=== PATIENT | female | born 1960 | race Caucasian/White ===

== ENCOUNTER 2016-06-11 14:33 | Inpatient (IN) | payer OTHER ==
[~2016-06-11] VITALS: Ht 177.8 cm; Wt 131.3 kg
[~2016-06-11 14:33] MED LIST: ADV250INH INH; ALDA50TA2 PO; BACITAB3 PO; CHIL1CHW5 PO; CIPR25SS OR; CYCL10TA PO; ETOD30CA PO; FURO1TAB15 PO; GABA300C3 PO; HARV1TAB PO; KEFL500C7 PO; LACT10SO29 PO; LACT10SO8 OR; LACT20EL PO; LASI40TA PO; LEVO125T3 PO; LEVO150T9 PO; LEVO200T4 PO; LEVO25TA5 PO; LEVO300T3 PO; MYCOSTATIN; OXYB5TA PO; OXYB5TAB5 PO; PRAZ2CAP PO; PRED10TA PO; PRIL20CA9 PO; PRIS100T PO; RIBA200T2 PO; SERT-141 PO; SPIR50TA2 PO; SYNT150T PO; XIFA550T PO
--- NOTE | 2016-06-11 15:34 | REP ---
Chest one-view HISTORY: Chest pain Comparison: 05/24/2016 The lungs are clear. The heart is normal in size. The pulmonary vasculature is normal in appearance. Impression: No acute disease. Signed by Rajeev Harrell MD 06/11/2016 03:26 P
[2016-06-11 16:34] LABS: DIFF SLIDE NUMBER 209; MEAN CORPUSCULAR HEMOGLOBIN 35.9 pg (27.0-33.0); MEAN CORPUSCULAR HGB CONC 32.5 g/dl (32.0-36.5); MEAN CORPUSCULAR VOLUME 110.5 fl (80.0-96.0); RED CELL DISTRIBUTION WIDTH 13.7 % (11.5-14.5); WHITE BLOOD COUNT 3.2 K/mm3 (4.0-10.0)
[2016-06-11 16:35] LABS: ALBUMIN 2.3 GM/DL (3.2-5.2); ALBUMIN/GLOBULIN RATIO 0.52 (1.00-1.93); ALKALINE PHOSPHATASE 128 U/L (45-117); ALT/SGPT 16 U/L (12-78); ANION GAP 8 MEQ/L (8-16); AST/SGOT 20 U/L (15-37); BILIRUBIN,TOTAL 5.6 MG/DL (0.2-1.0); BLOOD UREA NITROGEN 29 MG/DL (7-18); CALCIUM LEVEL 8.8 MG/DL (8.5-10.1); CARBON DIOXIDE LEVEL 30 MEQ/L (21-32); CHLORIDE LEVEL 105 MEQ/L (98-107); CREATININE FOR GFR 1.89 MG/DL (0.55-1.02); GLOMERULAR FILTRATION RATE 29.2 (>51); GLUCOSE, FASTING 108 MG/DL (70-105); PLATELET COUNT, AUTOMATED 85 k/mm3 (150-450); POTASSIUM SERUM 4.2 MEQ/L (3.5-5.1); SODIUM LEVEL 143 MEQ/L (136-145); TOTAL PROTEIN 6.7 GM/DL (6.4-8.2)
[2016-06-11] MEDS ORDERED: fentaNYL 100 MCG/2 ML INJECTION (J3010) As Ordered ONE (16:45)
[2016-06-11 17:08] LABS: EOSINOPHILS 6 % (0-5)
[2016-06-11] MEDS ORDERED: LACT10SO29 PO (17:34)
[2016-06-11] MEDS ORDERED: ETOD30CA PO (17:34)
[2016-06-11] MEDS ORDERED: TORS10TA3 PO (17:34)
[2016-06-11] MEDS: NS 1,000 ML IV SCH (17:34)
[2016-06-11] MEDS ORDERED: CARV3.12 PO (17:34)
[2016-06-11 17:38] LABS: MAGNESIUM LEVEL 1.9 MG/DL (1.8-2.4)
[2016-06-11 17:39] LABS: INR 1.64
[2016-06-11] MEDS ORDERED: ACETAMINOPHEN TAB 650MG DOSE (2X325MG) PO PRN (17:45)
[2016-06-11] MEDS ORDERED: ONDANSETRON 4MG/2ML VIAL (J2405) IV PRN (17:45)
[2016-06-11] MEDS ORDERED: LACTULOSE 20 GM/30 ML SYRUP UD PO SCH (21:00)
[2016-06-11] MEDS: PRAZOSIN 1 MG CAP PO SCH (21:00)
--- NOTE | 2016-06-11 21:25 | HPE ---
DATE OF ADMISSION: 06/11/2016 TIME PATIENT WAS SEEN: 1700 hours Patient's primary care provider is Dr. Goode. CHIEF COMPLAINT: Fall and broke left ankle. HISTORY OF THE PRESENT ILLNESS: A 56-year-old female with a past medical history of hepatic encephalopathy, cirrhosis and alcohol use history, hepatitis C, currently receiving treatment, pancytopenia, hyperbilirubinemia, thyroid nodule, undergoing workup, anxiety, post-traumatic stress disorder (PTSD), tobacco abuse, overactive bladder, peripheral vascular disease and obesity, presented with fall this afternoon and broke her left ankle. Per patient, she has been feeling weak for the past few weeks after discharge home earlier this month from hepatic encephalopathy. The patient stated that she walked a few steps and then she felt dizzy and weakness of the legs, then she felt like she was going to pass out and she fell. She twisted her left ankle and landed on the right side. At this time, the patient's daughter, whose name is Ericka Bustamante, came over to help her to stand up, and she could not stand up. After about 15 minutes, she passed out completely for a few minutes, then she woke up subsequently. According to the patient, she has been taking lactulose faithfully and about 3 weeks ago, she was started on Harvoni for her hepatitis C and as per patient, she has been drinking plenty of water; however, she has not been eating much over the past few weeks. She is mostly bed-bound due to she has been feeling tired for many weeks. She also reports to 14 pounds of weight loss over the past several months. Otherwise, the patient denies any fever. Admits to chronic chills. Denies any trouble breathing, any chest pain, any abdominal pain, nausea, vomiting or constipation. She does have diarrhea constantly from lactulose use. Denies any blood in the stool, however. ALLERGIES: The patient is allergic to PENICILLIN which gives her anaphylactic response. She is also allergic to SULFA DRUGS which gives her hives. However, she could not go into details. HOME MEDICATIONS: Include: - carvedilol 3.125 mg one tablet by mouth twice a day - Pristiq 100 mg one tablet by mouth daily - etodolac 300 mg one tablet by mouth three times a day - gabapentin 300 mg one tablet by mouth nightly - Harvoni 90-400 mg one tablet by mouth daily - lactulose 30 mL by mouth four times a day - Synthroid 300 mcg one tablet by mouth daily - oxybutynin 5 mg one tablet by mouth twice a day - prazosin 2 mg one tablet by mouth nightly - ribavirin 600 mg one tablet by mouth twice a day - rifaximin 550 mg one tablet by mouth twice a day - torsemide 10 mg one tablet by mouth twice a day PAST MEDICAL HISTORY: Pancytopenia. Hyperbilirubinemia. Recent thyroid nodule, undergoing workup on the right side. Anxiety. Depression. Cirrhosis with alcohol use history. Hepatitis C. Hypothyroidism. PTSD. Tobacco abuse. Overactive bladder. Peripheral vascular disease. Obesity. Lower extremity edema. PAST SURGICAL HISTORY: Laparoscopic cholecystectomy. Hysterectomy. Bartholin gland drainage. SOCIAL HISTORY: The patient used to be an alcoholic, last alcohol use was 3 months ago. Still smokes about six cigarettes a day for the past 30 years. The patient also used to abuse illicit drugs. However, she has not used any illicit drugs for at least a few years. FAMILY HISTORY: Mother had glaucoma and congestive heart failure (CHF).Father had a heart problem and had a pacemaker. REVIEW OF SYSTEMS: GENERAL: The patient had weight loss of about 14 pounds over the past few months. Denies any fever. Admits to chills. Admits to not having a good appetite for the past few weeks. However, she states that she is drinking plenty of water. Denies any recent traveling or any sick contact. HEENT: The patient denies any changes with vision, smell, hearing or taste. Denies any sore throat. Admits to coughing a week ago. CARDIOVASCULAR: Denies any chest pain or trouble breathing. PULMONARY: Denies any trouble breathing. GASTROINTESTINAL: Denies any abdominal pains, nausea, vomiting or constipation. Admits to diarrhea. Denies any blood in the stool. GENITOURINARY: Denies any problem with urination; however, she does admit to urinating less than usual. Denies any blood in the urine. MUSCULOSKELETAL: Admits to chronic back pain. ENDOCRINE: Admits to hypothyroidism and feeling chills all the time. Denies any diabetes. HEMATOLOGY/ONCOLOGY: Denies any bruising anywhere. Denies any bleeding anywhere. SKIN: Denies any rash or ulceration. The patient admits to a thyroid nodule on the right side, undergoing workup. PSYCHIATRIC: Admits to anxiety, depression and PTSD. NEUROLOGIC: Denies any weakness on any one side of her body. Admits to bilateral leg weakness. Denies any change of sensations. PHYSICAL EXAMINATION: VITAL SIGNS: Blood pressure 102/50, pulse 59, respirations 21, temperature 97.1 with oxygen saturating at 97% on room air. Weight was 134 kg. Height was 177.8 cm. GENERAL: The patient is a morbidly obese elderly female who was alert, awake, oriented times three, appears to be in mild distress, resting comfortably in her bed, also appears to be jaundiced. HEENT: Normocephalic, atraumatic. Extraocular motor intact. Mucosa moist. The patient does have scleral icterus. NECK: Supple. No palpable neck lymphadenopathy. CARDIOVASCULAR: Regular rate and rhythm. S1, S2. Difficult to auscultate due to body habitus. LUNGS: Clear to auscultation bilaterally. No wheezing, rales, or rhonchi. Appears to have some degree of increased AP diameter. ABDOMEN: Obese. Positive bowel sounds, soft, nontender, nondistended. No peritoneal signs. No ecchymosis. EXTREMITIES: The patient does have some nonpitting edema of the left ankle, and the patient does have a venous stasis ulcer of bilateral ankle as well and the left ankle has reduced range of motion. However, posterior pedal and anterior tibia pulses were palpable bilaterally. SKIN: Warm and dry. NEUROLOGICAL: The patient does have significant asterixis. LABORATORY DATA: WBC 3.2, hemoglobin 11.8, hematocrit 36.3 with a platelet count of 85, MCV of 110.5. Chemistry: Sodium 143, potassium 4.2, chloride 105, bicarbonate 30, BUN 29,creatinine 1.89 with a GFR of 29.2 and fasting glucose of 108. Lactic acid was 3, phosphorus 5, elevated magnesium 1.9, total bilirubin 5.6, direct bilirubin 3 , AST 20, ALT 16, alkaline phosphatase 128, ammonia level was 37, total CK 51, CK-MB 1, troponin less than 0.02, protein 6.7, albumin was only 2.3. PT 19.5, INR was 1.64. No culture. The patient had a portable chest x-ray in the emergency room, shows no acute disease. The patient also had a foot x-ray, ankle x-ray and knee x-ray in the emergency room. It shows that the patient has a fibular fracture on the left side and also possible medial and posterior malleolus fracture. The patient also had a CT head. Did not show any acute findings. ASSESSMENT AND PLAN: A 56-year-old female with a past medical history of hepatic encephalopathy, cirrhosis possibly from alcohol usage, also hepatitis C, hypothyroidism, pancytopenia, hyperbilirubinemia, recently diagnosed thyroid nodule, anxiety, post-traumatic stress disorder, tobacco abuse, overactive bladder, peripheral vascular disease and obesity, also lower extremity edema, presented with: 1. Presyncope and fall, likely secondary to dehydration and prerenal azotemia and also contributed by metabolic encephalopathy from renal failure as well as hepatic encephalopathy. CT of the head did not show any acute findings. EKG did not show any ST elevation or any arrhythmia. Will continue neurologic checks every [address] the patient in a cardiac telemetry monitoring unit and will investigate cause for patient's presyncope. Will continue to obtain orthostatic vital signs and continue to monitor the patient. Check orthostatics and echo. 2. Left ankle fracture. X-ray shows the patient has a left fibula and possible medial and posterior malleolus fracture. Emergency room has plans to place a posterior splint and Dr. Astudillo from orthopedic surgery has been consulted and will round on the patient. At this point, will control pain with morphine 2 mg every 4 hours and continue to monitor the patient. 3. Hypotension. The patient's blood pressure at home systolic was usually more than 130. However, the patient's blood pressure in the emergency room was 102. Therefore, will hold the patient's carvedilol and torsemide and continue to monitor the patient. 4. Acute kidney injury with a creatinine of 1.89. Baseline creatinine is around 1. Likely secondary to prerenal azotemia. Will also calculate fractional excretion of sodium (FENa). Currently will hold carvedilol and torsemide and will reduce lactulose from four times a day to twice a day and will continue to trend the patient's renal function and monitor patient's intake and output. Due the patient has an ankle fracture and need for critical monitoring, will insert a Castaneda for comfort and also better monitoring. Also, will continue the patient on IV fluid at a rate of 80 mL per hour. 5. Pancytopenia with a WBC of 3.2. Hemoglobin 11.8, hematocrit 36.3 and platelet count of 85, MCV 110, which is likely secondary to cirrhosis. Will continue to monitor. Will obtain fecal occult blood to rule out other etiologies for anemia. 6. Hyperbilirubinemia with a total bilirubin of 5.6, direct bilirubin of 3. It is likely secondary to cirrhosis. Will continue to monitor and continue the patient on home medication. 7. Hyperammonemia with ammonia level of 37. Continue lactulose at a lower dose due to acute kidney injury at a rate of twice per day from four times per day and continue to monitor the patient. Patient reports many episodes of diarrhea daily while on her current dose of lactulose. 8. Anxiety/depression. Continue home medications. 9. Cirrhosis. Likely secondary to alcohol usage. Also contributed by hepatitis C. Will continue to monitor and continue home medications. 10. Hepatitis C. Currently under treatment with Harvoni. Will continue home medication Harvoni and also ribavirin and continue to monitor the patient. 11. Hypothyroidism. Continue home Synthroid. 12. Post-traumatic stress disorder. Continue home medication. 13. Tobacco abuse. The patient refuses nicotine patch. Will continue to monitor. 14. Overactive bladder. The patient will have a Castaneda. Therefore, oxybutynin has been discontinued for now, which could also contribute to the patient's dizziness and confusion. 15. Peripheral vascular disease. Continue to monitor. Stable. 16. Obesity and snoring at night. Will continue to monitor the patient for any signs of obstructive sleep apnea. The patient may need outpatient workup for obstructive sleep apnea if it has not been worked up already. 17. Deep vein thrombosis (DVT) prophylaxis. Sequential compression device (SCD) on the right side. The patient has thrombocytopenia. Therefore, no chemical prophylaxis was started. DISPOSITION: Will continue to monitor the patient's renal function, continue gentle hydration and will monitor the patient's ammonia level and rule out etiologies for the patient's presyncope. The patient has been discussed with attending doctor, Dr. Shafer. My preceptor for this patient encounter was Dr. Shafer. The preceptor was physically present in the building during the encounter and was fully available. As needed, all aspects of the patient interview, examination, medical decision making process, and medical care plan development were reviewed and approved by the preceptor. The preceptor is aware and concurs with the plan as stated in the body of this note and will attest to such by his/her co-signature. PRAKASH
--- NOTE | 2016-06-11 21:31 | EDDOCDS ---
Physician Documentation [facility] Name: Mirian Ibarra Age: 56 yrs Sex: Female : 1960 Arrival Date: 06/11/2016 Time: 14:33 Bed 12 Private MD: Aubrey Goode MD Disposition: 06/11/16 17:03 Hospitalization ordered by Shahrzad Shafer for Inpatient Admission. Preliminary diagnosis are Acute kidney failure, Syncope and collapse, Comminuted fracture of shaft of fibula. - Bed requested for PCU. - Status is Inpatient Admission. jp6 - Condition is Stable. - Problem is new. - Symptoms have improved. Historical: - Allergies: PENICILLINS (Anaphylaxis); SULFA (SULFONAMIDES) (Unknown); - Home Meds: 1. carvedilol 3.125 mg oral tab 1 tab every 12 hours 2. levothyroxine 300 mcg Oral tab once daily 3. Harvoni 90-400 mg oral tab 1 tab once daily 4. Xifaxan 550 mg oral tab 1 tab 2 times per day 5. Pristiq 100 mg Oral Tb24 1 tab once daily 6. ribavirin oral 3 caps 2 times per day 7. gabapentin 300 mg Oral tab 300 mg daily 8. oxybutynin chloride 5 mg Oral tab 1 tab 2 times per day 9. Lactulose Oral Unknown 3 times per day 10. torsemide 20 mg oral tab 1 tab bid 11. etodolac 300 mg Oral cap 1 cap 3 times per day 12. prazosin 2 mg Oral cap 1 cap - PMHx: Anxiety; Cirrhosis; Depression; Hepatitis C; Hypothyroidism; PTSD; - PSHx: Cholecystectomy; Hysterectomy; Bartholin Gland drained; - Social history: No barriers to communication noted, The patient speaks fluent Greek, Smoking status: Patient uses tobacco products, heavy tobacco smoker. - Family history: Not pertinent. - : The pt / caregiver states he / she is not on anticoagulants. Home medication list is obtained from the patient. - Exposure Risk Screening:: None identified. Vital Signs: 06/11 14:57 BP 102 / 50; Pulse 59; Resp 21; Temp 97.1(O); Pulse Ox 97% ; Weight 134.72 kg / 297.01 jmk lbs; Height 5 ft. 10 in. (177.80 cm) (R); Pain 10/10; 17:04 BP 111 / 54 (auto/); ml6 17:04 Pulse 60 MON; Resp 18; Pulse Ox 92% on R/A; ml6 17:34 BP 110 / 78 (auto/); ml6 17:34 Pulse 62 MON; Resp 18; Pulse Ox 95% on R/A; ml6 18:04 BP 115 / 58 (auto/); ml6 18:04 Pulse 64 MON; Resp 18; Pulse Ox 96% on R/A; ml6 18:34 BP 113 / 55 (auto/); ml6 18:34 Pulse 64 MON; Resp 18; Pulse Ox 97% ; ml6 20:09 BP 92 / 55; Pulse 63; Resp 18; Temp 98; Pulse Ox 94% ; Pain 10/10; jlm 14:57 Body Mass Index 42.62 (134.72 kg, 177.80 cm) [facility] Procedures: 19:42 Fracture care/splinting: (Stabilizing Care) Splint applied to left leg and left ankle fg using Orthoglass splint, applied by myself. tech. Examined by me, post splint application: neurovascular intact, brisk capillary refill noted, Patient tolerated well, Posterior and u shaped splint applied by myself with padding, secured with lexus wrap. Patient tolerated well. Neurovascularly intact afterwards. . MDM: 14:36 Corn Cooker/Pulse Ox/q 15 min VS ordered. fg 14:36 Accucheck ordered. fg 14:36 IV Saline Lock ordered. fg 14:37 CBC with Diff Ordered. EDMS 14:37 Liver Profile Ordered. EDMS 14:37 MED Profile Ordered. EDMS 14:38 ECG WITH READING ER PHYS+CARDIAG ordered. EDMS 14:55 Chest, 1 View Ordered. EDMS 14:56 Ankle, Complete Ordered. EDMS 14:57 Foot, (AP\E\lat) Ordered. EDMS 15:01 CARDIAC INJURY PROFILE Ordered. EDMS 15:01 TROPONIN Ordered. EDMS 15:05 Knee, (AP\E\Lat) Ordered. EDMS 15:30 Financial registration complete. gjb 15:32 [facility] [place] Payment Agreement was scanned into [employer] and attached to record. gjb 16:31 fentaNYL (PF) 25 mcg IVP once ordered. fg 16:31 NS 0.9% 500 ml IV at bolus once ordered. fg 16:37 DIFFERENTIAL NO CHARGE Ordered. EDMS 17:01 NS 0.9% 1000 ml IV at bolus once ordered. fg 17:02 CT Head Without Contrast Ordered. EDMS 17:04 NS 0.9% 500 ml IV at bolus once ordered. fg 17:24 AMMONIA Ordered. EDMS 17:25 PROTHROMBIN TIME PROFILE\E\INR Ordered. EDMS 17:25 LACTIC ACID LEVEL, LACTATE Ordered. EDMS 17:25 URINALYSIS Ordered. EDMS 17:25 URINE CULTURE Ordered. EDMS 17:25 RENAL US Ordered. EDMS 17:27 SODIUM,RANDOM URINE Ordered. EDMS 17:27 CREATININE,RANDOM URINE Ordered. EDMS 17:38 OTHER CUSTOM DIETS ordered. EDMS 18:15 Admission / Observation Status ordered. EDMS 18:56 AMMONIA Ordered. EDMS 19:02 THYROID STIMULATING HORMONE Ordered. EDMS 19:31 COMPLETE COMPHRENSIVE METABOLI Ordered. EDMS 19:31 CBC WITH DIFFERENTIAL Ordered. EDMS 19:31 AMMONIA Ordered. EDMS 20:34 Castaneda ordered. jp6 20:54 NS 0.9% 1000 ml IV at 80 mL/hr continuous ordered. jp6 Administered Medications: 16:51 Drug: fentaNYL (PF) 25 mcg [fentanyl (PF) 50 mcg/mL injection solution (0.5 mL)] Route: ml6 IVP; Site: right antecubital; 17:04 Drug: NS 0.9% 1000 ml [sodium chloride 0.9 % intravenous solution] Route: IV; Rate: jmk bolus; Site: right antecubital; 18:56 Follow up: IV Status: Completed infusion; Infusion discontinued; IV Intake: 1000ml ml6 17:05 Not Given (Duplicate Order): NS 0.9% 500 ml IV at bolus once fg 20:54 Drug: NS 0.9% 1000 ml [sodium chloride 0.9 % intravenous solution] Route: IV; Rate: 80 jp6 mL/hr; Site: right antecubital; Signatures: Dispatcher [employer] EDMS Jonna Soto, ELECTRICAL AUTOMATION ENGINEER ELECTRICAL AUTOMATION ENGINEER [id number] Srinath Archuleta,RN RN [id number] Claribel Rosas MD MD fg Beck, Gabriela gjb Palmer, Jessica, RN RN jp6 Hernando Noonan RN, Matthew RN ml6 The chart was reviewed and I authenticate all verbal orders and agree with the evaluation and treatment provided.Corrections: (The following items were deleted from the chart) 15:01 14:54 CARDIAC INJURY PROFILE+LAB ordered. EDMS EDMS 15:01 14:54 TROPONIN+LAB ordered. EDMS EDMS 15:12 14:36 Orthostatic VS ordered. fg ml6 15:15 15:02 Ankle, complete+XR ordered. EDMS EDMS 17:32 17:25 MAGNESIUM LEVEL ordered. EDMS EDMS 17:32 17:25 PHOSPHOROUS LEVEL ordered. EDMS EDMS 19:02 18:56 THYROID STIMULATING HORMONE ordered. EDMS EDMS Attachments: 15:32 [facility] Payment Agreement gjb [email or web address]
--- NOTE | 2016-06-11 21:31 | EDDOCDS ---
Nurse's Notes [facility] Name: Mirian Ibarra Age: 56 yrs Sex: Female : 1960 Arrival Date: 06/11/2016 Time: 14:33 Bed 12 Private MD: Aubrey Goode MD Diagnosis: Acute kidney failure;Syncope and collapse;Comminuted fracture of shaft of fibula Presentation: 06/11 14:43 Presenting complaint: Patient states: "I got dizzy and I fell. It felt like I was gonna mb9 pass out". pt complains of pain to left ankle. pt reports loss of consciousness. Status: Patient is not a information services consultant or dependent. Suicide/Homicide risk assessment- the patient denies having any suicidal and/or homicidal ideations. Transition of care: patient was not received from another setting of care. 14:43 Acuity: ANICETO Level 3 mb9 14:43 Method Of Arrival: Ambulance mb9 15:02 Adult Sepsis Screening: The patient does not have new or worsening altered mentation. mb9 Patient's respiratory rate is less than 22. Systolic blood pressure is greater than 100. Patient has a qSOFA score of 0- Negative Sepsis Screen. Acuity level changed due to. Triage Assessment: 14:43 General: Appears unkempt. Pain: Location: left lateral ankle Pain currently is 10 out mb9 of 10 on a pain scale. Neurological: Reports numbness weakness headache. Neurological: Reports dizziness. Respiratory: Airway is patent Respiratory effort is even, unlabored. 15:02 HIV screening NA for this visit Offered previously. mb9 Historical: - Allergies: PENICILLINS (Anaphylaxis); SULFA (SULFONAMIDES) (Unknown); - Home Meds: 1. carvedilol 3.125 mg oral tab 1 tab every 12 hours 2. levothyroxine 300 mcg Oral tab once daily 3. Harvoni 90-400 mg oral tab 1 tab once daily 4. Xifaxan 550 mg oral tab 1 tab 2 times per day 5. Pristiq 100 mg Oral Tb24 1 tab once daily 6. ribavirin oral 3 caps 2 times per day 7. gabapentin 300 mg Oral tab 300 mg daily 8. oxybutynin chloride 5 mg Oral tab 1 tab 2 times per day 9. Lactulose Oral Unknown 3 times per day 10. torsemide 20 mg oral tab 1 tab bid 11. etodolac 300 mg Oral cap 1 cap 3 times per day 12. prazosin 2 mg Oral cap 1 cap - PMHx: Anxiety; Cirrhosis; Depression; Hepatitis C; Hypothyroidism; PTSD; - PSHx: Cholecystectomy; Hysterectomy; Bartholin Gland drained; - Social history: No barriers to communication noted, The patient speaks fluent Tongan, Smoking status: Patient uses tobacco products, heavy tobacco smoker. - Family history: Not pertinent. - : The pt / caregiver states he / she is not on anticoagulants. Home medication list is obtained from the patient. - Exposure Risk Screening:: None identified. Screenin:09 Screening information is obtained from the patient. Fall risk: No risks identified. ml6 Assistance ADL's: requires no assistance with activities of daily living. Abuse/DV Screen: The patient / caregiver reports he/she is: not in a situation that causes fear, pain or injury. Nutritional screening: No deficits noted. Advance Directives: Currently, there is. Advance Directives: Currently, there is no health care proxy. home support is adequate. Assessment: 15:15 General: Appears in no apparent distress, Behavior is anxious, cooperative. Pain: ml6 Location: left knee, anterior aspect of left ankle and dorsum of left foot Pain currently is 6 out of 10 on a pain scale. Pain does not radiate. Quality of pain is described as aching, Pain began 4 hours ago Is continuous Alleviated by nothing. Aggravated by increased activity. Neurological: No deficits noted. Level of Consciousness is awake, alert, Oriented to person, place, time. Cardiovascular: No deficits noted. Capillary refill < 3 seconds is brisk. Musculoskeletal: Circulation, motion, and sensation intact Capillary refill < 3 seconds is brisk in bilateral fingers toes Range of motion limited in left hip, left knee and left ankle No deformity noted Swelling present in left knee, anterior aspect of left ankle and dorsum of left foot. 16:20 Reassessment: Patient appears in no apparent distress at this time. Patient denies pain ml6 at this time. Patient states feeling better. Patient states symptoms have improved. 17:20 Reassessment: Patient appears in no apparent distress at this time. Patient denies pain ml6 at this time. Patient states feeling better. Patient states symptoms have improved. 18:21 General: Appears in no apparent distress, Behavior is appropriate for age, cooperative. ml6 Pain: Denies pain. Neurological: No deficits noted. Level of Consciousness is awake, alert, Oriented to person, place, time. Cardiovascular: No deficits noted. Respiratory: No deficits noted. 19:45 Reassessment: Patient appears in no apparent distress at this time. General: Appears in jp6 no apparent distress, obese, Behavior is appropriate for age, cooperative, drowsy. Pain: Location: left leg Pain currently is 5 out of 10 on a pain scale. At worst was 10 out of 10 on a pain scale. Noted to be droswy. Neurological: No deficits noted. Level of Consciousness is awake, alert, Oriented to person, place, time. EENT: No deficits noted. Cardiovascular: No deficits noted. Capillary refill < 3 seconds. Respiratory: No deficits noted. Airway is patent Respiratory effort is even, unlabored, Respiratory pattern is regular, symmetrical, Breath sounds are clear. GI: Abdomen is obese, Bowel sounds present X 4 quads. : Castaneda in place. Derm: Skin is juan carlos Skin temperature is warm. Musculoskeletal: Circulation, motion, and sensation intact Capillary refill < 3 seconds is brisk in bilateral toes Range of motion limited in left leg. Vital Signs: 14:57 BP 102 / 50; Pulse 59; Resp 21; Temp 97.1(O); Pulse Ox 97% ; Weight 134.72 kg; Height 5 jmk ft. 10 in. (177.80 cm) (R); Pain 10/10; 17:04 BP 111 / 54 (auto/); ml6 17:04 Pulse 60 MON; Resp 18; Pulse Ox 92% on R/A; ml6 17:34 BP 110 / 78 (auto/); ml6 17:34 Pulse 62 MON; Resp 18; Pulse Ox 95% on R/A; ml6 18:04 BP 115 / 58 (auto/); ml6 18:04 Pulse 64 MON; Resp 18; Pulse Ox 96% on R/A; ml6 18:34 BP 113 / 55 (auto/); ml6 18:34 Pulse 64 MON; Resp 18; Pulse Ox 97% ; ml6 20:09 BP 92 / 55; Pulse 63; Resp 18; Temp 98; Pulse Ox 94% ; Pain 10/10; jlm 14:57 Body Mass Index 42.62 (134.72 kg, 177.80 cm) jmk Vitals: 14:43 Log In Time N/A - ambulance arrival. mb9 ED Course: 14:34 Patient visited by Abiodun Villarreal PCA. jlf 14:34 Aubrey Goode is Private Physician. jlf 14:34 Patient moved to Waiting jlf 14:35 Patient moved to 12 jlf 14:37 Claribel Rosas MD is Attending Physician. fg 14:38 Patient visited by Claribel Rosas MD. fg 14:44 Triage Initiated mb9 15:12 Patient visited by Kayce Levi RN. ttb 15:12 Patient moved to Radiology ml6 15:30 EKG done. (by ED staff). Reviewed by Claribel Rosas MD. dem1 15:32 [facility] [place] was [place] into [employer] and attached to record. gjb 15:33 Patient moved to 12 tmb 15:34 Patient visited by Elisa Godfrey. dem1 15:37 Chest, 1 View Returned. EDMS 15:49 Patient visited by Brandon Tena, KAREN. ml6 16:08 The patient / caregiver is instructed regarding the plan of care and ED course. Cardiac ml6 monitor on. Pulse ox on. NIBP on. 16:08 Inserted peripheral IV: 18gauge IV in right antecubital area and blood collected. ml6 Patient tolerated the procedure well. No procedures done that require assistance. Labs drawn. (by ED staff). Sent per order to lab. 16:43 Patient visited by Brandon Tena, KAREN. ml6 16:51 DIFFERENTIAL NO CHARGE Sent. ml6 17:01 Patient visited by Brandon Tena, KAREN. ml6 17:02 Shahrzad Shafer is Hospitalizing Provider. fg 17:51 Patient visited by Brandon Tena, KAREN. ml6 19:01 Patient moved to Ultrasound am17 19:50 Nina Gilliam,RN is Primary Nurse. jp6 20:10 Patient visited by Nessa Head, Director Marketing. jlm 20:32 URINE CULTURE Sent. jp6 20:32 URINALYSIS Sent. jp6 20:36 Patient moved to 12 ng1 Administered Medications: 16:51 Drug: fentaNYL (PF) 25 mcg [fentanyl (PF) 50 mcg/mL injection solution (0.5 mL)] Route: ml6 IVP; Site: right antecubital; 17:04 Drug: NS 0.9% 1000 ml [sodium chloride 0.9 % intravenous solution] Route: IV; Rate: jmk bolus; Site: right antecubital; 18:56 Follow up: IV Status: Completed infusion; Infusion discontinued; IV Intake: 1000ml ml6 17:05 Not Given (Duplicate Order): NS 0.9% 500 ml IV at bolus once fg 20:54 Drug: NS 0.9% 1000 ml [sodium chloride 0.9 % intravenous solution] Route: IV; Rate: 80 jp6 mL/hr; Site: right antecubital; Intake: 18:56 IV: 1000.00ml; Total: 1000.00ml. ml6 Order Results: Lab Order: CBC with Diff; SPEC'M 06/11/16 16:05 Test: WHITE BLOOD COUNT; Value: 3.2; Range: 4.0-10.0; Abnormal: Below low normal; Units: K/mm3; Status: F Test: RED BLOOD COUNT; Value: 3.28; Range: 4.00-5.40; Abnormal: Below low normal; Units: M/mm3; Status: F Test: HEMOGLOBIN; Value: 11.8; Range: 12.0-16.0; Abnormal: Below low normal; Units: g/dl; Status: F Test: HEMATOCRIT; Value: 36.3; Range: 36.0-47.0; Units: %; Status: F Test: MEAN CORPUSCULAR VOLUME; Value: 110.5; Range: 80.0-96.0; Abnormal: Above high normal; Units: fl; Status: F Test: MEAN CORPUSCULAR HEMOGLOBIN; Value: 35.9; Range: 27.0-33.0; Abnormal: Above high normal; Units: pg; Status: F Test: MEAN CORPUSCULAR HGB CONC; Value: 32.5; Range: 32.0-36.5; Units: g/dl; Status: F Test: RED CELL DISTRIBUTION WIDTH; Value: 13.7; Range: 11.5-14.5; Units: %; Status: F Test: PLATELET COUNT, AUTOMATED; Value: 85; Range: 150-450; Abnormal: Below low normal; Units: k/mm3; Status: F Test: NEUTROPHILS; Value: 61; Range: 35-75; Units: %; Status: F Test: LYMPHOCYTES; Value: 13; Range: 16-52; Abnormal: Below low normal; Units: %; Status: F Test: MONOCYTES; Value: 18; Range: 0-8; Abnormal: Above high normal; Units: %; Status: F Test: EOSINOPHILS; Value: 6; Range: 0-5; Abnormal: Above high normal; Units: %; Status: F Test: ATYPICAL LYMPH; Value: 2; Range: 0-5; Units: %; Status: F Test: MACROCYTOSIS; Value: 2+; Status: F Lab Order: Liver Profile; [facility] 06/11/16 16:05 Test: AST/SGOT; Value: 20; Range: 15-37; Units: U/L; Status: F Test: ALT/SGPT; Value: 16; Range: 12-78; Units: U/L; Status: F Test: ALKALINE PHOSPHATASE; Value: 128; Range: 45-117; Abnormal: Above high normal; Units: U/L; Status: F Test: BILIRUBIN,TOTAL; Value: 5.6; Range: 0.2-1.0; Abnormal: Above high normal; Units: MG/DL; Status: F Test: BILIRUBIN,DIRECT; Value: 3.0; Range: 0.0-0.2; Abnormal: Above high normal; Units: MG/DL; Status: F Test: TOTAL PROTEIN; Value: 6.7; Range: 6.4-8.2; Units: GM/DL; Status: F Test: ALBUMIN; Value: 2.3; Range: 3.2-5.2; Abnormal: Below low normal; Units: GM/DL; Status: F Test: ALBUMIN/GLOBULIN RATIO; Value: 0.52; Range: 1.00-1.93; Abnormal: Below low normal; Status: F Test: THYROID STIMULATING HORMONE; Range: 0.358-3.740; Units: uIU/ML; Status: I Lab Order: MED Profile; [facility] 06/11/16 16:05 Test: GLUCOSE, FASTING; Value: 108; Range: 70-105; Abnormal: Above high normal; Units: MG/DL; Status: F Test: BLOOD UREA NITROGEN; Value: 29; Range: 7-18; Abnormal: Above high normal; Units: MG/DL; Status: F Test: CREATININE FOR GFR; Value: 1.89; Range: 0.55-1.02; Abnormal: Above high normal; Units: MG/DL; Status: F Test: GLOMERULAR FILTRATION RATE; Value: 29.2; Range: >51; Abnormal: Below low normal; Status: F Test: SODIUM LEVEL; Value: 143; Range: 136-145; Units: MEQ/L; Status: F Test: POTASSIUM SERUM; Value: 4.2; Range: 3.5-5.1; Units: MEQ/L; Status: F Test: CHLORIDE LEVEL; Value: 105; Range: 98-107; Units: MEQ/L; Status: F Test: CARBON DIOXIDE LEVEL; Value: 30; Range: 21-32; Units: MEQ/L; Status: F Test: ANION GAP; Value: 8; Range: 8-16; Units: MEQ/L; Status: F Test: CALCIUM LEVEL; Value: 8.8; Range: 8.5-10.1; Units: MG/DL; Status: F Test Note: ; Units are mL/min/1.73 m2 Chronic Kidney Disease Staging per NKF: Stage I & II GFR >=60 Normal to Mildly Decreased Stage III GFR 30-59 Moderately Decreased Stage IV GFR 15-29 Severely Decreased Stage V GFR <15 Very Little GFR Left ESRD GFR <15 on [employer] Lab Order: CARDIAC INJURY PROFILE; SPEC'06/11/16 16:05 Test: CPK CREATINE PHOSPHOKINASE; Value: 51; Range: 26-192; Units: U/L; Status: F Test: CK-MB VALUE MASS; Value: 1.0; Range: 0.0-3.6; Units: NG/ML; Status: F Test: MB/CK RELATIVE INDEX; Value: 1.96; Range: < OR =4; Status: F Test Note: ; DIAGNOSIS CRITERIA MMB ng/ml Relative Index (RI) NON-AMI < or = 5 N/A LLAN[place] ZONE > 5 < or = 4 AMI > 5 > 4 Lab Order: TROPONIN; SPEC'M 06/11/16 16:05 Test: TROPONIN I; Value: < 0.02; Range: < 0.10; Units: NG/ML; Status: F Test Note: ; Troponin I Reference Interval for [employer] LOCI: 99th Percentile= 0.00-0.045 ng/ml Risk Stratification: <= 0.10 ng/ml Decreased Risk for Adverse Clinical Events. 0.10-1.50 ng/ml Increased Risk for Adverse Clinical Events. Evaluation of additional criterion and/or repeat testing in 2-6 hours is suggested to rule out myocardial damage. >= 1.50 ng/ml Indicative of Myocardial Injury. Lab Order: PLATELET ESTIMATE; [facility] 06/11/16 16:05 Test: PLATELET ESTIMATE; Value: DECREASED; Range: NORMAL; Status: F Lab Order: AMMONIA; [facility] 06/11/16 17:39 Test: AMMONIA; Value: 37; Range: <32; Abnormal: Above high normal; Units: uMOL/L; Status: F Lab Order: PROTHROMBIN TIME PROFILE\\E\\INR; [facility] 06/11/16 16:05 Test: PROTHROMBIN TIME; Value: 19.5; Range: 12.3-14.5; Abnormal: Above high normal; Units: SECONDS; Status: F Test: INR; Value: 1.64; Status: F Test Note: ; THERAPUTIC HUMAN INR VALUES INDICATIONS NORMAL RANGES PROPHYLAXIS/TREATMENT OF: VENOUS THROMBOSIS 2.0-3.0 PULMONARY EMBOLISM 2.0-3.0 PREVENTION OF SYSTEMIC EMBOLISM FROM: TISSUE HEART VALVES 2.0-3.0 ACUTE MYOCARDIAL INFARCTION 2.0-3.0 VALVULAR HEART DISEASE 2.0-3.0 ATRIAL FIBRILLATION 2.0-3.0 MECHANICAL VALVES(HIGH RISK) 2.5-3.5 RECURRENT MYOCARDIAL INFARCTION 2.5-3.5 Lab Order: LACTIC ACID LEVEL, LACTATE; [facility] 06/11/16 17:39 Test: LACTIC ACID LEVEL, LACTATE; Value: 3.0; Range: 0.4-2.0; Abnormal: Above upper panic limits; Units: MMOL/L; Status: F Lab Order: URINALYSIS; [facility] 06/11/16 20:29 Test: APPEARANCE, URINE; Value: HAZY; Range: CLEAR; Status: F Test: COLOR, URINE; Value: BRIDGETTE; Range: YELLOW; Status: F Test: PH,URINE; Value: 5.0; Range: 5.0-9.0; Units: UNITS; Status: F Test: SPECIFIC GRAVITY URINE AUTO; Value: 1.010; Range: 1.002-1.035; Status: F Test: PROTEIN, URINE AUTO; Value: NEGATIVE; Range: NEGATIVE; Units: mg/dL; Status: F Test: GLUCOSE, URINE (UA) AUTO; Value: NEGATIVE; Range: NEGATIVE; Units: mg/dL; Status: F Test: KETONE, URINE AUTO; Value: NEGATIVE; Range: NEGATIVE; Units: mg/dL; Status: F Test: UROBILINOGEN, URINE AUTO; Value: 4.0; Range: 0.0-2.0; Abnormal: Above high normal; Units: mg/dL; Status: F Test: BILIRUBIN, URINE AUTO; Value: 1+; Range: NEGATIVE; Abnormal: Above high normal; Status: F Test: NITRITE, URINE AUTO; Value: NEGATIVE; Range: NEGATIVE; Status: F Test: LEUKOCYTE ESTERASE, URINE AUTO; Value: NEGATIVE; Range: NEGATIVE; Status: F Test: BLOOD, URINE BLOOD; Value: NEGATIVE; Range: NEGATIVE; Status: F Test: WBC, URINE AUTO; Value: 1; Range: 0-3; Units: /HPF; Status: F Test: RBC, URINE AUTO; Value: 1; Range: 0-3; Units: /HPF; Status: F Test: BACTERIA, URINE AUTO; Value: NEGATIVE; Range: NEGATIVE; Status: F Test: SQUAMOUS EPITHELIAL CELL UR AU; Value: 1; Range: 0-6; Units: /HPF; Status: F Test: MUCUS, URINE; Value: SMALL; Range: NEGATIVE; Status: F Test: HYALINE CAST, URINE AUTO; Value: 7; Range: 0-1; Units: /LPF; Status: F Lab Order: SODIUM,RANDOM URINE; [facility] 06/11/16 20:29 Test: SODIUM,RANDOM URINE; Value: 57; Units: MEQ/L; Status: F Lab Order: CREATININE,RANDOM URINE; [facility] 06/11/16 20:29 Test: CREATININE,RANDOM URINE; Value: 119.0; Units: MG/DL; Status: F Lab Order: PHOSPHOROUS LEVEL; [facility] 06/11/16 16:05 Test: PHOSPHORUS LEVEL; Value: 5.0; Range: 2.5-4.9; Abnormal: Above high normal; Units: MG/DL; Status: F Lab Order: MAGNESIUM LEVEL; [facility] 06/11/16 16:05 Test: MAGNESIUM LEVEL; Value: 1.9; Range: 1.8-2.4; Units: MG/DL; Status: F Lab Order: THYROID STIMULATING HORMONE; SPEC'M 06/11/16 16:05 Test: THYROID STIMULATING HORMONE; Value: 0.473; Range: 0.358-3.740; Units: uIU/ML; Status: F Radiology Order: Chest, 1 View Test: Chest, 1 View REASON FOR EXAMINATION: Chest Pain; Chest one-view; ; HISTORY: Chest pain; ; Comparison: 05/24/2016; ; The lungs are clear. The heart is normal in size. The pulmonary vasculature is; normal in appearance.; ; Impression: No acute disease.; ; ; Signed by; Rajeev Harrell MD 06/11/2016 03:26 P; Outcome: 17:03 Decision to Hospitalize by Provider. fg 21:00 Discharge Assessment: Patient awake, alert and oriented x 3. No cognitive and/or jp6 functional deficits noted. Patient verbalized understanding of disposition instructions. patient administered narcotics - yes. Patient was admitted to the hospital or transferred to another facility. Admitted to PCU accompanied by nurse, via stretcher, on monitor, with chart. Condition: stable. No special radiology studies were completed. Admission hand-off: Report called to pcu. Property :Personal belongings accompany Pt. 21:01 The following High Risk Discharge criteria are identified: None. jp6 21:30 Patient left the ED. jp6 Signatures: Dispatcher [employer] EDMS Hernando Noonan,RN RN Brandon Johnson RN RN ml6 Elisa Godfrey Teresa RN RN ttb Abiodun Villarreal, REPAIRER RECREATIONAL VEHICLE REPAIRER RECREATIONAL VEHICLE jlf Ashley Valdez am17 Tomas Sharpe [facility] Nessa Head, Director Marketing Unit [employer] Ryan Michael,RN RN [id number] Claribel Rosas MD MD fg Beck, Gabriela gjb Palmer, Jessica,RN RN jp6 Corrections: (The following items were deleted from the chart) 17:04 14:57 BP 102 / 50; Pulse 59bpm; Resp 21bpm; Pulse Ox 97%; 134.72 kg; Height 5 ft. 10 jmk in. Reported; BMI: 42.6; Pain 10/10; mb9 17:04 16:50 NS 0.9% 500 ml IV at bolus in right antecubital ml6 fg MTDD
[2016-06-11 21:35] VITALS: BP 94/50
[2016-06-11] MEDS: MORPHINE 2 MG/ML 1ML SYRINGE IV PRN (23:04)
[2016-06-11] MEDS: rifAXIMin 550 MG TAB (XIFAXAN) PO SCH (23:05)
[2016-06-11] MEDS: RIBAVIRIN 200 MG PO SCH (23:06)
[2016-06-11] MEDS: GABAPENTIN 300 MG CAP PO SCH (23:06)
[2016-06-12] VITALS: BP 96/46
[2016-06-12 04:00] VITALS: BP 100/60
[2016-06-12 05:27] LABS: DIFF SLIDE NUMBER 57; MEAN CORPUSCULAR HEMOGLOBIN 35.1 pg (27.0-33.0); MEAN CORPUSCULAR HGB CONC 31.4 g/dl (32.0-36.5); RED CELL DISTRIBUTION WIDTH 14.7 % (11.5-14.5); WHITE BLOOD COUNT 4.2 K/mm3 (4.0-10.0)
[2016-06-12] MEDS: LEVOTHYROXINE 0.15 MG TAB (150 MCG) PO SCH (05:28)
[2016-06-12] MEDS: NS 1,000 ML IV SCH ×2 (05:29→16:45)
[2016-06-12 05:30] LABS: ALBUMIN 1.8 GM/DL (3.2-5.2); ALBUMIN/GLOBULIN RATIO 0.47 (1.00-1.93); BILIRUBIN,TOTAL 4.2 MG/DL (0.2-1.0); CALCIUM LEVEL 8.4 MG/DL (8.5-10.1); GLOMERULAR FILTRATION RATE 27.3 (>51); PLATELET COUNT, AUTOMATED 85 k/mm3 (150-450); TOTAL PROTEIN 5.6 GM/DL (6.4-8.2)
[2016-06-12 06:55] LABS: ANISOCYTOSIS 1+; EOSINOPHILS 3 % (0-5)
[2016-06-12 07:30] VITALS: BP 101/50
--- NOTE | 2016-06-12 07:49 | REP ---
Left knee series, AP and lateral: 06/11/2016. Clinical history: Trauma, knee pain. Comparison: 09/13/2014. The two views show spurs in the tibial spines, medial and lateral joint margins and the patellofemoral joint representing tricompartment chondromalacia. A small suprapatellar effusion is difficult to exclude. There is no definite loose body or osteochondral defect. There is some very mild chondrocalcinosis in the medial and lateral compartments as before. Impression: 1. 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 No fracture, loose body, osteochondral defect or focal lesion. 2. There is chondrocalcinosis representing CPPD arthritis (pseudogout). Signed by Elisa Amado MD 06/12/2016 07:22 P
--- NOTE | 2016-06-12 07:51 | REP ---
____LEFT ANKLE: There is a nondisplaced oblique fracture of the distal fibula. An ossified density is present inferior to the medial malleolus. This may represent a fracture fragment. A faint linear lucency is present overlying the posterior malleolus that may represent a fracture. There is widening of the medial joint space. An osteophyte is present on the inferior calcaneus. Soft tissue swelling is present. IMPRESSION: 1. Oblique nondisplaced fracture of the distal fibula. 2. There is an ossified density inferior to the medial malleolus that may represent a fracture fragment. 3. Possible fracture of the posterior malleolus. Signed by Rajeev Harrell MD 06/14/2016 08:35 A
--- NOTE | 2016-06-12 07:52 | REP ---
AP AND LATERAL LEFT FOOT: HISTORY: Pain. A faint linear lucency is present overlying the posterior malleolus that may represent a nondisplaced fracture. The joint spaces are normal in appearance. An osteophyte is present on inferior calcaneus. IMPRESSION: Possible posterior malleolus fracture. Signed by Rajeev Harrell MD 06/14/2016 08:35 A
[2016-06-12] MEDS: LACTULOSE 20 GM/30 ML SYRUP UD PO SCH ×6 (08:38→23:23)
[2016-06-12] MEDS: rifAXIMin 550 MG TAB (XIFAXAN) PO SCH ×2 (08:47→20:31)
[2016-06-12] MEDS: DESVENLAFAXINE ER 50 MG TABLET (PRISTIQ) PO SCH (08:47)
[2016-06-12] MEDS: HARVONI PO SCH (08:48)
[2016-06-12] MEDS: RIBAVIRIN 200 MG PO SCH ×2 (08:49→20:31)
--- NOTE | 2016-06-12 10:16 | REP ---
CT BRAIN WITHOUT CONTRAST: 06/11/2016. Clinical history: Patient fell, trauma. Question LOC. Comparison: 05/24/2016, MRI brain 05/19/2015, CT brain 2014. Findings: Standard noncontrast technique was utilized. Ventricles are midline, symmetric and are not dilated. Third and fourth ventricles are also intact. Basal ganglia were symmetric. Some very minimal white matter heterogeneity suggesting small vessel ischemic white matter changes noted. Some minor atrophy is noted, but there is no vascular territory infarct, hemorrhage, mass or mass effect. No extra-axial fluid collection. Brainstem is unremarkable. Cerebellum shows some atrophy and joanna cisterna magna, unchanged. No posterior fossa mass or bleed. Mastoids and visualized sinuses are clear. The skull base and calvarium show no fracture or focal lesion. Impression: 1. Mild diffuse atrophy and white matter changes, stable, without acute infarct, hemorrhage, mass or edema. No extra-axial fluid collection. 2. The skull base and calvarium without fracture or focal lesion. The sinuses and mastoids are clear. Signed by Elias Amado MD 06/12/2016 07:25 P
--- NOTE | 2016-06-12 12:40 | REP ---
BILATERAL RENAL ULTRASOUND COMPLETE: 06/12/2016. Comparison: CT abdomen and pelvis 05/24/2016, renal ultrasound 05/03/2014. Clinical history: Acute renal failure. Findings: There is a Castaneda catheter in place. The bladder is empty and therefore cannot be evaluated. The right kidney is 11.8 x 4.9 x 5.5 cm. The left is 11.8 x 4.2 x 4.8 cm. On the left side, the cortical echogenicity is grossly unremarkable, but the right side shows increased echogenicity of the cortex compared to the adjacent liver suggesting some medical renal disease. No hydronephrosis or hydroureter on either side. No solid mass or stone suggested. The medial aspect of the left kidney shows adjacent rounded anechoic focus with good through transmission. I do not see CT evidence of cyst there last month. Instead there is a dilated left mesenteric vein plexus in this region on CT. Impression: 1. Increased cortical echogenicity of the right kidney without significant atrophy, hydronephrosis, solid or cystic mass. This represents some medical renal disease. No definite stone disease or obstruction. 2. There is a rounded cystic appearance adjacent to the lower pole left kidney and medially, but this appears to represent the dilated venous plexus seen on the mesenteric aspect of the left lower quadrant into the left upper abdomen on the recent abdominal CT scan. Signed by Elias Amado MD 06/12/2016 07:35 P
[2016-06-12 14:00] VITALS: BP 102/48
[2016-06-12] MEDS ORDERED: SODIUM CHLORIDE 0.9% 1000 ML IV ONE (17:00)
--- NOTE | 2016-06-12 19:44 | IPN ---
DATE: 06/12/2016 TIME: This afternoon around 1430 SUBJECTIVE: The patient has been seen and examined at bedside. No acute events overnight. The patient appears to be more drowsy today; however, the patient stated that she feels about the same. However, she has been having some hallucinations which she had in the past. Denies any fever or chills. She denies any chest pain, trouble breathing, abdominal pain, nausea or vomiting, diarrhea or constipation. The patient states that she has not had a bowel movement today. The patient denies any other current new complaints. PHYSICAL EXAMINATION: VITAL SIGNS: Temperature 96.9 with a pulse 65, respirations 18, blood pressure 101/50, oxygen saturating at 94% on room air. GENERAL: The patient is an obese, elderly female who was alert, awake, oriented times three. Does not appear to be in distress. Appears to be drowsy. HEENT: Normocephalic, atraumatic. Extraocular motor intact. Mucosa moist. NECK: Supple. No neck lymphadenopathy. CARDIOVASCULAR: Regular rate and rhythm. S1, S2. Difficult to auscultate due to body habitus. LUNGS: Clear to auscultation bilaterally. No wheezes, rales, or rhonchi. ABDOMEN: Positive bowel sounds. Soft, nontender, nondistended. No peritoneal signs. No ecchymosis. EXTREMITIES: No edema, clubbing or cyanosis. SKIN: Warm and dry. NEUROLOGIC: Cranial nerves II through XII intact. No focal neurological deficit. LABORATORY DATA: Sodium 143, potassium 4, chloride 107, bicarbonate 27, BUN 35, creatinine 2, GFR 27.3, fasting glucose 110, lactic acid this morning was 1.3, calcium 8.4, total bilirubin 4.2, AST 18, ALT 13, alkaline phosphatase 112, ammonia level 67, total protein 5.6. Albumin was only 1.8. MICROBIOLOGY: Urine culture shows no growth. IMAGING: Renal ultrasound shows increased cortical echogenicity of the right kidney without significant atrophy, hydronephrosis, solid or cystic mass. This represents some medical renal disease. Also, there is a rounded cyst appearance adjacent to the lower pole of left kidney and medially, but this appears to represent dilated venous plaques seen on the mesenteric aspect of the left lower quadrant into the left upper abdomen on the recent abdominal CT. ASSESSMENT AND PLAN: A 56-year-old female with past medical history of hepatic encephalopathy, cirrhosis possibly from alcohol usage, also hepatitis C recently undergoing treatment, hypothyroidism, pancytopenia, hyperbilirubinemia, recent diagnosis of thyroid nodule, anxiety, posttraumatic stress disorder (PTSD), tobacco abuse, overactive bladder, peripheral vascular disease and morbid obesity, and lower extremity edema, presented with: 1. Pre-syncope and fall likely secondary to vasovagal from prerenal azotemia. Also, contributed to by metabolic encephalopathy from renal failure and hepatic encephalopathy. CT of the head did not show any acute findings. The patient neurologically has slightly worsened today. The patient showed some hallucination this morning. The patient's ammonia level was also elevated today compared to day prior. We will increase the patient's lactulose level and the patient does have a low albumin, therefore possibly third-spacing. We will give patient albumin through intravenous (IV) to help patient to retain the volume. We will also give the patient 500 mL of normal saline bolus and start the patient on a low-dose maintenance fluid and continue to monitor patient. 2. Left ankle fracture. Orthopedic surgery has been consulted, recommended to continue the cast and continue physical therapy, off load the left leg, and the patient should go out of bed to chair and continue pain management per orthopedic surgery. 3. Hypotension. Blood pressure has been significantly lower than home blood pressure. Continue to hold the carvedilol and torsemide. The patient has been started on a 500 mL normal saline bolus, as well as a maintenance fluid of normal saline at a rate of 60 mL per hour, and continue to monitor. 4. Pancytopenia, currently stable. Will continue to monitor. 5. Hyperbilirubinemia, slightly improving. Continue to monitor. 6. Hyperammonemia, worsening compared to day prior. Currently is 67, and continue to monitor patient. 7. Anxiety/depression. Continue home medications. 8. 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 Continue to monitor and continue home medications. 9. Hepatitis C. Continue home medication Harvoni, and ribavirin, and continue to monitor patient. 10. Hypothyroidism. Continue home Synthroid. 11. Posttraumatic stress disorder (PTSD). Continue home medications. 12. Tobacco abuse. The patient refuses nicotine patch. 13. Overactive bladder. Continue Castaneda for critical monitoring for renal failure. Also due to patient has a broken ankle, it would be more difficult for her to move around. 14. Peripheral vascular disease. Continue to monitor. 15. Obesity and snoring at night. Possible signs for obstructive sleep apnea. The patient may consider outpatient workup. 16. Deep venous thrombosis (DVT) prophylaxis with sequential compression device (SCD) on the right side due to thrombocytopenia, and we will also start patient on heparin 5000 units subcutaneously every eight hours. DISPOSITION: We will continue to monitor patient's renal function. Continue gentle hydration. Continue to monitor patient's ammonia level. Also, due to hypoalbuminemia, we will give the patient albumin and will monitor for signs of third-spacing. The patient has been discussed with attending doctor, Dr. Lund. My preceptor for this patient encounter was Dr. Allyson Lund. The preceptor was physically present in the building during the encounter and was fully available as needed. All aspects of the patient interview, examination, medical decision making process, and medical care plan development were reviewed and approved by the preceptor. The preceptor is aware and concurs with the plan as stated in the body of this note and will attest to such by his/her co-signature. PRAKASH
[2016-06-12] MEDS: GABAPENTIN 300 MG CAP PO SCH (20:31)
[2016-06-12 21:30] VITALS: BP 111/53
[2016-06-12] MEDS: PRAZOSIN 1 MG CAP PO SCH (21:59)
[2016-06-13] MEDS: LACTULOSE 20 GM/30 ML SYRUP UD PO SCH ×3 (06:05→16:53)
[2016-06-13] MEDS: LEVOTHYROXINE 0.15 MG TAB (150 MCG) PO SCH (06:05)
[2016-06-13 06:06] VITALS: BP 131/61
[2016-06-13 06:06] LABS: BASO % 0.8 % (0.0-1.0); EOS # 0.1 K/mm3 (0.0-0.50); EOS % 3.3 % (0.0-3.0); LARGE UNSTAINED CELL # 0.2 K/mm3 (0.0-0.4); LARGE UNSTAINED CELL % 5.2 % (0.0-4.0); LYMPH # 0.6 K/mm3 (1.5-4.5); LYMPH % 16.4 % (24.0-44.0); MEAN CORPUSCULAR HEMOGLOBIN 35.9 pg (27.0-33.0); MEAN CORPUSCULAR HGB CONC 33.1 g/dl (32.0-36.5); MEAN CORPUSCULAR VOLUME 108.5 fl (80.0-96.0); MONO # 0.5 K/mm3 (0.0-0.8); MONO % 13.8 % (0.0-5.0); NEUTROPHILS # 2.2 K/mm3 (1.8-7.7); NEUTROPHILS % 60.5 % (36.0-66.0); RED CELL DISTRIBUTION WIDTH 13.9 % (11.5-14.5); WHITE BLOOD COUNT 3.7 K/mm3 (4.0-10.0)
[2016-06-13 06:07] LABS: PLATELET COUNT, AUTOMATED 68 k/mm3 (150-450)
[2016-06-13] MEDS: NS 1,000 ML IV SCH (06:26)
[2016-06-13 06:37] LABS: ALBUMIN/GLOBULIN RATIO 0.69 (1.00-1.93); BILIRUBIN,TOTAL 4.8 MG/DL (0.2-1.0); CALCIUM LEVEL 8.7 MG/DL (8.5-10.1); CREATININE FOR GFR 1.5 MG/DL (0.55-1.02); GLOMERULAR FILTRATION RATE 38.1 (>51); TOTAL PROTEIN 6.1 GM/DL (6.4-8.2)
[2016-06-13 06:52] LABS: ALBUMIN 2.5 GM/DL (3.2-5.2)
[2016-06-13] MEDS: rifAXIMin 550 MG TAB (XIFAXAN) PO SCH ×2 (08:15→20:18)
[2016-06-13] MEDS: DESVENLAFAXINE ER 50 MG TABLET (PRISTIQ) PO SCH (08:15)
[2016-06-13] MEDS: HARVONI PO SCH (08:15)
[2016-06-13] MEDS: RIBAVIRIN 200 MG PO SCH ×2 (08:15→20:27)
[2016-06-13] MEDS: MORPHINE 2 MG/ML 1ML SYRINGE IV PRN ×2 (08:21→20:33)
--- NOTE | 2016-06-13 10:27 | ECGEPIP ---
Stationary ECG Study [facility] - ED Test Date: 2016-06-11 Pat Name: RAYA PINEDA Department: Room: - Gender: F Senior Administrator Support: fatou : 1960 Requested By: ALMITA Santos Order Number: [id number] Reading MD: Haley Bravo Measurements Intervals [place] Rate: 59 P: 40 W[place]: 138 QRS: -10 QRSD: 93 T: 50 QT: 443 QTc: 439 Interpretive Statements SINUS BRADYCARDIA NSTTW ABNORMALITY SIMILAR 05/24/16 Electronically Signed On 06-13-2016 10:27:34 EST by Haley Bravo
--- NOTE | 2016-06-13 13:27 | CR ---
DATE OF CONSULTATION: 06/12/2016 She is a 56-year-old female admitted for a syncopal episode and a history of renal failure, who sustained a left ankle fracture. On examination, she is comfortable and at the bedside commode with a well-padded and appropriate splint. She is neurovascularly intact with regard to her superficial deep perineal nerves, tibial nerve. Her foot is well-perfused. Her pain is controlled at this time. She does describe pain medially and laterally about her ankle. She has no tenderness to palpation proximally in the limb. She has been compliant with non-weightbearing recommendations so far. X-rays demonstrate SER2 fracture pattern distal fibula with minimal medial clear space widening. IMPRESSION: Left ankle distal fibula fracture. PLAN: Nonoperative management with a splint for the next couple of weeks and then transfer to a cast and continue non-weightbearing until fracture healing for the next 6-8 weeks. She will followup with Dr. Cohen in the orthopedic clinic.
[2016-06-13 14:00] VITALS: BP 102/46
[2016-06-13] MEDS: GABAPENTIN 300 MG CAP PO SCH (20:18)
[2016-06-13] MEDS: PRAZOSIN 1 MG CAP PO SCH (20:19)
[2016-06-13 22:00] VITALS: BP 130/64
--- NOTE | 2016-06-13 22:31 | EDDOCDS ---
Physician Documentation [facility] Name: Mirian Ibarra Age: 56 yrs Sex: Female : 1960 Arrival Date: 06/11/2016 Time: 14:33 Bed 12 Private MD: Aubrey Goode MD Disposition: 06/11/16 17:03 Hospitalization ordered by Shahrzad Shafer for Inpatient Admission. Preliminary diagnosis are Acute kidney failure, Syncope and collapse, Comminuted fracture of shaft of fibula. - Bed requested for PCU. - Status is Inpatient Admission. jp6 - Condition is Stable. - Problem is new. - Symptoms have improved. Historical: - Allergies: PENICILLINS (Anaphylaxis); SULFA (SULFONAMIDES) (Unknown); - Home Meds: 1. carvedilol 3.125 mg oral tab 1 tab every 12 hours 2. levothyroxine 300 mcg Oral tab once daily 3. Harvoni 90-400 mg oral tab 1 tab once daily 4. Xifaxan 550 mg oral tab 1 tab 2 times per day 5. Pristiq 100 mg Oral Tb24 1 tab once daily 6. ribavirin oral 3 caps 2 times per day 7. gabapentin 300 mg Oral tab 300 mg daily 8. oxybutynin chloride 5 mg Oral tab 1 tab 2 times per day 9. Lactulose Oral Unknown 3 times per day 10. torsemide 20 mg oral tab 1 tab bid 11. etodolac 300 mg Oral cap 1 cap 3 times per day 12. prazosin 2 mg Oral cap 1 cap - PMHx: Anxiety; Cirrhosis; Depression; Hepatitis C; Hypothyroidism; PTSD; - PSHx: Cholecystectomy; Hysterectomy; Bartholin Gland drained; - Social history: No barriers to communication noted, The patient speaks fluent Frisian, Smoking status: Patient uses tobacco products, heavy tobacco smoker. - Family history: Not pertinent. - : The pt / caregiver states he / she is not on anticoagulants. Home medication list is obtained from the patient. - Exposure Risk Screening:: None identified. Vital Signs: 06/11 14:57 BP 102 / 50; Pulse 59; Resp 21; Temp 97.1(O); Pulse Ox 97% ; Weight 134.72 kg / 297.01 jmk lbs; Height 5 ft. 10 in. (177.80 cm) (R); Pain 10/10; 17:04 BP 111 / 54 (auto/); ml6 17:04 Pulse 60 MON; Resp 18; Pulse Ox 92% on R/A; ml6 17:34 BP 110 / 78 (auto/); ml6 17:34 Pulse 62 MON; Resp 18; Pulse Ox 95% on R/A; ml6 18:04 BP 115 / 58 (auto/); ml6 18:04 Pulse 64 MON; Resp 18; Pulse Ox 96% on R/A; ml6 18:34 BP 113 / 55 (auto/); ml6 18:34 Pulse 64 MON; Resp 18; Pulse Ox 97% ; ml6 20:09 BP 92 / 55; Pulse 63; Resp 18; Temp 98; Pulse Ox 94% ; Pain 10/10; jlm 14:57 Body Mass Index 42.62 (134.72 kg, 177.80 cm) [facility] Procedures: 19:42 Fracture care/splinting: (Stabilizing Care) Splint applied to left leg and left ankle fg using Orthoglass splint, applied by myself. tech. Examined by me, post splint application: neurovascular intact, brisk capillary refill noted, Patient tolerated well, Posterior and u shaped splint applied by myself with padding, secured with lexus wrap. Patient tolerated well. Neurovascularly intact afterwards. . MDM: 14:36 Forming Machine Adjuster/Pulse Ox/q 15 min VS ordered. fg 14:36 Accucheck ordered. fg 14:36 IV Saline Lock ordered. fg 14:37 CBC with Diff Ordered. EDMS 14:37 Liver Profile Ordered. EDMS 14:37 MED Profile Ordered. EDMS 14:38 ECG WITH READING ER PHYS+CARDIAG ordered. EDMS 14:55 Chest, 1 View Ordered. EDMS 14:56 Ankle, Complete Ordered. EDMS 14:57 Foot, (AP\E\lat) Ordered. EDMS 15:01 CARDIAC INJURY PROFILE Ordered. EDMS 15:01 TROPONIN Ordered. EDMS 15:05 Knee, (AP\E\Lat) Ordered. EDMS 15:30 Financial registration complete. gjb 15:32 [facility] Payment Agreement was scanned into [employer] and attached to record. gjb 16:31 fentaNYL (PF) 25 mcg IVP once ordered. fg 16:31 NS 0.9% 500 ml IV at bolus once ordered. fg 16:37 DIFFERENTIAL NO CHARGE Ordered. EDMS 17:01 NS 0.9% 1000 ml IV at bolus once ordered. fg 17:02 CT Head Without Contrast Ordered. EDMS 17:04 NS 0.9% 500 ml IV at bolus once ordered. fg 17:24 AMMONIA Ordered. EDMS 17:25 PROTHROMBIN TIME PROFILE\E\INR Ordered. EDMS 17:25 LACTIC ACID LEVEL, LACTATE Ordered. EDMS 17:25 URINALYSIS Ordered. EDMS 17:25 URINE CULTURE Ordered. EDMS 17:25 RENAL US Ordered. EDMS 17:27 SODIUM,RANDOM URINE Ordered. EDMS 17:27 CREATININE,RANDOM URINE Ordered. EDMS 17:38 OTHER CUSTOM DIETS ordered. EDMS 18:15 Admission / Observation Status ordered. EDMS 18:56 AMMONIA Ordered. EDMS 19:02 THYROID STIMULATING HORMONE Ordered. EDMS 19:31 COMPLETE COMPHRENSIVE METABOLI Ordered. EDMS 19:31 CBC WITH DIFFERENTIAL Ordered. EDMS 19:31 AMMONIA Ordered. EDMS 20:34 Castaneda ordered. jp6 20:54 NS 0.9% 1000 ml IV at 80 mL/hr continuous ordered. jp6 06/12 02:56 T-Sheet-- Draft Copy was scanned into [employer] and attached to record. lja 02:57 T-Sheet-- Draft Copy was scanned into [employer] and attached to record. lja 10:40 ECG/EKG was scanned into [employer] and attached to record. gb Administered Medications: 06/11 16:51 Drug: fentaNYL (PF) 25 mcg [fentanyl (PF) 50 mcg/mL injection solution (0.5 mL)] Route: ml6 IVP; Site: right antecubital; 17:04 Drug: NS 0.9% 1000 ml [sodium chloride 0.9 % intravenous solution] Route: IV; Rate: jmk bolus; Site: right antecubital; 18:56 Follow up: IV Status: Completed infusion; Infusion discontinued; IV Intake: 1000ml ml6 17:05 Not Given (Duplicate Order): NS 0.9% 500 ml IV at bolus once fg 20:54 Drug: NS 0.9% 1000 ml [sodium chloride 0.9 % intravenous solution] Route: IV; Rate: 80 jp6 mL/hr; Site: right antecubital; Signatures: Dispatcher [employer] EDMS Carina Amaro, Reg Reg gb McLear, Jonna, HYDRAMATIC SPECIALIST HYDRAMATIC SPECIALIST [id number] Srinath Archuleta,RN RN mb9 Arel, Claribel Evangelista MD MD fg Beck, Gabriela gjb Palmer, JessicaRN RN jp6 Hernando Noonan RN, Matthew RN ml6 The chart was reviewed and I authenticate all verbal orders and agree with the evaluation and treatment provided.Corrections: (The following items were deleted from the chart) 15:01 14:54 CARDIAC INJURY PROFILE+LAB ordered. EDMS EDMS 15:01 14:54 TROPONIN+LAB ordered. EDMS EDMS 15:12 14:36 Orthostatic VS ordered. fg ml6 15:15 15:02 Ankle, complete+XR ordered. EDMS EDMS 17:32 17:25 MAGNESIUM LEVEL ordered. EDMS EDMS 17:32 17:25 PHOSPHOROUS LEVEL ordered. EDMS EDMS 19:02 18:56 THYROID STIMULATING HORMONE ordered. EDMS EDMS Attachments: 15:32 [facility] Payment Agreement [facility] 02:57 T-Sheet-- Draft Copy [facility] 10:40 ECG/EKG gb Chart Complete MTDD
--- NOTE | 2016-06-13 22:31 | EDDOCDS ---
Nurse's Notes [facility] Name: Mirian Ibarra Age: 56 yrs Sex: Female : 1960 Arrival Date: 06/11/2016 Time: 14:33 Bed 12 Private MD: Aubrey Goode MD Diagnosis: Acute kidney failure;Syncope and collapse;Comminuted fracture of shaft of fibula Presentation: 06/11 14:43 Presenting complaint: Patient states: "I got dizzy and I fell. It felt like I was gonna mb9 pass out". pt complains of pain to left ankle. pt reports loss of consciousness. Status: Patient is not a library services coordinator or dependent. Suicide/Homicide risk assessment- the patient denies having any suicidal and/or homicidal ideations. Transition of care: patient was not received from another setting of care. 14:43 Acuity: ANICETO Level 3 mb9 14:43 Method Of Arrival: Ambulance mb9 15:02 Adult Sepsis Screening: The patient does not have new or worsening altered mentation. mb9 Patient's respiratory rate is less than 22. Systolic blood pressure is greater than 100. Patient has a qSOFA score of 0- Negative Sepsis Screen. Acuity level changed due to. Triage Assessment: 14:43 General: Appears unkempt. Pain: Location: left lateral ankle Pain currently is 10 out mb9 of 10 on a pain scale. Neurological: Reports numbness weakness headache. Neurological: Reports dizziness. Respiratory: Airway is patent Respiratory effort is even, unlabored. 15:02 HIV screening NA for this visit Offered previously. mb9 Historical: - Allergies: PENICILLINS (Anaphylaxis); SULFA (SULFONAMIDES) (Unknown); - Home Meds: 1. carvedilol 3.125 mg oral tab 1 tab every 12 hours 2. levothyroxine 300 mcg Oral tab once daily 3. Harvoni 90-400 mg oral tab 1 tab once daily 4. Xifaxan 550 mg oral tab 1 tab 2 times per day 5. Pristiq 100 mg Oral Tb24 1 tab once daily 6. ribavirin oral 3 caps 2 times per day 7. gabapentin 300 mg Oral tab 300 mg daily 8. oxybutynin chloride 5 mg Oral tab 1 tab 2 times per day 9. Lactulose Oral Unknown 3 times per day 10. torsemide 20 mg oral tab 1 tab bid 11. etodolac 300 mg Oral cap 1 cap 3 times per day 12. prazosin 2 mg Oral cap 1 cap - PMHx: Anxiety; Cirrhosis; Depression; Hepatitis C; Hypothyroidism; PTSD; - PSHx: Cholecystectomy; Hysterectomy; Bartholin Gland drained; - Social history: No barriers to communication noted, The patient speaks fluent Senegalese, Smoking status: Patient uses tobacco products, heavy tobacco smoker. - Family history: Not pertinent. - : The pt / caregiver states he / she is not on anticoagulants. Home medication list is obtained from the patient. - Exposure Risk Screening:: None identified. Screenin:09 Screening information is obtained from the patient. Fall risk: No risks identified. ml6 Assistance ADL's: requires no assistance with activities of daily living. Abuse/DV Screen: The patient / caregiver reports he/she is: not in a situation that causes fear, pain or injury. Nutritional screening: No deficits noted. Advance Directives: Currently, there is. Advance Directives: Currently, there is no health care proxy. home support is adequate. Assessment: 15:15 General: Appears in no apparent distress, Behavior is anxious, cooperative. Pain: ml6 Location: left knee, anterior aspect of left ankle and dorsum of left foot Pain currently is 6 out of 10 on a pain scale. Pain does not radiate. Quality of pain is described as aching, Pain began 4 hours ago Is continuous Alleviated by nothing. Aggravated by increased activity. Neurological: No deficits noted. Level of Consciousness is awake, alert, Oriented to person, place, time. Cardiovascular: No deficits noted. Capillary refill < 3 seconds is brisk. Musculoskeletal: Circulation, motion, and sensation intact Capillary refill < 3 seconds is brisk in bilateral fingers toes Range of motion limited in left hip, left knee and left ankle No deformity noted Swelling present in left knee, anterior aspect of left ankle and dorsum of left foot. 16:20 Reassessment: Patient appears in no apparent distress at this time. Patient denies pain ml6 at this time. Patient states feeling better. Patient states symptoms have improved. 17:20 Reassessment: Patient appears in no apparent distress at this time. Patient denies pain ml6 at this time. Patient states feeling better. Patient states symptoms have improved. 18:21 General: Appears in no apparent distress, Behavior is appropriate for age, cooperative. ml6 Pain: Denies pain. Neurological: No deficits noted. Level of Consciousness is awake, alert, Oriented to person, place, time. Cardiovascular: No deficits noted. Respiratory: No deficits noted. 19:45 Reassessment: Patient appears in no apparent distress at this time. General: Appears in jp6 no apparent distress, obese, Behavior is appropriate for age, cooperative, drowsy. Pain: Location: left leg Pain currently is 5 out of 10 on a pain scale. At worst was 10 out of 10 on a pain scale. Noted to be droswy. Neurological: No deficits noted. Level of Consciousness is awake, alert, Oriented to person, place, time. EENT: No deficits noted. Cardiovascular: No deficits noted. Capillary refill < 3 seconds. Respiratory: No deficits noted. Airway is patent Respiratory effort is even, unlabored, Respiratory pattern is regular, symmetrical, Breath sounds are clear. GI: Abdomen is obese, Bowel sounds present X 4 quads. : Castaneda in place. Derm: Skin is juan carlos Skin temperature is warm. Musculoskeletal: Circulation, motion, and sensation intact Capillary refill < 3 seconds is brisk in bilateral toes Range of motion limited in left leg. Vital Signs: 14:57 BP 102 / 50; Pulse 59; Resp 21; Temp 97.1(O); Pulse Ox 97% ; Weight 134.72 kg; Height 5 jmk ft. 10 in. (177.80 cm) (R); Pain 10/10; 17:04 BP 111 / 54 (auto/); ml6 17:04 Pulse 60 MON; Resp 18; Pulse Ox 92% on R/A; ml6 17:34 BP 110 / 78 (auto/); ml6 17:34 Pulse 62 MON; Resp 18; Pulse Ox 95% on R/A; ml6 18:04 BP 115 / 58 (auto/); ml6 18:04 Pulse 64 MON; Resp 18; Pulse Ox 96% on R/A; ml6 18:34 BP 113 / 55 (auto/); ml6 18:34 Pulse 64 MON; Resp 18; Pulse Ox 97% ; ml6 20:09 BP 92 / 55; Pulse 63; Resp 18; Temp 98; Pulse Ox 94% ; Pain 10/10; jlm 14:57 Body Mass Index 42.62 (134.72 kg, 177.80 cm) jmk Vitals: 14:43 Log In Time N/A - ambulance arrival. mb9 ED Course: 14:34 Patient visited by Abiodun Villarreal PCA. jlf 14:34 Aubrey Goode is Private Physician. jlf 14:34 Patient moved to Waiting jlf 14:35 Patient moved to 12 jlf 14:37 Claribel Rosas MD is Attending Physician. fg 14:38 Patient visited by Claribel Rosas MD. fg 14:44 Triage Initiated mb9 15:12 Patient visited by Kayce Levi RN. ttb 15:12 Patient moved to Radiology ml6 15:30 EKG done. (by ED staff). Reviewed by Claribel Rosas MD. dem1 15:32 [facility] Payment Agreement was scanned into [employer] and attached to record. gjb 15:33 Patient moved to 12 tmb 15:34 Patient visited by Elisa Godfrey. dem1 15:37 Chest, 1 View Returned. EDMS 15:49 Patient visited by Brandon Tena, KAREN. ml6 16:08 The patient / caregiver is instructed regarding the plan of care and ED course. Cardiac ml6 monitor on. Pulse ox on. NIBP on. 16:08 Inserted peripheral IV: 18gauge IV in right antecubital area and blood collected. ml6 Patient tolerated the procedure well. No procedures done that require assistance. Labs drawn. (by ED staff). Sent per order to lab. 16:43 Patient visited by Brandon Tena, KAREN. ml6 16:51 DIFFERENTIAL NO CHARGE Sent. ml6 17:01 Patient visited by Brandon Tena, KAREN. ml6 17:02 Shahrzad Shafer is Hospitalizing Provider. fg 17:51 Patient visited by Brandon Tena, KAREN. ml6 19:01 Patient moved to Ultrasound am17 19:50 Nina Gilliam,RN is Primary Nurse. jp6 20:10 Patient visited by Nessa Head, Magnetic Doctor. jlm 20:32 URINE CULTURE Sent. jp6 20:32 URINALYSIS Sent. jp6 20:36 Patient moved to 12 ng1 06/12 02:56 T-Sheet-- Draft Copy was scanned into [employer] and attached to record. lja 02:57 T-Sheet-- Draft Copy was scanned into [employer] and attached to record. lja 10:40 ECG/EKG was scanned into [employer] and attached to record. gb Administered Medications: 06/11 16:51 Drug: fentaNYL (PF) 25 mcg [fentanyl (PF) 50 mcg/mL injection solution (0.5 mL)] Route: ml6 IVP; Site: right antecubital; 17:04 Drug: NS 0.9% 1000 ml [sodium chloride 0.9 % intravenous solution] Route: IV; Rate: jmk bolus; Site: right antecubital; 18:56 Follow up: IV Status: Completed infusion; Infusion discontinued; IV Intake: 1000ml ml6 17:05 Not Given (Duplicate Order): NS 0.9% 500 ml IV at bolus once fg 20:54 Drug: NS 0.9% 1000 ml [sodium chloride 0.9 % intravenous solution] Route: IV; Rate: 80 jp6 mL/hr; Site: right antecubital; Intake: 18:56 IV: 1000.00ml; Total: 1000.00ml. ml6 Order Results: Lab Order: CBC with Diff; SPEC'M 06/11/16 16:05 Test: WHITE BLOOD COUNT; Value: 3.2; Range: 4.0-10.0; Abnormal: Below low normal; Units: K/mm3; Status: F Test: RED BLOOD COUNT; Value: 3.28; Range: 4.00-5.40; Abnormal: Below low normal; Units: M/mm3; Status: F Test: HEMOGLOBIN; Value: 11.8; Range: 12.0-16.0; Abnormal: Below low normal; Units: g/dl; Status: F Test: HEMATOCRIT; Value: 36.3; Range: 36.0-47.0; Units: %; Status: F Test: MEAN CORPUSCULAR VOLUME; Value: 110.5; Range: 80.0-96.0; Abnormal: Above high normal; Units: fl; Status: F Test: MEAN CORPUSCULAR HEMOGLOBIN; Value: 35.9; Range: 27.0-33.0; Abnormal: Above high normal; Units: pg; Status: F Test: MEAN CORPUSCULAR HGB CONC; Value: 32.5; Range: 32.0-36.5; Units: g/dl; Status: F Test: RED CELL DISTRIBUTION WIDTH; Value: 13.7; Range: 11.5-14.5; Units: %; Status: F Test: PLATELET COUNT, AUTOMATED; Value: 85; Range: 150-450; Abnormal: Below low normal; Units: k/mm3; Status: F Test: NEUTROPHILS; Value: 61; Range: 35-75; Units: %; Status: F Test: LYMPHOCYTES; Value: 13; Range: 16-52; Abnormal: Below low normal; Units: %; Status: F Test: MONOCYTES; Value: 18; Range: 0-8; Abnormal: Above high normal; Units: %; Status: F Test: EOSINOPHILS; Value: 6; Range: 0-5; Abnormal: Above high normal; Units: %; Status: F Test: ATYPICAL LYMPH; Value: 2; Range: 0-5; Units: %; Status: F Test: MACROCYTOSIS; Value: 2+; Status: F Lab Order: Liver Profile; SPEC' 06/11/16 16:05 Test: AST/SGOT; Value: 20; Range: 15-37; Units: U/L; Status: F Test: ALT/SGPT; Value: 16; Range: 12-78; Units: U/L; Status: F Test: ALKALINE PHOSPHATASE; Value: 128; Range: 45-117; Abnormal: Above high normal; Units: U/L; Status: F Test: BILIRUBIN,TOTAL; Value: 5.6; Range: 0.2-1.0; Abnormal: Above high normal; Units: MG/DL; Status: F Test: BILIRUBIN,DIRECT; Value: 3.0; Range: 0.0-0.2; Abnormal: Above high normal; Units: MG/DL; Status: F Test: TOTAL PROTEIN; Value: 6.7; Range: 6.4-8.2; Units: GM/DL; Status: F Test: ALBUMIN; Value: 2.3; Range: 3.2-5.2; Abnormal: Below low normal; Units: GM/DL; Status: F Test: ALBUMIN/GLOBULIN RATIO; Value: 0.52; Range: 1.00-1.93; Abnormal: Below low normal; Status: F Test: THYROID STIMULATING HORMONE; Range: 0.358-3.740; Units: uIU/ML; Status: I Lab Order: MED Profile; SPEC' 06/11/16 16:05 Test: GLUCOSE, FASTING; Value: 108; Range: 70-105; Abnormal: Above high normal; Units: MG/DL; Status: F Test: BLOOD UREA NITROGEN; Value: 29; Range: 7-18; Abnormal: Above high normal; Units: MG/DL; Status: F Test: CREATININE FOR GFR; Value: 1.89; Range: 0.55-1.02; Abnormal: Above high normal; Units: MG/DL; Status: F Test: GLOMERULAR FILTRATION RATE; Value: 29.2; Range: >51; Abnormal: Below low normal; Status: F Test: SODIUM LEVEL; Value: 143; Range: 136-145; Units: MEQ/L; Status: F Test: POTASSIUM SERUM; Value: 4.2; Range: 3.5-5.1; Units: MEQ/L; Status: F Test: CHLORIDE LEVEL; Value: 105; Range: 98-107; Units: MEQ/L; Status: F Test: CARBON DIOXIDE LEVEL; Value: 30; Range: 21-32; Units: MEQ/L; Status: F Test: ANION GAP; Value: 8; Range: 8-16; Units: MEQ/L; Status: F Test: CALCIUM LEVEL; Value: 8.8; Range: 8.5-10.1; Units: MG/DL; Status: F Test Note: ; Units are mL/min/1.73 m2 Chronic Kidney Disease Staging per NKF: Stage I & II GFR >=60 Normal to Mildly Decreased Stage III GFR 30-59 Moderately Decreased Stage IV GFR 15-29 Severely Decreased Stage V GFR <15 Very Little GFR Left ESRD GFR <15 on SOFTWARE ENGINEERING SUPERVISOR Lab Order: CARDIAC INJURY PROFILE; SPEC'M 06/11/16 16:05 Test: CPK CREATINE PHOSPHOKINASE; Value: 51; Range: 26-192; Units: U/L; Status: F Test: CK-MB VALUE MASS; Value: 1.0; Range: 0.0-3.6; Units: NG/ML; Status: F Test: MB/CK RELATIVE INDEX; Value: 1.96; Range: < OR =4; Status: F Test Note: ; DIAGNOSIS CRITERIA MMB ng/ml Relative Index (RI) NON-AMI < or = 5 N/A [place] > 5 < or = 4 AMI > 5 > 4 Lab Order: TROPONIN; SPEC'M 06/11/16 16:05 Test: TROPONIN I; Value: < 0.02; Range: < 0.10; Units: NG/ML; Status: F Test Note: ; Troponin I Reference Interval for [employer] [place] LOCI: 99th Percentile= 0.00-0.045 ng/ml Risk Stratification: <= 0.10 ng/ml Decreased Risk for Adverse Clinical Events. 0.10-1.50 ng/ml Increased Risk for Adverse Clinical Events. Evaluation of additional criterion and/or repeat testing in 2-6 hours is suggested to rule out myocardial damage. >= 1.50 ng/ml Indicative of Myocardial Injury. Lab Order: PLATELET ESTIMATE; [facility] 06/11/16 16:05 Test: PLATELET ESTIMATE; Value: DECREASED; Range: NORMAL; Status: F Lab Order: AMMONIA; [facility] 06/11/16 17:39 Test: AMMONIA; Value: 37; Range: <32; Abnormal: Above high normal; Units: uMOL/L; Status: F Lab Order: PROTHROMBIN TIME PROFILE\\E\\INR; [facility] 06/11/16 16:05 Test: PROTHROMBIN TIME; Value: 19.5; Range: 12.3-14.5; Abnormal: Above high normal; Units: SECONDS; Status: F Test: INR; Value: 1.64; Status: F Test Note: ; THERAPUTIC HUMAN INR VALUES INDICATIONS NORMAL RANGES PROPHYLAXIS/TREATMENT OF: VENOUS THROMBOSIS 2.0-3.0 PULMONARY EMBOLISM 2.0-3.0 PREVENTION OF SYSTEMIC EMBOLISM FROM: TISSUE HEART VALVES 2.0-3.0 ACUTE MYOCARDIAL INFARCTION 2.0-3.0 VALVULAR HEART DISEASE 2.0-3.0 ATRIAL FIBRILLATION 2.0-3.0 MECHANICAL VALVES(HIGH RISK) 2.5-3.5 RECURRENT MYOCARDIAL INFARCTION 2.5-3.5 Lab Order: LACTIC ACID LEVEL, LACTATE; [facility] 06/11/16 17:39 Test: LACTIC ACID LEVEL, LACTATE; Value: 3.0; Range: 0.4-2.0; Abnormal: Above upper panic limits; Units: MMOL/L; Status: F Lab Order: URINALYSIS; [facility] 06/11/16 20:29 Test: APPEARANCE, URINE; Value: HAZY; Range: CLEAR; Status: F Test: COLOR, URINE; Value: BRIDGETTE; Range: YELLOW; Status: F Test: PH,URINE; Value: 5.0; Range: 5.0-9.0; Units: UNITS; Status: F Test: SPECIFIC GRAVITY URINE AUTO; Value: 1.010; Range: 1.002-1.035; Status: F Test: PROTEIN, URINE AUTO; Value: NEGATIVE; Range: NEGATIVE; Units: mg/dL; Status: F Test: GLUCOSE, URINE (UA) AUTO; Value: NEGATIVE; Range: NEGATIVE; Units: mg/dL; Status: F Test: KETONE, URINE AUTO; Value: NEGATIVE; Range: NEGATIVE; Units: mg/dL; Status: F Test: UROBILINOGEN, URINE AUTO; Value: 4.0; Range: 0.0-2.0; Abnormal: Above high normal; Units: mg/dL; Status: F Test: BILIRUBIN, URINE AUTO; Value: 1+; Range: NEGATIVE; Abnormal: Above high normal; Status: F Test: NITRITE, URINE AUTO; Value: NEGATIVE; Range: NEGATIVE; Status: F Test: LEUKOCYTE ESTERASE, URINE AUTO; Value: NEGATIVE; Range: NEGATIVE; Status: F Test: BLOOD, URINE BLOOD; Value: NEGATIVE; Range: NEGATIVE; Status: F Test: WBC, URINE AUTO; Value: 1; Range: 0-3; Units: /HPF; Status: F Test: RBC, URINE AUTO; Value: 1; Range: 0-3; Units: /HPF; Status: F Test: BACTERIA, URINE AUTO; Value: NEGATIVE; Range: NEGATIVE; Status: F Test: SQUAMOUS EPITHELIAL CELL UR AU; Value: 1; Range: 0-6; Units: /HPF; Status: F Test: MUCUS, URINE; Value: SMALL; Range: NEGATIVE; Status: F Test: HYALINE CAST, URINE AUTO; Value: 7; Range: 0-1; Units: /LPF; Status: F Lab Order: SODIUM,RANDOM URINE; SPEC'M 06/11/16 20:29 Test: SODIUM,RANDOM URINE; Value: 57; Units: MEQ/L; Status: F Lab Order: CREATININE,RANDOM URINE; SPEC'M 06/11/16 20:29 Test: CREATININE,RANDOM URINE; Value: 119.0; Units: MG/DL; Status: F Lab Order: PHOSPHOROUS LEVEL; SPEC'M 06/11/16 16:05 Test: PHOSPHORUS LEVEL; Value: 5.0; Range: 2.5-4.9; Abnormal: Above high normal; Units: MG/DL; Status: F Lab Order: MAGNESIUM LEVEL; SPEC'M 06/11/16 16:05 Test: MAGNESIUM LEVEL; Value: 1.9; Range: 1.8-2.4; Units: MG/DL; Status: F Lab Order: THYROID STIMULATING HORMONE; SPEC'M 06/11/16 16:05 Test: THYROID STIMULATING HORMONE; Value: 0.473; Range: 0.358-3.740; Units: uIU/ML; Status: F Radiology Order: Chest, 1 View Test: Chest, 1 View REASON FOR EXAMINATION: Chest Pain; Chest one-view; ; HISTORY: Chest pain; ; Comparison: 05/24/2016; ; The lungs are clear. The heart is normal in size. The pulmonary vasculature is; normal in appearance.; ; Impression: No acute disease.; ; ; Signed by; Rajeev Harrell MD 06/11/2016 03:26 P; Outcome: 17:03 Decision to Hospitalize by Provider. fg 21:00 Discharge Assessment: Patient awake, alert and oriented x 3. No cognitive and/or jp6 functional deficits noted. Patient verbalized understanding of disposition instructions. patient administered narcotics - yes. Patient was admitted to the hospital or transferred to another facility. Admitted to PCU accompanied by nurse, via stretcher, on monitor, with chart. Condition: stable. No special radiology studies were completed. Admission hand-off: Report called to pcu. Property :Personal belongings accompany Pt. 21:01 The following High Risk Discharge criteria are identified: None. jp6 21:30 Patient left the ED. jp6 Signatures: Dispatcher [employer] EDMS Hernando Noonan,RN RN Carina Ng, Reg Reg Brandon Barber, RN RN ml6 Elisa Godfrey Teresa RN RN Abiodun Pascal, SABA CHECK WRITER SALESPERSON jlf Ashley Valdez am17 Tomas Sharpe Jessie, Magnetic Doctor Unit jlGenesis Benedict ng1 Srinath Archuleta,RN RN mb9 Danielle, Claribel Evangelista MD MD fg Beck, Gabriela gjb Palmer, Jessica,RN RN jp6 Corrections: (The following items were deleted from the chart) 17:04 14:57 BP 102 / 50; Pulse 59bpm; Resp 21bpm; Pulse Ox 97%; 134.72 kg; Height 5 ft. 10 jmk in. Reported; BMI: 42.6; Pain 10; mb9 17:04 16:50 NS 0.9% 500 ml IV at bolus in right antecubital ml6 fg Chart Complete MTDD
--- NOTE | 2016-06-13 22:31 | EDDOCDS ---
Physician Documentation [facility] Name: Mirian Ibarra Age: 56 yrs Sex: Female : 1960 Arrival Date: 06/11/2016 Time: 14:33 Bed 12 Private MD: Aubrey Goode MD Disposition: 06/11/16 17:03 Hospitalization ordered by Shahrzad Shafer for Inpatient Admission. Preliminary diagnosis are Acute kidney failure, Syncope and collapse, Comminuted fracture of shaft of fibula. - Bed requested for PCU. - Status is Inpatient Admission. jp6 - Condition is Stable. - Problem is new. - Symptoms have improved. Historical: - Allergies: PENICILLINS (Anaphylaxis); SULFA (SULFONAMIDES) (Unknown); - Home Meds: 1. carvedilol 3.125 mg oral tab 1 tab every 12 hours 2. levothyroxine 300 mcg Oral tab once daily 3. Harvoni 90-400 mg oral tab 1 tab once daily 4. Xifaxan 550 mg oral tab 1 tab 2 times per day 5. Pristiq 100 mg Oral Tb24 1 tab once daily 6. ribavirin oral 3 caps 2 times per day 7. gabapentin 300 mg Oral tab 300 mg daily 8. oxybutynin chloride 5 mg Oral tab 1 tab 2 times per day 9. Lactulose Oral Unknown 3 times per day 10. torsemide 20 mg oral tab 1 tab bid 11. etodolac 300 mg Oral cap 1 cap 3 times per day 12. prazosin 2 mg Oral cap 1 cap - PMHx: Anxiety; Cirrhosis; Depression; Hepatitis C; Hypothyroidism; PTSD; - PSHx: Cholecystectomy; Hysterectomy; Bartholin Gland drained; - Social history: No barriers to communication noted, The patient speaks fluent Occitan, Smoking status: Patient uses tobacco products, heavy tobacco smoker. - Family history: Not pertinent. - : The pt / caregiver states he / she is not on anticoagulants. Home medication list is obtained from the patient. - Exposure Risk Screening:: None identified. Vital Signs: 06/11 14:57 BP 102 / 50; Pulse 59; Resp 21; Temp 97.1(O); Pulse Ox 97% ; Weight 134.72 kg / 297.01 jmk lbs; Height 5 ft. 10 in. (177.80 cm) (R); Pain 10/10; 17:04 BP 111 / 54 (auto/); ml6 17:04 Pulse 60 MON; Resp 18; Pulse Ox 92% on R/A; ml6 17:34 BP 110 / 78 (auto/); ml6 17:34 Pulse 62 MON; Resp 18; Pulse Ox 95% on R/A; ml6 18:04 BP 115 / 58 (auto/); ml6 18:04 Pulse 64 MON; Resp 18; Pulse Ox 96% on R/A; ml6 18:34 BP 113 / 55 (auto/); ml6 18:34 Pulse 64 MON; Resp 18; Pulse Ox 97% ; ml6 20:09 BP 92 / 55; Pulse 63; Resp 18; Temp 98; Pulse Ox 94% ; Pain 10/10; jlm 14:57 Body Mass Index 42.62 (134.72 kg, 177.80 cm) [facility] Procedures: 19:42 Fracture care/splinting: (Stabilizing Care) Splint applied to left leg and left ankle fg using Orthoglass splint, applied by myself. tech. Examined by me, post splint application: neurovascular intact, brisk capillary refill noted, Patient tolerated well, Posterior and u shaped splint applied by myself with padding, secured with lexus wrap. Patient tolerated well. Neurovascularly intact afterwards. . MDM: 14:36 Check Inspector/Pulse Ox/q 15 min VS ordered. fg 14:36 Accucheck ordered. fg 14:36 IV Saline Lock ordered. fg 14:37 CBC with Diff Ordered. EDMS 14:37 Liver Profile Ordered. EDMS 14:37 MED Profile Ordered. EDMS 14:38 ECG WITH READING ER PHYS+CARDIAG ordered. EDMS 14:55 Chest, 1 View Ordered. EDMS 14:56 Ankle, Complete Ordered. EDMS 14:57 Foot, (AP\E\lat) Ordered. EDMS 15:01 CARDIAC INJURY PROFILE Ordered. EDMS 15:01 TROPONIN Ordered. EDMS 15:05 Knee, (AP\E\Lat) Ordered. EDMS 15:30 Financial registration complete. gjb 15:32 [facility] Payment Agreement was scanned into [employer] and attached to record. gjb 16:31 fentaNYL (PF) 25 mcg IVP once ordered. fg 16:31 NS 0.9% 500 ml IV at bolus once ordered. fg 16:37 DIFFERENTIAL NO CHARGE Ordered. EDMS 17:01 NS 0.9% 1000 ml IV at bolus once ordered. fg 17:02 CT Head Without Contrast Ordered. EDMS 17:04 NS 0.9% 500 ml IV at bolus once ordered. fg 17:24 AMMONIA Ordered. EDMS 17:25 PROTHROMBIN TIME PROFILE\E\INR Ordered. EDMS 17:25 LACTIC ACID LEVEL, LACTATE Ordered. EDMS 17:25 URINALYSIS Ordered. EDMS 17:25 URINE CULTURE Ordered. EDMS 17:25 RENAL US Ordered. EDMS 17:27 SODIUM,RANDOM URINE Ordered. EDMS 17:27 CREATININE,RANDOM URINE Ordered. EDMS 17:38 OTHER CUSTOM DIETS ordered. EDMS 18:15 Admission / Observation Status ordered. EDMS 18:56 AMMONIA Ordered. EDMS 19:02 THYROID STIMULATING HORMONE Ordered. EDMS 19:31 COMPLETE COMPHRENSIVE METABOLI Ordered. EDMS 19:31 CBC WITH DIFFERENTIAL Ordered. EDMS 19:31 AMMONIA Ordered. EDMS 20:34 Castaneda ordered. jp6 20:54 NS 0.9% 1000 ml IV at 80 mL/hr continuous ordered. jp6 06/12 02:56 T-Sheet-- Draft Copy was scanned into [employer] and attached to record. lja 02:57 T-Sheet-- Draft Copy was scanned into [employer] and attached to record. lja 10:40 ECG/EKG was scanned into [employer] and attached to record. gb Administered Medications: 06/11 16:51 Drug: fentaNYL (PF) 25 mcg [fentanyl (PF) 50 mcg/mL injection solution (0.5 mL)] Route: ml6 IVP; Site: right antecubital; 17:04 Drug: NS 0.9% 1000 ml [sodium chloride 0.9 % intravenous solution] Route: IV; Rate: jmk bolus; Site: right antecubital; 18:56 Follow up: IV Status: Completed infusion; Infusion discontinued; IV Intake: 1000ml ml6 17:05 Not Given (Duplicate Order): NS 0.9% 500 ml IV at bolus once fg 20:54 Drug: NS 0.9% 1000 ml [sodium chloride 0.9 % intravenous solution] Route: IV; Rate: 80 jp6 mL/hr; Site: right antecubital; Signatures: Dispatcher [employer] EDMS Carina Amaro, Reg Reg gb McLear, Jonna, [employer] tmm1 Srinath Archuleta,RN RN mb9 Arel, Claribel Evangelista MD MD fg Beck, Gabriela gjb Palmer, JessicaRN RN jp6 Hernando Noonan RN, Matthew RN ml6 The chart was reviewed and I authenticate all verbal orders and agree with the evaluation and treatment provided.Corrections: (The following items were deleted from the chart) 15:01 14:54 CARDIAC INJURY PROFILE+LAB ordered. EDMS EDMS 15:01 14:54 TROPONIN+LAB ordered. EDMS EDMS 15:12 14:36 Orthostatic VS ordered. fg ml6 15:15 15:02 Ankle, complete+XR ordered. EDMS EDMS 17:32 17:25 MAGNESIUM LEVEL ordered. EDMS EDMS 17:32 17:25 PHOSPHOROUS LEVEL ordered. EDMS EDMS 19:02 18:56 THYROID STIMULATING HORMONE ordered. EDMS EDMS Attachments: 15:32 [facility] Payment Agreement [facility] 02:57 T-Sheet-- Draft Copy [facility] 10:40 ECG/EKG gb Chart Complete MTDD
[2016-06-14] MEDS: LACTULOSE 20 GM/30 ML SYRUP UD PO SCH ×7 (00:44→17:20)
[2016-06-14] MEDS: NS 1,000 ML IV SCH ×2 (05:30→17:21)
[2016-06-14] MEDS: LEVOTHYROXINE 0.15 MG TAB (150 MCG) PO SCH (05:46)
[2016-06-14 06:00] VITALS: BP 105/54
[2016-06-14 06:15] LABS: ALBUMIN 2.3 GM/DL (3.2-5.2); ALBUMIN/GLOBULIN RATIO 0.56 (1.00-1.93); BILIRUBIN,TOTAL 5.6 MG/DL (0.2-1.0); CALCIUM LEVEL 8.7 MG/DL (8.5-10.1); CREATININE FOR GFR 1.09 MG/DL (0.55-1.02); GLOMERULAR FILTRATION RATE 55.1 (>51); POTASSIUM SERUM 4.3 MEQ/L (3.5-5.1); TOTAL PROTEIN 6.4 GM/DL (6.4-8.2)
[2016-06-14 06:21] LABS: DIFF SLIDE NUMBER 59; MEAN CORPUSCULAR HEMOGLOBIN 35.7 pg (27.0-33.0); MEAN CORPUSCULAR HGB CONC 31.6 g/dl (32.0-36.5); RED CELL DISTRIBUTION WIDTH 14.9 % (11.5-14.5); WHITE BLOOD COUNT 3.6 K/mm3 (4.0-10.0)
[2016-06-14 06:26] LABS: PLATELET COUNT, AUTOMATED 69 k/mm3 (150-450)
[2016-06-14 07:20] LABS: BANDS 1 % (< 11); BASOPHILS 3 % (0-4); EOSINOPHILS 6 % (0-5)
[2016-06-14 07:21] LABS: ANISOCYTOSIS 1+
[2016-06-14] MEDS: rifAXIMin 550 MG TAB (XIFAXAN) PO SCH ×2 (10:04→21:35)
[2016-06-14] MEDS: DESVENLAFAXINE ER 50 MG TABLET (PRISTIQ) PO SCH (10:04)
[2016-06-14] MEDS: HARVONI PO SCH (10:05)
[2016-06-14] MEDS: RIBAVIRIN 200 MG PO SCH ×2 (10:05→21:36)
[2016-06-14] MEDS ORDERED: ACETAMINOPHEN TAB 650MG DOSE (2X325MG) PO ONE (11:00)
--- NOTE | 2016-06-14 11:31 | IPN ---
DATE: 06/13/2016 Patient is continued on lactulose, had three bowel movements yesterday. She is awake, alert, and oriented to person, answering questions appropriately. This morning she is still complains of severe pain at the ankle where she had fallen. She denies any shortness of breath. She is status post albumin infusion. Creatinine is improved to 1.5 today. No fever or chills overnight. Temperature 98.2, pulse 72, respiratory 22, blood pressure 131/61, 90% on room air. Generally: Patient is awake, alert, oriented to person and place, answering questions appropriately. She is jaundice with icterus. Lungs: Diminished, but clear to auscultation. Heart: S1, S2, sinus rhythm. Abdomen: Soft, nontender, nondistended. Extremities: No pitting edema. Patient's ankle is in a dressing and casted. Left ankle fracture in cast. White count 3.7, hemoglobin 9.9, hematocrit 29.9, platelet count of 68. Liver functions and metabolic panel have been reviewed. Ammonia level is 57. Albumin is 2.5. ASSESSMENT AND PLAN: This is a 56-year-old female with history of chronic hepatitis C, pancytopenia, alcoholic liver cirrhosis, hepatic encephalopathy, hyperbilirubinemia, thyroid nodule undergoing workup, anxiety, Post-traumatic stress disorder (PTSD), tobacco abuse, overactive bladder, peripheral vascular disease, obesity, sustained a fall with left distal fibular fracture and possible fracture of the posterior malleolus stabilized in the emergency room and followup with Dr. Astudillo orthopaedic surgery. Patient was found to have elevated ammonia levels and dehydration, severe metabolic encephalopathy requiring lactulose therapy. Current issues: Pre-syncope secondary to vasovagal and prerenal azotemia dehydration as well hepatic encephalopathy and acute on chronic renal failure. CT of the head showed no acute findings. Patient ammonia level was quite elevated and she was placed on lactulose with improvement due to concerns for a third spacing due to low albumin level. Patient was given 25% albumin transfusion to improve the renal failure and prevent third spacing from hypoalbuminemia and protein calorie malnutrition with significant improvement and creatinine to 1.5 which is her baseline. She is currently improved clinically and denies any hallucinations. Left distal fibular fracture possible posterior malleolare fracture. Dr. Astudillo orthopaedic surgery was consulted, patient is currently in a cast. Physical therapy with offload on the left leg, out of bed to chair, and pain management. Bowel regimen. Hypotension. Holding parameters on patient's carvedilol. Diuretics have been held due to acute and chronic renal failure. Pancytopenia secondary to liver disease. Hyperbilirubinuria with liver cirrhosis and hepatitis C. History of alcohol abuse, chronic. Hepatic encephalopathy improved, continue on lactulose 30 every 6 hourly. Anxiety and depression. Continue on home medications. Hepatic C. Continue on Harvoni, ribavirin. Hypothyroidism. On Synthroid. Post-traumatic stress disorder (PTSD). On home medications. Tobacco abuse. Refused nicotine patch. Overactive bladder. Continue on Castaneda for renal failure. Peripheral vascular disease. Continue to monitor. Obesity and snoring. Possible signs of sleep apnea. May need to have the patient worked up. Compression stockings for Deep venous thrombosis (DVT) prophylaxis. This patient has chronic thrombocytopenia. Monitor for worsening platelet counts and signs of bleeding. MTDD
[2016-06-14] MEDS: MORPHINE 2 MG/ML 1ML SYRINGE IV PRN ×2 (11:34→21:43)
[2016-06-14 14:00] VITALS: BP 134/63
--- NOTE | 2016-06-14 14:27 | IPN ---
DATE: 06/14/2016 Time patient was seen was at 9 a.m. Patient has been seen and examined at bedside. No acute events overnight. Patient reports to being a little bit more drowsy today. Otherwise, denies any fever or chills, any nausea, vomiting, diarrhea, or constipation, any problems with urination. She does complain about continued abdominal pain which has been there in the past. Otherwise, patient has not had enough bowel movements after lactulose however. PHYSICAL EXAMINATION: VITAL SIGNS: Temperature 96.4, pulse 69, respirations 18, blood pressure 105/54 , oxygen was saturating at 90% on room air. GENERAL: Patient is an obese, middle-aged female, who was alert, awake, oriented times three. Does not appear to be in distress. Resting comfortably in bed with head elevated at 45 degrees. Appears to be somewhat drowsy. HEENT: Normocephalic, atraumatic. Extraocular motors intact. Mucous moist. NECK: Supple. No neck lymphadenopathy. CARDIOVASCULAR: Regular rate and rhythm. S1, S2. No murmurs, rubs, or gallops. LUNGS: Clear to auscultation bilaterally. No wheezes, rales, or rhonchi. ABDOMEN: Positive bowel sounds. Soft, nontender, nondistended. No peritoneal signs. No ecchymosis. Obese. EXTREMITIES: No edema, clubbing, or cyanosis. SKIN: Warm and dry. NEUROLOGIC: Cranial nerves II-XII intact. No focal neurological deficit. LABORATORY DATA: WBC 3.6, hemoglobin 9.8, hematocrit 31.2, with a platelet count of 69, and MCV of 113. Sodium 146, potassium 4.3, chloride 110, bicarbonate 30, BUN 27, creatinine 1.09 , with a GFR of 55, glucose 141, total bilirubin 5.6, ammonia level is elevated today compared to day prior, today is 81, yesterday was 57, albumin 2.3. Patient's urine culture has shown no growth after 4 days. No new imaging. ASSESSMENT/PLAN: 56-year-old female with past medical history of cirrhosis, likely alcohol induced, also hepatitis C, pancytopenia, hepatic encephalopathy, hyperbilirubinemia, thyroid nodule undergoing workup, anxiety, posttraumatic stress disorder (PTSD), tobacco abuse, overactive bladder, peripheral vascular disease, obesity, sustained a fall with left distal fibula fracture and possible fracture of posterior malleolus, stabilized in the emergency room and followup with Dr. Astudillo, orthopedic surgery. Patient was also found to have elevated ammonia level and dehydration with severe metabolic encephalopathy requiring lactulose therapy. CURRENT ISSUES: 1. Presyncope secondary to vasovagal prerenal azotemia and dehydration as well as hepatic encephalopathy and acute renal failure. CT of the head did not show any acute findings. Ammonia level is trending up again today. We have increased lactulose to four times a day. Also will give patient lactulose every 1 hour for four doses today and stop lactulose if patient has three bowel movements today. Patient also received albumin transfusion the day prior to prevent third-spacing due to hypoalbuminemia and protein calorie malnutrition, which has improved significantly. In addition, patient's acute kidney injury has returned back to baseline as well. For patient's left distal fibula fracture and posterior malleolus fracture, Dr. Astudillo has been consulted and patient has been placed on offloading to the left leg and also placed on a cast and will followup with Dr. Cohen in a few weeks. 2. Hypotension. Continue hold parameters for patient's carvedilol and continue to monitor patient. 3. Pancytopenia secondary to liver disease. Continue to monitor. 4. Hyperbilirubinemia secondary to liver cirrhosis and hepatitis C. Continue to monitor. 5. Hepatitis C. Continue Harvoni and ribavirin. 6. Hepatic encephalopathy, improved. Patient appears to be a little bit drowsy today. 7. Posttraumatic stress disorder (PTSD). Continue home medication. 8. Tobacco abuse. Patient refuses nicotine patch. 9. Overactive bladder. Continue Castaneda for renal failure. May consider removing the Castaneda tomorrow. 10. Peripheral vascular disease. Continue to monitor. 11. Obesity and snoring. Possible signs of sleep apnea. May need outpatient workup. 12. Deep venous thrombosis (DVT) prophylaxis unnecessary due to thrombocytopenia. DISPOSITION: Patient continues to have elevated ammonia level and continues to be weak. Will need further physical therapy and possibly need to undergo rehabilitation before patient goes home. Patient has been discussed with attending doctor, Dr. Lund. My preceptor for this patient encounter was Dr. Allyson Lund. The preceptor was physically present in the building during the encounter and was fully available. As needed, all aspects of the patient interview, examination, medical decision making process, and medical care plan development were reviewed and approved by the preceptor. The preceptor is aware and concurs with the plan as stated in the body of this note and will attest to such by her cosignature. PRAKASH
--- NOTE | 2016-06-14 14:53 | REP ---
PORTABLE CHEST: Single AP portable view of the chest is performed and compared to a prior study of 06/11/2016. There is no acute infiltrate or pulmonary edema. Heart is upper limits of normal in size. Mediastinal silhouette is unchanged. IMPRESSION: No acute pulmonary disease. Signed by Prakash Delarosa MD 06/14/2016 04:10 P
[2016-06-14] MEDS: PRAZOSIN 1 MG CAP PO SCH (20:55)
[2016-06-14] MEDS: GABAPENTIN 300 MG CAP PO SCH (21:35)
[2016-06-14 22:00] VITALS: BP 119/56
[2016-06-15] MEDS: LACTULOSE 20 GM/30 ML SYRUP UD PO SCH ×4 (00:08→17:56)
[2016-06-15] MEDS: NS 1,000 ML IV SCH (03:35)
[2016-06-15] MEDS: LEVOTHYROXINE 0.15 MG TAB (150 MCG) PO SCH (05:45)
[2016-06-15 06:00] VITALS: BP 139/63
[2016-06-15 07:05] LABS: BASO % 0.6 % (0.0-1.0); EOS # 0.2 K/mm3 (0.0-0.50); EOS % 5.8 % (0.0-3.0); LARGE UNSTAINED CELL # 0.1 K/mm3 (0.0-0.4); LARGE UNSTAINED CELL % 3.7 % (0.0-4.0); LYMPH # 0.8 K/mm3 (1.5-4.5); LYMPH % 19.8 % (24.0-44.0); MEAN CORPUSCULAR HEMOGLOBIN 35.4 pg (27.0-33.0); MEAN CORPUSCULAR HGB CONC 31.3 g/dl (32.0-36.5); MEAN CORPUSCULAR VOLUME 113.2 fl (80.0-96.0); MONO # 0.4 K/mm3 (0.0-0.8); MONO % 10.6 % (0.0-5.0); NEUTROPHILS % 59.5 % (36.0-66.0); RED CELL DISTRIBUTION WIDTH 14.6 % (11.5-14.5); WHITE BLOOD COUNT 3.3 K/mm3 (4.0-10.0)
[2016-06-15 07:13] LABS: ADD MORPHOLOGY? YES; PLATELET COUNT, AUTOMATED 62 k/mm3 (150-450)
[2016-06-15 07:45] LABS: ALBUMIN 2.1 GM/DL (3.2-5.2); ALKALINE PHOSPHATASE 103 U/L (45-117); ALT/SGPT 12 U/L (12-78); ANION GAP 7 MEQ/L (8-16); AST/SGOT 16 U/L (15-37); BILIRUBIN,TOTAL 6.2 MG/DL (0.2-1.0); BLOOD UREA NITROGEN 19 MG/DL (7-18); CALCIUM LEVEL 8.3 MG/DL (8.5-10.1); CARBON DIOXIDE LEVEL 28 MEQ/L (21-32); CHLORIDE LEVEL 110 MEQ/L (98-107); CREATININE FOR GFR 0.79 MG/DL (0.55-1.02); GLOMERULAR FILTRATION RATE > 60.0 (>51); GLUCOSE, FASTING 132 MG/DL (70-105); POTASSIUM SERUM 4.2 MEQ/L (3.5-5.1); SODIUM LEVEL 145 MEQ/L (136-145); TOTAL PROTEIN 5.6 GM/DL (6.4-8.2)
[2016-06-15] MEDS: rifAXIMin 550 MG TAB (XIFAXAN) PO SCH ×2 (08:08→21:48)
[2016-06-15] MEDS: DESVENLAFAXINE ER 50 MG TABLET (PRISTIQ) PO SCH (08:08)
[2016-06-15] MEDS: RIBAVIRIN 200 MG PO SCH ×2 (08:09→21:49)
[2016-06-15] MEDS: HARVONI PO SCH (08:10)
[2016-06-15 08:56] LABS: HYPOCHROMASIA 1+
[2016-06-15 14:00] VITALS: BP 159/70
--- NOTE | 2016-06-15 14:53 | IPN ---
DATE OF SERVICE: 06/15/2016 SUBJECTIVE: Patient seen and examined in the room today. Patient is alert and oriented times three. Patient stated that she feels tired all the time, does not have any energy and she feels weak. Otherwise, she does not have any acute complaints. She is still experiencing pain and discomfort at the left ankle where she had the fracture. OBJECTIVE: VITAL SIGNS: Temperature 98.5, pulse 72, respirations 18, blood pressure 139/63, pulse oximetry 91% on room air. GENERAL: Fatigue, but no signs of acute distress. Alert and oriented times three. HEENT: Normocephalic, atraumatic. Extraocular muscles grossly intact. CARDIOVASCULAR: Positive S1, S2. Regular rate. LUNGS: Clear to auscultation bilaterally. ABDOMEN: Bowel sounds present. No rebound. No guarding. EXTREMITIES: Left ankle is wrapped with a cast. No lower extremity edema. No cyanosis. LABORATORY DATA: WBC 3.3, hemoglobin 9, hematocrit 28.9, platelet count 62. Sodium 145, potassium 4.2, chloride 110, carbon dioxide 28, BUN 19, creatinine 0.79, GFR greater than 60, fasting glucose 132, calcium 8.3. Total bilirubin 6.2, AST 16, ALT 12, alkaline phosphatase 103, ammonia level 72, total protein 5.6, albumin 2.1. ASSESSMENT AND PLAN: 1. Metabolic encephalopathy: Patient continues to have an elevated ammonia level; however, it is improved compared to yesterday. Will continue the lactulose. 2. Left fibula fracture: I discussed with orthopedic surgical team. They recommend pain management and patient has a cast. Patient will follow with orthopedic team in the outpatient setting in two to three weeks after discharge. 3. Pancytopenia secondary to liver disease: Continue to monitor. 4. Liver cirrhosis secondary to hepatitis C. 5. Hepatitis C: Continue Harvoni and Ribavirin. 6. History of chronic alcohol abuse, 7. Anxiety/depression: Continue home medications. 8. Hypothyroidism: Continue with Synthroid. 9. History of posttraumatic stress disorder (PTSD). 10. History of tobacco abuse. 11. Overactive bladder. 12. History of peripheral vascular disease. 13. Morbid obesity. 14. Suspect obstructive sleep apnea (SHAMEKA): Patient recommended to have a sleep study after discharge. 15. Deep venous thrombosis (DVT) prophylaxis. Currently having thrombocytopenia. No anticoagulation medication will be suitable for the patient. Patient will continue on thromboembolitic deterrents (TEDs), sequentials and compression device.
[2016-06-15] MEDS: PRAZOSIN 1 MG CAP PO SCH (21:48)
[2016-06-15] MEDS: GABAPENTIN 300 MG CAP PO SCH (21:48)
[2016-06-15] MEDS: MORPHINE 2 MG/ML 1ML SYRINGE IV PRN (21:50)
[2016-06-15 22:00] VITALS: BP 130/61
[2016-06-16] MEDS: LACTULOSE 20 GM/30 ML SYRUP UD PO SCH ×5 (00:18→20:24)
[2016-06-16 06:00] VITALS: BP 137/63
[2016-06-16] MEDS: LEVOTHYROXINE 0.15 MG TAB (150 MCG) PO SCH (06:20)
[2016-06-16 07:00] LABS: BASO % 0.3 % (0.0-1.0); EOS # 0.1 K/mm3 (0.0-0.50); EOS % 4.3 % (0.0-3.0); LARGE UNSTAINED CELL # 0.1 K/mm3 (0.0-0.4); LARGE UNSTAINED CELL % 5.5 % (0.0-4.0); LYMPH # 0.7 K/mm3 (1.5-4.5); MEAN CORPUSCULAR HEMOGLOBIN 35.1 pg (27.0-33.0); MEAN CORPUSCULAR HGB CONC 29.9 g/dl (32.0-36.5); MEAN CORPUSCULAR VOLUME 117.5 fl (80.0-96.0); MONO # 0.3 K/mm3 (0.0-0.8); MONO % 11.7 % (0.0-5.0); NEUTROPHILS # 1.4 K/mm3 (1.8-7.7); NEUTROPHILS % 56.2 % (36.0-66.0); RED CELL DISTRIBUTION WIDTH 14.8 % (11.5-14.5); WHITE BLOOD COUNT 2.5 K/mm3 (4.0-10.0)
[2016-06-16 07:05] LABS: PLATELET COUNT, AUTOMATED 54 k/mm3 (150-450)
[2016-06-16 07:35] LABS: ALBUMIN 1.9 GM/DL (3.2-5.2); ALBUMIN/GLOBULIN RATIO 0.53 (1.00-1.93); ALKALINE PHOSPHATASE 101 U/L (45-117); ALT/SGPT 11 U/L (12-78); ANION GAP 7 MEQ/L (8-16); AST/SGOT 15 U/L (15-37); BILIRUBIN,TOTAL 6.2 MG/DL (0.2-1.0); BLOOD UREA NITROGEN 15 MG/DL (7-18); CALCIUM LEVEL 8.1 MG/DL (8.5-10.1); CARBON DIOXIDE LEVEL 27 MEQ/L (21-32); CHLORIDE LEVEL 111 MEQ/L (98-107); CREATININE FOR GFR 0.66 MG/DL (0.55-1.02); GLOMERULAR FILTRATION RATE > 60.0 (>51); GLUCOSE, FASTING 125 MG/DL (70-105); POTASSIUM SERUM 4.1 MEQ/L (3.5-5.1); SODIUM LEVEL 145 MEQ/L (136-145); TOTAL PROTEIN 5.5 GM/DL (6.4-8.2)
[2016-06-16] MEDS: rifAXIMin 550 MG TAB (XIFAXAN) PO SCH ×2 (09:21→20:26)
[2016-06-16] MEDS: HARVONI PO SCH (09:22)
[2016-06-16] MEDS: DESVENLAFAXINE ER 50 MG TABLET (PRISTIQ) PO SCH (09:22)
[2016-06-16] MEDS: RIBAVIRIN 200 MG PO SCH ×2 (09:23→20:27)
--- NOTE | 2016-06-16 12:53 | IPN ---
DATE: 06/16/2016 Time patient was seen was at 8 a.m. Patient has been seen and examined at bedside. No acute events overnight. Patient states that she is feeling much better. However, she does not want to eat. Patient denies any fever or chills, any abdominal pains, any nausea, vomiting, diarrhea, or constipation. Denies chest pain and trouble breathing. Denies any problem with urination. Admits to loose stools from medication. Denies any other current new complaints. PHYSICAL EXAMINATION: VITAL SIGNS: Temperature 98.7, pulse 80, respirations 17, blood pressure 137/63 , oxygen was saturating at 90% on room air. GENERAL: Patient is an obese, middle-aged female, who was alert, awake, oriented times three. Does not appear to be in distress. Appears to be somewhat drowsy with head elevated at 30 degrees. HEENT: Normocephalic, atraumatic. Extraocular motors intact. Mucous moist. NECK: Supple. No neck lymphadenopathy. CARDIOVASCULAR: Regular rate and rhythm. S1, S2. No murmurs, rubs, or gallops. LUNGS: Clear to auscultation bilaterally. No wheezes, rales, or rhonchi. ABDOMEN: Positive bowel sounds. Soft, nontender, nondistended. No peritoneal signs. No ecchymosis. EXTREMITIES: 1+ pitting edema bilateral lower extremity. Otherwise, no clubbing or cyanosis. SKIN: Warm and dry. NEUROLOGIC: Cranial nerves II-XII intact. No focal neurological deficit. LABORATORY DATA: WBC 2.5, hemoglobin 8.3, hematocrit 27.8, with a platelet count of 54, yesterday it was 62, and MCV of 117. Sodium 145, potassium 4.1, chloride 101, bicarbonate 270, BUN 15, creatinine 0.66, GFR greater than 60, fasting glucose 125, calcium 8.1, total bilirubin 6.2, and AST 15, ALT 11, ammonia level was 54, yesterday it was 72, total protein 5.5, albumin 1.9, yesterday it 2.1. No new cultures. No new imaging. ASSESSMENT/PLAN: 56-year-old female with past medical history of , hepatic encephalopathy, cirrhosis possibly from alcohol use, also hepatitis C, recently started treatment, hypothyroidism, pancytopenia, hyperbilirubinemia, recently diagnosed thyroid nodule, anxiety posttraumatic stress disorder (PTSD), tobacco abuse, overactive bladder, peripheral vascular disease, morbid obesity, lower extremity edema, presented with: 1. Presyncope and fall likely secondary to vasovagal from prerenal azotemia, also hepatic encephalopathy and metabolic encephalopathy. Patient neurologically has improved. Ammonia level has improved as well. Continue lactulose every 6 hours and will continue to monitor patient. 2. Left ankle fracture. Orthopedic surgery has been consulted. Recommend continue cast and continue physical therapy. Patient will likely need rehabilitation afterward. 3. Hypotension. Blood pressure today is 137/63. Will continue to monitor. 4. Pancytopenia. Currently stable. Platelet, however has dropped slightly. Will continue to monitor. 5. Hyperbilirubinemia, stable. Continue to monitor. 6. Anxiety/depression. Continue home medication. 7. Cirrhosis secondary to alcohol usage and also hepatitis C. Continue to monitor. 8. Hepatitis C. Continue home medications. Harvoni and ribavirin. 9. Hypothyroidism. Continue to monitor. 10. Posttraumatic stress disorder (PTSD). Continue home medication. 11. Tobacco abuse. Patient refused nicotine patch. 12. Overactive bladder. Patient's Castaneda has been discontinue discontinued 2 days ago. Will continue to monitor. 13. Peripheral vascular disease. Continue to monitor. 14. Obesity and snoring. Possible obstructive sleep apnea (SHAMEKA). Will defer decision to primary for possible outpatient followup. 15. Deep venous thrombosis (DVT) prophylaxis. Sequential compressive device (SCD) and no chemical prophylaxis due to thrombocytopenia. DISPOSITION: Patient's ammonia level has improved. Patient will likely need rehabilitation before discharge home. Patient has been discussed with attending doctor, Dr. Owen. My preceptor for this patient encounter was Capri Owen DO. The preceptor was physically present in the building during the encounter and was fully available. As needed, all aspects of the patient interview, examination, medical decision making process, and medical care plan development were reviewed and approved by the preceptor. The preceptor is aware and concurs with the plan as stated in the body of this note and will attest to such by his/her co-signature. PRAKASH
[2016-06-16 14:00] VITALS: BP 143/77
[2016-06-16] MEDS: GABAPENTIN 300 MG CAP PO SCH (20:27)
[2016-06-16] MEDS: PRAZOSIN 1 MG CAP PO SCH (20:27)
[2016-06-16] MEDS: MORPHINE 2 MG/ML 1ML SYRINGE IV PRN (20:37)
[2016-06-16 22:00] VITALS: BP 148/66
[2016-06-17] MEDS: LEVOTHYROXINE 0.15 MG TAB (150 MCG) PO SCH (05:30)
[2016-06-17] MEDS: LACTULOSE 20 GM/30 ML SYRUP UD PO SCH ×7 (05:30→23:21)
[2016-06-17 06:00] VITALS: BP 127/59
[2016-06-17 06:41] LABS: BASO % 0.1 % (0.0-1.0); EOS # 0.2 K/mm3 (0.0-0.50); EOS % 5.8 % (0.0-3.0); LARGE UNSTAINED CELL # 0.1 K/mm3 (0.0-0.4); LARGE UNSTAINED CELL % 3.6 % (0.0-4.0); LYMPH # 0.5 K/mm3 (1.5-4.5); LYMPH % 18.1 % (24.0-44.0); MEAN CORPUSCULAR HEMOGLOBIN 35.7 pg (27.0-33.0); MEAN CORPUSCULAR HGB CONC 31.6 g/dl (32.0-36.5); MONO # 0.2 K/mm3 (0.0-0.8); NEUTROPHILS # 1.6 K/mm3 (1.8-7.7); NEUTROPHILS % 63.3 % (36.0-66.0); PLATELET COUNT, AUTOMATED 55 k/mm3 (150-450); RED CELL DISTRIBUTION WIDTH 13.6 % (11.5-14.5); WHITE BLOOD COUNT 2.5 K/mm3 (4.0-10.0)
[2016-06-17 07:03] LABS: ALBUMIN/GLOBULIN RATIO 0.61 (1.00-1.93); ALKALINE PHOSPHATASE 104 U/L (45-117); ALT/SGPT 11 U/L (12-78); ANION GAP 7 MEQ/L (8-16); AST/SGOT 20 U/L (15-37); BILIRUBIN,TOTAL 6.2 MG/DL (0.2-1.0); BLOOD UREA NITROGEN 17 MG/DL (7-18); CALCIUM LEVEL 8.2 MG/DL (8.5-10.1); CARBON DIOXIDE LEVEL 27 MEQ/L (21-32); CHLORIDE LEVEL 109 MEQ/L (98-107); CREATININE FOR GFR 0.67 MG/DL (0.55-1.02); GLOMERULAR FILTRATION RATE > 60.0 (>51); GLUCOSE, FASTING 103 MG/DL (70-105); POTASSIUM SERUM 4.4 MEQ/L (3.5-5.1); SODIUM LEVEL 143 MEQ/L (136-145); TOTAL PROTEIN 5.3 GM/DL (6.4-8.2)
[2016-06-17] MEDS: DESVENLAFAXINE ER 50 MG TABLET (PRISTIQ) PO SCH (08:40)
[2016-06-17] MEDS: rifAXIMin 550 MG TAB (XIFAXAN) PO SCH ×2 (08:40→21:21)
[2016-06-17] MEDS: RIBAVIRIN 200 MG PO SCH ×2 (08:41→21:21)
[2016-06-17] MEDS: HARVONI PO SCH (08:42)
[2016-06-17] MEDS ORDERED: FUROSEMIDE 20 MG TAB PO ONE (11:00)
--- NOTE | 2016-06-17 11:47 | IPN ---
DATE: 06/17/2016 Time patient was seen was this morning at 10:00 a.m. Patient has been seen and examined at bedside. No acute events overnight. Patient continues to have loose bowel movements. However, yesterday the patient's lactulose was on hold due to the patient had eight small bowel movements. Otherwise, the patient admits to some chills, and some nausea. However, no chest pain, no trouble breathing, no vomiting, no blood in the urine or stool. Patient still complains about some mild abdominal discomfort and no problems with urination. PHYSICAL EXAMINATION: VITAL SIGNS: Temperature 97.4, pulse 84, respirations 16, blood pressure 127/59, oxygen was saturating at 92% on room air. GENERAL: Patient is a morbidly obese, elderly female, who was alert, awake, and oriented times three. Does not appear to be in distress. Resting comfortably on her chair with head elevated 60 degrees. The patient appears to be more energetic compared to the day prior. HEENT: Normocephalic, atraumatic. Extraocular motors intact. Mucous moist. NECK: Supple. No neck lymphadenopathy. CARDIOVASCULAR: Regular rate and rhythm. S1 and S2, difficult to auscultate due to body habitus. LUNGS: Clear to auscultation bilaterally. No wheezes, rales, or rhonchi. ABDOMEN: Positive bowel sounds. Soft, nontender, nondistended. No peritoneal signs. No ecchymosis. EXTREMITIES: Patient does have 2+ pitting edema in bilateral lower extremities. SKIN: Warm and dry. NEUROLOGIC: Cranial nerves II-XII intact. No focal neurological deficit. LABORATORIES: WBC 2.5, hemoglobin 7.9, hematocrit 25.1, with a platelet count of 55, and MCV of 113. Sodium 143, potassium 4.4, chloride 109, bicarbonate 27, BUN 17, creatinine 0.67, GFR greater than 60, fasting glucose 103, calcium 8.2, magnesium 6.2, AST 20, ALT 11, alkaline phosphatase 104, ammonia level continued to remain elevated at 72, albumin level is 2 today, slightly improved compared to the day prior. The patient's fecal occult blood is negative. No new imaging. ASSESSMENT/PLAN: 56-year-old female with past medical history of hepatic encephalopathy, cirrhosis secondary to alcohol use possibly and also hepatitis C, recently started treatment, hypothyroidism, pancytopenia, hyperbilirubinemia, recently diagnosed thyroid nodule, anxiety, posttraumatic stress disorder (PTSD), tobacco abuse, overactive bladder, peripheral vascular disease, morbid obesity, lower extremity edema, presented with: 1. Presyncope and fall likely secondary to vasovagal from prerenal azotemia versus metabolic and hepatic encephalopathy. Patient's neurological function has improved. Ammonia level is currently stable. Varies between 50 and 70. Continue lactulose every 6 hours and continue to monitor patient. The patient's lactulose was however on hold yesterday due to the patient had eight bowel movements during the day. Will continue to monitor and continue lactulose. We have removed the holding parameters on lactulose, hoping the ammonia level will reduce more. 2. Left ankle fracture. Orthopedic surgery has been consulted. Recommended physical therapy and rehabilitation. 3. Hypotension. Blood pressure is stable. Continue to monitor. 4. Pancytopenia. Continues to trend down. Likely secondary to dilutional effect due to mild fluid overload. Patient has been started on a small dose of Lasix to help. Will continue to monitor. 5. Hyperbilirubinemia, chronic. Has been stable. Continue to monitor. 6. Anxiety/depression. Continue home medication. 7. Cirrhosis secondary to alcohol usage and hepatitis C. Continue to monitor. 8. Hepatitis C. Continue home medications. HARVONI and ribavirin. 9. Hypothyroidism. Continue to monitor. 10. Posttraumatic stress disorder (PTSD). Continue home medication. 11. Tobacco abuse. Continue to monitor. Refuses nicotine patch. 12. Overactive bladder. Castaneda has been discontinued. Currently no issues. Continue to monitor. 13. Peripheral vascular disease. Continue to monitor. 14. Morbid obesity and snoring. Patient does not have any desaturation events so far. Will continue to monitor. 15. Deep venous thrombosis (DVT) prophylaxis. Sequential compressive device (SCD). No chemical prophylaxis due to thrombocytopenia. DISPOSITION: The patient's ammonia level remains stable. Neurologically the patient has improved and the acute kidney injury has resolved. Possibly will SNF patient soon and she can go to rehabilitation once a bed is available. The patient has been discussed with attending doctor, Dr. Owen. My preceptor for this patient encounter was Dr. Capri Owen. The preceptor was physically present in the building during the encounter and was fully available. As needed, all aspects of the patient interview, examination, medical decision making process, and medical care plan development were reviewed and approved by the preceptor. The preceptor is aware and concurs with the plan as stated in the body of this note and will attest to such by his/her cosignature.
[2016-06-17 14:00] VITALS: BP 115/56
[2016-06-17 20:40] VITALS: BP 142/65
[2016-06-17] MEDS: GABAPENTIN 300 MG CAP PO SCH (21:21)
[2016-06-17] MEDS: PRAZOSIN 1 MG CAP PO SCH (21:21)
[2016-06-17] MEDS: MORPHINE 2 MG/ML 1ML SYRINGE IV PRN (21:22)
[2016-06-18] MEDS: MORPHINE 2 MG/ML 1ML SYRINGE IV PRN ×2 (02:54→22:11)
[2016-06-18 05:50] VITALS: BP 169/69
[2016-06-18] MEDS: LEVOTHYROXINE 0.15 MG TAB (150 MCG) PO SCH (05:54)
[2016-06-18] MEDS: LACTULOSE 20 GM/30 ML SYRUP UD PO SCH ×3 (05:54→17:44)
[2016-06-18 06:36] LABS: BASO % 0.2 % (0.0-1.0); EOS # 0.1 K/mm3 (0.0-0.50); EOS % 4.5 % (0.0-3.0); LARGE UNSTAINED CELL # 0.2 K/mm3 (0.0-0.4); LARGE UNSTAINED CELL % 6.5 % (0.0-4.0); LYMPH # 0.4 K/mm3 (1.5-4.5); LYMPH % 16.8 % (24.0-44.0); MEAN CORPUSCULAR HEMOGLOBIN 35.4 pg (27.0-33.0); MEAN CORPUSCULAR HGB CONC 31.8 g/dl (32.0-36.5); MEAN CORPUSCULAR VOLUME 111.2 fl (80.0-96.0); MONO # 0.3 K/mm3 (0.0-0.8); MONO % 11.8 % (0.0-5.0); NEUTROPHILS # 1.5 K/mm3 (1.8-7.7); NEUTROPHILS % 60.3 % (36.0-66.0); RED CELL DISTRIBUTION WIDTH 13.5 % (11.5-14.5); WHITE BLOOD COUNT 2.5 K/mm3 (4.0-10.0)
[2016-06-18 06:38] LABS: ALBUMIN 1.9 GM/DL (3.2-5.2); ALBUMIN/GLOBULIN RATIO 0.58 (1.00-1.93); ALKALINE PHOSPHATASE 96 U/L (45-117); ALT/SGPT 13 U/L (12-78); ANION GAP 8 MEQ/L (8-16); AST/SGOT 19 U/L (15-37); BLOOD UREA NITROGEN 19 MG/DL (7-18); CALCIUM LEVEL 8.3 MG/DL (8.5-10.1); CARBON DIOXIDE LEVEL 27 MEQ/L (21-32); CHLORIDE LEVEL 109 MEQ/L (98-107); CREATININE FOR GFR 0.72 MG/DL (0.55-1.02); GLOMERULAR FILTRATION RATE > 60.0 (>51); GLUCOSE, FASTING 113 MG/DL (70-105); SODIUM LEVEL 144 MEQ/L (136-145); TOTAL PROTEIN 5.2 GM/DL (6.4-8.2)
[2016-06-18 06:39] LABS: PLATELET COUNT, AUTOMATED 56 k/mm3 (150-450)
[2016-06-18] MEDS: TORSEMIDE 10 MG TABLET PO SCH ×2 (10:14→17:43)
[2016-06-18] MEDS: DESVENLAFAXINE ER 50 MG TABLET (PRISTIQ) PO SCH (10:15)
[2016-06-18] MEDS: rifAXIMin 550 MG TAB (XIFAXAN) PO SCH ×2 (10:15→20:54)
[2016-06-18] MEDS: CARVedilol 3.125 MG TAB PO SCH ×2 (10:15→20:54)
[2016-06-18] MEDS: HARVONI PO SCH (10:16)
[2016-06-18] MEDS: RIBAVIRIN 200 MG PO SCH ×2 (10:18→20:54)
--- NOTE | 2016-06-18 13:32 | IPN ---
DATE: 06/18/2016 The patient has been seen and examined at bedside. No acute events overnight. The patient is feeling better today. Denies any fever or chills, nausea, vomiting, diarrhea or constipation, any chest pain or trouble breathing, any problem with urinations. PHYSICAL EXAMINATION: VITAL SIGNS: Temperature is 97.5 with pulse of 84, respirations 16, blood pressure 141/66, oxygen was saturating at 91% on room air. GENERAL: The patient is an obese, elderly female, who was alert, awake, oriented times three, does not appear to be in distress, resting comfortably in bed with head elevated at 60 degrees. HEENT: Normocephalic, atraumatic. Extraocular motor intact. Mucosa moist. Neck supple. No neck lymphadenopathy. CARDIOVASCULAR: Regular rate and rhythm. S1, S2. 3/6 systolic heart murmur. LUNGS: Clear to auscultation bilaterally. No wheezes, rales or rhonchi. ABDOMEN: Positive bowel sounds. Soft, nontender. There are no peritoneal signs. No ecchymosis. EXTREMITIES: 1+ pitting edema bilaterally. No cyanosis or clubbing. SKIN: Warm and dry. NEURO: Cranial nerves II/XII intact. No focal neurological deficit. LABORATORY: White blood count (WBC) 12.5, hemoglobin 7.2, hematocrit 22.5 with a platelet count of 56. Sodium 144, potassium 4, chloride 109, bicarbonate of 27, BUN 19, creatine 0.72 with a glomerular filtration rate (GFR) greater than 60 and fasting glucose 113. Calcium 8.3, total bilirubin was 5, AST 19, ALT 13, ammonia level was 66, improved compared to a day prior 72, total protein 5.2, albumin 1.9. PT 19.5, INR 1.64. ASSESSMENT AND PLAN: 56-year-old female with past medical history of hepatic encephalopathy, cirrhosis secondary to alcohol use and also hepatitis C, recently started on treatment for hepatitis C, hypothyrodism, pancytopenia, hyperbilirubinemia, recently diagnosed thyroid nodule, anxiety, posttraumatic stress disorder (PTSD), tobacco abuse, overactive bladder, peripheral vascular disease, morbid obesity and lower extremity edema presented with: 1. Pre-syncope and falls likely secondary to prerenal azotemia versus metabolic and hepatic encephalopathy versus vasovagal. The patient's neurological function has improved. Ammonia level has been relatively stable, varies between 50s and 70s. Continue lactulose every 6 hours. We have removed the hold parameters. 2. Left ankle fracture, orthopedic surgery has been consulted, who recommended physical therapy and rehabilitation. 3. Hypotension. Blood pressure is stable. Continue to monitor. 4. Pancytopenia. Continue to trend down, actually secondary to dilution from fluid. The patient has been restarted on home medication torsemide 10 mg twice a day and will continue to monitor the patient. 5. Hyperbilirubinemia, chronic. Will continue to monitor the patient's bilirubin level, today is 5. 6. Anxiety/depression. Continue home medication. 7. Cirrhosis secondary to alcohol use and hepatitis C. Continue to monitor. 8. Hepatitis C. Continue home medication, Harvoni and ribavirin. 9. Hypothyroidism. Continue to monitor. 10. Posttraumatic stress disorder (PTSD). Continue home medication. 11. Tobacco abuse. Refuses nicotine patch. 12. Overactive bladder. Castaneda has been discontinued. Currently, no issues. 13. Peripheral vascular disease. Continue to monitor. 14. Morbid obesity and snoring. The patient does not have any desaturation event so far. Continue to monitor. 15. Deep vein thrombosis (DVT) prophylaxis with SCD, no chemical prophylaxis due to thrombocytopenia. 16. The patient also had acute kidney injury due to prerenal azotemia. Initially home diuretics were stopped; we have resumed it today DISPOSITION: The patient's ammonia level remains to be stable. Will no longer check ammonia level due to normal neurological signs. In addition, the patient' s acute kidney injury has improved as well. The patient will likely need rehabilitation. The patient has been discussed with the attending doctor, Dr. Owen. My preceptor for this patient encounter was . The preceptor was physically present in the building during the encounter and was fully available. As needed, all aspects of the patient interview, examination, medical decision making process, and medical care plan development were reviewed and approved by the preceptor. The preceptor is aware and concurs with the plan as stated in the body of this note and will attest to such by his/her cosignature. PRAKASH
[2016-06-18 14:00] VITALS: BP 131/62
[2016-06-18 20:45] VITALS: BP 128/57
[2016-06-18] MEDS: PRAZOSIN 1 MG CAP PO SCH (20:53)
[2016-06-18] MEDS: GABAPENTIN 300 MG CAP PO SCH (20:55)
[2016-06-19] MEDS: LACTULOSE 20 GM/30 ML SYRUP UD PO SCH ×4 (00:04→17:12)
[2016-06-19] MEDS: LEVOTHYROXINE 0.15 MG TAB (150 MCG) PO SCH (05:40)
[2016-06-19] MEDS: MORPHINE 2 MG/ML 1ML SYRINGE IV PRN ×4 (05:45→20:53)
[2016-06-19 06:05] VITALS: BP 107/53
[2016-06-19 06:25] LABS: ALBUMIN 1.9 GM/DL (3.2-5.2); ALBUMIN/GLOBULIN RATIO 0.56 (1.00-1.93); ALKALINE PHOSPHATASE 100 U/L (45-117); ALT/SGPT 12 U/L (12-78); ANION GAP 8 MEQ/L (8-16); AST/SGOT 19 U/L (15-37); BILIRUBIN,TOTAL 4.3 MG/DL (0.2-1.0); BLOOD UREA NITROGEN 21 MG/DL (7-18); CARBON DIOXIDE LEVEL 30 MEQ/L (21-32); CHLORIDE LEVEL 108 MEQ/L (98-107); CREATININE FOR GFR 0.86 MG/DL (0.55-1.02); GLOMERULAR FILTRATION RATE > 60.0 (>51); GLUCOSE, FASTING 99 MG/DL (70-105); POTASSIUM SERUM 3.5 MEQ/L (3.5-5.1); SODIUM LEVEL 146 MEQ/L (136-145); TOTAL PROTEIN 5.3 GM/DL (6.4-8.2)
[2016-06-19 06:36] LABS: DIFF SLIDE NUMBER 29; MEAN CORPUSCULAR HEMOGLOBIN 35.1 pg (27.0-33.0); MEAN CORPUSCULAR HGB CONC 31.6 g/dl (32.0-36.5); MEAN CORPUSCULAR VOLUME 110.8 fl (80.0-96.0); RED CELL DISTRIBUTION WIDTH 13.5 % (11.5-14.5); WHITE BLOOD COUNT 2.4 K/mm3 (4.0-10.0)
[2016-06-19 06:48] LABS: PLATELET COUNT, AUTOMATED 65 k/mm3 (150-450)
[2016-06-19 07:18] LABS: BASOPHILS 1 % (0-4); EOSINOPHILS 8 % (0-5); HYPOCHROMASIA 1+
[2016-06-19 08:54] LABS: INR 1.76
[2016-06-19] MEDS: CARVedilol 3.125 MG TAB PO SCH ×2 (09:00→20:50)
[2016-06-19] MEDS ORDERED: GASTROGRAFIN SOLUTION 30ML PO ONE (09:00)
[2016-06-19] MEDS: TORSEMIDE 10 MG TABLET PO SCH ×2 (09:00→17:13)
[2016-06-19] MEDS ORDERED: GASTROGRAFIN SOLUTION 30ML (Q9963) PO ONE (09:30)
[2016-06-19] MEDS ORDERED: ISOVUE-370 76% 100ML VIAL (Q9967) As Ordered ONE (10:00)
--- NOTE | 2016-06-19 11:05 | REP ---
Clinical: Lower abdominal pain with history of cirrhosis. Technique: Axial contrast enhanced images from the lung bases to the pubic symphysis using oral and 100 ml Isovue 370 intravenous contrast material with coronal and sagittal re-formations. Comparison: 05/24/2016, 12/08/2011. Findings: Lung bases demonstrate chronic fibroatelectatic changes. Visualized portions of the heart and pericardium are normal. Liver, spleen, pancreas, bilateral adrenal glands and kidneys are essentially normal/stable. The patient is status post cholecystectomy. The enteric system is without obstruction or acute inflammatory process. Scattered colonic diverticula noted without acute diverticulitis. Normal terminal ileum and appendix identified in the right lower quadrant. Pelvis demonstrates partially collapsed normal bladder and evidence of prior hysterectomy. No pelvic fluid or ascites. No free air. No significant intraperitoneal or retroperitoneal adenopathy. Abdominal aorta demonstrates mild atherosclerotic changes without aneurysm or dissection. Skeletal structures demonstrate advanced degenerative changes primarily involving the visualized thoracolumbar spine and sacroiliac joints (left greater than right). Subcutaneous edema noted primarily involving the bilateral flank (left greater than right). Impression: Mild to moderate subcutaneous edema primarily overlying the left flank. No ascites. No acute intra-abdominal or pelvic pathology noted. Signed by Cruz Freed MD 06/19/2016 10:57 A
[2016-06-19] MEDS: DESVENLAFAXINE ER 50 MG TABLET (PRISTIQ) PO SCH (11:09)
[2016-06-19] MEDS: RIBAVIRIN 200 MG PO SCH ×2 (11:09→20:44)
[2016-06-19] MEDS: rifAXIMin 550 MG TAB (XIFAXAN) PO SCH ×2 (11:09→20:45)
[2016-06-19] MEDS: HARVONI PO SCH (11:09)
--- NOTE | 2016-06-19 13:42 | IPN ---
DATE: 06/19/2016 Time patient was seen was this morning at 11:10 a.m. Patient has been seen and examined at bedside. No acute events overnight. Today the patient's hemoglobin has dropped below 7. Otherwise, the patient denies any fever or chills, any chest pain, trouble breathing, abdominal pain, nausea, vomiting, diarrhea or constipation. The patient also denies any other current new complaints. PHYSICAL EXAMINATION: VITAL SIGNS: Temperature 97.2, pulse 66, respirations 18, blood pressure 117/53, oxygen was saturating at 95% on room air. GENERAL: Patient is an obese middle aged female, who was alert, awake, and oriented times three. Does not appear to be in distress. Resting comfortably on her chair with head elevated at 45 degrees. HEENT: Normocephalic, atraumatic. Extraocular motors intact. Mucous moist. NECK: Supple. No neck lymphadenopathy. CARDIOVASCULAR: Regular rate and rhythm. S1 and S2, difficult to auscultate due to increased AP diameter and body habitus. LUNGS: Clear to auscultation bilaterally. No wheezes, rales, or rhonchi. ABDOMEN: Positive bowel sounds. Obese, soft, nontender, nondistended. No peritoneal signs. No ecchymosis. EXTREMITIES: No edema, clubbing or cyanosis. SKIN: Warm and dry. NEUROLOGIC: Cranial nerves II through XII intact. No focal neurological deficit. LABORATORIES: WBC 2.4, hemoglobin 6.9 reduced from yesterday of 7.2, hematocrit 21.7 with a platelet count of 65, improved from the day prior, 56. Sodium 146, potassium 3.5, chloride 108, bicarbonate 30, BUN 21, creatinine 0.84, GFR greater than 60, fasting glucose 99, calcium 8, bilirubin was 4.3, improved from day prior of 5, AST 19, ALT 12, alkaline phosphatase 100, ammonia level was 49 compared to yesterday of 66. It has improved. Total protein 5.3, albumin was 1.9. Coags show a PT of 20.6, INR 1.76, PTT 37.5. No new cultures. The patient had a CT of the abdomen and pelvis this morning which shows mild to moderate subcutaneous edema primary overlying the left flank. No ascites. No acute intra-abdominal or pelvic pathology noted. 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 Presyncope and falls, likely secondary to prerenal azotemia versus metabolic and hepatic encephalopathy. It has improved. Ammonia level has been trending down on Lactulose and also rifaximin. Will continue to monitor. 2. Anemia with a hemoglobin of 6.9, likely secondary to cirrhosis and possible dilutional affect. Patient has been ordered for 2 units of packed red blood cells transfusion. Will continue to monitor and will order a CBC for this evening at 5:00 p.m. 3. Left ankle fracture. Orthopedic surgery consulted, status post splint. Recommended physical therapy and rehabilitation. Patient is waiting for a bed at rehab. 4. Hypotension. Stable. 5. Pancytopenia. Continues to trend down. Patient will receive transfusion today, 2 units of packed red blood cells. 6. Lower extremity swelling. Continue home medication, torsemide 10 mg twice a day. 7. Hyperbilirubinemia. Continues to improve today at 4.3, compared to 5 yesterday. 8. Anxiety/depression. Continue home medication. 9. Cirrhosis secondary to alcohol usage and hepatitis C. Continue to monitor. 10. Hepatitis C. Continue HARVONI and ribavirin. 11. Hypothyroidism. Continue home medications and monitoring. 12. Recently diagnosed thyroid nodule. The patient needs further followup with primary outpatient. 13. Posttraumatic stress disorder (PTSD). Continue home medication. 14. Tobacco abuse. Refuses nicotine patch. 15. Overactive bladder. No issues so far. Continue to monitor. 16. Peripheral vascular disease. Continue to monitor. 17. Morbid obesity and snoring. Continue to monitor. Per the patient, she has obstructive sleep apnea (SHAME[place]), however from her description likely she only uses oxygen at night. She did not have a formal sleep study. Will need outpatient sleep study with Dr. Mathew once the patient is discharge. 18. Deep venous thrombosis (DVT) prophylaxis. Sequential compressive device (SCD). No chemical prophylaxis due to thrombocytopenia. 19. Acute kidney injury secondary to prerenal azotemia. Resolved. DISPOSITION: The patient has anemia, likely secondary to cirrhosis with negative CT and negative fecal occult. Will transfuse 2 units of packed red blood cells and will trend the patient's CBC. Otherwise, the patient's acute kidney injury and also metabolic encephalopathy has improved. The patient has been discussed with attending doctor, Dr. Owen. My preceptor for this patient encounter was Dr. Capri Owen. The preceptor was physically present in the building during the encounter and was fully available. As needed, all aspects of the patient interview, examination, medical decision making process, and medical care plan development were reviewed and approved by the preceptor. The preceptor is aware and concurs with the plan as stated in the body of this note and will attest to such by his/her cosignature.
[2016-06-19 14:00] VITALS: BP 113/57
[2016-06-19 20:26] LABS: MEAN CORPUSCULAR HEMOGLOBIN 33.6 pg (27.0-33.0); MEAN CORPUSCULAR HGB CONC 31.6 g/dl (32.0-36.5); MEAN CORPUSCULAR VOLUME 106.4 fl (80.0-96.0); WHITE BLOOD COUNT 3.1 K/mm3 (4.0-10.0)
[2016-06-19] MEDS: GABAPENTIN 300 MG CAP PO SCH (20:45)
[2016-06-19] MEDS: PRAZOSIN 1 MG CAP PO SCH (20:51)
[2016-06-19 21:15] VITALS: BP 124/60
[2016-06-20] MEDS: LEVOTHYROXINE 0.15 MG TAB (150 MCG) PO SCH (05:51)
[2016-06-20] MEDS: LACTULOSE 20 GM/30 ML SYRUP UD PO SCH ×4 (05:51→17:09)
[2016-06-20 06:09] LABS: DIFF SLIDE NUMBER 19; MEAN CORPUSCULAR HEMOGLOBIN 33.4 pg (27.0-33.0); MEAN CORPUSCULAR HGB CONC 31.8 g/dl (32.0-36.5); RED CELL DISTRIBUTION WIDTH 17.8 % (11.5-14.5); WHITE BLOOD COUNT 2.7 K/mm3 (4.0-10.0)
[2016-06-20 06:15] VITALS: BP 133/62
[2016-06-20 06:29] LABS: ALBUMIN/GLOBULIN RATIO 0.56 (1.00-1.93); ALKALINE PHOSPHATASE 110 U/L (45-117); ALT/SGPT 13 U/L (12-78); ANION GAP 8 MEQ/L (8-16); AST/SGOT 21 U/L (15-37); BILIRUBIN,TOTAL 4.6 MG/DL (0.2-1.0); BLOOD UREA NITROGEN 23 MG/DL (7-18); CALCIUM LEVEL 8.2 MG/DL (8.5-10.1); CARBON DIOXIDE LEVEL 32 MEQ/L (21-32); CHLORIDE LEVEL 105 MEQ/L (98-107); CREATININE FOR GFR 0.86 MG/DL (0.55-1.02); GLOMERULAR FILTRATION RATE > 60.0 (>51); GLUCOSE, FASTING 107 MG/DL (70-105); POTASSIUM SERUM 4.1 MEQ/L (3.5-5.1); SODIUM LEVEL 145 MEQ/L (136-145); TOTAL PROTEIN 5.6 GM/DL (6.4-8.2)
[2016-06-20 06:47] LABS: PLATELET COUNT, AUTOMATED 59 k/mm3 (150-450)
[2016-06-20 06:50] LABS: EOSINOPHILS 7 % (0-5)
[2016-06-20 06:51] LABS: POLYCHROMASIA 1+
[2016-06-20] MEDS: CARVedilol 3.125 MG TAB PO SCH ×2 (09:30→20:58)
[2016-06-20] MEDS: TORSEMIDE 10 MG TABLET PO SCH (09:30)
[2016-06-20] MEDS: RIBAVIRIN 200 MG PO SCH ×2 (09:30→20:58)
[2016-06-20] MEDS: rifAXIMin 550 MG TAB (XIFAXAN) PO SCH ×2 (09:30→20:57)
[2016-06-20] MEDS: DESVENLAFAXINE ER 50 MG TABLET (PRISTIQ) PO SCH (09:30)
[2016-06-20] MEDS: HARVONI PO SCH (09:30)
[2016-06-20] MEDS: MORPHINE 2 MG/ML 1ML SYRINGE IV PRN ×3 (09:32→21:00)
[2016-06-20] MEDS ORDERED: TORSEMIDE 10 MG TABLET PO ONE (16:30)
[2016-06-20] MEDS: PRAZOSIN 1 MG CAP PO SCH (20:57)
[2016-06-20] MEDS: GABAPENTIN 300 MG CAP PO SCH (20:58)
[2016-06-20 22:00] VITALS: BP 122/58
[2016-06-21] MEDS: MORPHINE 2 MG/ML 1ML SYRINGE IV PRN ×3 (01:29→20:53)
[2016-06-21] MEDS: LEVOTHYROXINE 0.15 MG TAB (150 MCG) PO SCH (05:59)
[2016-06-21] MEDS: LACTULOSE 20 GM/30 ML SYRUP UD PO SCH ×5 (05:59→23:24)
[2016-06-21 06:00] VITALS: BP 104/48
[2016-06-21 07:39] LABS: BASO % 0.7 % (0.0-1.0); EOS # 0.2 K/mm3 (0.0-0.50); LARGE UNSTAINED CELL # 0.1 K/mm3 (0.0-0.4); LARGE UNSTAINED CELL % 4.4 % (0.0-4.0); LYMPH # 0.8 K/mm3 (1.5-4.5); LYMPH % 21.2 % (24.0-44.0); MEAN CORPUSCULAR HEMOGLOBIN 33.9 pg (27.0-33.0); MEAN CORPUSCULAR HGB CONC 32.4 g/dl (32.0-36.5); MEAN CORPUSCULAR VOLUME 104.8 fl (80.0-96.0); MONO # 0.2 K/mm3 (0.0-0.8); MONO % 8.2 % (0.0-5.0); NEUTROPHILS # 1.7 K/mm3 (1.8-7.7); NEUTROPHILS % 57.5 % (36.0-66.0); RED CELL DISTRIBUTION WIDTH 18.5 % (11.5-14.5); RETIC HEMOGLOBIN CONTENT CHr 35.3 PG (24-36); RETICULOCYTE ABSOLUTE ADVIA212 95 x10(9)/L (17-77)
[2016-06-21 07:41] LABS: ADD MORPHOLOGY? YES; PLATELET COUNT, AUTOMATED 83 k/mm3 (150-450)
[2016-06-21 07:55] LABS: ALBUMIN 2.1 GM/DL (3.2-5.2); ALBUMIN/GLOBULIN RATIO 0.54 (1.00-1.93); ALKALINE PHOSPHATASE 121 U/L (45-117); ALT/SGPT 15 U/L (12-78); ANION GAP 8 MEQ/L (8-16); AST/SGOT 23 U/L (15-37); BILIRUBIN,TOTAL 3.5 MG/DL (0.2-1.0); BLOOD UREA NITROGEN 20 MG/DL (7-18); CALCIUM LEVEL 8.1 MG/DL (8.5-10.1); CARBON DIOXIDE LEVEL 32 MEQ/L (21-32); CHLORIDE LEVEL 103 MEQ/L (98-107); GLOMERULAR FILTRATION RATE > 60.0 (>51); GLUCOSE, FASTING 106 MG/DL (70-105); POTASSIUM SERUM 3.2 MEQ/L (3.5-5.1); SODIUM LEVEL 143 MEQ/L (136-145)
[2016-06-21 08:03] LABS: HYPOCHROMASIA 1+
[2016-06-21 08:05] LABS: REASON FOR REVIEW COMPREHENSIVE REVIEW
[2016-06-21] MEDS ORDERED: TORSEMIDE 20 MG TAB PO SCH (09:00)
[2016-06-21] MEDS: POTASSIUM CHLORIDE 10 MEQ SR TABLET PO SCH ×2 (09:28→12:10)
[2016-06-21] MEDS: TORSEMIDE 10 MG TABLET PO SCH (09:29)
[2016-06-21] MEDS: DESVENLAFAXINE ER 50 MG TABLET (PRISTIQ) PO SCH (09:29)
[2016-06-21] MEDS: rifAXIMin 550 MG TAB (XIFAXAN) PO SCH ×2 (09:29→20:54)
[2016-06-21] MEDS: HARVONI PO SCH (09:29)
[2016-06-21] MEDS: CARVedilol 3.125 MG TAB PO SCH ×2 (09:30→20:55)
[2016-06-21] MEDS: RIBAVIRIN 200 MG PO SCH ×2 (09:30→20:55)
--- NOTE | 2016-06-21 12:09 | IPN ---
DATE: 06/21/2016 Time patient was seen was at 8:10 a.m. Patient has been seen and examined at bedside. No acute events overnight. Patient, however, did complain of some cramping of the right lower extremity as well as her left arm during sleep, it has resolved now. Otherwise patient denies any fever or chills, any chest pain, trouble breathing, abdominal pains, nausea, vomiting, diarrhea, or constipation. Patient, however, did refuse lactulose last night around midnight due to patient does not want to have a bowel movement afterward. Otherwise, patient denies any other current new complaints. PHYSICAL EXAMINATION: VITAL SIGNS: Temperature 98.1, pulse 65, respirations 18, blood pressure 126/58, oxygen saturating at 94% on room air. GENERAL: Patient is an obese middle-aged female who was alert, awake, oriented times three. Does not appear to be in distress. Resting comfortably in bed with head elevated at 45 degrees. HEENT: Normocephalic, atraumatic. Extraocular motors intact. Mucous moist. NECK: Supple. No neck lymphadenopathy. CARDIOVASCULAR: Regular rate and rhythm. S1, S2 difficult to auscultate due to body habitus. LUNGS: Clear to auscultation bilaterally. No wheezes, rales, or rhonchi. ABDOMEN: Positive bowel sounds. Soft, nontender, nondistended. No peritoneal signs. No ecchymosis. EXTREMITIES: Trace pitting edema in bilateral lower extremities. Otherwise no clubbing or cyanosis. SKIN: Warm and dry. NEUROLOGIC: Cranial nerves II-XII intact. No focal neurological deficit. LABORATORY DATA: WBC 3, hemoglobin 8.4, hematocrit 26, with a platelet count of 83, improved from day prior, MCV 104.8. Patient did also have a peripheral smear, shows absolute reticulocyte count 95 and percentage reticulocyte count 3.8, elevated. Sodium 143, potassium 3.2, reduced from yesterday, chloride 103, bicarbonate 32, BUN 20, creatinine 0.9, GFR greater than 60, glucose 106, calcium 8.1, total bilirubin 3.5, improved from day prior at 4.6, AST 23, ALT 15, alkaline phosphatase 121, ammonia level increased again compared to day prior, today is 56, yesterday was 29, total protein 6, albumin 2.1. No new cultures. No new imaging. 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 Presyncope and fall, likely secondary to prerenal azotemia versus metabolic and hepatic encephalopathy, improved. Patient's ammonia level has increased somewhat today to 50s, yesterday was in the 20s, likely secondary to refusing lactulose at midnight. Will continue lactulose and rifaximin and will continue to monitor. Patient has improved since admission however. 2. Anemia with hemoglobin of 8.4 today, two days prior was 6.9. Patient is status post 2 units of packed red blood cells (PRBCs). Patient's peripheral smear shows that she has a reticulocyte count percentage of 3.8, which was elevated. Pathology review is pending, will followup with the report and continue to monitor patient. 3. Left ankle fracture status post splint. Orthopedic surgery was consulted and recommended physical therapy and rehabilitation. Patient is currently waiting for a bed. 4. Hypotension, stable. 5. Pancytopenia. Continues to trend down slightly every day. Received 2 units of packed red blood cells (PRBCs) 2 days ago. Continue to monitor. 6. Lower extremity swelling, improved. Patient is on home dose torsemide 10 mg twice a day, however due to patient's complaint of cramping, will reduce torsemide to 10 mg daily. 7. Hyperbilirubinemia. Trending down. 8. Anxiety and depression. Continue home medication. 9. Cirrhosis, secondary to alcohol usage and hepatitis C. Improving. Continue to monitor. 10. Hepatitis. Continue Harvoni and Ribavirin. 11. Hypothyroidism. Continue home medication. 12. Recently diagnosed thyroid nodule. Patient made need outpatient followup. 13. Posttraumatic stress disorder (PTSD). Stable. 14. Tobacco abuse. Refuses nicotine patch. 15. Overactive bladder. No issues. 16. Peripheral vascular disease. Continue to monitor. 17. Morbid obesity and snoring. Continue as needed oxygen at night. Patient stated that she will do outpatient sleep study with Dr. Mathew. 18. Deep venous thrombosis (DVT) prophylaxis with sequential compression device (SCD). No chemical prophylaxis due to thrombocytopenia. 19. Acute kidney injury secondary to prerenal azotemia, resolved. DISPOSITION: Currently patient does have anemia with elevated reticulocyte count, which the reducing of red blood cells (RBCs) is at a rate greater than expected considering that she does have cirrhosis, patient did also receive 2 units of packed red blood cells (RBCs). Will followup with peripheral smear report. However, patient's acute kidney injury and metabolic encephalopathy has resolved. Patient has been discussed with attending doctor, Dr. Owen. My preceptor for this patient encounter was Dr. Capri Owen. The preceptor was physically present in the building during the encounter and was fully available. As needed, all aspects of the patient interview, examination, medical decision making process, and medical care plan development were reviewed and approved by the preceptor. The preceptor is aware and concurs with the plan as stated in the body of this note and will attest to such by his cosignature.
[2016-06-21 14:00] VITALS: BP 105/51
--- NOTE | 2016-06-21 15:20 | IPN ---
DATE: 06/20/2016 SUBJECTIVE: The patient is seen and examined in the room today. The patient stated that she has been lying in the bed most of the time. The patient has not been moving around the room. The patient still feels weak, but its better. The patient states her mentation is improving too. The patient is not sure whether she has observed any blood in the urine or stool. No overnight events reported. OBJECTIVE: VITAL SIGNS: Temperature is 98.6, respirations 18, blood pressure is 133/62, pulse oximetry is 98% on room air. GENERAL: Fatigue, alert, oriented times three. HEENT: Normocephalic, atraumatic. Extraocular motor grossly intact. CARDIOVASCULAR: Positive S1, S2 regular rate. Distant heart sounds. LUNGS: Distant breath sounds due to body habitus. Clear to auscultation bilaterally. ABDOMEN: Morbidly obese. Positive bowel sounds. Soft, nontender, nondistended. EXTREMITIES: Positive dependent edema in the posterior lower extremities and also buttock. No sign of cyanosis. Left lower extremity is wrapped with a cast. LABORATORY: White blood count (WBC) 2.7, hemoglobin 8.2, hematocrit 25.7, platelet count is 59. Sodium 145, potassium 4.1, chloride is 105, carbon dioxide 32, BUN 23, creatine is 0.86, glomerular filtration rate (GFR) greater than 60, fasting glucose is 107, calcium is 8.2, total bilirubin is 4.6. AST 21, ALT is 13, alkaline phosphatase 110. Ammonia level is 29. Total protein is 5.6, albumin is 2. ASSESSMENT AND PLAN: 1. Acute hepatic encephalopathy. The patient's ammonia level continued to decrease. The patient has been lactulose or rifaximine. Currently, ammonia level is 29, which is within her normal range. The patient will continue to be evaluated by the physical therapy to see her on a initial status, but it seems like the patient may need placement for short term rehabilitation. 2. Anemia. The patient just had a two packed red blood cell transfusion on 06/19/2016. However, the patient's occult blood test is negative. There is some fluctuation of the hemoglobin and hematocrit. There is also possibility of shifting of the fluid in the patient may cause hemodilution effect what we seen in the daily complete blood count (CBC). The patient currently showed some sign of fluid overload. Will start a trial of Lasix. 3. Left ankle fracture. The patient has a cast done by orthopedic surgery team. The patient will followup with orthopedic surgery. 4. History of hypotension. The patient's blood pressure within normal range currently. 5. Pancytopenia secondary to her liver failure, appears to be showing history of hepatitis C or resolving liver cirrhosis. 6. Liver cirrhosis. 7. Hyperbilirubinemia. 8. Hypothyroidism. 9. History of thyroid nodule. 10. History of posttraumatic stress disorder (PTSD). 11. History of tobacco abuse. 12. Overactive bladder. 13. Peripheral vascular disease. 14. Deep vein thrombosis (DVT) prophylaxis. The patient is on TEDs and sequentials. The patient has thrombocytopenia. No anticoagulation is warranted in this case.
[2016-06-21] MEDS: PRAZOSIN 1 MG CAP PO SCH (20:54)
[2016-06-21] MEDS: GABAPENTIN 300 MG CAP PO SCH (20:55)
[2016-06-21 22:00] VITALS: BP 110/50
[2016-06-22] MEDS: LACTULOSE 20 GM/30 ML SYRUP UD PO SCH ×4 (05:09→23:31)
[2016-06-22] MEDS: LEVOTHYROXINE 0.15 MG TAB (150 MCG) PO SCH (05:09)
[2016-06-22 06:00] VITALS: BP 100/51
[2016-06-22 06:31] LABS: MEAN CORPUSCULAR HEMOGLOBIN 34.1 pg (27.0-33.0); MEAN CORPUSCULAR HGB CONC 31.7 g/dl (32.0-36.5); MEAN CORPUSCULAR VOLUME 107.7 fl (80.0-96.0); RED CELL DISTRIBUTION WIDTH 18.4 % (11.5-14.5); WHITE BLOOD COUNT 2.8 K/mm3 (4.0-10.0)
[2016-06-22 06:45] LABS: ANION GAP 9 MEQ/L (8-16); BLOOD UREA NITROGEN 20 MG/DL (7-18); CALCIUM LEVEL 8.3 MG/DL (8.5-10.1); CARBON DIOXIDE LEVEL 30 MEQ/L (21-32); CHLORIDE LEVEL 105 MEQ/L (98-107); CREATININE FOR GFR 0.96 MG/DL (0.55-1.02); GLOMERULAR FILTRATION RATE > 60.0 (>51); GLUCOSE, FASTING 96 MG/DL (70-105); POTASSIUM SERUM 3.5 MEQ/L (3.5-5.1); SODIUM LEVEL 144 MEQ/L (136-145)
[2016-06-22 06:52] VITALS: BP 115/53
[2016-06-22] MEDS ORDERED: POTASSIUM CHLORIDE 10 MEQ SR TABLET PO ONE ×2 (07:15→09:00)
[2016-06-22] MEDS: CARVedilol 3.125 MG TAB PO SCH ×2 (08:31→21:00)
[2016-06-22] MEDS: rifAXIMin 550 MG TAB (XIFAXAN) PO SCH ×2 (08:32→21:18)
[2016-06-22] MEDS: TORSEMIDE 10 MG TABLET PO SCH (08:32)
[2016-06-22] MEDS: DESVENLAFAXINE ER 50 MG TABLET (PRISTIQ) PO SCH (08:32)
[2016-06-22] MEDS: HARVONI PO SCH (08:33)
[2016-06-22] MEDS: RIBAVIRIN 200 MG PO SCH ×2 (08:33→21:19)
[2016-06-22 08:37] LABS: MAGNESIUM LEVEL 1.4 MG/DL (1.8-2.4)
[2016-06-22] MEDS ORDERED: MAG SULF 1GM/100ML (MAG RUN) 1 GM in APPROPRIATE DILUENT 1 EA IV ONE (10:00)
[2016-06-22] MEDS: oxyCODONE 5MG TAB PO PRN ×3 (10:58→21:56)
[2016-06-22] MEDS ORDERED: MAG SULF 1GM/100ML (MAG RUN) 1 GM in APPROPRIATE DILUENT 1 EA IV SCH (12:15)
[2016-06-22] MEDS ORDERED: SIMETHICONE 80 MG CHEW TAB PO PRN (12:15)
--- NOTE | 2016-06-22 12:38 | IPN ---
DATE: 06/22/2016 TIME PATIENT WAS SEEN: This morning at 8:10. Patient has been seen and examined at bedside. No acute events overnight. Patient was found to have a low magnesium this morning, status post one magnesium run. Patient was also feeling chills; however, no fever. Patient otherwise denies any chest pain, trouble breathing, abdominal pains, nausea, vomiting, diarrhea, constipation, or any problems with urination. Denies any other current new complaints. PHYSICAL EXAMINATION: VITAL SIGNS: Temperature was 97.8, pulse 64, respirations 16, blood pressure was 107/53, oxygen was saturating at 94% on room air. GENERAL: Patient is a morbidly obese, middle-aged female who was alert, awake, oriented times three. Does not appear to be in distress, resting comfortably in bed with head elevated at 30 degrees. HEENT: Normocephalic, atraumatic. Extraocular motor intact. Mucosa moist. NECK: Supple. No neck lymphadenopathy. CARDIOVASCULAR: Regular rate and rhythm. S1, S2. No murmurs, rubs, or gallops. LUNGS: Clear to auscultation bilaterally. No wheezes, rales, or rhonchi. ABDOMEN: Positive bowel sounds. Soft, nontender, nondistended. No peritoneal signs. No ecchymosis. EXTREMITIES: Trace pitting edema; otherwise no clubbing or cyanosis. SKIN: Warm and dry. NEUROLOGIC: Cranial nerves II-XII intact. No focal neurological deficit. LABORATORY DATA: WBC 3.8, hemoglobin 8.3, hematocrit 36.2 with a platelet count of 85, and MCV was 107.7. Sodium 144, potassium 3.5, chloride 105, bicarbonate 30, BUN 20, creatinine 0.96 , GFR greater than 90, and glucose 96. Calcium 8.6, magnesium was 1.4. No new cultures. NO new imaging. 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 Presyncope and fall, likely secondary to pre-renal azotemia versus metabolic and hepatic encephalopathy, improved. Ammonia level has been stable between 20s and 50s. Will continue rifaximine and lactulose. 2. Left ankle fracture status post splint. Orthopedic surgery was consulted. Recommended physical therapy and rehabilitation. Currently waiting for bed. 3. Anemia with a hemoglobin of 8.3. Relatively stable. Patient is status post 2 units of packed red blood cells (PRBC) 3days ago. Will continue to monitor. Fecal occult has been negative. CT of abdomen and pelvis has been negative as well. Peripheral smear shows that the patient has macrocytic anemia, likely due to multiple comorbidities, especially liver cirrhosis. Iron panel, B12, folate have been ordered. Result pending. Will followup. 4. Hypomagnesemia, with magnesium of 1.4. One magnesium run has been ordered. Will followup. 5. Hypertension, stable. 6. Pancytopenia, stable, status post 2 units PRBC. 7. Lower extremity swelling, stable, improved. Continue torsemide 10 mg daily. At home was on torsemide 10 mg twice a day. Patient is starting to become slightly dry. 8. Hyperbilirubinemia. Continues to trend down. 9. Anxiety and depression. Continue home medication. 10. Cirrhosis secondary to alcohol usage and hepatitis C, improving. Continue to monitor. 11. Hepatitis C. Continue Harvoni and ribavirin. 12. Hypothyroidism. Continue home medication. 13. Recently diagnosed thyroid nodule. Patient needs further outpatient followup. 14. PTSD, stable. 15. Tobacco abuse. Refused nicotine patch. 16. Overactive bladder. No issues so far. 17. Peripheral vascular disease. Continue to monitor. 18. Morbid obesity and snoring. Continue as-needed oxygen at night. Patient stated that she will do outpatient sleep study with Dr. Mathew. 19. Acute kidney injury secondary to pre-renal azotemia, resolved. 20. Deep vein thrombosis (DVT) prophylaxis with sequential compression devices (SCD) and no chemical prophylaxis due to thrombocytopenia. DISPOSITION: Patient does have macrocytic anemia, likely secondary to cirrhosis ; however, will check B12, folate, and iron panel. Patient's metabolic and hepatic encephalopathy have improved. Patient has been discussed with attending doctor. Jigar Sotne. My preceptor for this patient encounter was Dr. Naila Kimball. The preceptor was physically present in the building during the encounter and was fully available as needed. All aspects of the patient interview, examination, medical decision making process, and medical care plan development were reviewed and approved by the preceptor. The preceptor is aware and concurs with the plan as stated in the body of this note and will attest to such by his/her co-signature. I have both independently examined this patient as well as reviewed the note. I have discussed in detail with the resident the findings and plan of treatment as documented in the residents note. I will continue to follow the patient and offer further guidance to the patients care as necessary during this hospital stay. Naila RANDALL
[2016-06-22] MEDS: PRAZOSIN 1 MG CAP PO SCH (21:16)
[2016-06-22] MEDS: GABAPENTIN 300 MG CAP PO SCH (21:19)
[2016-06-22 22:00] VITALS: BP 116/87
[2016-06-23] MEDS: LEVOTHYROXINE 0.15 MG TAB (150 MCG) PO SCH (05:16)
[2016-06-23] MEDS: LACTULOSE 20 GM/30 ML SYRUP UD PO SCH ×4 (05:16→23:15)
[2016-06-23 06:00] VITALS: BP 103/50
[2016-06-23 06:42] LABS: MEAN CORPUSCULAR HEMOGLOBIN 33.5 pg (27.0-33.0); MEAN CORPUSCULAR HGB CONC 31.1 g/dl (32.0-36.5); MEAN CORPUSCULAR VOLUME 107.9 fl (80.0-96.0); RED CELL DISTRIBUTION WIDTH 18.3 % (11.5-14.5); WHITE BLOOD COUNT 2.7 K/mm3 (4.0-10.0)
[2016-06-23 07:11] LABS: ANION GAP 9 MEQ/L (8-16); BLOOD UREA NITROGEN 19 MG/DL (7-18); CALCIUM LEVEL 8.1 MG/DL (8.5-10.1); CARBON DIOXIDE LEVEL 31 MEQ/L (21-32); CHLORIDE LEVEL 102 MEQ/L (98-107); CREATININE FOR GFR 1.01 MG/DL (0.55-1.02); FERRITIN 1210 NG/ML (8-252); GLOMERULAR FILTRATION RATE > 60.0 (>51); GLUCOSE, FASTING 116 MG/DL (70-105); MAGNESIUM LEVEL 1.6 MG/DL (1.8-2.4); PERCENT SATURATION 89.4 % (13.2-37.4); POTASSIUM SERUM 3.4 MEQ/L (3.5-5.1); SODIUM LEVEL 142 MEQ/L (136-145); TOTAL IRON BINDING CAPACITY 226 UG/DL (250-450)
[2016-06-23 07:14] LABS: VITAMIN B12 LEVEL 1306 PG/ML (247-911)
[2016-06-23 07:15] LABS: FOLATE 4.8 NG/ML (>5.4)
[2016-06-23] MEDS ORDERED: MAG SULF 1GM/100ML (MAG RUN) 1 GM in APPROPRIATE DILUENT 1 EA IV ONE (07:30)
[2016-06-23] MEDS ORDERED: POTASSIUM CHLORIDE 10 MEQ SR TABLET PO ONE (07:30)
[2016-06-23] MEDS: CARVedilol 3.125 MG TAB PO SCH ×2 (09:00→21:00)
[2016-06-23] MEDS: MULTIVITAMINS/MINERALS THERAP 1 TAB PO SCH (09:00)
[2016-06-23] MEDS: HARVONI PO SCH (09:03)
[2016-06-23] MEDS: RIBAVIRIN 200 MG PO SCH ×2 (09:03→21:06)
[2016-06-23] MEDS: rifAXIMin 550 MG TAB (XIFAXAN) PO SCH ×2 (09:04→21:05)
[2016-06-23] MEDS: DESVENLAFAXINE ER 50 MG TABLET (PRISTIQ) PO SCH (09:04)
[2016-06-23] MEDS: TORSEMIDE 10 MG TABLET PO SCH (09:04)
[2016-06-23] MEDS: oxyCODONE 5MG TAB PO PRN ×2 (11:49→21:27)
[2016-06-23 14:00] VITALS: BP 96/45
--- NOTE | 2016-06-23 20:15 | IPN ---
DATE: 06/23/2016 Time patient was seen was this afternoon at 1420 hours. The patient has been seen and examined at bedside. No acute events overnight. The patient denies any fever, chills, chest pain, trouble breathing, abdominal pain, nausea, vomiting, diarrhea, constipation. Denies any other current new complaints. PHYSICAL EXAMINATION VITAL SIGNS: Temperature 97.7, pulse 66, respirations 18, blood pressure 103/ 50. Oxygen saturation 94%. GENERAL: The patient is morbidly obese, middle aged female who is alert, awake, oriented times three. Does not appear to be in distress. Resting comfortably in her chair. HEENT: Normocephalic, atraumatic. Extraocular motors intact. Mucosa moist. NECK: Supple. No neck lymphadenopathy. CARDIOVASCULAR: Regular rate and rhythm. S1, S2. No rubs or gallops. LUNGS: Clear to auscultation bilaterally. No wheezes, rales or rhonchi. ABDOMEN: Positive bowel sounds. Soft, nontender. No peritoneal signs. No ecchymosis. EXTREMITIES: Trace pitting edema in bilateral lower extremities. SKIN: Warm and dry. NEUROLOGIC: Cranial nerves II through XII intact. No focal neurological deficit. LABORATORY DATA: WBC 12.7, hemoglobin 8.5, hematocrit 27.5 with a platelet count of 85 and MCV of 107.9. Sodium 142, potassium 3.4, low, chloride 102, bicarbonate 31, BUN 19, creatinine 1.01, GFR greater than 60, glucose 116. Calcium 8.1, magnesium 1.6, which was low, iron 202, total iron binding capacity was reduced 226, and transferrin percentage was 89.4, ferritin is 1410. Vitamin B12 was elevated at 1306, and folate was low at only 4.8. No new cultures. No new imaging. 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 Presyncope and fall, likely secondary to prerenal azotemia versus metabolic and hepatic encephalopathy, resolved. Ammonia level has been stable. We have stopped checking. Continue rifaximin and Lactulose. 2. Left ankle fracture, status post fall and status post splint. Orthopedic surgery has been consulted and recommended physical therapy (PT) and rehabilitation. Currently, the patient cannot to go to rehabilitation due to they will not cover the patient's hepatitis medication, Harvoni. Therefore, the patient will likely stay in the hospital for rehabilitation. 3. Anemia with hemoglobin of 8.3 three days ago. Status post 2 units of packed red blood cells. Hemoglobin has been stable. Hemoccult blood has been negative. The patient is found to be deficient in folate today, started on multivitamin. 4. Hypomagnesemia. Magnesium is low again today, which has been supplemented. Continue to follow. 5. Hypertension, stable. 6. Pancytopenia, stable. Status post 2 units of packed red blood cells. 7. Soft blood pressure today. We will continue to monitor. We will continued a lowered dose of torsemide and continue to monitor the patient's input and output. 8. Lower extremity edema, improved. However, worsening compared to yesterday. Initially, was considering to increase the patient's torsemide, however, blood pressure is low. Therefore, we will keep torsemide the same today. 9. Hyperbilirubinemia. Continues to trend down. 10. Anxiety and depression. Continue home medications. 11. Cirrhosis secondary to alcohol usage and hepatitis C. Continue to monitor. 12. Hepatitis C. Continue Harvoni and Rabavirin. 13. Recently diagnosed thyroid nodule. The patient may need further outpatient workup per primary. 14. Posttraumatic stress disorder (PTSD), stable. 15. Tobacco abuse. Refuses nicotine patch. 16. Overactive bladder. No issues so far. 17. Peripheral vascular disease. Continue to monitor. 18. Morbid obesity and snoring. The patient is pending an outpatient sleep study with Dr. Mathew. So far, we will use oxygen at night. 19. Acute kidney injury secondary to prerenal azotemia, resolved. 20. Deep vein thrombosis (DVT) prophylaxis with sequential compression device (SCD). Not on chemical prophylaxis due to thrombocytopenia. DISPOSITION: The patient does have a macrocytic anemia, found to be folate deficient today. We will continue supplementation. The patient's metabolic and hepatic encephalopathy seem to be improved. The patient's blood pressure is a little bit soft today. We will continue to monitor. The patient has been discussed with attending doctor, Dr. Jaquez. My preceptor for this patient encounter was Dr. Jaquez. The preceptor was physically present in the building during the encounter and was fully available. As needed, all aspects of the patient interview, examination, medical decision making process, and medical care plan development were reviewed and approved by the preceptor. The preceptor is aware and concurs with the plan as stated in the body of this note and will attest to such by his/her cosignature. PRAKASH
[2016-06-23] MEDS: PRAZOSIN 1 MG CAP PO SCH (21:05)
[2016-06-23] MEDS: GABAPENTIN 300 MG CAP PO SCH (21:05)
[2016-06-23 22:00] VITALS: BP 116/55
[2016-06-24] MEDS: LACTULOSE 20 GM/30 ML SYRUP UD PO SCH ×3 (05:12→18:25)
[2016-06-24] MEDS: LEVOTHYROXINE 0.15 MG TAB (150 MCG) PO SCH (05:12)
[2016-06-24 06:00] VITALS: BP 112/53
[2016-06-24 06:13] LABS: MEAN CORPUSCULAR HEMOGLOBIN 33.4 pg (27.0-33.0); MEAN CORPUSCULAR HGB CONC 30.7 g/dl (32.0-36.5); MEAN CORPUSCULAR VOLUME 108.8 fl (80.0-96.0); RED CELL DISTRIBUTION WIDTH 17.1 % (11.5-14.5); WHITE BLOOD COUNT 2.6 K/mm3 (4.0-10.0)
[2016-06-24 06:14] LABS: ANION GAP 6 MEQ/L (8-16); BLOOD UREA NITROGEN 17 MG/DL (7-18); CALCIUM LEVEL 8.2 MG/DL (8.5-10.1); CARBON DIOXIDE LEVEL 34 MEQ/L (21-32); CHLORIDE LEVEL 102 MEQ/L (98-107); CREATININE FOR GFR 0.96 MG/DL (0.55-1.02); GLOMERULAR FILTRATION RATE > 60.0 (>51); GLUCOSE, FASTING 96 MG/DL (70-105); MAGNESIUM LEVEL 1.8 MG/DL (1.8-2.4); POTASSIUM SERUM 3.6 MEQ/L (3.5-5.1); SODIUM LEVEL 142 MEQ/L (136-145)
[2016-06-24] MEDS: CARVedilol 3.125 MG TAB PO SCH ×2 (10:01→21:47)
[2016-06-24] MEDS: DESVENLAFAXINE ER 50 MG TABLET (PRISTIQ) PO SCH (10:01)
[2016-06-24] MEDS: TORSEMIDE 10 MG TABLET PO SCH (10:01)
[2016-06-24] MEDS: rifAXIMin 550 MG TAB (XIFAXAN) PO SCH ×2 (10:01→21:47)
[2016-06-24] MEDS: MULTIVITAMINS/MINERALS THERAP 1 TAB PO SCH (10:01)
[2016-06-24] MEDS: HARVONI PO SCH (10:02)
[2016-06-24] MEDS: RIBAVIRIN 200 MG PO SCH ×2 (10:02→21:47)
[2016-06-24 14:00] VITALS: BP 118/56
[2016-06-24] MEDS: oxyCODONE 5MG TAB PO PRN ×2 (15:49→21:51)
--- NOTE | 2016-06-24 18:05 | IPN ---
DATE: 06/24/2016 Time patient was seen was this afternoon at 1330 hours. The patient has been seen and examined at the bedside. No acute events overnight. The patient complained of feeling drowsy from her current medications and would like to have a lower dose of pain medication. Otherwise, the patient denies any fever, chills, abdominal pain, nausea, vomiting, diarrhea, or constipation. Denies any other current new complaints. PHYSICAL EXAMINATION: VITAL SIGNS: Temperature was 97.7, pulse 68, respirations 18, blood pressure 112/53, oxygen saturation 100% on room air. GENERAL: The patient is a morbidly obese, middle aged female who was alert, awake, oriented times three. Does not appear to be in distress. Resting comfortably sitting up in a recliner with head elevated at 60 degrees. HEENT: Normocephalic. Atraumatic. Extraocular motors intact. Mucosa moist. NECK: Supple. No neck lymphadenopathy. CARDIOVASCULAR : Regular rate and rhythm. S1, S2. Difficult to auscultate due to body habitus. LUNGS: Clear to auscultation bilaterally. No wheezes, rales or rhonchi. ABDOMEN: Positive bowel sounds. Soft, nontender, nondistended. No peritoneal signs. No ecchymosis. EXTREMITIES: 1+ pitting edema in bilateral lower extremities. The patient does have a fractured ankle on the left leg and currently in a splint. SKIN: Warm and dry. NEUROLOGIC: Cranial nerves II through XII intact. No focal neurological deficits. LABORATORIES: WBC 2.6, hemoglobin 8, hematocrit 25.9 with a platelet count of 87 and MCV of 108.8. Sodium 142, potassium 3.6, chloride 102, bicarbonate 34, BUN 17, creatinine 0.96, GFR greater than 60, fasting glucose 96, and calcium was 8.2, magnesium was 1.8. Urine culture shows no growth. No new imaging. 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 Presyncope and fall, likely secondary to prerenal azotemia versus metabolic and hepatic encephalopathy, resolved. Anemia level has been stable. Continue rifaximin and lactulose. 2. Left ankle fracture, status post fall and splint. Orthopedic surgery was consulted and recommended physical therapy (PT) and rehabilitation. Currently, the patient cannot go to rehabilitation due to long-term does not cover the patient's hepatitis medication, Harvoni, therefore the patient likely will stay inpatient for rehabilitation. 3. Anemia with hemoglobin of 8 today, which is likely secondary to dilutional and related to cirrhosis. We will increase the patient's torsemide, which likely will help the hemoglobin level tomorrow. 4. Hypomagnesemia. Magnesium level is normal today. Continue to monitor. We will supplement as needed. 5. Hypertension, stable. 6. Pancytopenia. Status post 2 units of packed red blood cells. 7. Soft blood pressure, resolved. 8. Lower extremity edema. Appears to be more swelling compared to the day prior. We will increase torsemide from 10 mg daily to 10 mg twice a day back to home dose. 9. Hyperbilirubinemia. Continues to trend down. 10. Anxiety and depression. Continue home medications. 11. Cirrhosis secondary to alcohol usage and hepatitis C. Continue to monitor. 12. Hepatitis C. Continue Harvoni and ribavirin. 13. Recently diagnosed thyroid nodule. The patient may need further outpatient workup. 14. Posttraumatic stress disorder (PTSD), stable. 15. Tobacco abuse. Refuses nicotine patch . 16. Overactive bladder. No issues so far. 17. Peripheral vascular disease. Continue to monitor. 18. Morbid obesity and snoring. The patient is pending outpatient sleep study with Dr. Mathew. At this point, we will supplement oxygen when the patient sleeps. 19. Acute kidney injury secondary to prerenal azotemia, resolved. 20. Deep vein thrombosis (DVT) prophylaxis with sequential compression device (SCD). No chemical prophylaxis due to thrombocytopenia. DISPOSITION: The patient continues to improve. Blood pressure has improved as well. Possibly we will consider [facility] patient tomorrow. The patient has been discussed with attending doctor, Dr. Jaquez. My preceptor for this patient encounter was Dr. Jaquez. The preceptor was physically present in the building during the encounter and was fully available. As needed, all aspects of the patient interview, examination, medical decision making process, and medical care plan development were reviewed and approved by the preceptor. The preceptor is aware and concurs with the plan as stated in the body of this note and will attest to such by his/her cosignature.
[2016-06-24] MEDS: GABAPENTIN 300 MG CAP PO SCH (21:47)
[2016-06-24] MEDS: PRAZOSIN 1 MG CAP PO SCH (21:47)
[2016-06-24 22:00] VITALS: BP 124/58
[2016-06-25] MEDS: LACTULOSE 20 GM/30 ML SYRUP UD PO SCH ×4 (00:47→17:57)
[2016-06-25] MEDS: LEVOTHYROXINE 0.15 MG TAB (150 MCG) PO SCH (05:34)
[2016-06-25 06:00] VITALS: BP 122/56
[2016-06-25 06:49] LABS: MEAN CORPUSCULAR HEMOGLOBIN 34.6 pg (27.0-33.0); MEAN CORPUSCULAR HGB CONC 31.9 g/dl (32.0-36.5); MEAN CORPUSCULAR VOLUME 108.3 fl (80.0-96.0); WHITE BLOOD COUNT 2.8 K/mm3 (4.0-10.0)
[2016-06-25 07:00] LABS: CALCIUM LEVEL 8.4 MG/DL (8.5-10.1); CREATININE FOR GFR 1.05 MG/DL (0.55-1.02); GLOMERULAR FILTRATION RATE 57.5 (>51); MAGNESIUM LEVEL 1.9 MG/DL (1.8-2.4); POTASSIUM SERUM 3.5 MEQ/L (3.5-5.1)
[2016-06-25] MEDS: RIBAVIRIN 200 MG PO SCH ×2 (08:30→20:48)
[2016-06-25] MEDS: MULTIVITAMINS/MINERALS THERAP 1 TAB PO SCH (08:30)
[2016-06-25] MEDS: DESVENLAFAXINE ER 50 MG TABLET (PRISTIQ) PO SCH (08:30)
[2016-06-25] MEDS: rifAXIMin 550 MG TAB (XIFAXAN) PO SCH ×2 (08:30→20:49)
[2016-06-25] MEDS: CARVedilol 3.125 MG TAB PO SCH ×2 (08:31→20:49)
[2016-06-25] MEDS ORDERED: TORSEMIDE 10 MG TABLET PO SCH (09:00)
[2016-06-25] MEDS: HARVONI PO SCH (09:00)
--- NOTE | 2016-06-25 11:55 | IPN ---
DATE: 06/25/2016 Patient has been seen and examined at bedside. No acute events overnight. Patient is still complaining of some dizziness with pain medication and she still does not have her Harvoni for hepatitis C, which she stated that her boyfriend will bring in the medication today. Otherwise, patient denies any fever or chills, any chest pain, trouble breathing, any abdominal pains, any constipation. Patient denies any other current new complaints. PHYSICAL EXAMINATION: VITAL SIGNS: Temperature 97.7, pulse 63, respirations 17, blood pressure 122/56, oxygen was saturating at 96% on room air. GENERAL: Patient is a moderately obese female who was alert, awake, oriented times three, does not appear to be in distress, resting comfortably in bed with head elevated at 30 degrees. HEENT: Normocephalic, atraumatic. Extraocular motors intact. Mucous moist. Neck supple. No neck lymphadenopathy. CARDIOVASCULAR; Regular rate and rhythm, S1, S2. There was a 2/6 systolic heart murmur. LUNGS: Clear to auscultation bilaterally. No wheezes, rales, or rhonchi. ABDOMEN: Positive bowel sounds. Soft, nontender, nondistended. No peritoneal signs. No ecchymosis. EXTREMITIES: There was trace pitting edema in the bilateral lower extremities. SKIN: Warm and dry. NEUROLOGIC: Cranial nerves II-XII intact. No focal neurological deficit. LABORATORY DATA: WBC 2.8, hemoglobin 8.7, hematocrit 27.3, platelet count 101, MCV 108.3. Sodium 134, potassium 3.4, chloride 104, bicarbonate 29, BUN 20, creatinine 1.05, GFR 57.5, glucose 98, calcium 8.4, magnesium 1.9. No new cultures. No new imaging. 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 Presyncope and fall, likely secondary to prerenal azotemia versus metabolic hepatic encephalopathy, resolved. Hemoglobin and hematocrit are stable. Continue rifaximin and lactulose. 2. Left ankle fracture status post fall and splint. Orthopedic surgery consulted. Recommended rehabilitation. However, patient cannot go for rehabilitation due to taking Harvoni which was not covered at senior living. Therefore, patient will likely need to stay for rehabilitation. 3. Anemia with hemoglobin of 8.7, stable. Continue to monitor. Continue torsemide. Patient's hemoccult was negative, therefore the drop in hemoglobin was likely dilutional. 4. Hypomagnesemia. Magnesium level was normal today. Continue to monitor. 5. Hypertension, stable. 6. Pancytopenia. Stable after 2 units of packed red blood cells (PRBCs). 7. Hypotension, resolved. 8. Lower extremity edema. Continue diuretics. I have switched torsemide to Lasix for finer adjustment. 9. Hyperbilirubinemia. Continuing to trend down. 10. Anxiety and depression. Continue home medication. 11. Cirrhosis secondary to alcohol usage and also recently diagnosed hepatitis C. Continue to monitor. Continue home medication. 12. Hepatitis C. Continue Harvoni and ribavirin. 13. Recently diagnosed thyroid nodule. Patient may need further outpatient workup per primary. 14. Posttraumatic stress disorder (PTSD), stable. 15. Tobacco abuse. Refused nicotine patch. 16. Overactive bladder. No issues so far. 17. Peripheral vascular disease. Continue to monitor. 18. Morbid obesity and snoring. Patient is pending outpatient sleep study with Dr. Mathew. At this point will supplement oxygen when patient sleeps. 19. Acute kidney injury secondary to prerenal azotemia, resolved. 20. Deep venous thrombosis (DVT) prophylaxis with sequential compression device (SCD) only. No chemical prophylaxis due to thrombocytopenia. DISPOSITION: Patient's condition has improved. Patient will be undergoing physical therapy and will senior living facility (SNF) patient today. Patient has been discussed with attending doctor, Dr. Jaquez. My preceptor for this patient encounter was Dr. Pankaj Jaquez. The preceptor was physically present in the building during the encounter and was fully available. As needed, all aspects of the patient interview, examination, medical decision making process, and medical care plan development were reviewed and approved by the preceptor. The preceptor is aware and concurs with the plan as stated in the body of this note and will attest to such by his/her cosignature.
[2016-06-25 14:00] VITALS: BP 132/53
[2016-06-25] MEDS: FUROSEMIDE 40 MG TAB PO SCH (17:57)
[2016-06-25] MEDS: PRAZOSIN 1 MG CAP PO SCH (20:49)
[2016-06-25] MEDS: GABAPENTIN 300 MG CAP PO SCH (20:49)
[2016-06-25] MEDS: oxyCODONE 5MG TAB PO PRN (20:58)
[2016-06-25] MEDS ORDERED: ONDANSETRON 4 MG TAB (S0181) PO PRN (21:15)
[2016-06-25 22:00] VITALS: BP 126/62
[2016-06-26] MEDS: LACTULOSE 20 GM/30 ML SYRUP UD PO SCH ×5 (00:03→23:11)
[2016-06-26] MEDS: LEVOTHYROXINE 0.15 MG TAB (150 MCG) PO SCH (05:31)
[2016-06-26 06:00] VITALS: BP 111/54
[2016-06-26] MEDS: CARVedilol 3.125 MG TAB PO SCH ×2 (09:00→21:00)
[2016-06-26] MEDS: DESVENLAFAXINE ER 50 MG TABLET (PRISTIQ) PO SCH (09:11)
[2016-06-26] MEDS: FUROSEMIDE 40 MG TAB PO SCH ×2 (09:12→17:07)
[2016-06-26] MEDS: rifAXIMin 550 MG TAB (XIFAXAN) PO SCH ×2 (09:12→21:24)
[2016-06-26] MEDS: MULTIVITAMINS/MINERALS THERAP 1 TAB PO SCH (09:12)
[2016-06-26] MEDS: RIBAVIRIN 200 MG PO SCH ×2 (09:13→21:25)
[2016-06-26] MEDS: HARVONI PO SCH (09:13)
[2016-06-26] MEDS: PRAZOSIN 1 MG CAP PO SCH (21:24)
[2016-06-26] MEDS: GABAPENTIN 300 MG CAP PO SCH (21:24)
[2016-06-26] MEDS: oxyCODONE 5MG TAB PO PRN (21:24)
[2016-06-26 22:00] VITALS: BP 111/51
[2016-06-27] MEDS: LACTULOSE 20 GM/30 ML SYRUP UD PO SCH ×4 (05:33→23:15)
[2016-06-27] MEDS: LEVOTHYROXINE 0.15 MG TAB (150 MCG) PO SCH (05:33)
[2016-06-27 06:00] VITALS: BP 117/53
[2016-06-27] MEDS: CARVedilol 3.125 MG TAB PO SCH ×2 (09:00→21:00)
[2016-06-27] MEDS: DESVENLAFAXINE ER 50 MG TABLET (PRISTIQ) PO SCH (09:41)
[2016-06-27] MEDS: MULTIVITAMINS/MINERALS THERAP 1 TAB PO SCH (09:42)
[2016-06-27] MEDS: rifAXIMin 550 MG TAB (XIFAXAN) PO SCH ×2 (09:42→21:33)
[2016-06-27] MEDS: FUROSEMIDE 40 MG TAB PO SCH ×2 (09:42→16:10)
[2016-06-27] MEDS: oxyCODONE 5MG TAB PO PRN ×3 (09:42→23:15)
[2016-06-27] MEDS: HARVONI PO SCH (09:46)
[2016-06-27] MEDS: RIBAVIRIN 200 MG PO SCH ×2 (09:47→21:34)
[2016-06-27 20:00] VITALS: BP 119/58
[2016-06-27] MEDS: GABAPENTIN 300 MG CAP PO SCH (21:33)
[2016-06-27] MEDS: PRAZOSIN 1 MG CAP PO SCH (21:33)
[2016-06-28] MEDS: LACTULOSE 20 GM/30 ML SYRUP UD PO SCH ×4 (05:13→23:24)
[2016-06-28] MEDS: LEVOTHYROXINE 0.15 MG TAB (150 MCG) PO SCH (05:13)
[2016-06-28 06:00] VITALS: BP 121/58
[2016-06-28 06:21] LABS: MEAN CORPUSCULAR HGB CONC 30.7 g/dl (32.0-36.5); MEAN CORPUSCULAR VOLUME 110.7 fl (80.0-96.0); WHITE BLOOD COUNT 2.8 K/mm3 (4.0-10.0)
[2016-06-28 06:29] LABS: ANION GAP 9 MEQ/L (8-16); BLOOD UREA NITROGEN 15 MG/DL (7-18); CALCIUM LEVEL 8.3 MG/DL (8.5-10.1); CARBON DIOXIDE LEVEL 30 MEQ/L (21-32); CHLORIDE LEVEL 103 MEQ/L (98-107); CREATININE FOR GFR 0.98 MG/DL (0.55-1.02); GLOMERULAR FILTRATION RATE > 60.0 (>51); GLUCOSE, FASTING 105 MG/DL (70-105); MAGNESIUM LEVEL 1.8 MG/DL (1.8-2.4); POTASSIUM SERUM 3.1 MEQ/L (3.5-5.1); SODIUM LEVEL 142 MEQ/L (136-145)
[2016-06-28] MEDS ORDERED: POTASSIUM CHLORIDE 10 MEQ SR TABLET PO ONE (08:15)
[2016-06-28] MEDS: FUROSEMIDE 40 MG TAB PO SCH ×2 (09:37→17:41)
[2016-06-28] MEDS: DESVENLAFAXINE ER 50 MG TABLET (PRISTIQ) PO SCH (09:37)
[2016-06-28] MEDS: MAGNESIUM OXIDE 400 MG TAB (MAG-OX) PO SCH (09:37)
[2016-06-28] MEDS: MULTIVITAMINS/MINERALS THERAP 1 TAB PO SCH (09:38)
[2016-06-28] MEDS: CARVedilol 3.125 MG TAB PO SCH ×2 (09:38→21:22)
[2016-06-28] MEDS: rifAXIMin 550 MG TAB (XIFAXAN) PO SCH ×2 (09:38→21:22)
[2016-06-28] MEDS: RIBAVIRIN 200 MG PO SCH ×2 (09:39→21:22)
[2016-06-28] MEDS: HARVONI PO SCH (09:39)
[2016-06-28] MEDS: PRAZOSIN 1 MG CAP PO SCH (21:22)
[2016-06-28] MEDS: GABAPENTIN 300 MG CAP PO SCH (21:22)
[2016-06-28 22:00] VITALS: BP 118/53
[2016-06-28] MEDS: oxyCODONE 5MG TAB PO PRN (23:31)
[2016-06-29] MEDS: LEVOTHYROXINE 0.15 MG TAB (150 MCG) PO SCH (05:43)
[2016-06-29] MEDS: LACTULOSE 20 GM/30 ML SYRUP UD PO SCH ×4 (05:43→23:14)
[2016-06-29] MEDS: POTASSIUM CHLORIDE 10 MEQ SR TABLET PO SCH (10:24)
[2016-06-29] MEDS: HARVONI PO SCH (10:24)
[2016-06-29] MEDS: RIBAVIRIN 200 MG PO SCH ×2 (10:24→21:26)
[2016-06-29] MEDS: DESVENLAFAXINE ER 50 MG TABLET (PRISTIQ) PO SCH (10:24)
[2016-06-29] MEDS: MULTIVITAMINS/MINERALS THERAP 1 TAB PO SCH (10:24)
[2016-06-29] MEDS: rifAXIMin 550 MG TAB (XIFAXAN) PO SCH ×2 (10:25→21:25)
[2016-06-29] MEDS: MAGNESIUM OXIDE 400 MG TAB (MAG-OX) PO SCH (10:25)
[2016-06-29] MEDS: FUROSEMIDE 40 MG TAB PO SCH ×2 (10:25→17:36)
[2016-06-29] MEDS: CARVedilol 3.125 MG TAB PO SCH ×2 (10:29→21:25)
[2016-06-29 11:13] LABS: ANION GAP 11 MEQ/L (8-16); BLOOD UREA NITROGEN 13 MG/DL (7-18); CALCIUM LEVEL 8.2 MG/DL (8.5-10.1); CARBON DIOXIDE LEVEL 31 MEQ/L (21-32); CHLORIDE LEVEL 100 MEQ/L (98-107); CREATININE FOR GFR 0.99 MG/DL (0.55-1.02); GLOMERULAR FILTRATION RATE > 60.0 (>51); GLUCOSE, FASTING 153 MG/DL (70-105); MAGNESIUM LEVEL 1.9 MG/DL (1.8-2.4); POTASSIUM SERUM 3.6 MEQ/L (3.5-5.1); SODIUM LEVEL 142 MEQ/L (136-145)
[2016-06-29 14:00] VITALS: BP 112/54
[2016-06-29] MEDS: oxyCODONE 5MG TAB PO PRN ×2 (14:24→21:25)
[2016-06-29] MEDS: PRAZOSIN 1 MG CAP PO SCH (21:25)
[2016-06-29] MEDS: GABAPENTIN 300 MG CAP PO SCH (21:25)
[2016-06-29 22:00] VITALS: BP 114/54
[2016-06-30] MEDS: LEVOTHYROXINE 0.15 MG TAB (150 MCG) PO SCH (05:22)
[2016-06-30] MEDS: LACTULOSE 20 GM/30 ML SYRUP UD PO SCH ×4 (05:22→23:54)
[2016-06-30 05:51] LABS: MEAN CORPUSCULAR HEMOGLOBIN 34.3 pg (27.0-33.0); MEAN CORPUSCULAR HGB CONC 29.6 g/dl (32.0-36.5); RED CELL DISTRIBUTION WIDTH 18.8 % (11.5-14.5); WHITE BLOOD COUNT 2.6 K/mm3 (4.0-10.0)
[2016-06-30 05:56] LABS: MEAN CORPUSCULAR VOLUME 116.2 fl (80.0-96.0)
[2016-06-30 06:00] VITALS: BP 107/53
[2016-06-30 06:05] LABS: ANION GAP 6 MEQ/L (8-16); BLOOD UREA NITROGEN 14 MG/DL (7-18); CALCIUM LEVEL 8.3 MG/DL (8.5-10.1); CARBON DIOXIDE LEVEL 31 MEQ/L (21-32); CHLORIDE LEVEL 104 MEQ/L (98-107); CREATININE FOR GFR 0.84 MG/DL (0.55-1.02); GLOMERULAR FILTRATION RATE > 60.0 (>51); GLUCOSE, FASTING 102 MG/DL (70-105); MAGNESIUM LEVEL 1.8 MG/DL (1.8-2.4); POTASSIUM SERUM 3.7 MEQ/L (3.5-5.1); SODIUM LEVEL 141 MEQ/L (136-145)
[2016-06-30] MEDS: FUROSEMIDE 40 MG TAB PO SCH ×2 (09:21→17:52)
[2016-06-30] MEDS: DESVENLAFAXINE ER 50 MG TABLET (PRISTIQ) PO SCH (09:21)
[2016-06-30] MEDS: rifAXIMin 550 MG TAB (XIFAXAN) PO SCH ×2 (09:21→21:55)
[2016-06-30] MEDS: MULTIVITAMINS/MINERALS THERAP 1 TAB PO SCH (09:21)
[2016-06-30] MEDS: MAGNESIUM OXIDE 400 MG TAB (MAG-OX) PO SCH (09:22)
[2016-06-30] MEDS: POTASSIUM CHLORIDE 10 MEQ SR TABLET PO SCH (09:22)
[2016-06-30] MEDS: CARVedilol 3.125 MG TAB PO SCH ×2 (09:22→21:00)
[2016-06-30] MEDS: RIBAVIRIN 200 MG PO SCH ×2 (09:23→21:54)
[2016-06-30] MEDS: HARVONI PO SCH (09:23)
[2016-06-30] MEDS: oxyCODONE 5MG TAB PO PRN ×2 (09:31→21:58)
[2016-06-30 14:00] VITALS: BP 116/58
[2016-06-30] MEDS: GABAPENTIN 300 MG CAP PO SCH (21:54)
[2016-06-30] MEDS: PRAZOSIN 1 MG CAP PO SCH (21:57)
[2016-06-30 22:00] VITALS: BP 108/55
[2016-07-01] MEDS: LACTULOSE 20 GM/30 ML SYRUP UD PO SCH ×4 (05:48→20:14)
[2016-07-01] MEDS: LEVOTHYROXINE 0.15 MG TAB (150 MCG) PO SCH (05:48)
[2016-07-01 06:00] VITALS: BP 105/52
[2016-07-01] MEDS: FUROSEMIDE 40 MG TAB PO SCH ×2 (10:19→16:58)
[2016-07-01] MEDS: CARVedilol 3.125 MG TAB PO SCH ×2 (10:20→20:04)
[2016-07-01] MEDS: MULTIVITAMINS/MINERALS THERAP 1 TAB PO SCH (10:20)
[2016-07-01] MEDS: POTASSIUM CHLORIDE 10 MEQ SR TABLET PO SCH (10:20)
[2016-07-01] MEDS: DESVENLAFAXINE ER 50 MG TABLET (PRISTIQ) PO SCH (10:20)
[2016-07-01] MEDS: rifAXIMin 550 MG TAB (XIFAXAN) PO SCH ×2 (10:20→20:13)
[2016-07-01] MEDS: HARVONI PO SCH (10:21)
[2016-07-01] MEDS: RIBAVIRIN 200 MG PO SCH ×2 (10:21→20:14)
[2016-07-01] MEDS: oxyCODONE 5MG TAB PO PRN ×2 (10:23→17:53)
--- NOTE | 2016-07-01 11:28 | IPN ---
DATE: 07/01/2016 Time patient was seen was at 0930 hours. Patient has been seen and examined at bedside. No acute events overnight. Patient stated that she is feeling better. She has been ambulating with physical therapy. However, the patient complained that her HARVONI bottle was no where to be found and stated that she has not been taking HARVONI for the last few days. However, after talking with the nurse, we do have her medication HARVONI and it was not lost and she has been taking it daily. In addition, after a pill count her HARVONI medication will only last her until July 24. Therefore, Dr. Rosales was contacted for possibly ordering more HARVONI and Dr. Rosales stated that she would like to see the patient as a consult to manage her hepatitis C. Otherwise , the patient denies any abdominal pains, any nausea, vomiting, diarrhea or constipation. PHYSICAL EXAMINATION: VITAL SIGNS: Temperature 96.4, pulse 61, respirations 19, blood pressure 120/59 , oxygen was saturating at 97% on room air. GENERAL: Patient is a morbidly obese female who is alert, awake, oriented times three, does not appear to be in any distress, however, she appears to have poor memory. HEENT: Normocephalic, atraumatic. Extraocular motors intact. Mucous moist. NECK: Supple. No neck lymphadenopathy. CARDIOVASCULAR; Regular rate and rhythm. S1 and S2, no rubs or gallops. Patient does have a 2/6 systolic heart murmur. LUNGS: Clear to auscultation bilaterally. No wheezes, rales, or rhonchi. ABDOMEN: Positive bowel sounds. Soft, nontender, nondistended. No peritoneal signs. No ecchymosis. EXTREMITIES: No edema, clubbing or cyanosis. The patient however does have a left leg splint. SKIN: Warm and dry. NEUROLOGIC: Cranial nerves II through XII intact. No focal neurologic deficit. LABORATORY DATA: WBC on 06/30/2016 was 2.6, hemoglobin 8, hematocrit 26.9 with a platelet count of 110. Sodium 141, potassium 3.7, chloride 104, bicarbonate 31, BUN 14, creatinine 0.84 , GFR greater than 60, fasting glucose 102, calcium 8.3, magnesium 1.8. No new cultures. No new imaging. ASSESSMENT AND PLAN: 56-year-old female with past medical history of hepatic encephalopathy, cirrhosis secondary to alcohol usage, also recently diagnosed with hepatitis C undergoing treatment, hypothyroidism, pancytopenia, hyperbilirubinemia, recently diagnosed with a thyroid nodule, anxiety, posttraumatic stress disorder (PTSD), tobacco abuse, overactive bladder, peripheral vascular disease, morbid obesity, and lower extremity edema who presented with: 1. Presyncope and fall, likely secondary to prerenal azotemia versus metabolic hepatic encephalopathy, which has resolved. Hemoglobin and hematocrit are stable. Continue rifaximin and lactulose. We have stopped checking the ammonia level due to it has been stable. 2. Left ankle fracture status post fall and splint. Orthopedic surgery has been consulted. Recommended rehabilitation. Dr. Cohen will see the patient for further management. 3. Hepatitis C with also history of cirrhosis and alcohol usage. Dr. Rosales is following. We have consulted Dr. Rosales today for management of her hepatitis C medication. We appreciate her help. It was felt that initially the patient should finish her HARVONI on August 07, 2016. 4. Anemia with hemoglobin of 8 today. Stable. Likely dilutional. Fecal occult was negative. 5. Hypomagnesemia. Magnesium level has been stable. Will continue to monitor magnesium level and replete as needed. 6. Hypertension, stable. 7. Pancytopenia. Status post 2 units of packed red blood cells (PRBCs). Continue to monitor. 8. Hypotension, stable. 9. Lower extremity edema. Continue diuretics. Continue Lasix. 10. Hyperbilirubinemia. Continue to monitor. 11. Anxiety and depression. Continue home medication. 12. Recently diagnosed thyroid nodule. Patient may possibly need further workup per primary. 13. Posttraumatic stress disorder (PTSD), stable. 14. Tobacco abuse. Refuses a nicotine patch. 15. Overactive bladder. No issues so far. 16. Peripheral vascular disease. Continue to monitor. 17. Morbid obesity and snoring. Patient stated that she is considering going to Dr. Mathew for a sleep study. 18. Prerenal azotemia. Resolved. 20. Deep venous thrombosis (DVT) not needed at the moment due to thrombocytopenia. DISPOSITION: Patient was initially recommended to be transferred to a [facility], however due to the cost of HARVONI, [facility] could not take her for rehabilitation. Therefore, the patient is staying in the hospital for inpatient rehabilitation. Today, Dr. Rosales has been consulted for management of her hepatitis C. We appreciate her help. Patient has been discussed with attending doctor, Dr. Naila Kimball. My preceptor for this patient encounter was Dr. Naila Kimball. The preceptor was physically present in the building during the encounter and was fully available. As needed, all aspects of the patient interview, examination, medical decision making process, and medical care plan development were reviewed and approved by the preceptor. The preceptor is aware and concurs with the plan as stated in the body of this note and will attest to such by his/her cosignature. I have both independently examined this patient as well as reviewed the note. I have discussed in detail with the resident the findings and plan of treatment as documented in the residents note. I will continue to follow the patient and offer further guidance to the patients care as necessary during this hospital stay. Naila RANDALL
--- NOTE | 2016-07-01 15:05 | REP ---
Right lower extremity Duplex Doppler venous ultrasound: Real time compression and duplex Doppler interrogation of the right lower extremity deep venous system is performed. The right common femoral, superficial femoral and popliteal veins are fully compressible with transducer pressure and demonstrate normal spontaneous and phasic flow, without evidence of deep venous thrombosis. Impression: No evidence of deep venous thrombosis of the right lower extremity femoral popliteal venous system. Signed by Prakash Delarosa MD 07/01/2016 02:56 P
--- NOTE | 2016-07-01 20:03 | CR ---
DATE OF CONSULTATION: 07/01/2016 REASON FOR CONSULTATION: I was asked to consult by Dr. Borden for followup on chronic hepatitis C with liver cirrhosis and medication adjustment. HISTORY OF PRESENT ILLNESS: Mrs. Ibarra is a 56-year-old female with a history of chronic hepatitis C, alcoholic liver cirrhosis, hepatic encephalopathy and pancytopenia. The patient had been started on treatment for hepatitis C on April 27 with Harvoni and ribavirin. The patient was hospitalized on a couple of occasions with hepatic encephalopathy and most recently on 06/11, came with an episode of presyncope, felt very dizzy, weak and fell, broke her left ankle. The patient has been here since then and has not been accepted to [facility] because of the expense of Harvoni. While she has been in the hospital she states she has missed some doses of medication, but upon review of records, she might have missed one day but not more, and on her previous admission which was in late April, she seems to have not taken three days of ribavirin. The patient's hemoglobin has decreased from a her baseline of 13 down to eight since she has been on ribavirin. She denies any fever or chills. No nausea, vomiting. She has chronic diarrhea at least four days since she is on lactulose four times a day and rifaximin. PAST MEDICAL HISTORY: Includes chronic hepatitis C on Harvoni and ribavirin, with alcoholic liver cirrhosis and secondary pancytopenia, thyroid nodule, anxiety and depression, alcohol abuse, tobacco abuse, posttraumatic stress disorder (PTSD), overactive bladder, peripheral vascular disease, obesity. PAST SURGICAL HISTORY: 1. Laparoscopic cholecystectomy. 2. Hysterectomy. 3. Bartholin gland drainage. SOCIAL HISTORY: She is an alcoholic, last alcohol use was three months ago. She smokes six cigarettes a day. She was lives alone with her pets, two dogs and a cat. She has a boyfriend Gee. FAMILY HISTORY: Mother with glaucoma, congestive heart failure. MEDICATIONS: - Zofran 4 mg every six hours as needed - Lasix 40 mg by mouth twice a day - oxycodone 5 mg every six hours as needed - multivitamin one tablet daily - simethicone as needed - Coreg 3.125 mg by mouth twice a day - lactulose 30 mL by mouth every six hours - Pristiq 100 mg daily - Harvoni 90/400 one tablet by mouth daily - levothyroxine 0.3 mg by mouth daily - gabapentin 300 mg by mouth at bedtime - Minipress 2 mg by mouth at bedtime - rifaximin 550 mg by mouth twice a day - ribavirin 600 mg by mouth twice a day LABORATORY DATA White count is 2.6, hemoglobin 8, hematocrit 26.9, platelets 110. Sodium 141, potassium 3.7, chloride 104, bicarb 31, BUN 14, creatinine 0.84, glucose 102, calcium 8.2, magnesium 1.8, AST is 23. Liver profile has been normal since she started taking Harvoni. ALT 15, alkaline phosphatase 121, ammonia 56 which is down from 124 earlier this month. IMAGING: CT of the abdomen and pelvis done on 06/19/2016, showed mild to moderate subcutaneous edema primarily overlying the left flank. No ascites. No acute intra-abdominal pathology. Chest x-ray done on 06/14: No acute pulmonary process. Ankle x-ray done on 06/11 shows possible fracture of the posterior malleolus and a nondisplaced fracture of the distal fibula. Osteophyte density inferior to the medial malleolus that may present a fracture fragment. PHYSICAL EXAMINATION: VITAL SIGNS: On physical exam, temperature is 96.4, pulse 61, respirations 19, blood pressure 105/52, Oxygen saturation 97% on room air. HEART: Normal S1, S2. No murmurs. LUNGS: Diminished breath sounds at the bases but clear. ABDOMEN: Obese, soft, nontender. EXTREMITIES: +1 pitting edema bilaterally. Left ankle in a bandage cast. HEENT: Oropharynx edentulous, clear. No lesions noted. No thrush. NECK: Supple. No jugular venous distention (JVD). No bruits. NEUROLOGIC: Exam fairly normal. The patient recognizes me. Alert and oriented times three. No deficits. IMPRESSION: 1. Chronic hepatitis C with alcoholic liver cirrhosis, on treatment with Harvoni and ribavirin since April 27. Her end of treatment should be end of this , June. She has missed a couple of doses but does not seem like too many doses were missed. She has 23 tablets left of Harvoni which would make the end of her treatment somewhere end of June. The patient is anemic with a drop of hemoglobin from 13 to 8, is related to hemolytic anemia from ribavirin and therefore the dose of that medication will be decreased to 400 mg twice a day from 600 mg twice a day. The end of treatment for ribavirin will be the same as [place]. 2. Left ankle fracture, followed up by orthopedics, seems to be doing fairly well. 3. Hepatic encephalopathy and decompensated liver disease. The patient has had four bowel movements every day. Her ammonia is close to normal. Her dose of lactulose will be decreased to three times a day. PLAN: Will obtain hepatitis C ribonucleic acid (RNA) level. Her baseline HCV RNA was 1.4 million on 02/16/2016. The patient has not followed up in my office to get followup labs and, therefore, they will be ordered in the hospital. She is immune to hepatitis A and B and does not need vaccination. The patient needs to remain completely abstinent from alcohol and avoid any Tylenol products. MTDD
[2016-07-01] MEDS: PRAZOSIN 1 MG CAP PO SCH (20:13)
[2016-07-01] MEDS: GABAPENTIN 300 MG CAP PO SCH (20:14)
[2016-07-02] MEDS: LEVOTHYROXINE 0.15 MG TAB (150 MCG) PO SCH (05:30)
[2016-07-02 06:00] VITALS: BP 126/84
[2016-07-02 06:50] LABS: MEAN CORPUSCULAR HEMOGLOBIN 33.7 pg (27.0-33.0); MEAN CORPUSCULAR HGB CONC 30.1 g/dl (32.0-36.5); MEAN CORPUSCULAR VOLUME 112.1 fl (80.0-96.0); RED CELL DISTRIBUTION WIDTH 17.2 % (11.5-14.5); WHITE BLOOD COUNT 2.2 K/mm3 (4.0-10.0)
[2016-07-02 07:01] LABS: ANION GAP 9 MEQ/L (8-16); BLOOD UREA NITROGEN 12 MG/DL (7-18); CALCIUM LEVEL 8.4 MG/DL (8.5-10.1); CARBON DIOXIDE LEVEL 30 MEQ/L (21-32); CHLORIDE LEVEL 104 MEQ/L (98-107); CREATININE FOR GFR 0.84 MG/DL (0.55-1.02); GLOMERULAR FILTRATION RATE > 60.0 (>51); GLUCOSE, FASTING 103 MG/DL (70-105); MAGNESIUM LEVEL 1.8 MG/DL (1.8-2.4); POTASSIUM SERUM 3.6 MEQ/L (3.5-5.1); SODIUM LEVEL 143 MEQ/L (136-145)
[2016-07-02] MEDS: RIBAVIRIN 200 MG PO SCH ×2 (09:20→21:05)
[2016-07-02] MEDS: HARVONI PO SCH (09:20)
[2016-07-02] MEDS: MULTIVITAMINS/MINERALS THERAP 1 TAB PO SCH (09:21)
[2016-07-02] MEDS: LACTULOSE 20 GM/30 ML SYRUP UD PO SCH ×3 (09:21→21:02)
[2016-07-02] MEDS: FUROSEMIDE 40 MG TAB PO SCH ×2 (09:21→16:15)
[2016-07-02] MEDS: DESVENLAFAXINE ER 50 MG TABLET (PRISTIQ) PO SCH (09:21)
[2016-07-02] MEDS: CARVedilol 3.125 MG TAB PO SCH ×2 (09:21→21:04)
[2016-07-02] MEDS: rifAXIMin 550 MG TAB (XIFAXAN) PO SCH ×2 (09:22→21:03)
--- NOTE | 2016-07-02 18:05 | IPN ---
DATE: 07/02/2016 SUBJECTIVE: Mrs. Ibarra seems to be doing fairly well. She has no complaints. No nausea, vomiting. She has diarrhea from lactulose. No chest pain or shortness of breath. LABORATORY DATA: White count is 2.2, hemoglobin 8, hematocrit 26.5 which is stable, platelets 97. Sodium 143, potassium 3.6, chloride 104, bicarb 30, BUN 12, creatinine 0.84, glucose 103, calcium 8.4, magnesium 1.8. On 06/21, AST was 23, ALT 15, alkaline phosphatase 121. Hepatitis C RNA is pending. Stool Hemoccult was negative. OBJECTIVE: VITAL SIGNS: Temperature is 97.9, pulse 64, respirations 15, blood pressure 126/84, O2 saturation 96% on room air. HEART: Normal S1, S2. No murmurs. LUNGS: Diminished breath sounds at bases. ABDOMEN: Obese, soft. EXTREMITIES: +1 pitting edema bilaterally. IMPRESSION: 1. Chronic hepatitis C with alcoholic liver cirrhosis decompensated on Harvoni and ribavirin. The patient has been on medications since April 27, and her end of treatment would be the end june whenever the bottle of Harvoni that she has in the hospital is done. 2. Decompensated liver disease with ascites and edema and pancytopenia on lactulose, rifaximin, furosemide 40 mg twice a day. The patient is not on Aldactone. 3. Diarrhea caused by lactulose. Decrease dose to three times a day to achieve 2-3 bowel movement today, especially that she is also on rifaximin. PLAN: Monitor complete blood count (CBC) as ribavirin can cause hemolytic anemia. If her hemoglobin continues to drop, her dose of ribavirin could be dropped to 600 mg daily. Hepatitis C RNA is pending. She will need to have hepatitis C RNA done three months after discontinuing treatment. End of treatment will be end june whenever this bottle she has in the hospital is done. If there is no contraindication to Aldactone, patient should be on Aldactone for decompensated liver cirrhosis and ascites. MTDD
[2016-07-02] MEDS: PRAZOSIN 1 MG CAP PO SCH (21:03)
[2016-07-02] MEDS: GABAPENTIN 300 MG CAP PO SCH (21:03)
[2016-07-02] MEDS: oxyCODONE 5MG TAB PO PRN (21:04)
[2016-07-03 00:07] LABS: HEPATITIS C QUANTITATION HCV Not Detected IU/mL (.)
[2016-07-03] MEDS: LEVOTHYROXINE 0.15 MG TAB (150 MCG) PO SCH (05:55)
[2016-07-03 06:00] VITALS: BP 120/56
[2016-07-03] MEDS: HARVONI PO SCH (08:46)
[2016-07-03] MEDS: RIBAVIRIN 200 MG PO SCH ×2 (08:46→22:10)
[2016-07-03] MEDS: DESVENLAFAXINE ER 50 MG TABLET (PRISTIQ) PO SCH (08:47)
[2016-07-03] MEDS: MULTIVITAMINS/MINERALS THERAP 1 TAB PO SCH (08:47)
[2016-07-03] MEDS: rifAXIMin 550 MG TAB (XIFAXAN) PO SCH ×2 (08:47→22:09)
[2016-07-03] MEDS: LACTULOSE 20 GM/30 ML SYRUP UD PO SCH ×3 (08:47→22:09)
[2016-07-03] MEDS: FUROSEMIDE 40 MG TAB PO SCH ×2 (08:47→16:17)
[2016-07-03] MEDS: CARVedilol 3.125 MG TAB PO SCH ×2 (08:48→22:09)
[2016-07-03] MEDS: GABAPENTIN 300 MG CAP PO SCH (22:10)
[2016-07-03] MEDS: PRAZOSIN 1 MG CAP PO SCH (22:10)
[2016-07-03] MEDS: oxyCODONE 5MG TAB PO PRN (23:36)
[2016-07-04 06:00] VITALS: BP 119/56
[2016-07-04] MEDS: LEVOTHYROXINE 0.15 MG TAB (150 MCG) PO SCH (06:13)
[2016-07-04 07:02] LABS: MEAN CORPUSCULAR HEMOGLOBIN 33.8 pg (27.0-33.0); MEAN CORPUSCULAR HGB CONC 29.3 g/dl (32.0-36.5); MEAN CORPUSCULAR VOLUME 115.3 fl (80.0-96.0); RED CELL DISTRIBUTION WIDTH 18.6 % (11.5-14.5); WHITE BLOOD COUNT 2.2 K/mm3 (4.0-10.0)
[2016-07-04 07:11] LABS: ANION GAP 8 MEQ/L (8-16); BLOOD UREA NITROGEN 11 MG/DL (7-18); CALCIUM LEVEL 8.2 MG/DL (8.5-10.1); CARBON DIOXIDE LEVEL 31 MEQ/L (21-32); CHLORIDE LEVEL 104 MEQ/L (98-107); CREATININE FOR GFR 0.85 MG/DL (0.55-1.02); GLOMERULAR FILTRATION RATE > 60.0 (>51); GLUCOSE, FASTING 108 MG/DL (70-105); MAGNESIUM LEVEL 1.9 MG/DL (1.8-2.4); POTASSIUM SERUM 3.3 MEQ/L (3.5-5.1); SODIUM LEVEL 143 MEQ/L (136-145)
[2016-07-04] MEDS: CARVedilol 3.125 MG TAB PO SCH ×2 (08:49→21:00)
[2016-07-04] MEDS: DESVENLAFAXINE ER 50 MG TABLET (PRISTIQ) PO SCH (08:50)
[2016-07-04] MEDS: rifAXIMin 550 MG TAB (XIFAXAN) PO SCH ×2 (08:50→21:49)
[2016-07-04] MEDS: MULTIVITAMINS/MINERALS THERAP 1 TAB PO SCH (08:50)
[2016-07-04] MEDS: LACTULOSE 20 GM/30 ML SYRUP UD PO SCH ×3 (08:51→21:47)
[2016-07-04] MEDS: FUROSEMIDE 40 MG TAB PO SCH ×2 (08:51→17:12)
[2016-07-04] MEDS: HARVONI PO SCH (08:51)
[2016-07-04] MEDS: RIBAVIRIN 200 MG PO SCH ×2 (08:52→21:49)
[2016-07-04] MEDS ORDERED: POTASSIUM CHLORIDE 10 MEQ SR TABLET PO ONE (11:00)
[2016-07-04] MEDS: oxyCODONE 5MG TAB PO PRN (21:48)
[2016-07-04] MEDS: PRAZOSIN 1 MG CAP PO SCH (21:48)
[2016-07-04] MEDS: GABAPENTIN 300 MG CAP PO SCH (21:49)
[2016-07-05] MEDS: LEVOTHYROXINE 0.15 MG TAB (150 MCG) PO SCH (05:59)
[2016-07-05 06:00] VITALS: BP 113/55
[2016-07-05] MEDS: LACTULOSE 20 GM/30 ML SYRUP UD PO SCH ×3 (09:45→22:06)
[2016-07-05] MEDS: DESVENLAFAXINE ER 50 MG TABLET (PRISTIQ) PO SCH (09:45)
[2016-07-05] MEDS: rifAXIMin 550 MG TAB (XIFAXAN) PO SCH ×2 (09:45→22:08)
[2016-07-05] MEDS: MULTIVITAMINS/MINERALS THERAP 1 TAB PO SCH (09:45)
[2016-07-05] MEDS: HARVONI PO SCH (09:46)
[2016-07-05] MEDS: RIBAVIRIN 200 MG PO SCH ×2 (09:47→22:07)
[2016-07-05] MEDS: FUROSEMIDE 40 MG TAB PO SCH ×2 (09:47→17:16)
[2016-07-05] MEDS: CARVedilol 3.125 MG TAB PO SCH ×2 (09:48→22:08)
[2016-07-05] MEDS: oxyCODONE 5MG TAB PO PRN ×2 (15:00→22:10)
--- NOTE | 2016-07-05 15:32 | CR ---
DATE OF CONSULTATION: 07/05/2016 REASON FOR CONSULTATION: Left ankle fracture. HISTORY OF PRESENT ILLNESS: She is a 56-year-old female who was admitted to the [facility] on 06/11/2016 after a fall in which she twisted her left ankle. She was unable to go home. It was not felt to be safe. Orthopedic surgeon, Dr. Astudillo, saw her, recommended splinting, and followup six to eight weeks with new x-rays. She has multiple other medical comorbidities, including pancytopenia and hepatitis C, history of elevated liver enzymes and ammonia, hyperbilirubinemia, thyroid nodule, hypothyroidism, posttraumatic stress disorder, peripheral vascular disease, obesity, and a history of intravenous (IV) drug use and a history of alcohol abuse. PAST SURGICAL HISTORY: 1. Laparoscopic cholecystectomy. 2. Hysterectomy. 3. Bartholin gland cyst drainage. MEDICATIONS: She is presently on: Per infectious disease, Dr. Bobby Figueroa In addition, in the hospital she is taking: - lactulose - Zofran - Lasix - oxycodone - multivitamin - simethicone - carvedilol - Pristiq - Synthroid - Neurontin - Minipress - rifaximin SOCIAL HISTORY: Again, as mentioned, she used to be an alcoholic and still does use cigarettes. History of IV drug abuse, and that is how she got her hepatitis C, she describes to me. FAMILY HISTORY: She has a family history in both her parents of congestive heart failure. REVIEW OF SYSTEMS: Otherwise amended to the chart. She has been an inpatient now for three and one-half weeks, with a posterior splint on the left ankle, and not felt to be safe for discharge, and because of that, she was sent over here to our orthopedic office for followup management of her left ankle fracture. When I examined her, she is an obese female, lying on the stretcher. I removed the posterior splint. It is quite smelly and dirty. Her ankle has some minor swelling, with tenderness medially and laterally. The skin is intact. She actually has a dorsalis pedis pulse. She can move her toes and sensory testing is grossly unremarkable. There is no obvious gross deformity noted. She can move her toes fairly well, but there is a marked hyperpigmentation discoloration of her skin. Her HEENT examination was benign. Her lungs were clear to auscultation. Heart was regular. I did not detect a murmur. Abdomen was obese and soft. Radiographs taken here in the office, AP and Lateral morph views of the left ankle showed a distal fibula fracture along oblique, with medial aligning, with not much callous showing, as if there is any healing. There is a small, ossific density below the medial malleolus. I went back and looked at her initial injury films from 06/11/2016 showing a similar alignment with some medial widening and displacement of her left ankle mortis and the distal fibula. She had a CT scan, which did not show any acute injury. LABORATORY STUDIES: Her electrolytes show a sodium of 143, potassium 3.3, chloride 104, bicarbonate 31, BUN 11, creatinine 0.85, glucose 108, calcium 8.2, magnesium 1.9. Her coags are: Prothrombin time 20.6, but INR 1.76, and this was on [place]. Hematology shows that she had been pancytopenic since her admission. The most recent white count yesterday was 2.2, hematocrit 27.4 and platelets 107. IMPRESSION: She is a 56-year-old female with a three and one-half week old displaced left ankle fracture, with multiple medical comorbidities with high risk for infection. This is an unfortunate situation for her, but I think her ankle is potentially at risk if we do not try to get this anatomically reduced, but that will be dependent upon whether or not she is appropriate for anesthesia and medical clearance from her medical providers. I did discuss the case with Dr. Edwards, the hospitalist, who is going to look her over again and discuss with Dr. Rosales, her infectious disease doctor, to see if there are any reversible medical comorbidities that we can try to optimize and whether or not she is considered appropriate to have an operative intervention of her left ankle. I have talked to the patient at length about this, too, and she would like to get it fixed if it is possible, but understanding that she is at significant high risk for infection, which could be devastating for her. There is also a risk of damage to nerves or blood vessels and anesthetic complications, as well. So, presently, we plan to proceed to the operating room when she is felt to be medically optimized. She is allergic to penicillin. We would have to use vancomycin preoperatively. We will try to get her on the operating room (OR) schedule when it is felt to be medically appropriate for her.
[2016-07-05] MEDS: FOLIC ACID 1 MG TAB PO SCH (17:15)
[2016-07-05] MEDS: PRAZOSIN 1 MG CAP PO SCH (22:07)
[2016-07-05] MEDS: GABAPENTIN 300 MG CAP PO SCH (22:08)
--- NOTE | 2016-07-05 22:22 | IPN ---
DATE: 07/05/2016 Mirian is doing fairly well. She denies any new complaints. No nausea, or vomiting. Diarrhea seems to be better controlled. No abdominal pain. She is going for surgery in the next 24-48 hours for an ankle fracture, open reduction internal fixation. Case discussed with Dr. Jayden Cherry regarding pancytopenia. LABORATORY DATA: White count is 2.2, hemoglobin 8, hematocrit 27.4, stable. Platelets 107. Sodium 143, potassium 3.3, chloride 104, bicarbonate 31, BUN 11, creatinine 0.85, glucose 108, calcium 8.2, magnesium 1.9. Urinalysis on 06/28/2016 has 1 white cell and 1 red cell. Hepatitis C was not detected. ALLERGIES: PENICILLIN. The patient states that when she was a child her mother told her she had hives and some shortness of breath and has not taken any penicillin since then. On physical exam, temperature is 97.5, pulse 65, respirations 16, blood pressure 113/55, oxygen saturation 95% on room air. Heart: Normal S1, S2, distant. Lungs are clear. Abdomen: Morbidly obese, soft, nontender. Extremities: +1 edema. Left leg in a cast. IMPRESSION: Chronic hepatitis C with alcoholic liver cirrhosis, on Harvoni and ribavirin, doing well with undetectable viral load. Alcoholic liver cirrhosis, on furosemide 40 mg twice a day but no aldactone. I am not sure why aldactone has not been used. Also, the patient is on rifaximin and lactulose for hepatic encephalopathy, which seems to be stable. Penicillin allergy. The patient seems to have had some hives and possibly angioedema or shortness of breath from penicillin as a young child. I have called Dr. Mock's office to do a penicillin test to see if she could take cephalosporins for preop, but he is out of the office, so, therefore, consultation with allergy/immunology could not be done. Ankle fracture. Needs surgery in the next 24-48 hours. Agree with IV clindamycin for preoperative antibiotics and Hibiclens body wash tonight.
[2016-07-06] VITALS (8 sets, daily range): BP systolic 117–136; BP diastolic 56–77
[2016-07-06] MEDS: LEVOTHYROXINE 0.15 MG TAB (150 MCG) PO SCH (05:48)
[2016-07-06] MEDS ORDERED: CLINDAMYCIN 600 MG in APPROPRIATE DILUENT 1 EA IV ONE ×3 (06:00→14:00)
[2016-07-06 06:55] LABS: MEAN CORPUSCULAR HEMOGLOBIN 34.4 pg (27.0-33.0); MEAN CORPUSCULAR HGB CONC 30.4 g/dl (32.0-36.5); MEAN CORPUSCULAR VOLUME 113.2 fl (80.0-96.0); WHITE BLOOD COUNT 2.4 K/mm3 (4.0-10.0)
[2016-07-06 07:06] LABS: ANION GAP 8 MEQ/L (8-16); BLOOD UREA NITROGEN 9 MG/DL (7-18); CALCIUM LEVEL 8.3 MG/DL (8.5-10.1); CARBON DIOXIDE LEVEL 30 MEQ/L (21-32); CHLORIDE LEVEL 105 MEQ/L (98-107); CREATININE FOR GFR 0.81 MG/DL (0.55-1.02); GLOMERULAR FILTRATION RATE > 60.0 (>51); GLUCOSE, FASTING 89 MG/DL (70-105); MAGNESIUM LEVEL 1.9 MG/DL (1.8-2.4); POTASSIUM SERUM 3.5 MEQ/L (3.5-5.1); SODIUM LEVEL 143 MEQ/L (136-145)
[2016-07-06] MEDS: RIBAVIRIN 200 MG PO SCH ×2 (09:14→21:23)
[2016-07-06] MEDS: LACTULOSE 20 GM/30 ML SYRUP UD PO SCH ×3 (09:14→21:21)
[2016-07-06] MEDS: FOLIC ACID 1 MG TAB PO SCH (09:15)
[2016-07-06] MEDS: rifAXIMin 550 MG TAB (XIFAXAN) PO SCH ×2 (09:15→21:23)
[2016-07-06] MEDS: DESVENLAFAXINE ER 50 MG TABLET (PRISTIQ) PO SCH (09:15)
[2016-07-06] MEDS: CARVedilol 3.125 MG TAB PO SCH ×2 (09:15→21:23)
[2016-07-06] MEDS: HARVONI PO SCH (09:15)
[2016-07-06] MEDS: MULTIVITAMINS/MINERALS THERAP 1 TAB PO SCH (09:15)
[2016-07-06] MEDS: FUROSEMIDE 40 MG TAB PO SCH ×2 (09:16→21:24)
[2016-07-06] MEDS: oxyCODONE 5MG TAB PO PRN (09:16)
--- NOTE | 2016-07-06 15:35 | IPNPDOC ---
Date of Service/Time 07/06/16 Progress Note SUBJECTIVE: The patient tells me she is feeling well she has no specific complaints at the present time she denies chest pain fevers chills nausea vomiting shortness of breath lightheadedness or dizziness OBJECTIVE: PHYSICAL EXAMINATION: VITAL SIGNS: Fairly persistent low-grade temps otherwise Please see below. GENERAL: Disheveled middle-aged obese female sitting in a recliner with her feet up she does not appear to be in any acute distress HEENT: Moist mucous membranes elevation central venous pressure cranial nerves II through XII are grossly intact CARDIOVASCULAR: S1-S2 regular. RESPIRATORY: Clear to auscultation. ABDOMINAL: Obese mild appreciable ascites no tense ascites EXTREMITIES: 1-2+ edema bilaterally swelling of the left lower extremity NEUROLOGICAL: Nonfocal LABORATORY DATA: Pancytopenia chronic Please see below. IMAGING: No new imaging DVT prophylaxis ordered?: Sequentials and teds no pharmacological agents secondary to thrombocytopenia and coagulopathy related to liver cirrhosis ASSESSMENT AND PLAN: This is a 56-year-old female with liver cirrhosis secondary to hepatitis C undergoing treatment and alcohol abuse who initially presented with fall secondary to hepatic encephalopathy and left ankle fracture. Problem #1 liver cirrhosis: [place] to be secondary to hepatitis C and possibly alcohol usage as well Dr. Rosales's help is greatly appreciated. The patient is on Harvoni and Ribavarin with an undetectable viral load. The patient is on lactulose rifaximin Lasix will also start her on low-dose Aldactone she is also on a nonselective beta latrice as well. This is also likely the etiology for her pancytopenia and mild fluid overload. The patient does not exhibit any signs or symptoms of alcohol withdrawal, cessation counseling offered she is on folic acid and a multivitamin Problem #2 left ankle fracture orthopedic surgery's help is greatly appreciated , at this time the patient is medically optimized and requires no further testing prior to surgical intervention. Given her volume status medical comorbidities feels that she is at moderate risk for the procedure, she has no known cardiac disease. I will make the patient acute MedSurg status at this time Problem #3 Presyncope: [place] to be secondary to dehydration versus hepatic encephalopathy has resolved Problem #4 PTSD the patient is on Pristiq Problem #5 thyroid nodule: We'll need further outpatient follow-up Problem #6 tobacco abuse: Patient declines cessation counseling she is refusing a nicotine patch at this time Problem #7 overactive bladder: The patient was continued on prazosin symptoms are well-controlled at this time Problem #8 obesity: A calm dictating care the patient has been referred to Dr. Mathew for a sleep study Problem #8 acute kidney injury: Resolved DISPOSITION: We'll continue to monitor patient postoperatively on acute medical service and she'll also continue her hepatitis C treatment while in hospital following completion of this we can revisit potential dispositions. VS, I&O, 24H, Fishbone VS, I&O, 24H, Fishbone Vital Signs Date Time Temp Pulse Resp B/P Pulse Ox O2 Delivery O2 Flow Rate FiO2 07/06/16 10:10 16 07/06/16 09:15 62 136/61 07/06/16 06:00 99.4 99 Room Air I&O- Last 24 Hours up to 6 AM 07/06/16 06:00 Intake Total 1050 ml Output Total 0 ml Balance 1050 ml Laboratory Tests 2 07/06/16 06:14: Anion Gap 8, Blood Urea Nitrogen 9, Creatinine 0.81, Sodium Level 143, Potassium Level 3.5, Chloride Level 105, Carbon Dioxide Level 30, Calcium Level 8.3L, Glomerular Filtration Rate > 60.0, Magnesium Level 1.9 Laboratory Tests 07/06/16 06:14 Calcium Level 8.3 L, Red Blood Count 2.38 L, Mean Corpuscular Volume 113.2 H, Mean Corpuscular Hemoglobin 34.4 H, Mean Corpuscular Hemoglobin Concent 30.4 L, Red Cell Distribution Width 17.0 H JAKE OSUNA MD Jul 06, 2016 15:35
[2016-07-06] MEDS ORDERED: CLINDAMYCIN 600 MG/50 ML PREMIX BAG As Ordered ONE (16:13)
[2016-07-06] MEDS ORDERED: PROPOFOL 200 MG/20 ML VIAL As Ordered ONE (16:55)
[2016-07-06] MEDS ORDERED: MIDAZOLAM INJ 2 MG/2 ML VIAL (J2250) As Ordered ONE (16:55)
[2016-07-06] MEDS ORDERED: ROCURONIUM BROMIDE 50 MG/5 ML VIAL As Ordered ONE (16:55)
[2016-07-06] MEDS ORDERED: fentaNYL 250 MCG/5 ML INJECTION (J3010) As Ordered ONE (16:55)
[2016-07-06] MEDS ORDERED: LIDOCAINE 2% INJ 100 MG/5 ML SDV (FOR ANES.) As Ordered ONE (16:55)
[2016-07-06] MEDS ORDERED: ePHEDrine SULFATE 25 MG/5 ML(5MG/ML) SYRINGE As Ordered ONE ×2 (16:55→17:40)
[2016-07-06] MEDS ORDERED: NEOSTIGMINE 1MG/ML 5 ML SYRINGE (J2710) As Ordered ONE (17:11)
[2016-07-06] MEDS ORDERED: GLYCOPYRROLATE INJ 0.2 MG/ML 2 ML VIAL As Ordered ONE (17:11)
[2016-07-06] MEDS ORDERED: KETOROLAC 60 MG/2 ML VIAL (J1885) As Ordered ONE (17:11)
[2016-07-06] MEDS ORDERED: ONDANSETRON 4MG/2ML VIAL (J2405) As Ordered ONE (17:11)
[2016-07-06] MEDS ORDERED: CLINDAMYCIN INJ 900MG/6ML VIAL XX ONE (17:12)
--- NOTE | 2016-07-06 17:58 | REP ---
Clinical: Status post ORIF. Technique: Intraoperative fluoroscopic imaging. Findings: Three intraoperative fluoroscopic images demonstrate the patient to be status post open reduction and fixation for distal left fibular / lateral malleolus fracture. Orthopedic hardware is in satisfactory position and satisfactory reduction is noted. Total fluoroscopic time 15 seconds. Impression: Status post ORIF for distal fibular fracture. Signed by Cruz Freed MD 07/06/2016 05:50 P
[2016-07-06] MEDS: fentaNYL 100 MCG/2 ML INJECTION (J3010) IV PRN ×4 (18:30→18:45)
[2016-07-06] MEDS ORDERED: fentaNYL 100 MCG/2 ML INJECTION (J3010) As Ordered ONE (18:31)
[2016-07-06] MEDS ORDERED: LR 1,000 ML IV SCH (18:45)
[2016-07-06] MEDS ORDERED: MORPHINE 4 MG/ML 1ML SYRINGE IV PRN (18:45)
[2016-07-06] MEDS ORDERED: ONDANSETRON 4MG/2ML VIAL (J2405) IV PRN (18:45)
[2016-07-06] MEDS: SPIRONOLACTONE 12.5MG PER 1/2 TABLET PO SCH (21:13)
[2016-07-06] MEDS: GABAPENTIN 300 MG CAP PO SCH (21:22)
[2016-07-06] MEDS: PRAZOSIN 1 MG CAP PO SCH (21:22)
[2016-07-06] MEDS: CLINDAMYCIN 600 MG in APPROPRIATE DILUENT 1 EA IV SCH (22:43)
[2016-07-07 00:40] VITALS: BP 123/59
[2016-07-07 04:40] VITALS: BP 128/58
[2016-07-07] MEDS: LEVOTHYROXINE 0.15 MG TAB (150 MCG) PO SCH (05:32)
[2016-07-07] MEDS: CLINDAMYCIN 600 MG in APPROPRIATE DILUENT 1 EA IV SCH ×2 (05:32→11:13)
--- NOTE | 2016-07-07 05:58 | RO ---
DATE OF PROCEDURE: 07/06/2016 PREOPERATIVE DIAGNOSIS: Displaced left ankle fracture. POSTOPERATIVE DIAGNOSIS: Displaced left ankle fracture. PROCEDURE: Open reduction, internal fixation of left ankle fracture. SURGEON: Edgar Pearce MD DISTANCE LEARNING PROGRAM COORDINATOR: ANESTHESIA: General endotracheal anesthetic. COMPLICATIONS: None. ESTIMATED BLOOD LOSS: 50 mL. SPECIMENS: None. DESCRIPTION OF PROCEDURE: Antibiotics were given intravenously, preoperatively and then Hibiclens scrub had been performed over the last 24 hours several times, and then a tourniquet was placed on the left upper thigh and not inflated. The left lower extremity was then carefully prepped and draped in the usual sterile fashion. Clindamycin antibiotics were given preoperatively, and then after the appropriate time-out the tourniquet was inflated to 300 mmHg. A longitudinal incision was made laterally over the distal fibula. A full thickness incision was made down to bone, and then the fracture site was opened and it was still unstable and displaced and the callus within the fracture site was curetted out with curettes and a hopkins elevator such that I could mobilize the fracture sufficiently to get an anatomic open reduction using a lobster claw-type clamp. Fluoroscopic imaging confirmed. I could get the mortis reduced. The medial clear space was now back anatomic. At this point, I placed an interfragmentary compression screw using a 3.5 and then the 2.5 drill from anterior to posterior measuring using a 16 mm cortical screw with reasonable purchase. There was a Tillaux fracture fragment more distally over the distal fragment. That had the anterior inferior tibiofibular ligament attached to that. So I felt it reasonable to secure it with a screw and thus, I held it with a point of reduction forceps onto the distal fragment, drilled with the 2.5 drill and placed a 4.0 cancellous screw to hold that ligament in position more distally. Fluoroscopic imaging confirmed good placement. A 7-hole one-third tubular plate was then contoured distally and applied to the bone and held in position with a bone holding clamp and fluoroscopic imaging confirmed good placement of the plate; and thus, I first secured it at the proximal third from the last screw with a cortical screw drilling with a 2.5 drill and then I filled the distal hole with a 4.0 cancellous screw with excellent purchase checking with fluoroscopy after each screw placement, and then I filled the distal three holes of the plate with 4.0 cancellous screw and the proximal holes were filled with 3.5 cortical screws with excellent purchase, and the anatomic reduction of the mortis was felt to have been obtained by fluoroscopic image in the AP, mortis and lateral plane. Thus, the syndesmotic screw was not felt to be necessary. The mortis appeared to be stable fluoroscopically. I then copiously irrigated the wound, let the tourniquet down and closed the deep subdermal tissues over the plate with #2-0 PDS sutures interrupted, followed by multiple skin trixie and then Adaptic and dry sterile bulky dressing was applied after cleansing the skin, and then a short leg plaster, well molded and well padded cast was applied, and then she was awakened from general endotracheal tube anesthesia after having tolerated the procedure well, transferred to recovery room in stable condition. There were no intraoperative complications.
[2016-07-07 06:00] VITALS: BP 128/58
[2016-07-07 07:30] LABS: MEAN CORPUSCULAR HEMOGLOBIN 34.9 pg (27.0-33.0); MEAN CORPUSCULAR HGB CONC 30.5 g/dl (32.0-36.5); MEAN CORPUSCULAR VOLUME 114.1 fl (80.0-96.0); RED CELL DISTRIBUTION WIDTH 16.8 % (11.5-14.5); WHITE BLOOD COUNT 2.9 K/mm3 (4.0-10.0)
[2016-07-07 07:31] LABS: ANION GAP 10 MEQ/L (8-16); BLOOD UREA NITROGEN 12 MG/DL (7-18); CALCIUM LEVEL 8.6 MG/DL (8.5-10.1); CARBON DIOXIDE LEVEL 28 MEQ/L (21-32); CHLORIDE LEVEL 105 MEQ/L (98-107); CREATININE FOR GFR 0.93 MG/DL (0.55-1.02); GLOMERULAR FILTRATION RATE > 60.0 (>51); GLUCOSE, FASTING 113 MG/DL (70-105); POTASSIUM SERUM 3.9 MEQ/L (3.5-5.1); SODIUM LEVEL 143 MEQ/L (136-145)
--- NOTE | 2016-07-07 09:15 | REP ---
Left ankle series: Four views. History: Status post open reduction internal fixation. Findings: Four view ankle series through plaster cast material documents anatomic position of the ankle mortise. A screw plate fixation device is seen in the distal fibula. Lateral skin trixie are noted. Plantar heel spur is seen. Signed by Wood Bell MD 07/07/2016 10:40 A
[2016-07-07] MEDS: LACTULOSE 20 GM/30 ML SYRUP UD PO SCH ×3 (09:32→20:14)
[2016-07-07] MEDS: RIBAVIRIN 200 MG PO SCH ×2 (09:32→20:16)
[2016-07-07] MEDS: HARVONI PO SCH (09:32)
[2016-07-07] MEDS: FUROSEMIDE 40 MG TAB PO SCH (09:33)
[2016-07-07] MEDS: ASPIRIN 325 MG TAB PO SCH (09:33)
[2016-07-07] MEDS: oxyCODONE 5MG TAB PO PRN ×2 (09:33→16:55)
[2016-07-07] MEDS: DESVENLAFAXINE ER 50 MG TABLET (PRISTIQ) PO SCH (09:33)
[2016-07-07] MEDS: SPIRONOLACTONE 12.5MG PER 1/2 TABLET PO SCH (09:33)
[2016-07-07] MEDS: CARVedilol 3.125 MG TAB PO SCH ×2 (09:34→20:16)
[2016-07-07] MEDS: FOLIC ACID 1 MG TAB PO SCH (09:34)
[2016-07-07] MEDS: rifAXIMin 550 MG TAB (XIFAXAN) PO SCH ×2 (09:34→20:15)
[2016-07-07] MEDS: MULTIVITAMINS/MINERALS THERAP 1 TAB PO SCH (09:34)
[2016-07-07 10:00] VITALS: BP 141/63
[2016-07-07 14:00] VITALS: BP 168/65
--- NOTE | 2016-07-07 15:30 | IPNPDOC ---
Date of Service/Time 07/07/16 Progress Note SUBJECTIVE: The patient tells me she is feeling well she has some mild pain at the left ankle but otherwise she has no complaints OBJECTIVE: PHYSICAL EXAMINATION: VITAL SIGNS: Please see below. GENERAL: Disheveled middle-aged obese female sitting in a recliner with her feet up she does not appear to be in any acute distress HEENT: Moist mucous membranes elevation central venous pressure cranial nerves II through XII are grossly intact CARDIOVASCULAR: S1-S2 regular. RESPIRATORY: Clear to auscultation. ABDOMINAL: Obese mild appreciable ascites no tense ascites EXTREMITIES: 1-2+ edema bilaterally, her left lower extremity cast is bloodstained NEUROLOGICAL: Nonfocal LABORATORY DATA: Pancytopenia chronic Please see below. IMAGING: No new imaging DVT prophylaxis ordered?: Sequentials and teds no pharmacological agents secondary to thrombocytopenia and coagulopathy related to liver cirrhosis ASSESSMENT AND PLAN: This is a 56-year-old female with liver cirrhosis secondary to hepatitis C undergoing treatment and alcohol abuse who initially presented with fall secondary to hepatic encephalopathy and left ankle fracture. Problem #1 liver cirrhosis: [place] to be secondary to hepatitis C and possibly alcohol usage as well Dr. Rosales's help is greatly appreciated. The patient is on Harvoni and Ribavarin with an undetectable viral load. The patient is on lactulose rifaximin Lasix will also start her on low-dose Aldactone she is also on a nonselective beta latrice as well. This is also likely the etiology for her pancytopenia and mild fluid overload I will titrate up her lasix as she has still quite a bit of fluid on board. The patient does not exhibit any signs or symptoms of alcohol withdrawal, cessation counseling offered she is on folic acid and a multivitamin Problem #2 left ankle fracture POD #1, asa for dvt ppx in addition to scds & teds. Problem #3 Presyncope: [place] to be secondary to dehydration versus hepatic encephalopathy has resolved Problem #4 PTSD the patient is on Pristiq Problem #5 thyroid nodule: We'll need further outpatient follow-up Problem #6 tobacco abuse: Patient declines cessation counseling she is refusing a nicotine patch at this time Problem #7 overactive bladder: The patient was continued on prazosin symptoms are well-controlled at this time Problem #8 obesity: complicating care the patient has been referred to Dr. Mathew for a sleep study Problem #8 acute kidney injury: Resolved DISPOSITION: We'll continue to monitor patient, she'll also continue her hepatitis C treatment while in hospital following completion of this we can revisit potential dispositions. VS, I&O, 24H, Fishbone VS, I&O, 24H, Fishbone Vital Signs Date Time Temp Pulse Resp B/P Pulse Ox O2 Delivery O2 Flow Rate FiO2 07/07/16 10:03 18 07/07/16 10:00 97.4 65 141/63 95 Room Air 07/07/16 06:00 2.0 I&O- Last 24 Hours up to 6 AM 07/07/16 06:00 Intake Total 1960 ml Output Total 450 ml Balance 1510 ml Laboratory Tests 2 07/07/16 06:58: Anion Gap 10, Blood Urea Nitrogen 12, Creatinine 0.93, Sodium Level 143, Potassium Level 3.9, Chloride Level 105, Carbon Dioxide Level 28, Calcium Level 8.6, Glomerular Filtration Rate > 60.0 Laboratory Tests 07/07/16 06:58 Calcium Level 8.6, Red Blood Count 2.47 L, Mean Corpuscular Volume 114.1 H, Mean Corpuscular Hemoglobin 34.9 H, Mean Corpuscular Hemoglobin Concent 30.5 L, Red Cell Distribution Width 16.8 H JAKE OSUNA MD Jul 07, 2016 15:30
[2016-07-07] MEDS: FUROSEMIDE 80 MG TAB PO SCH (16:55)
[2016-07-07] MEDS: PRAZOSIN 1 MG CAP PO SCH (20:15)
[2016-07-07] MEDS: GABAPENTIN 300 MG CAP PO SCH (20:15)
[2016-07-07 22:00] VITALS: BP 112/55
[2016-07-08 02:00] VITALS: BP 113/56
[2016-07-08 06:00] VITALS: BP 132/61
[2016-07-08] MEDS: LEVOTHYROXINE 0.15 MG TAB (150 MCG) PO SCH (06:02)
[2016-07-08 06:45] LABS: MEAN CORPUSCULAR HEMOGLOBIN 33.8 pg (27.0-33.0); MEAN CORPUSCULAR HGB CONC 29.9 g/dl (32.0-36.5); RED CELL DISTRIBUTION WIDTH 16.6 % (11.5-14.5); WHITE BLOOD COUNT 3.4 K/mm3 (4.0-10.0)
[2016-07-08 06:57] LABS: ALBUMIN/GLOBULIN RATIO 0.53 (1.00-1.93); ALKALINE PHOSPHATASE 135 U/L (45-117); ALT/SGPT 23 U/L (12-78); ANION GAP 5 MEQ/L (8-16); AST/SGOT 32 U/L (15-37); BILIRUBIN,TOTAL 4.1 MG/DL (0.2-1.0); BLOOD UREA NITROGEN 14 MG/DL (7-18); CALCIUM LEVEL 8.6 MG/DL (8.5-10.1); CARBON DIOXIDE LEVEL 33 MEQ/L (21-32); CHLORIDE LEVEL 104 MEQ/L (98-107); GLOMERULAR FILTRATION RATE > 60.0 (>51); GLUCOSE, FASTING 118 MG/DL (70-105); POTASSIUM SERUM 3.6 MEQ/L (3.5-5.1); SODIUM LEVEL 142 MEQ/L (136-145); TOTAL PROTEIN 5.8 GM/DL (6.4-8.2)
[2016-07-08] MEDS: CARVedilol 3.125 MG TAB PO SCH ×2 (09:00→21:28)
[2016-07-08] MEDS: LACTULOSE 20 GM/30 ML SYRUP UD PO SCH ×3 (09:56→23:02)
[2016-07-08] MEDS: rifAXIMin 550 MG TAB (XIFAXAN) PO SCH ×2 (09:56→21:28)
[2016-07-08] MEDS: RIBAVIRIN 200 MG PO SCH ×2 (09:57→21:28)
[2016-07-08] MEDS: HARVONI PO SCH (09:57)
[2016-07-08] MEDS: ASPIRIN 325 MG TAB PO SCH (09:58)
[2016-07-08] MEDS: FUROSEMIDE 80 MG TAB PO SCH ×2 (09:58→17:19)
[2016-07-08] MEDS: FOLIC ACID 1 MG TAB PO SCH (09:58)
[2016-07-08] MEDS: DESVENLAFAXINE ER 50 MG TABLET (PRISTIQ) PO SCH (09:58)
[2016-07-08] MEDS: SPIRONOLACTONE 12.5MG PER 1/2 TABLET PO SCH (09:58)
[2016-07-08] MEDS: MULTIVITAMINS/MINERALS THERAP 1 TAB PO SCH (09:58)
[2016-07-08 10:00] VITALS: BP 122/60
[2016-07-08 14:00] VITALS: BP 124/55
--- NOTE | 2016-07-08 16:08 | IPNPDOC ---
Date of Service/Time 07/08/16 Progress Note SUBJECTIVE: The patient tells me she is feeling well she has some mild pain at the left ankle but otherwise she has no complaints OBJECTIVE: PHYSICAL EXAMINATION: VITAL SIGNS: Please see below. GENERAL: Disheveled middle-aged obese female sitting in a recliner with her feet up she does not appear to be somewhat lethargic HEENT: Moist mucous membranes elevation central venous pressure cranial nerves II through XII are grossly intact CARDIOVASCULAR: S1-S2 regular. RESPIRATORY: Clear to auscultation. ABDOMINAL: Obese mild appreciable ascites no tense ascites EXTREMITIES: 1-2+ edema bilaterally, her left lower extremity cast is bloodstained , + asterixis NEUROLOGICAL: Nonfocal LABORATORY DATA: Pancytopenia chronic Please see below. IMAGING: No new imaging DVT prophylaxis ordered?: Sequentials and teds no pharmacological agents secondary to thrombocytopenia and coagulopathy related to liver cirrhosis ASSESSMENT AND PLAN: This is a 56-year-old female with liver cirrhosis secondary to hepatitis C undergoing treatment and alcohol abuse who initially presented with fall secondary to hepatic encephalopathy and left ankle fracture. Problem #1 liver cirrhosis: [place] to be secondary to hepatitis C and possibly alcohol usage as well Dr. Rosales's help is greatly appreciated. The patient is on Harvoni and Ribavarin with an undetectable viral load. The patient is on lactulose rifaximin Lasix will also start her on low-dose Aldactone she is also on a nonselective beta latrice as well. This is also likely the etiology for her pancytopenia and mild fluid overload I have titrated up her lasix as she has still quite a bit of fluid on board. The patient does not exhibit any signs or symptoms of alcohol withdrawal, cessation counseling offered she is on folic acid and a multivitamin. The patient does appear to have some mild hepatic encephalopathy today as such I will increase her lactulose and as she is somewhat lethargic I'll discontinue her pain medication Problem #2 left ankle fracture POD #1, asa for dvt ppx in addition to scds & teds. Problem #3 Presyncope: [place] to be secondary to dehydration versus hepatic encephalopathy has resolved Problem #4 PTSD the patient is on Pristiq Problem #5 thyroid nodule: We'll need further outpatient follow-up Problem #6 tobacco abuse: Patient declines cessation counseling she is refusing a nicotine patch at this time Problem #7 overactive bladder: The patient was continued on prazosin symptoms are well-controlled at this time Problem #8 obesity: complicating care the patient has been referred to Dr. Mathew for a sleep study Problem #8 acute kidney injury: Resolved DISPOSITION: We'll continue to monitor patient, she'll also continue her hepatitis C treatment while in hospital following completion of this we can revisit potential dispositions. VS, I&O, 24H, Fishbone VS, I&O, 24H, Fishbone Vital Signs Date Time Temp Pulse Resp B/P Pulse Ox O2 Delivery O2 Flow Rate FiO2 07/08/16 14:00 97.7 64 20 124/55 94 Room Air 07/08/16 10:00 1.0 I&O- Last 24 Hours up to 6 AM 07/08/16 06:00 Intake Total 720 ml Output Total 0 ml Balance 720 ml Laboratory Tests 2 07/08/16 05:58: Blood Urea Nitrogen 14, Creatinine 1.00, Sodium Level 142, Potassium Level 3.6, Chloride Level 104, Carbon Dioxide Level 33H, Calcium Level 8.6, Aspartate Amino Transf (AST/SGOT) 32, Alanine Aminotransferase (ALT/SGPT) 23, Alkaline Phosphatase 135H, Total Bilirubin 4.1H, Total Protein 5.8L, Albumin 2.0L, Albumin/Globulin Ratio 0.53L, Anion Gap 5L, Glomerular Filtration Rate > 60.0 Laboratory Tests 07/08/16 05:58 Calcium Level 8.6, Aspartate Amino Transf (AST/SGOT) 32, Alanine Aminotransferase (ALT/SGPT) 23, Alkaline Phosphatase 135 H, Total Bilirubin 4.1 H, Total Protein 5.8 L, Albumin 2.0 L, Red Blood Count 2.43 L, Mean Corpuscular Volume 113.0 H, Mean Corpuscular Hemoglobin 33.8 H, Mean Corpuscular Hemoglobin Concent 29.9 L, Red Cell Distribution Width 16.6 H JAKE OSUNA MD Jul 08, 2016 16:08
[2016-07-08 18:00] VITALS: BP 127/60
[2016-07-08] MEDS: PRAZOSIN 1 MG CAP PO SCH (21:28)
[2016-07-08] MEDS: GABAPENTIN 300 MG CAP PO SCH (21:28)
[2016-07-08 22:00] VITALS: BP 124/58
[2016-07-09 06:00] VITALS: BP 132/60
[2016-07-09] MEDS: LEVOTHYROXINE 0.15 MG TAB (150 MCG) PO SCH (06:07)
[2016-07-09] MEDS: LACTULOSE 20 GM/30 ML SYRUP UD PO SCH ×3 (06:07→17:09)
[2016-07-09 06:58] LABS: MEAN CORPUSCULAR HEMOGLOBIN 34.3 pg (27.0-33.0); MEAN CORPUSCULAR VOLUME 114.1 fl (80.0-96.0); RED CELL DISTRIBUTION WIDTH 16.9 % (11.5-14.5); WHITE BLOOD COUNT 2.3 K/mm3 (4.0-10.0)
[2016-07-09 07:18] LABS: ALBUMIN 1.9 GM/DL (3.2-5.2); ALBUMIN/GLOBULIN RATIO 0.56 (1.00-1.93); ALKALINE PHOSPHATASE 127 U/L (45-117); ALT/SGPT 20 U/L (12-78); ANION GAP 7 MEQ/L (8-16); AST/SGOT 26 U/L (15-37); BILIRUBIN,TOTAL 3.1 MG/DL (0.2-1.0); BLOOD UREA NITROGEN 13 MG/DL (7-18); CALCIUM LEVEL 8.1 MG/DL (8.5-10.1); CARBON DIOXIDE LEVEL 32 MEQ/L (21-32); CHLORIDE LEVEL 104 MEQ/L (98-107); CREATININE FOR GFR 0.97 MG/DL (0.55-1.02); GLOMERULAR FILTRATION RATE > 60.0 (>51); GLUCOSE, FASTING 111 MG/DL (70-105); POTASSIUM SERUM 3.2 MEQ/L (3.5-5.1); SODIUM LEVEL 143 MEQ/L (136-145); TOTAL PROTEIN 5.3 GM/DL (6.4-8.2)
[2016-07-09] MEDS: FOLIC ACID 1 MG TAB PO SCH (08:49)
[2016-07-09] MEDS: FUROSEMIDE 80 MG TAB PO SCH ×2 (08:49→17:09)
[2016-07-09] MEDS: ASPIRIN 325 MG TAB PO SCH (08:50)
[2016-07-09] MEDS: MULTIVITAMINS/MINERALS THERAP 1 TAB PO SCH (08:50)
[2016-07-09] MEDS: DESVENLAFAXINE ER 50 MG TABLET (PRISTIQ) PO SCH (08:50)
[2016-07-09] MEDS: SPIRONOLACTONE 12.5MG PER 1/2 TABLET PO SCH (08:50)
[2016-07-09] MEDS: rifAXIMin 550 MG TAB (XIFAXAN) PO SCH ×2 (08:50→21:29)
[2016-07-09] MEDS: CARVedilol 3.125 MG TAB PO SCH ×2 (08:51→21:00)
[2016-07-09] MEDS: HARVONI PO SCH (08:51)
[2016-07-09] MEDS: RIBAVIRIN 200 MG PO SCH ×2 (08:51→21:29)
--- NOTE | 2016-07-09 11:55 | IPNPDOC ---
Date of Service/Time 07/09/16 Progress Note SUBJECTIVE: The patient tells me she is feeling well she is oriented to person place and time. OBJECTIVE: PHYSICAL EXAMINATION: VITAL SIGNS: Please see below. GENERAL: Disheveled middle-aged obese female sitting in a recliner with her feet up HEENT: Moist mucous membranes elevation central venous pressure cranial nerves II through XII are grossly intact CARDIOVASCULAR: S1-S2 regular. RESPIRATORY: Clear to auscultation. ABDOMINAL: Obese no appreciable ascites no tense ascites EXTREMITIES: 1-2+ edema bilaterally, her left lower extremity cast is bloodstained , + asterixis NEUROLOGICAL: Nonfocal LABORATORY DATA: Pancytopenia chronic Please see below. IMAGING: No new imaging DVT prophylaxis ordered?: Sequentials and teds no pharmacological agents secondary to thrombocytopenia and coagulopathy related to liver cirrhosis ASSESSMENT AND PLAN: This is a 56-year-old female with liver cirrhosis secondary to hepatitis C undergoing treatment and alcohol abuse who initially presented with fall secondary to hepatic encephalopathy and left ankle fracture. Problem #1 liver cirrhosis: [place] to be secondary to hepatitis C and possibly alcohol usage. Dr. Rosales's help is greatly appreciated. The patient is on Harvoni and Ribavarin with an undetectable viral load. The patient is on lactulose rifaximin Lasix and low-dose Aldactone she is also on a nonselective beta latrice as well. This is also likely the etiology for her pancytopenia and mild fluid overload I have titrated up her lasix as she has still quite a bit of fluid on board. The patient does not exhibit any signs or symptoms of alcohol withdrawal, cessation counseling offered she is on folic acid and a multivitamin. Problem #2 left ankle fracture asa for dvt ppx in addition to scds & teds. Problem #3 Presyncope: [place] to be secondary to dehydration versus hepatic encephalopathy has resolved Problem #4 PTSD the patient is on Pristiq Problem #5 thyroid nodule: We'll need further outpatient follow-up Problem #6 tobacco abuse: Patient declines cessation counseling she is refusing a nicotine patch at this time Problem #7 overactive bladder: The patient was continued on prazosin symptoms are well-controlled at this time Problem #8 obesity: complicating care the patient has been referred to Dr. Mathew for a sleep study Problem #8 acute kidney injury: Resolved DISPOSITION: We'll continue to monitor patient, she'll also continue her hepatitis C treatment while in hospital following completion of this we can revisit potential dispositions. VS, I&O, 24H, Fishbone VS, I&O, 24H, Fishbone Vital Signs Date Time Temp Pulse Resp B/P Pulse Ox O2 Delivery O2 Flow Rate FiO2 07/09/16 08:51 67 114/56 07/09/16 06:00 99.2 21 98 Room Air 07/08/16 10:00 1.0 I&O- Last 24 Hours up to 6 AM 07/09/16 06:00 Intake Total 950 ml Output Total 0 ml Balance 950 ml Laboratory Tests 2 07/09/16 06:41: Blood Urea Nitrogen 13, Creatinine 0.97, Sodium Level 143, Potassium Level 3.2L , Chloride Level 104, Carbon Dioxide Level 32, Calcium Level 8.1L, Aspartate Amino Transf (AST/SGOT) 26, Alanine Aminotransferase (ALT/SGPT) 20, Alkaline Phosphatase 127H, Total Bilirubin 3.1H, Total Protein 5.3L, Albumin 1.9L, Albumin/Globulin Ratio 0.56L, Ammonia 59H, Anion Gap 7L, Glomerular Filtration Rate > 60.0 Laboratory Tests 07/09/16 06:41 Calcium Level 8.1 L, Aspartate Amino Transf (AST/SGOT) 26, Alanine Aminotransferase (ALT/SGPT) 20, Alkaline Phosphatase 127 H, Total Bilirubin 3.1 H, Total Protein 5.3 L, Albumin 1.9 L, Red Blood Count 2.32 L, Mean Corpuscular Volume 114.1 H, Mean Corpuscular Hemoglobin 34.3 H, Mean Corpuscular Hemoglobin Concent 30.0 L, Red Cell Distribution Width 16.9 H JAKE OSUNA MD Jul 09, 2016 11:55
[2016-07-09 14:00] VITALS: BP 130/63
[2016-07-09] MEDS: PRAZOSIN 1 MG CAP PO SCH (21:00)
[2016-07-09] MEDS: GABAPENTIN 300 MG CAP PO SCH (21:29)
[2016-07-09 22:00] VITALS: BP 100/56
[2016-07-10] MEDS: LACTULOSE 20 GM/30 ML SYRUP UD PO SCH ×5 (00:48→23:26)
[2016-07-10] MEDS: LEVOTHYROXINE 0.15 MG TAB (150 MCG) PO SCH (05:57)
[2016-07-10 06:00] VITALS: BP 135/63
[2016-07-10 06:53] LABS: MEAN CORPUSCULAR HEMOGLOBIN 33.8 pg (27.0-33.0); MEAN CORPUSCULAR HGB CONC 29.8 g/dl (32.0-36.5); MEAN CORPUSCULAR VOLUME 113.4 fl (80.0-96.0); RED CELL DISTRIBUTION WIDTH 16.7 % (11.5-14.5); WHITE BLOOD COUNT 2.3 K/mm3 (4.0-10.0)
[2016-07-10 07:17] LABS: ALBUMIN 1.8 GM/DL (3.2-5.2); ALKALINE PHOSPHATASE 137 U/L (45-117); ALT/SGPT 21 U/L (12-78); ANION GAP 7 MEQ/L (8-16); AST/SGOT 27 U/L (15-37); BILIRUBIN,TOTAL 3.2 MG/DL (0.2-1.0); BLOOD UREA NITROGEN 11 MG/DL (7-18); CALCIUM LEVEL 8.1 MG/DL (8.5-10.1); CARBON DIOXIDE LEVEL 31 MEQ/L (21-32); CHLORIDE LEVEL 106 MEQ/L (98-107); CREATININE FOR GFR 0.83 MG/DL (0.55-1.02); GLOMERULAR FILTRATION RATE > 60.0 (>51); GLUCOSE, FASTING 114 MG/DL (70-105); POTASSIUM SERUM 3.2 MEQ/L (3.5-5.1); SODIUM LEVEL 144 MEQ/L (136-145); TOTAL PROTEIN 5.4 GM/DL (6.4-8.2)
[2016-07-10] MEDS: FUROSEMIDE 80 MG TAB PO SCH ×2 (09:40→17:31)
[2016-07-10] MEDS: FOLIC ACID 1 MG TAB PO SCH (09:40)
[2016-07-10] MEDS: rifAXIMin 550 MG TAB (XIFAXAN) PO SCH ×2 (09:40→20:47)
[2016-07-10] MEDS: DESVENLAFAXINE ER 50 MG TABLET (PRISTIQ) PO SCH (09:40)
[2016-07-10] MEDS: ASPIRIN 325 MG TAB PO SCH (09:40)
[2016-07-10] MEDS: RIBAVIRIN 200 MG PO SCH ×2 (09:41→20:49)
[2016-07-10] MEDS: MULTIVITAMINS/MINERALS THERAP 1 TAB PO SCH (09:42)
[2016-07-10] MEDS: SPIRONOLACTONE 12.5MG PER 1/2 TABLET PO SCH (09:42)
[2016-07-10] MEDS: HARVONI PO SCH (09:42)
[2016-07-10] MEDS: CARVedilol 3.125 MG TAB PO SCH ×2 (09:43→20:46)
--- NOTE | 2016-07-10 15:15 | IPNPDOC ---
Date/Time Seen The patient was seen on 07/10/16 at 15:12. Progress Note SUBJECTIVE: The patient tells me she is feeling well she is oriented to person place and time she has no complaints. OBJECTIVE: PHYSICAL EXAMINATION: VITAL SIGNS: Please see below. GENERAL: Disheveled middle-aged obese female sitting in a recliner with her feet up HEENT: Moist mucous membranes elevation central venous pressure cranial nerves II through XII are grossly intact CARDIOVASCULAR: S1-S2 regular. RESPIRATORY: Clear to auscultation. ABDOMINAL: Obese no appreciable ascites no tense ascites EXTREMITIES: 1-2+ edema bilaterally, her left lower extremity cast is bloodstained , + asterixis NEUROLOGICAL: Nonfocal LABORATORY DATA: Pancytopenia chronic Please see below. IMAGING: No new imaging DVT prophylaxis ordered?: Sequentials and teds no pharmacological agents secondary to thrombocytopenia and coagulopathy related to liver cirrhosis ASSESSMENT AND PLAN: This is a 56-year-old female with liver cirrhosis secondary to hepatitis C undergoing treatment and alcohol abuse who initially presented with fall secondary to hepatic encephalopathy and left ankle fracture. Problem #1 liver cirrhosis: [place] to be secondary to hepatitis C and possibly alcohol usage. Dr. Rosales's help is greatly appreciated. The patient is on Harvoni and Ribavarin with an undetectable viral load. The patient is on lactulose rifaximin Lasix and low-dose Aldactone she is also on a nonselective beta latrice as well. This is also likely the etiology for her pancytopenia and mild fluid overload I have titrated up her lasix as she has still quite a bit of fluid on board given that she is hypokalemic she is also started on potassium supplementation daily. The patient does not exhibit any signs or symptoms of alcohol withdrawal, cessation counseling offered she is on folic acid and a multivitamin. Problem #2 left ankle fracture asa for dvt ppx in addition to scds & teds. Problem #3 Presyncope: [place] to be secondary to dehydration versus hepatic encephalopathy has resolved Problem #4 PTSD the patient is on Pristiq Problem #5 thyroid nodule: We'll need further outpatient follow-up Problem #6 tobacco abuse: Patient declines cessation counseling she is refusing a nicotine patch at this time Problem #7 overactive bladder: The patient was continued on prazosin symptoms are well-controlled at this time Problem #8 obesity: complicating care the patient has been referred to Dr. Mathew for a sleep study Problem #8 acute kidney injury: Resolved DISPOSITION: We'll continue to monitor patient, she'll also continue her hepatitis C treatment while in hospital following completion of this we can revisit potential dispositions. VS, I&O, 24H, Fishbone VS, I&O, 24H, Fishbone Vital Signs Date Time Temp Pulse Resp B/P Pulse Ox O2 Delivery O2 Flow Rate FiO2 07/10/16 09:43 65 135/63 07/10/16 06:00 98.0 16 95 Room Air 07/08/16 10:00 1.0 I&O- Last 24 Hours up to 6 AM 07/10/16 06:00 Intake Total 1440 ml Output Total 0 ml Balance 1440 ml Laboratory Tests 2 07/10/16 06:19: Blood Urea Nitrogen 11, Creatinine 0.83, Sodium Level 144, Potassium Level 3.2L , Chloride Level 106, Carbon Dioxide Level 31, Calcium Level 8.1L, Aspartate Amino Transf (AST/SGOT) 27, Alanine Aminotransferase (ALT/SGPT) 21, Alkaline Phosphatase 137H, Total Bilirubin 3.2H, Total Protein 5.4L, Albumin 1.8L, Albumin/Globulin Ratio 0.50L, Anion Gap 7L, Glomerular Filtration Rate > 60.0 Laboratory Tests 07/10/16 06:19 Calcium Level 8.1 L, Aspartate Amino Transf (AST/SGOT) 27, Alanine Aminotransferase (ALT/SGPT) 21, Alkaline Phosphatase 137 H, Total Bilirubin 3.2 H, Total Protein 5.4 L, Albumin 1.8 L, Red Blood Count 2.39 L, Mean Corpuscular Volume 113.4 H, Mean Corpuscular Hemoglobin 33.8 H, Mean Corpuscular Hemoglobin Concent 29.8 L, Red Cell Distribution Width 16.7 H JAKE OSUNA MD Jul 10, 2016 15:15
[2016-07-10] MEDS: POTASSIUM CHLORIDE 10 MEQ SR TABLET PO SCH (15:38)
[2016-07-10 15:40] LABS: MAGNESIUM LEVEL 1.7 MG/DL (1.8-2.4)
[2016-07-10 20:45] VITALS: BP 135/60
[2016-07-10] MEDS: GABAPENTIN 300 MG CAP PO SCH (20:47)
[2016-07-10] MEDS: PRAZOSIN 1 MG CAP PO SCH (20:48)
[2016-07-10 22:00] VITALS: BP 130/56
[2016-07-11] MEDS: LACTULOSE 20 GM/30 ML SYRUP UD PO SCH ×3 (06:10→17:09)
[2016-07-11] MEDS: LEVOTHYROXINE 0.15 MG TAB (150 MCG) PO SCH (06:10)
[2016-07-11 06:22] LABS: MEAN CORPUSCULAR HEMOGLOBIN 33.7 pg (27.0-33.0); MEAN CORPUSCULAR HGB CONC 29.6 g/dl (32.0-36.5); MEAN CORPUSCULAR VOLUME 113.8 fl (80.0-96.0); RED CELL DISTRIBUTION WIDTH 16.6 % (11.5-14.5); WHITE BLOOD COUNT 2.6 K/mm3 (4.0-10.0)
[2016-07-11 06:42] LABS: ALBUMIN 1.9 GM/DL (3.2-5.2); ALBUMIN/GLOBULIN RATIO 0.54 (1.00-1.93); ALKALINE PHOSPHATASE 131 U/L (45-117); ALT/SGPT 20 U/L (12-78); ANION GAP 6 MEQ/L (8-16); AST/SGOT 30 U/L (15-37); BILIRUBIN,TOTAL 4.2 MG/DL (0.2-1.0); BLOOD UREA NITROGEN 8 MG/DL (7-18); CALCIUM LEVEL 8.1 MG/DL (8.5-10.1); CARBON DIOXIDE LEVEL 33 MEQ/L (21-32); CHLORIDE LEVEL 105 MEQ/L (98-107); CREATININE FOR GFR 0.79 MG/DL (0.55-1.02); GLOMERULAR FILTRATION RATE > 60.0 (>51); GLUCOSE, FASTING 97 MG/DL (70-105); MAGNESIUM LEVEL 1.5 MG/DL (1.8-2.4); POTASSIUM SERUM 3.1 MEQ/L (3.5-5.1); SODIUM LEVEL 144 MEQ/L (136-145); TOTAL PROTEIN 5.4 GM/DL (6.4-8.2)
[2016-07-11] MEDS: MULTIVITAMINS/MINERALS THERAP 1 TAB PO SCH (08:38)
[2016-07-11] MEDS: POTASSIUM CHLORIDE 10 MEQ SR TABLET PO SCH (08:38)
[2016-07-11] MEDS: FOLIC ACID 1 MG TAB PO SCH (08:38)
[2016-07-11] MEDS: FUROSEMIDE 80 MG TAB PO SCH ×2 (08:38→17:12)
[2016-07-11] MEDS: SPIRONOLACTONE 12.5MG PER 1/2 TABLET PO SCH (08:38)
[2016-07-11] MEDS: CARVedilol 3.125 MG TAB PO SCH ×2 (08:38→21:00)
[2016-07-11] MEDS: ASPIRIN 325 MG TAB PO SCH (08:38)
[2016-07-11] MEDS: HARVONI PO SCH (08:39)
[2016-07-11] MEDS: RIBAVIRIN 200 MG PO SCH ×2 (08:40→22:06)
[2016-07-11] MEDS: rifAXIMin 550 MG TAB (XIFAXAN) PO SCH ×2 (08:41→22:05)
[2016-07-11] MEDS: DESVENLAFAXINE ER 50 MG TABLET (PRISTIQ) PO SCH (08:41)
--- NOTE | 2016-07-11 10:25 | IPNPDOC ---
Date/Time Seen The patient was seen on 07/11/16 at 10:23. Progress Note SUBJECTIVE: The patient tells me she is feeling well she is tired and sleepy but has no complaints. OBJECTIVE: PHYSICAL EXAMINATION: VITAL SIGNS: Please see below. GENERAL: Disheveled middle-aged obese female sleeping when I entered the room but easily aroused to verbal stimuli HEENT: Moist mucous membranes elevation central venous pressure cranial nerves II through XII are grossly intact CARDIOVASCULAR: S1-S2 regular. RESPIRATORY: Clear to auscultation. ABDOMINAL: Obese no appreciable ascites no tense ascites EXTREMITIES: 1-2+ edema bilaterally persists, her left lower extremity cast is bloodstained , + asterixis NEUROLOGICAL: Nonfocal LABORATORY DATA: Chronic stable Pancytopenia Please see below. IMAGING: No new imaging DVT prophylaxis ordered?: Sequentials and teds no pharmacological agents secondary to thrombocytopenia and coagulopathy related to liver cirrhosis ASSESSMENT AND PLAN: This is a 56-year-old female with liver cirrhosis secondary to hepatitis C undergoing treatment and alcohol abuse who initially presented with fall secondary to hepatic encephalopathy and left ankle fracture. Problem #1 liver cirrhosis: [place] to be secondary to hepatitis C and possibly alcohol usage. Dr. Rosales's help is greatly appreciated. The patient is on Harvoni and Ribavarin with an undetectable viral load. The patient is on lactulose rifaximin Lasix and low-dose Aldactone she is also on a nonselective beta latrice as well. This is also likely the etiology for her pancytopenia and mild fluid overload I have titrated up her lasix as she has still quite a bit of fluid on board given that she is hypokalemic she is also started on potassium supplementation daily. The patient does not exhibit any signs or symptoms of alcohol withdrawal, cessation counseling offered she is on folic acid and a multivitamin. In regards to her hypokalemia and hypomagnesemia she will be repleted today Problem #2 left ankle fracture asa for dvt ppx in addition to scds & teds. Problem #3 Presyncope: [place] to be secondary to dehydration versus hepatic encephalopathy has resolved Problem #4 PTSD the patient is on Pristiq Problem #5 thyroid nodule: We'll need further outpatient follow-up Problem #6 tobacco abuse: Patient declines cessation counseling she is refusing a nicotine patch at this time Problem #7 overactive bladder: The patient was continued on prazosin symptoms are well-controlled at this time Problem #8 obesity: complicating care the patient has been referred to Dr. Mathew for a sleep study Problem #8 acute kidney injury: Resolved DISPOSITION: We'll continue to monitor patient, she'll also continue her hepatitis C treatment while in hospital following completion of this we can revisit potential dispositions. VS, I&O, 24H, Fishbone VS, I&O, 24H, Fishbone Vital Signs Date Time Temp Pulse Resp B/P Pulse Ox O2 Delivery O2 Flow Rate FiO2 07/11/16 08:38 59 130/56 07/10/16 22:00 97.9 18 100 Room Air 07/08/16 10:00 1.0 I&O- Last 24 Hours up to 6 AM 07/11/16 06:00 Intake Total 1834 ml Output Total 200 ml Balance 1634 ml Laboratory Tests 2 07/11/16 06:10: Blood Urea Nitrogen 8, Creatinine 0.79, Sodium Level 144, Potassium Level 3.1L, Chloride Level 105, Carbon Dioxide Level 33H, Calcium Level 8.1L, Aspartate Amino Transf (AST/SGOT) 30, Alanine Aminotransferase (ALT/SGPT) 20, Alkaline Phosphatase 131H, Total Bilirubin 4.2H, Total Protein 5.4L, Albumin 1.9L, Albumin/Globulin Ratio 0.54L, Anion Gap 6L, Glomerular Filtration Rate > 60.0, Magnesium Level 1.5L Laboratory Tests 07/11/16 06:10 Calcium Level 8.1 L, Aspartate Amino Transf (AST/SGOT) 30, Alanine Aminotransferase (ALT/SGPT) 20, Alkaline Phosphatase 131 H, Total Bilirubin 4.2 H, Total Protein 5.4 L, Albumin 1.9 L, Red Blood Count 2.49 L, Mean Corpuscular Volume 113.8 H, Mean Corpuscular Hemoglobin 33.7 H, Mean Corpuscular Hemoglobin Concent 29.6 L, Red Cell Distribution Width 16.6 H JAKE OSUNA MD Jul 11, 2016 10:25
[2016-07-11] MEDS: MAG SULF 1GM/100ML (MAG RUN) 1 GM in APPROPRIATE DILUENT 1 EA IV SCH ×2 (12:05→13:58)
[2016-07-11 14:00] VITALS: BP 151/66
[2016-07-11 22:00] VITALS: BP 116/52
[2016-07-11] MEDS: GABAPENTIN 300 MG CAP PO SCH (22:05)
[2016-07-11] MEDS: PRAZOSIN 1 MG CAP PO SCH (22:05)
[2016-07-12 06:00] VITALS: BP 121/73
[2016-07-12] MEDS: LEVOTHYROXINE 0.15 MG TAB (150 MCG) PO SCH (06:11)
[2016-07-12] MEDS: LACTULOSE 20 GM/30 ML SYRUP UD PO SCH ×4 (06:12→17:31)
[2016-07-12 06:42] LABS: MEAN CORPUSCULAR HEMOGLOBIN 34.4 pg (27.0-33.0); MEAN CORPUSCULAR HGB CONC 30.5 g/dl (32.0-36.5); RED CELL DISTRIBUTION WIDTH 16.2 % (11.5-14.5); WHITE BLOOD COUNT 2.5 K/mm3 (4.0-10.0)
[2016-07-12 07:00] LABS: ALBUMIN 1.9 GM/DL (3.2-5.2); ALBUMIN/GLOBULIN RATIO 0.53 (1.00-1.93); ALKALINE PHOSPHATASE 135 U/L (45-117); ALT/SGPT 20 U/L (12-78); ANION GAP 10 MEQ/L (8-16); AST/SGOT 33 U/L (15-37); BILIRUBIN,TOTAL 3.9 MG/DL (0.2-1.0); BLOOD UREA NITROGEN 7 MG/DL (7-18); CALCIUM LEVEL 7.9 MG/DL (8.5-10.1); CARBON DIOXIDE LEVEL 31 MEQ/L (21-32); CHLORIDE LEVEL 103 MEQ/L (98-107); CREATININE FOR GFR 0.84 MG/DL (0.55-1.02); GLOMERULAR FILTRATION RATE > 60.0 (>51); GLUCOSE, FASTING 116 MG/DL (70-105); MAGNESIUM LEVEL 1.5 MG/DL (1.8-2.4); POTASSIUM SERUM 3.1 MEQ/L (3.5-5.1); SODIUM LEVEL 144 MEQ/L (136-145); TOTAL PROTEIN 5.5 GM/DL (6.4-8.2)
[2016-07-12] MEDS: CARVedilol 3.125 MG TAB PO SCH ×2 (09:00→21:05)
[2016-07-12 10:07] LABS: ABG HCO3 32.5 MEQ/L (22.0-26.0); ABG PARTIAL PRESSURE CO2 45.7 mmHg (35.0-45.0); ABG PARTIAL PRESSURE O2 88.6 mmHg (75.0-100.0); ABG STANDARD HCO3 31.8 MEQ/L (22.0-26.0); ABG TOTAL CO2 33.9 MEQ/L (22.0-29.0)
[2016-07-12] MEDS: SPIRONOLACTONE 12.5MG PER 1/2 TABLET PO SCH (10:07)
[2016-07-12] MEDS: MULTIVITAMINS/MINERALS THERAP 1 TAB PO SCH (10:08)
[2016-07-12] MEDS: DESVENLAFAXINE ER 50 MG TABLET (PRISTIQ) PO SCH (10:08)
[2016-07-12] MEDS: POTASSIUM CHLORIDE 10 MEQ SR TABLET PO SCH (10:08)
[2016-07-12] MEDS: ASPIRIN 325 MG TAB PO SCH (10:08)
[2016-07-12] MEDS: rifAXIMin 550 MG TAB (XIFAXAN) PO SCH ×2 (10:09→21:04)
[2016-07-12] MEDS: FUROSEMIDE 80 MG TAB PO SCH ×2 (10:09→17:31)
[2016-07-12] MEDS: FOLIC ACID 1 MG TAB PO SCH (10:09)
[2016-07-12] MEDS: HARVONI PO SCH (10:10)
[2016-07-12] MEDS: RIBAVIRIN 200 MG PO SCH ×2 (10:11→21:06)
--- NOTE | 2016-07-12 10:40 | REP ---
PORTABLE CHEST X-RAY: Single view. HISTORY: Decreased oxygenation. Change in level of consciousness. Comparison study June 14, 2016. FINDINGS: The lungs are symmetrically aerated and free of infiltrate. Pulmonary vasculature is somewhat cephalized. Pleural angles are sharp. Heart size is borderline, unchanged. No significant bony abnormality is seen. No infiltrate is noted. IMPRESSION: Borderline heart size. Cephalization. Otherwise no active disease. Signed by Wood Bell MD 07/12/2016 01:36 P
[2016-07-12 14:00] VITALS: BP 132/63
--- NOTE | 2016-07-12 16:13 | IPNPDOC ---
Date/Time Seen The patient was seen on 07/12/16 at 16:11. Progress Note SUBJECTIVE: The patient tells me she is feeling well she is tired and sleepy but has no complaints. OBJECTIVE: PHYSICAL EXAMINATION: VITAL SIGNS: Please see below. GENERAL: Disheveled middle-aged obese female sleeping when I entered the room but easily aroused to verbal stimuli HEENT: Moist mucous membranes elevation central venous pressure cranial nerves II through XII are grossly intact CARDIOVASCULAR: S1-S2 regular. RESPIRATORY: Clear to auscultation. ABDOMINAL: Obese no appreciable ascites no tense ascites EXTREMITIES: 1-2+ edema bilaterally persists, her left lower extremity cast is bloodstained , + asterixis NEUROLOGICAL: Nonfocal LABORATORY DATA: Chronic stable Pancytopenia Please see below. IMAGING: No new imaging DVT prophylaxis ordered?: Sequentials and teds no pharmacological agents secondary to thrombocytopenia and coagulopathy related to liver cirrhosis ASSESSMENT AND PLAN: This is a 56-year-old female with liver cirrhosis secondary to hepatitis C undergoing treatment and alcohol abuse who initially presented with fall secondary to hepatic encephalopathy and left ankle fracture. Problem #1 liver cirrhosis: [place] to be secondary to hepatitis C and possibly alcohol usage. Dr. Rosales's help is greatly appreciated. The patient is on Harvoni and Ribavarin with an undetectable viral load. The patient is on lactulose rifaximin Lasix and low-dose Aldactone she is also on a nonselective beta latrice as well. This is also likely the etiology for her pancytopenia and mild fluid overload I have titrated up her lasix as she has still quite a bit of fluid on board given that she is hypokalemic she is also started on potassium supplementation daily. The patient does not exhibit any signs or symptoms of alcohol withdrawal, cessation counseling offered she is on folic acid and a multivitamin. In regards to her hypokalemia and hypomagnesemia she will be repleted today Problem #2 left ankle fracture asa for dvt ppx in addition to scds & teds. Problem #3 Presyncope: [place] to be secondary to dehydration versus hepatic encephalopathy has resolved. Problem #4 PTSD the patient is on Pristiq Problem #5 thyroid nodule: We'll need further outpatient follow-up Problem #6 tobacco abuse: Patient declines cessation counseling she is refusing a nicotine patch at this time Problem #7 overactive bladder: The patient was continued on prazosin symptoms are well-controlled at this time Problem #8 obesity: complicating care the patient has been referred to Dr. Mathew for a sleep study will check overnight pulse oximetry Problem #8 acute kidney injury: Resolved DISPOSITION: The patient was noted to be hypoxic while sleeping I do have some concern for possible obstructive sleep apnea we'll check overnight pulse oximetry she was easily aroused and hypoxia resolved upon awakening. VS, I&O, 24H, Fishbone VS, I&O, 24H, Fishbone Vital Signs Date Time Temp Pulse Resp B/P Pulse Ox O2 Delivery O2 Flow Rate FiO2 07/12/16 10:15 Nasal Cannula 07/12/16 09:00 58 134/59 07/12/16 06:00 99.3 18 95 07/08/16 10:00 1.0 I&O- Last 24 Hours up to 6 AM 07/12/16 05:59 Intake Total 1640 ml Balance 1640 ml Laboratory Tests 2 07/12/16 06:25: Blood Urea Nitrogen 7, Creatinine 0.84, Sodium Level 144, Potassium Level 3.1L, Chloride Level 103, Carbon Dioxide Level 31, Calcium Level 7.9L, Aspartate Amino Transf (AST/SGOT) 33, Alanine Aminotransferase (ALT/SGPT) 20, Alkaline Phosphatase 135H, Total Bilirubin 3.9H, Total Protein 5.5L, Albumin 1.9L, Albumin/Globulin Ratio 0.53L, Anion Gap 10, Glomerular Filtration Rate > 60.0, Magnesium Level 1.5L 07/12/16 09:39: Bedside Glucose (Misc Panel) 227H 07/12/16 09:54: Arterial Blood pH 7.470H, Arterial Blood Partial Pressure CO2 45.7H, Arterial Blood Partial Pressure O2 88.6, Arterial Blood Total CO2 33.9H, Arterial Blood HCO3 32.5H, Arterial Blood Base Excess 8.0H, Arterial Blood Oxygen Saturation 97.5, Blood Gas Bicarbonate Standard 31.8H Laboratory Tests 07/12/16 06:25 Calcium Level 7.9 L, Aspartate Amino Transf (AST/SGOT) 33, Alanine Aminotransferase (ALT/SGPT) 20, Alkaline Phosphatase 135 H, Total Bilirubin 3.9 H, Total Protein 5.5 L, Albumin 1.9 L, Red Blood Count 2.54 L, Mean Corpuscular Volume 113.0 H, Mean Corpuscular Hemoglobin 34.4 H, Mean Corpuscular Hemoglobin Concent 30.5 L, Red Cell Distribution Width 16.2 H JAKE OSUNA MD Jul 12, 2016 16:13
[2016-07-12] MEDS ORDERED: POTASSIUM CHLORIDE 10 MEQ SR TABLET PO ONE (16:15)
[2016-07-12] MEDS: MAG SULF 1GM/100ML (MAG RUN) 1 GM in APPROPRIATE DILUENT 1 EA IV SCH ×2 (17:32→18:59)
[2016-07-12] MEDS: GABAPENTIN 300 MG CAP PO SCH (21:05)
[2016-07-12] MEDS: PRAZOSIN 1 MG CAP PO SCH (21:05)
[2016-07-12 22:00] VITALS: BP 122/66
[2016-07-13] MEDS: LACTULOSE 20 GM/30 ML SYRUP UD PO SCH ×4 (05:51→17:21)
[2016-07-13] MEDS: LEVOTHYROXINE 0.15 MG TAB (150 MCG) PO SCH (05:51)
[2016-07-13 06:00] VITALS: BP 123/61
[2016-07-13 07:08] LABS: MEAN CORPUSCULAR VOLUME 113.4 fl (80.0-96.0); RED CELL DISTRIBUTION WIDTH 16.1 % (11.5-14.5); WHITE BLOOD COUNT 2.2 K/mm3 (4.0-10.0)
[2016-07-13 07:22] LABS: ALBUMIN 1.8 GM/DL (3.2-5.2); ALKALINE PHOSPHATASE 132 U/L (45-117); ALT/SGPT 22 U/L (12-78); ANION GAP 7 MEQ/L (8-16); AST/SGOT 38 U/L (15-37); BILIRUBIN,TOTAL 3.6 MG/DL (0.2-1.0); BLOOD UREA NITROGEN 7 MG/DL (7-18); CALCIUM LEVEL 8.1 MG/DL (8.5-10.1); CARBON DIOXIDE LEVEL 33 MEQ/L (21-32); CHLORIDE LEVEL 104 MEQ/L (98-107); CREATININE FOR GFR 0.85 MG/DL (0.55-1.02); GLOMERULAR FILTRATION RATE > 60.0 (>51); GLUCOSE, FASTING 115 MG/DL (70-105); MAGNESIUM LEVEL 1.8 MG/DL (1.8-2.4); POTASSIUM SERUM 3.3 MEQ/L (3.5-5.1); SODIUM LEVEL 144 MEQ/L (136-145); TOTAL PROTEIN 5.4 GM/DL (6.4-8.2)
[2016-07-13] MEDS ORDERED: POTASSIUM CHLORIDE 10 MEQ SR TABLET PO ONE (08:30)
--- NOTE | 2016-07-13 08:34 | NOCOX ---
DATE OF PROCEDURE: 07/13/2016 Nocturnal recording oximetry was performed. During testing, the patient was on 2 liters of oxygen via nasal cannula. Baseline oxygen saturation was 100%. Lowest oxygen saturation reliably recorded was 92%. There was no typical pattern seen in the tracing. IMPRESSION: Adequate nocturnal oxygen saturation with supplemental oxygen at 2 liters.
[2016-07-13] MEDS: POTASSIUM CHLORIDE 10 MEQ SR TABLET PO SCH (10:02)
[2016-07-13] MEDS: MULTIVITAMINS/MINERALS THERAP 1 TAB PO SCH (10:02)
[2016-07-13] MEDS: CARVedilol 3.125 MG TAB PO SCH ×2 (10:02→21:07)
[2016-07-13] MEDS: FUROSEMIDE 80 MG TAB PO SCH ×2 (10:02→17:22)
[2016-07-13] MEDS: ASPIRIN 325 MG TAB PO SCH (10:03)
[2016-07-13] MEDS: DESVENLAFAXINE ER 50 MG TABLET (PRISTIQ) PO SCH (10:03)
[2016-07-13] MEDS: rifAXIMin 550 MG TAB (XIFAXAN) PO SCH ×2 (10:03→21:02)
[2016-07-13] MEDS: HARVONI PO SCH (10:03)
[2016-07-13] MEDS: FOLIC ACID 1 MG TAB PO SCH (10:03)
[2016-07-13] MEDS: SPIRONOLACTONE 12.5MG PER 1/2 TABLET PO SCH (10:03)
[2016-07-13] MEDS: RIBAVIRIN 200 MG PO SCH ×2 (10:04→21:03)
--- NOTE | 2016-07-13 11:02 | IPN ---
DATE: 07/13/2016 56-year-old female seen at bedside. No overnight issues reported. Denies headache, lightheadedness. No shortness of breath. No nausea or vomiting. No chest pain. OBJECTIVE: Temperature is 97.8, pulse 61, respiratory rate 18, blood pressure (BP) 123/61, SPO2 is 97% on 2 liters. General: The patient appears to be in no acute distress. Is alert and oriented. HEENT: Unremarkable. Lungs: Clear. Heart: Regular rate and rhythm. Abdomen: Soft. Extremities: No edema. No calf tenderness. LABORATORY DATA: White count is 2.2, hemoglobin is 8.5, platelets 80,000. Sodium 144, potassium is 3.3 which we supplemented, chloride 104, bicarb 33, anion gap 7, BUN 7, creatinine 0.85, glucose 115, magnesium 1.8, total bilirubin 3.6, AST 38, ALT 22, alkaline phosphatase 132, albumin is 1.8. ASSESSMENT/PLAN: 1. Left ankle fracture status post repair by Dr. Cherry of orthopedics. Currently has been following. Will need appropriate followup once discharged. 2. Liver cirrhosis felt to be secondary to hepatitis C and alcohol use/abuse. Appreciate Dr. Rosales's help. She continues on Harvoni and ribavirin with an undetectable viral load. Continues on Rifaximin, Lasix, low-dose Aldactone, and nonselective beta latrice. 3. Pancytopenia, likely secondary to her liver cirrhosis. Continue to follow. 4. Hypokalemia. We will supplement. 5. History of alcohol use/abuse. Will monitor for alcohol withdrawal. Cessation counseling was offered. Continue on folic acid, multivitamin and thiamine. 6. Presyncopal event, likely related to dehydration versus hepatic encephalopathy, resolved. 7. Hepatic encephalopathy, resolved and back to baseline. 8. Post traumatic stress disorder. Continue on Pristiq. 9. Thyroid nodule. Will need outpatient followup. 10. Tobacco use. Declined cessation counseling. Continue Nicoderm patch. 11. Overactive bladder. Continue on prazosin. 12. Obesity, which will complicate her medical care. She has been referred Dr. Mathew for sleep study to rule out obstructive sleep apnea. 13. Acute kidney injury, resolved. 14. Deep vein thrombosis (DVT) prophylaxis. Thromboembolic deterrent stockings (TEDS) and sequentials. DISPOSITION: Currently undergoing evaluation for possible placement.
[2016-07-13] MEDS: traMADol 50 MG TAB PO PRN ×2 (11:05→21:03)
[2016-07-13] MEDS: SLF 3 ML SYR IV SCH ×2 (13:26→21:02)
[2016-07-13 14:00] VITALS: BP 114/51
[2016-07-13] MEDS ORDERED: SLF 3 ML SYR IV PRN (14:00)
[2016-07-13] MEDS: GABAPENTIN 300 MG CAP PO SCH (21:03)
[2016-07-13] MEDS: NYSTATIN 100,000 UNITS/GM TOPICAL PWD 15 GM TOP SCH (21:04)
[2016-07-13] MEDS: PRAZOSIN 1 MG CAP PO SCH (21:06)
[2016-07-13 22:00] VITALS: BP 131/61
[2016-07-14] MEDS: LACTULOSE 20 GM/30 ML SYRUP UD PO SCH ×4 (00:18→18:11)
[2016-07-14] MEDS: LEVOTHYROXINE 0.15 MG TAB (150 MCG) PO SCH (05:35)
[2016-07-14] MEDS: SLF 3 ML SYR IV SCH ×3 (05:36→20:53)
[2016-07-14] MEDS: traMADol 50 MG TAB PO PRN ×2 (05:40→18:12)
[2016-07-14 06:00] VITALS: BP 135/65
[2016-07-14 06:48] LABS: MEAN CORPUSCULAR HEMOGLOBIN 34.1 pg (27.0-33.0); MEAN CORPUSCULAR VOLUME 117.5 fl (80.0-96.0); WHITE BLOOD COUNT 2.4 K/mm3 (4.0-10.0)
[2016-07-14 07:03] LABS: ALBUMIN 1.9 GM/DL (3.2-5.2); ALBUMIN/GLOBULIN RATIO 0.54 (1.00-1.93); ALKALINE PHOSPHATASE 135 U/L (45-117); ALT/SGPT 25 U/L (12-78); ANION GAP 7 MEQ/L (8-16); AST/SGOT 46 U/L (15-37); BILIRUBIN,TOTAL 3.4 MG/DL (0.2-1.0); BLOOD UREA NITROGEN 9 MG/DL (7-18); CARBON DIOXIDE LEVEL 33 MEQ/L (21-32); CHLORIDE LEVEL 104 MEQ/L (98-107); CREATININE FOR GFR 0.93 MG/DL (0.55-1.02); GLOMERULAR FILTRATION RATE > 60.0 (>51); GLUCOSE, FASTING 124 MG/DL (70-105); MAGNESIUM LEVEL 1.8 MG/DL (1.8-2.4); POTASSIUM SERUM 3.5 MEQ/L (3.5-5.1); SODIUM LEVEL 144 MEQ/L (136-145); TOTAL PROTEIN 5.4 GM/DL (6.4-8.2)
--- NOTE | 2016-07-14 08:41 | IPN ---
DATE: 07/14/2016 56-year-old female seen at bedside. No overnight issues. Reports she is resting comfortably. No chest pain, shortness breath, nausea or vomiting. No abdominal pain. OBJECTIVE: Temperature is 98.6, pulse 66, respiratory rate is 16 and nonlabored , blood pressure (BP) 135/65, SPO2 is 98% on room air. General: The patient appears to be in no acute distress, is alert and oriented, pleasant to talk to. HEENT: Unremarkable. Lungs: Clear. Heart: Regular rate and rhythm. Abdomen: Soft, obese, nontender. Extremities: No lower extremity edema. No calf tenderness. The left leg does have casting in place, but no motor or sensory deficits noted. LABS: White count 2.4, hemoglobin is 8.5 and platelets 92,000. Sodium is 144, potassium 3.5, chloride 104, bicarb 33, anion gap 7, BUN is 9, creatinine 0.93, glucose 124, calcium 8.0, magnesium 1.8, total bilirubin 3.4, AST 46, ALT 25, alkaline phosphatase 135 and albumin is 1.9. ASSESSMENT AND PLAN: 1. Left ankle fracture status post repair with Dr. Cherry. Appreciate orthopedics input. Will need appropriate followup after discharge. 2. Liver cirrhosis felt to be secondary to hepatitis C and alcohol use. Appreciate Dr. Rosales's input. She will need to continue on Harvoni through 07/23/2016. Continue on Rifaximin, Lasix, low dose aldactone and nonselective beta latrice, as well as, ribavirin. 3. Pancytopenia likely secondary to her liver cirrhosis. Will continue to follow. She appears to be stable at this time. 4. Hypokalemia, resolved. 5. History of alcohol use and abuse. Will monitor for alcohol withdrawal. Cessation counseling was offered. Continue on folic acid, multivitamin and thiamine. 6. Presyncopal event on admission, likely due to dehydration versus hepatic encephalopathy. This has resolved. 7. Hepatic encephalopathy, resolved and at baseline. 8. Post traumatic stress disorder. Continue on Pristiq. 9. Thyroid nodule. Will need outpatient followup. 10. Tobacco use. She has declined cessation counseling. Continue on Nicoderm patch while she is in the hospital. 11. Overactive bladder. Continue on prazosin. 12. Obesity, which can complicate her medical care. She will need outpatient followup with Dr. Mathew for sleep study to rule out obstructive sleep apnea. 13. Acute kidney injury, resolved. 14. Deep vein thrombosis (DVT) prophylaxis. Thromboembolic deterrent stockings (TEDS) and sequential compression devices (SCDs). Will avoid heparin products due to her low platelet count. DISPOSITION: Most likely placement once she has completed her course of Har[facility]oni. [facility]
[2016-07-14] MEDS: NYSTATIN 100,000 UNITS/GM TOPICAL PWD 15 GM TOP SCH ×2 (09:00→20:53)
[2016-07-14] MEDS: MULTIVITAMINS/MINERALS THERAP 1 TAB PO SCH (10:00)
[2016-07-14] MEDS: ASPIRIN 325 MG TAB PO SCH (10:00)
[2016-07-14] MEDS: rifAXIMin 550 MG TAB (XIFAXAN) PO SCH ×2 (10:00→20:53)
[2016-07-14] MEDS: FUROSEMIDE 80 MG TAB PO SCH ×2 (10:00→18:11)
[2016-07-14] MEDS: FOLIC ACID 1 MG TAB PO SCH (10:01)
[2016-07-14] MEDS: CARVedilol 3.125 MG TAB PO SCH ×2 (10:01→20:52)
[2016-07-14] MEDS: DESVENLAFAXINE ER 50 MG TABLET (PRISTIQ) PO SCH (10:01)
[2016-07-14] MEDS: SPIRONOLACTONE 12.5MG PER 1/2 TABLET PO SCH (10:01)
[2016-07-14] MEDS: HARVONI PO SCH (10:02)
[2016-07-14] MEDS: POTASSIUM CHLORIDE 10 MEQ SR TABLET PO SCH (10:02)
[2016-07-14] MEDS: RIBAVIRIN 200 MG PO SCH ×2 (10:03→20:53)
[2016-07-14 14:00] VITALS: BP 122/57
[2016-07-14] MEDS: GABAPENTIN 300 MG CAP PO SCH (20:53)
[2016-07-14] MEDS: PRAZOSIN 1 MG CAP PO SCH (20:53)
[2016-07-14 22:00] VITALS: BP 118/58
[2016-07-15] MEDS: LACTULOSE 20 GM/30 ML SYRUP UD PO SCH ×5 (06:11→23:25)
[2016-07-15] MEDS: LEVOTHYROXINE 0.15 MG TAB (150 MCG) PO SCH (06:12)
[2016-07-15] MEDS: SLF 3 ML SYR IV SCH ×3 (06:12→22:00)
[2016-07-15 06:59] LABS: MEAN CORPUSCULAR HEMOGLOBIN 33.8 pg (27.0-33.0); MEAN CORPUSCULAR HGB CONC 29.7 g/dl (32.0-36.5); MEAN CORPUSCULAR VOLUME 113.7 fl (80.0-96.0); RED CELL DISTRIBUTION WIDTH 15.5 % (11.5-14.5); WHITE BLOOD COUNT 2.6 K/mm3 (4.0-10.0)
[2016-07-15 07:14] LABS: ALBUMIN/GLOBULIN RATIO 0.53 (1.00-1.93); ALKALINE PHOSPHATASE 142 U/L (45-117); ALT/SGPT 25 U/L (12-78); ANION GAP 7 MEQ/L (8-16); AST/SGOT 46 U/L (15-37); BILIRUBIN,TOTAL 4.1 MG/DL (0.2-1.0); BLOOD UREA NITROGEN 9 MG/DL (7-18); CALCIUM LEVEL 8.1 MG/DL (8.5-10.1); CARBON DIOXIDE LEVEL 33 MEQ/L (21-32); CHLORIDE LEVEL 102 MEQ/L (98-107); CREATININE FOR GFR 0.89 MG/DL (0.55-1.02); GLOMERULAR FILTRATION RATE > 60.0 (>51); GLUCOSE, FASTING 94 MG/DL (70-105); MAGNESIUM LEVEL 1.8 MG/DL (1.8-2.4); POTASSIUM SERUM 3.6 MEQ/L (3.5-5.1); SODIUM LEVEL 142 MEQ/L (136-145); TOTAL PROTEIN 5.8 GM/DL (6.4-8.2)
[2016-07-15] MEDS: rifAXIMin 550 MG TAB (XIFAXAN) PO SCH ×2 (08:37→21:26)
[2016-07-15] MEDS: MULTIVITAMINS/MINERALS THERAP 1 TAB PO SCH (08:37)
[2016-07-15] MEDS: DESVENLAFAXINE ER 50 MG TABLET (PRISTIQ) PO SCH (08:37)
[2016-07-15] MEDS: FUROSEMIDE 80 MG TAB PO SCH ×2 (08:37→17:04)
[2016-07-15] MEDS: ASPIRIN 325 MG TAB PO SCH (08:37)
[2016-07-15] MEDS: FOLIC ACID 1 MG TAB PO SCH (08:37)
[2016-07-15] MEDS: SPIRONOLACTONE 12.5MG PER 1/2 TABLET PO SCH (08:37)
[2016-07-15] MEDS: HARVONI PO SCH (08:38)
[2016-07-15] MEDS: CARVedilol 3.125 MG TAB PO SCH ×2 (08:38→21:29)
[2016-07-15] MEDS: NYSTATIN 100,000 UNITS/GM TOPICAL PWD 15 GM TOP SCH ×2 (08:38→21:30)
[2016-07-15] MEDS: RIBAVIRIN 200 MG PO SCH ×2 (08:38→21:26)
[2016-07-15] MEDS: POTASSIUM CHLORIDE 10 MEQ SR TABLET PO SCH (08:38)
--- NOTE | 2016-07-15 12:26 | IPN ---
DATE: 07/15/2016 56-year-old female seen at bedside. No overnight issues reported. No complaints. Apparently she rested well last evening. OBJECTIVE: Temperature is 98.8, pulse 63, respiratory rate 18, blood pressure (BP) 118/58, SPO2 is 96% on room air. General: The patient appears to be in no acute distress, alert and oriented. HEENT: Unremarkable. Lungs: Clear. Heart: Regular rate and rhythm. Abdomen: Soft. Extremities: No edema. No calf tenderness. LABORATORY DATA: White count is 2.6, hemoglobin 9.5, platelets 94,000. Sodium 142, potassium 3.6, chloride 102, bicarb 33, anion gap 7, BUN is 9, creatinine 0.89, glucose 94, calcium 8.1, magnesium 1.8, total bilirubin 4.1, AST 46, ALT 25, alkaline phosphatase 142, albumin 2.0. ASSESSMENT AND PLAN: 1. Left ankle fracture status post repair by Dr. Cherry. Appreciate orthopedics input. Will need outpatient followup after discharge. 2. Liver cirrhosis felt to be secondary to hepatitis C and alcohol use. Appreciate Dr. Rosales's input. She continues on Harvoni through 07/23/2016. Continue with Rifaximim, Lasix, low-dose Aldactone, and nonselective beta latrice as well as ribavirin. 3. Pancytopenia likely secondary to liver cirrhosis. Will continue to follow. She does not show any signs of bleeding or bruising issues. 4. Hypokalemia, resolved. 5. History of alcohol use/abuse. Will monitor for alcohol withdrawal and counseled regarding cessation. Continue with folic acid, multivitamin and thiamine. 5. Presyncopal event on admission likely due to dehydration versus hepatic encephalopathy, resolved. 6. Hepatic encephalopathy, resolved and at baseline. 7. Post traumatic stress disorder. Continue with Pristiq. No suicidal ideation. No audiovisual hallucinations. 8. Tyroid nodule. Followup outpatient. 9. Tobacco use. Declined cessation counseling. Continue on Nicoderm patch while hospitalized. 10. Overactive bladder, on prazosin. 11. Obesity which complicates medical care. Will need followup as an outpatient with Dr. Mathew for sleep study to rule out obstructive sleep apnea. 12. Acute kidney injury, resolved. 13. Deep vein thrombosis (DVT) prophylaxis. Thromboembolic deterrent stockings (TEDS) and sequentials. Avoid heparin products and anticoagulation due to low platelet count. DISPOSITION: Likely will need placement once her Harvoni course is completed next Tuesday. I have spoken to [facility] ([facility]) and the patient patient care specialist regarding potential placement on Tuesday.
[2016-07-15] MEDS: GABAPENTIN 300 MG CAP PO SCH (21:28)
[2016-07-15] MEDS: traMADol 50 MG TAB PO PRN (21:28)
[2016-07-15] MEDS: PRAZOSIN 1 MG CAP PO SCH (21:29)
[2016-07-15 22:00] VITALS: BP 123/53
[2016-07-16] MEDS: LEVOTHYROXINE 0.15 MG TAB (150 MCG) PO SCH (05:23)
[2016-07-16] MEDS: LACTULOSE 20 GM/30 ML SYRUP UD PO SCH ×3 (05:23→17:28)
[2016-07-16] MEDS: SLF 3 ML SYR IV SCH (05:24)
[2016-07-16 06:00] VITALS: BP 131/59
[2016-07-16 07:00] LABS: MEAN CORPUSCULAR HEMOGLOBIN 34.4 pg (27.0-33.0); MEAN CORPUSCULAR HGB CONC 30.4 g/dl (32.0-36.5); MEAN CORPUSCULAR VOLUME 113.2 fl (80.0-96.0); RED CELL DISTRIBUTION WIDTH 15.4 % (11.5-14.5); WHITE BLOOD COUNT 2.6 K/mm3 (4.0-10.0)
[2016-07-16] MEDS: ASPIRIN 325 MG TAB PO SCH (09:21)
[2016-07-16] MEDS: FOLIC ACID 1 MG TAB PO SCH (09:21)
[2016-07-16] MEDS: DESVENLAFAXINE ER 50 MG TABLET (PRISTIQ) PO SCH (09:21)
[2016-07-16] MEDS: CARVedilol 3.125 MG TAB PO SCH ×2 (09:21→20:29)
[2016-07-16] MEDS: SPIRONOLACTONE 12.5MG PER 1/2 TABLET PO SCH (09:21)
[2016-07-16] MEDS: POTASSIUM CHLORIDE 10 MEQ SR TABLET PO SCH (09:21)
[2016-07-16] MEDS: MULTIVITAMINS/MINERALS THERAP 1 TAB PO SCH (09:22)
[2016-07-16] MEDS: HARVONI PO SCH (09:22)
[2016-07-16] MEDS: RIBAVIRIN 200 MG PO SCH ×2 (09:22→20:30)
[2016-07-16] MEDS: rifAXIMin 550 MG TAB (XIFAXAN) PO SCH ×2 (09:22→20:28)
[2016-07-16] MEDS: FUROSEMIDE 80 MG TAB PO SCH ×2 (09:22→17:28)
[2016-07-16] MEDS: NYSTATIN 100,000 UNITS/GM TOPICAL PWD 15 GM TOP SCH ×2 (09:23→20:30)
--- NOTE | 2016-07-16 11:06 | IPN ---
DATE: 07/16/2016 This is a 56-year-old female seen at bedside. No overnight issues reported. She denies any specific complaints. No chest pain, shortness of breath, productive sputum cough or hemoptysis. She is tolerating her breakfast. OBJECTIVE: Temperature 99.2, pulse 60, respiratory rate 18, blood pressure (BP) 131/59, SpO2 is 96% on room air. General: The patient appears to be in no acute distress. She is alert, oriented, pleasant. HEENT: Unremarkable. Lungs: Clear. Heart: Regular rate and rhythm. Abdomen: Soft. Extremities: No edema. No calf tenderness. LABORATORY DATA: White count 2.6, hemoglobin 9.0, platelets 89,000. Sodium is 142, potassium 3.6, chloride 102, bicarbonate 33 anion gap 7, BUN is 9, creatinine 0.89, glucose 94, magnesium 1.8, total bilirubin 4.1, AST 46, ALT 25, alkaline phosphatase 142, albumin is 2.0. ASSESSMENT AND PLAN: 1. Left ankle fracture status post repair by Dr. Cherry. Will need outpatient followup after discharge. 2. Liver cirrhosis secondary to hepatitis C and alcohol use. Appreciate Dr. Rosales's input. Continue Harvoni through 07/23/2016. She continues on aldactone, rifaximin, Lasix, nonselective beta-latrice, and ribavirin. 3. Pancytopenia, stable, secondary to liver cirrhosis. 4. Hypokalemia, resolved. 5. History of alcohol use and abuse. Will continue to monitor for withdrawal. Encouraged cessation. Counseling provided. Continue on folic acid, multivitamin and thiamine. 6. Presyncopal event on admission. No further issues. 7. Hepatic cephalopathy, resolved. 8. Posttraumatic stress disorder. Continue on Pristiq. 9. Thyroid nodule. Followup outpatient 10. Tobacco use. Declines smoking cessation, counseling, but continue on Nicoderm patch. 11. Overactive bladder. On prazosin. 12. Morbid obesity. Complicates medical care. Will need outpatient followup for rule out obstructive sleep apnea with sleep study with Dr. Mathew. 13. Acute kidney injury, resolved. 14. Deep venous thrombosis (DVT) prophylaxis. Thromboembolism deterrents (TEDs) and sequential. Avoid heparin products and anticoagulants due to low platelets. DISPOSITION: She will be on the floor here through Tuesday and likely will need placement thereafter when she finishes the [place] treatment.
[2016-07-16 14:00] VITALS: BP 125/60
[2016-07-16] MEDS: PRAZOSIN 1 MG CAP PO SCH (20:29)
[2016-07-16] MEDS: GABAPENTIN 300 MG CAP PO SCH (20:29)
[2016-07-16] MEDS: traMADol 50 MG TAB PO PRN (20:29)
[2016-07-16 22:15] VITALS: BP 139/63
[2016-07-17] MEDS: LACTULOSE 20 GM/30 ML SYRUP UD PO SCH ×5 (05:51→21:23)
[2016-07-17] MEDS: LEVOTHYROXINE 0.15 MG TAB (150 MCG) PO SCH (05:52)
[2016-07-17] MEDS: traMADol 50 MG TAB PO PRN ×2 (05:57→20:15)
[2016-07-17 06:06] VITALS: BP 114/58
[2016-07-17] MEDS: SPIRONOLACTONE 12.5MG PER 1/2 TABLET PO SCH (08:58)
[2016-07-17] MEDS: ASPIRIN 325 MG TAB PO SCH (08:58)
[2016-07-17] MEDS: DESVENLAFAXINE ER 50 MG TABLET (PRISTIQ) PO SCH (08:59)
[2016-07-17] MEDS: rifAXIMin 550 MG TAB (XIFAXAN) PO SCH ×2 (08:59→20:16)
[2016-07-17] MEDS: POTASSIUM CHLORIDE 10 MEQ SR TABLET PO SCH (09:00)
[2016-07-17] MEDS: FUROSEMIDE 80 MG TAB PO SCH ×2 (09:00→17:16)
[2016-07-17] MEDS: CARVedilol 3.125 MG TAB PO SCH ×2 (09:00→20:16)
[2016-07-17] MEDS: FOLIC ACID 1 MG TAB PO SCH (09:01)
[2016-07-17] MEDS: RIBAVIRIN 200 MG PO SCH ×2 (09:01→20:16)
[2016-07-17] MEDS: MULTIVITAMINS/MINERALS THERAP 1 TAB PO SCH (09:01)
[2016-07-17] MEDS: HARVONI PO SCH (09:02)
[2016-07-17] MEDS: NYSTATIN 100,000 UNITS/GM TOPICAL PWD 15 GM TOP SCH ×2 (09:03→20:15)
--- NOTE | 2016-07-17 11:37 | REP ---
Left ankle series: Three views. History: Check position. Findings: Three views of the left ankle are obtained through overlying cast material and are compared with the July 07, 2016 prior study. Lateral skin trixie are seen. There is a screw plate fixation device in the distal fibula along with two anteroposteriorly directed metallic screws. Ankle mortise is intact. No tibial fracture is seen on these views. Fine bone detail is obscured by cast material. There is plantar calcaneal spurring. Some diffuse swelling persists. Signed by Wood Bell MD 07/17/2016 01:14 P
[2016-07-17 14:00] VITALS: BP 121/58
--- NOTE | 2016-07-17 19:45 | IPN ---
DATE: 07/17/2016 56-year-old female seen at bedside. No overnight issues. She did rest well through the night. No chest pain. No nausea, vomiting. She is eating breakfast this morning and I did speak to orthopedics about followup appointment for her left ankle fracture and cast that will likely need to be changed due to some seepage through the heel of the cast. OBJECTIVE: Temperature is 97, pulse is 58, respiratory rate 17, blood pressure 114/58, SpO2 is 92% on room air. GENERAL: The patient appears to be in no acute distress. Is alert and oriented , pleasant to talk to. HEENT: Unremarkable. LUNGS: Clear. HEART: Regular rate and rhythm. ABDOMEN: Soft. EXTREMITIES: No edema, no calf tenderness on the right. There is a cast on the left however, there is no motor sensory deficits in the toes distally and she has good capillary refill. LABORATORY DATA: White count 2.6, hemoglobin 9.0, platelets 89,000. Sodium is 142, potassium 3.6 , chloride 102, bicarbonate 33, anion gap 7, BUN is 9, creatinine 0.89, glucose is 94, magnesium 1.8, bilirubin 4.1, AST 46, ALT 25, alkaline phosphatase 142, albumin is 2.0. ASSESSMENT/PLAN: 1. Left ankle fracture status post repair by Dr. Cherry. Orthopedics will followup and she likely will need a cast change sometime this coming week. 2. Liver cirrhosis secondary to hepatitis C and alcohol use. Appreciate Dr. Rosales's input. She is finishing her [place] ON 07/23/2016, Aldactone, rifaximin, Lasix, nonselective beta-latrice and ribavirin. 3. Pancytopenia, stable. This is likely secondary to her liver cirrhosis. 4. Hypokalemia, resolved. 5. Alcohol use/abuse. Continue to monitor for withdrawal. Encourage cessation. Counseling has been provided. She continues on folic acid, multivitamin, thiamine. 6. Presyncopal event on admission. No further issues. 7. Hepatic encephalopathy, resolved. 8. Posttraumatic stress disorder (PTSD). Continue Pristiq. 9. Thyroid nodule. Followup outpatient. 10. Tobacco use. Declines smoking cessation counseling but will continue on Nicoderm patch. 11. Overactive bladder. Continue on prazosin. 12. Morbid obesity. Complicates her medical care. She likely will need outpatient workup for sleep apnea with Dr. Mathew. 13. Acute kidney injury, resolved. 14. Deep venous thrombosis (DVT) prophylaxis. Thromboembolism deterrents (TEDs), sequentials, avoiding heparin products and anticoagulants due to low platelets. DISPOSITION: She will be here likely through Tuesday, when she finishes her Harvoni, we will be able to discharge her. [facility]
[2016-07-17] MEDS: GABAPENTIN 300 MG CAP PO SCH (20:16)
[2016-07-17] MEDS: PRAZOSIN 1 MG CAP PO SCH (20:16)
[2016-07-17 20:24] VITALS: BP 125/65
[2016-07-18 06:00] VITALS: BP 126/60
[2016-07-18] MEDS: LACTULOSE 20 GM/30 ML SYRUP UD PO SCH ×4 (06:04→23:12)
[2016-07-18] MEDS: LEVOTHYROXINE 0.15 MG TAB (150 MCG) PO SCH (06:06)
--- NOTE | 2016-07-18 09:01 | IPNPDOC ---
Assessment/Plan Date Seen The patient was seen on 07/18/16. Problems Problems: (1) Ankle fracture, left Status: Acute Problem Text: Dr. Del Angel following with plans to change cast this week (2) D[place]RICK (acute kidney injury) Status: Resolved (3) Hepatitis C Status: Acute Problem Text: currently undergoing treatment with Harvoni and ribavarin, which should finish up on 07/23/16 (4) Thrombocytopenia Status: Chronic Problem Text: at baseline (5) Alcohol abuse Status: Resolved Problem Text: currently in remission; continue MVI, thiamine, folate (6) Cirrhosis of liver Status: Chronic Problem Text: continue home spironolactone, lasix, rifaximin, lactulose, and beta latrice (7) Depression Status: Chronic Problem Text: secondary to PTSD; continue home pristiq and minipress (8) Hypothyroidism Status: Chronic Problem Text: continue home synthroid; needs outpatient followup for nodule (9) Obesity Status: Chronic Problem Text: needs sleep study at discharge Plan / VTE VTE Prophylaxis Ordered?: Yes (SCDs on right leg (left has cast on it); cannot use heparin/lovenox 2/2 thrombocytopenia) Plan / Urinary Catheter Reason for insertion/continuin: Critical Pt monitoring Disposition residential upon completion of harvoni Subjective Review of Systems CC/HPI The patient is a 56-year-old female admitted with a reason for visit of DEDRICK. Pulmonary: Denies: Dyspnea Cardiovascular: Denies: Chest Pain Gastrointestinal: Denies: Vomiting Objective Physical Examination General Exam: Positive: Alert, Cooperative, No Acute Distress Eye Exam: Positive: EOMI ENT Exam: Positive: Atraumatic, Mucous membr. moist/pink Neck Exam: Positive: Supple Chest Exam: Positive: Clear to auscultation, Normal air movement Heart Exam: Positive: Rate Normal, Regular Rhythm Abdomen Exam: Positive: Soft, Tenderness (diffuse) Extremity Exam: Positive: Other (cast on LLE) Neuro Exam: Positive: Normal Speech Psych Exam: Positive: Mental status NL Vital Signs/I&O Vital Signs Date Time Temp Pulse Resp B/P Pulse Ox O2 Delivery O2 Flow Rate FiO2 07/18/16 06:00 98.0 78 20 126/60 95 Room Air 07/13/16 21:00 2.0 I&O- Last 24 Hours up to 6 AM 07/18/16 06:00 Intake Total 1800 ml Output Total 0 ml Balance 1800 ml Laboratory Data Labs 24H Laboratory Tests 2 07/18/16 06:30: Magnesium Level 1.8 MAL FLORES Jul 18, 2016 09:01
[2016-07-18] MEDS: MULTIVITAMINS/MINERALS THERAP 1 TAB PO SCH (09:37)
[2016-07-18] MEDS: POTASSIUM CHLORIDE 10 MEQ SR TABLET PO SCH (09:37)
[2016-07-18] MEDS: traMADol 50 MG TAB PO PRN ×2 (09:37→20:00)
[2016-07-18] MEDS: ASPIRIN 325 MG TAB PO SCH (09:37)
[2016-07-18] MEDS: rifAXIMin 550 MG TAB (XIFAXAN) PO SCH ×2 (09:37→19:56)
[2016-07-18] MEDS: THIAMINE 100 MG TAB PO SCH (09:38)
[2016-07-18] MEDS: FUROSEMIDE 80 MG TAB PO SCH ×2 (09:38→17:10)
[2016-07-18] MEDS: FOLIC ACID 1 MG TAB PO SCH (09:38)
[2016-07-18] MEDS: SPIRONOLACTONE 12.5MG PER 1/2 TABLET PO SCH (09:38)
[2016-07-18] MEDS: CARVedilol 3.125 MG TAB PO SCH ×2 (09:38→19:56)
[2016-07-18] MEDS: HARVONI PO SCH (09:39)
[2016-07-18] MEDS: RIBAVIRIN 200 MG PO SCH ×2 (09:39→19:57)
[2016-07-18] MEDS: NYSTATIN 100,000 UNITS/GM TOPICAL PWD 15 GM TOP SCH ×2 (09:40→20:00)
[2016-07-18] MEDS: DESVENLAFAXINE ER 50 MG TABLET (PRISTIQ) PO SCH (09:49)
[2016-07-18 14:00] VITALS: BP 121/57
[2016-07-18] MEDS: PRAZOSIN 1 MG CAP PO SCH (19:56)
[2016-07-18] MEDS: GABAPENTIN 300 MG CAP PO SCH (19:56)
[2016-07-18 22:00] VITALS: BP 119/56
[2016-07-19] MEDS: LACTULOSE 20 GM/30 ML SYRUP UD PO SCH ×4 (05:05→21:26)
[2016-07-19] MEDS: LEVOTHYROXINE 0.15 MG TAB (150 MCG) PO SCH (05:06)
[2016-07-19 06:00] VITALS: BP 125/51
[2016-07-19 06:51] LABS: DIFF SLIDE NUMBER 77; MEAN CORPUSCULAR HEMOGLOBIN 33.9 pg (27.0-33.0); MEAN CORPUSCULAR HGB CONC 29.9 g/dl (32.0-36.5); MEAN CORPUSCULAR VOLUME 113.5 fl (80.0-96.0); RED CELL DISTRIBUTION WIDTH 14.9 % (11.5-14.5); WHITE BLOOD COUNT 1.7 K/mm3 (4.0-10.0)
[2016-07-19 06:54] LABS: PLATELET COUNT, AUTOMATED 81 k/mm3 (150-450)
[2016-07-19 07:19] LABS: ALBUMIN 1.8 GM/DL (3.2-5.2); ALKALINE PHOSPHATASE 135 U/L (45-117); ALT/SGPT 26 U/L (12-78); ANION GAP 10 MEQ/L (8-16); AST/SGOT 47 U/L (15-37); BILIRUBIN,TOTAL 3.7 MG/DL (0.2-1.0); BLOOD UREA NITROGEN 10 MG/DL (7-18); CALCIUM LEVEL 8.1 MG/DL (8.5-10.1); CARBON DIOXIDE LEVEL 32 MEQ/L (21-32); CHLORIDE LEVEL 101 MEQ/L (98-107); CREATININE FOR GFR 0.94 MG/DL (0.55-1.02); GLOMERULAR FILTRATION RATE > 60.0 (>51); GLUCOSE, FASTING 124 MG/DL (70-105); MAGNESIUM LEVEL 1.7 MG/DL (1.8-2.4); POTASSIUM SERUM 3.4 MEQ/L (3.5-5.1); SODIUM LEVEL 143 MEQ/L (136-145); TOTAL PROTEIN 5.4 GM/DL (6.4-8.2)
[2016-07-19 07:20] LABS: BASOPHILS 1 % (0-4); EOSINOPHILS 4 % (0-5)
[2016-07-19 07:21] LABS: POLYCHROMASIA 1+
[2016-07-19] MEDS ORDERED: POTASSIUM CHLORIDE 10 MEQ SR TABLET PO ONE (08:45)
[2016-07-19] MEDS ORDERED: MAG SULF 1GM/100ML (MAG RUN) 1 GM in APPROPRIATE DILUENT 1 EA IV SCH (09:00)
[2016-07-19] MEDS: ASPIRIN 325 MG TAB PO SCH (09:26)
[2016-07-19] MEDS: rifAXIMin 550 MG TAB (XIFAXAN) PO SCH ×2 (09:26→21:20)
[2016-07-19] MEDS: CARVedilol 3.125 MG TAB PO SCH ×2 (09:26→21:19)
[2016-07-19] MEDS: POTASSIUM CHLORIDE 10 MEQ SR TABLET PO SCH (09:26)
[2016-07-19] MEDS: FOLIC ACID 1 MG TAB PO SCH (09:26)
[2016-07-19] MEDS: MULTIVITAMINS/MINERALS THERAP 1 TAB PO SCH (09:27)
[2016-07-19] MEDS: THIAMINE 100 MG TAB PO SCH (09:27)
[2016-07-19] MEDS: SPIRONOLACTONE 12.5MG PER 1/2 TABLET PO SCH (09:27)
[2016-07-19] MEDS: DESVENLAFAXINE ER 50 MG TABLET (PRISTIQ) PO SCH (09:27)
[2016-07-19] MEDS: FUROSEMIDE 80 MG TAB PO SCH ×2 (09:27→17:22)
[2016-07-19] MEDS: MAGNESIUM OXIDE 400 MG TAB (MAG-OX) PO SCH ×3 (09:27→17:22)
[2016-07-19] MEDS: RIBAVIRIN 200 MG PO SCH ×2 (09:28→21:20)
[2016-07-19] MEDS: NYSTATIN 100,000 UNITS/GM TOPICAL PWD 15 GM TOP SCH ×2 (09:28→21:21)
[2016-07-19] MEDS: HARVONI PO SCH (09:28)
[2016-07-19] MEDS: traMADol 50 MG TAB PO PRN ×2 (09:37→21:20)
[2016-07-19 14:00] VITALS: BP 131/58
--- NOTE | 2016-07-19 15:41 | IPNPDOC ---
Assessment/Plan Date Seen The patient was seen on 07/19/16. Problems Problems: (1) Ankle fracture, left Status: Acute Problem Text: Dr. Del Angel following with plans to change cast this week (2) DEDRICK (acute kidney injury) Status: Resolved (3) Hepatitis C Status: Acute Problem Text: currently undergoing treatment with Harvoni and ribavarin, which should finish up on 07/23/16 (4) Pancytopenia Status: Chronic Problem Text: more or less at baseline; continue to monitor (5) Alcohol abuse Status: Resolved Problem Text: currently in remission; continue MVI, thiamine, folate (6) Cirrhosis of liver Status: Chronic Problem Text: continue home spironolactone, lasix, rifaximin, lactulose, and beta latrice (7) Depression Status: Chronic Problem Text: secondary to PTSD; continue home pristiq and minipress (8) Hypothyroidism Status: Chronic Problem Text: continue home synthroid; needs outpatient followup for nodule (9) Obesity Status: Chronic Problem Text: needs sleep study at discharge Plan / VTE VTE Prophylaxis Ordered?: Yes (SCDs on right leg (left has cast on it); cannot use heparin/lovenox 2/2 thrombocytopenia) Disposition planning for half-way once Harvoni is complete (07/23/16) Subjective Review of Systems CC/HPI The patient is a 56-year-old female admitted with a reason for visit of DEDRICK. Events since last encounter overall feeling well; no complaints Pulmonary: Denies: Cough Cardiovascular: Denies: Chest Pain Gastrointestinal: Denies: Vomiting Objective Physical Examination General Exam: Positive: Alert, Cooperative, No Acute Distress Eye Exam: Positive: EOMI ENT Exam: Positive: Atraumatic, Mucous membr. moist/pink Neck Exam: Positive: Supple Chest Exam: Positive: Clear to auscultation Heart Exam: Positive: Rate Normal, Regular Rhythm, Negative: Murmurs Abdomen Exam: Positive: Soft Extremity Exam: Positive: Other (cast on LLE) Neuro Exam: Positive: Normal Speech Psych Exam: Positive: Mental status NL, Oriented x 3 Vital Signs/I&O Vital Signs Date Time Temp Pulse Resp B/P Pulse Ox O2 Delivery O2 Flow Rate FiO2 07/19/16 15:23 Room Air 07/19/16 10:20 18 07/19/16 09:26 66 132/62 07/19/16 06:00 99.4 94 07/13/16 21:00 2.0 I&O- Last 24 Hours up to 6 AM 07/19/16 06:00 Intake Total 1736 ml Output Total 652 ml Balance 1084 ml Laboratory Data Labs 24H Laboratory Tests 2 07/19/16 06:21: Blood Urea Nitrogen 10, Creatinine 0.94, Sodium Level 143, Potassium Level 3.4L , Chloride Level 101, Carbon Dioxide Level 32, Calcium Level 8.1L, Aspartate Amino Transf (AST/SGOT) 47H, Alanine Aminotransferase (ALT/SGPT) 26, Alkaline Phosphatase 135H, Total Bilirubin 3.7H, Total Protein 5.4L, Albumin 1.8L, Albumin/Globulin Ratio 0.50L, Anion Gap 10, Basophils (Manual) 1, Eosinophils ( Manual) 4, Glomerular Filtration Rate > 60.0, Lymphocytes (Manual) 36, Macrocytosis 3+, Magnesium Level 1.7L, Monocytes (Manual) 18H, Neutrophils 41, Platelet Estimate DECREASED, Polychromasia 1+ CBC/BMP Laboratory Tests 07/19/16 06:21 Calcium Level 8.1 L, Aspartate Amino Transf (AST/SGOT) 47 H, Alanine Aminotransferase (ALT/SGPT) 26, Alkaline Phosphatase 135 H, Total Bilirubin 3.7 H, Total Protein 5.4 L, Albumin 1.8 L, Red Blood Count 2.61 L, Mean Corpuscular Volume 113.5 H, Mean Corpuscular Hemoglobin 33.9 H, Mean Corpuscular Hemoglobin Concent 29.9 L, Red Cell Distribution Width 14.9 H MAL FLORES Jul 19, 2016 15:41
[2016-07-19] MEDS: PRAZOSIN 1 MG CAP PO SCH (21:19)
[2016-07-19] MEDS: GABAPENTIN 300 MG CAP PO SCH (21:20)
[2016-07-19 22:00] VITALS: BP 133/62
[2016-07-20] MEDS: LACTULOSE 20 GM/30 ML SYRUP UD PO SCH ×3 (05:57→17:30)
[2016-07-20] MEDS: traMADol 50 MG TAB PO PRN (05:58)
[2016-07-20] MEDS: LEVOTHYROXINE 0.15 MG TAB (150 MCG) PO SCH (05:58)
[2016-07-20 06:00] VITALS: BP 114/54
[2016-07-20 07:12] LABS: BASO % 0.4 % (0.0-1.0); EOS # 0.1 K/mm3 (0.0-0.50); EOS % 5.9 % (0.0-3.0); LARGE UNSTAINED CELL # 0.1 K/mm3 (0.0-0.4); LARGE UNSTAINED CELL % 4.8 % (0.0-4.0); LYMPH # 0.5 K/mm3 (1.5-4.5); LYMPH % 26.1 % (24.0-44.0); MEAN CORPUSCULAR HEMOGLOBIN 33.2 pg (27.0-33.0); MEAN CORPUSCULAR HGB CONC 29.3 g/dl (32.0-36.5); MEAN CORPUSCULAR VOLUME 113.2 fl (80.0-96.0); MONO # 0.2 K/mm3 (0.0-0.8); MONO % 12.2 % (0.0-5.0); NEUTROPHILS % 50.5 % (36.0-66.0); RED CELL DISTRIBUTION WIDTH 14.5 % (11.5-14.5); WHITE BLOOD COUNT 1.9 K/mm3 (4.0-10.0)
[2016-07-20 07:13] LABS: PLATELET COUNT, AUTOMATED 96 k/mm3 (150-450)
[2016-07-20 07:33] LABS: ALBUMIN/GLOBULIN RATIO 0.48 (1.00-1.93); ALKALINE PHOSPHATASE 150 U/L (45-117); ALT/SGPT 29 U/L (12-78); ANION GAP 6 MEQ/L (8-16); AST/SGOT 58 U/L (15-37); BLOOD UREA NITROGEN 10 MG/DL (7-18); CALCIUM LEVEL 8.4 MG/DL (8.5-10.1); CARBON DIOXIDE LEVEL 33 MEQ/L (21-32); CHLORIDE LEVEL 102 MEQ/L (98-107); CREATININE FOR GFR 0.95 MG/DL (0.55-1.02); GLOMERULAR FILTRATION RATE > 60.0 (>51); GLUCOSE, FASTING 125 MG/DL (70-105); POTASSIUM SERUM 3.7 MEQ/L (3.5-5.1); SODIUM LEVEL 141 MEQ/L (136-145); TOTAL PROTEIN 6.2 GM/DL (6.4-8.2)
[2016-07-20] MEDS: NYSTATIN 100,000 UNITS/GM TOPICAL PWD 15 GM TOP SCH ×2 (09:00→21:00)
[2016-07-20] MEDS: FUROSEMIDE 80 MG TAB PO SCH ×2 (09:23→17:30)
[2016-07-20] MEDS: FOLIC ACID 1 MG TAB PO SCH (09:23)
[2016-07-20] MEDS: THIAMINE 100 MG TAB PO SCH (09:23)
[2016-07-20] MEDS: MULTIVITAMINS/MINERALS THERAP 1 TAB PO SCH (09:23)
[2016-07-20] MEDS: DESVENLAFAXINE ER 50 MG TABLET (PRISTIQ) PO SCH (09:23)
[2016-07-20] MEDS: CARVedilol 3.125 MG TAB PO SCH ×2 (09:23→21:00)
[2016-07-20] MEDS: POTASSIUM CHLORIDE 10 MEQ SR TABLET PO SCH (09:24)
[2016-07-20] MEDS: HARVONI PO SCH (09:24)
[2016-07-20] MEDS: RIBAVIRIN 200 MG PO SCH ×2 (09:24→21:00)
[2016-07-20] MEDS: ASPIRIN 325 MG TAB PO SCH (09:24)
[2016-07-20] MEDS: SPIRONOLACTONE 12.5MG PER 1/2 TABLET PO SCH (09:24)
[2016-07-20] MEDS: rifAXIMin 550 MG TAB (XIFAXAN) PO SCH ×2 (09:24→21:00)
[2016-07-20 14:00] VITALS: BP 103/49
[2016-07-20] MEDS: GABAPENTIN 300 MG CAP PO SCH (21:00)
[2016-07-20] MEDS: PRAZOSIN 1 MG CAP PO SCH (21:00)
[2016-07-20 22:00] VITALS: BP 122/54
[2016-07-21] MEDS: LACTULOSE 20 GM/30 ML SYRUP UD PO SCH ×4 (00:30→17:08)
[2016-07-21] MEDS: LEVOTHYROXINE 0.15 MG TAB (150 MCG) PO SCH (05:52)
[2016-07-21 06:00] VITALS: BP 110/67
[2016-07-21 07:26] LABS: BASO % 0.2 % (0.0-1.0); EOS # 0.1 K/mm3 (0.0-0.50); EOS % 4.7 % (0.0-3.0); LARGE UNSTAINED CELL # 0.3 K/mm3 (0.0-0.4); LARGE UNSTAINED CELL % 13.9 % (0.0-4.0); LYMPH # 0.4 K/mm3 (1.5-4.5); LYMPH % 19.6 % (24.0-44.0); MEAN CORPUSCULAR HEMOGLOBIN 33.8 pg (27.0-33.0); MEAN CORPUSCULAR HGB CONC 30.1 g/dl (32.0-36.5); MEAN CORPUSCULAR VOLUME 112.1 fl (80.0-96.0); MONO # 0.2 K/mm3 (0.0-0.8); MONO % 9.3 % (0.0-5.0); NEUTROPHILS # 1.2 K/mm3 (1.8-7.7); NEUTROPHILS % 52.4 % (36.0-66.0); RED CELL DISTRIBUTION WIDTH 14.6 % (11.5-14.5); WHITE BLOOD COUNT 2.2 K/mm3 (4.0-10.0)
[2016-07-21 07:27] LABS: PLATELET COUNT, AUTOMATED 85 k/mm3 (150-450)
[2016-07-21 07:40] LABS: ALBUMIN 1.8 GM/DL (3.2-5.2); ALBUMIN/GLOBULIN RATIO 0.44 (1.00-1.93); BILIRUBIN,TOTAL 3.9 MG/DL (0.2-1.0); CALCIUM LEVEL 8.4 MG/DL (8.5-10.1); CREATININE FOR GFR 1.02 MG/DL (0.55-1.02); GLOMERULAR FILTRATION RATE 59.5 (>51); MAGNESIUM LEVEL 1.8 MG/DL (1.8-2.4); POTASSIUM SERUM 3.8 MEQ/L (3.5-5.1); TOTAL PROTEIN 5.9 GM/DL (6.4-8.2)
[2016-07-21] MEDS: HARVONI PO SCH (08:16)
[2016-07-21] MEDS: SPIRONOLACTONE 12.5MG PER 1/2 TABLET PO SCH (08:16)
[2016-07-21] MEDS: FUROSEMIDE 80 MG TAB PO SCH ×2 (08:16→17:08)
[2016-07-21] MEDS: FOLIC ACID 1 MG TAB PO SCH (08:16)
[2016-07-21] MEDS: CARVedilol 3.125 MG TAB PO SCH ×2 (08:16→20:51)
[2016-07-21] MEDS: ASPIRIN 325 MG TAB PO SCH (08:16)
[2016-07-21] MEDS: POTASSIUM CHLORIDE 10 MEQ SR TABLET PO SCH (08:16)
[2016-07-21] MEDS: DESVENLAFAXINE ER 50 MG TABLET (PRISTIQ) PO SCH (08:17)
[2016-07-21] MEDS: NYSTATIN 100,000 UNITS/GM TOPICAL PWD 15 GM TOP SCH ×2 (08:17→21:00)
[2016-07-21] MEDS: THIAMINE 100 MG TAB PO SCH (08:17)
[2016-07-21] MEDS: rifAXIMin 550 MG TAB (XIFAXAN) PO SCH ×2 (08:17→20:52)
[2016-07-21] MEDS: RIBAVIRIN 200 MG PO SCH ×2 (08:17→20:52)
[2016-07-21] MEDS: MULTIVITAMINS/MINERALS THERAP 1 TAB PO SCH (08:17)
[2016-07-21] MEDS: traMADol 50 MG TAB PO PRN (13:39)
[2016-07-21 14:00] VITALS: BP 130/61
[2016-07-21] MEDS: PRAZOSIN 1 MG CAP PO SCH (20:51)
[2016-07-21] MEDS: GABAPENTIN 300 MG CAP PO SCH (20:52)
[2016-07-21 22:00] VITALS: BP 121/51
[2016-07-22] MEDS: LACTULOSE 20 GM/30 ML SYRUP UD PO SCH ×5 (00:20→23:22)
[2016-07-22] MEDS: traMADol 50 MG TAB PO PRN ×2 (00:25→12:12)
[2016-07-22] MEDS: LEVOTHYROXINE 0.15 MG TAB (150 MCG) PO SCH (05:37)
[2016-07-22 06:00] VITALS: BP 109/53
[2016-07-22 07:16] LABS: MEAN CORPUSCULAR HEMOGLOBIN 33.5 pg (27.0-33.0); MEAN CORPUSCULAR HGB CONC 28.8 g/dl (32.0-36.5); MEAN CORPUSCULAR VOLUME 116.4 fl (80.0-96.0); RED CELL DISTRIBUTION WIDTH 15.8 % (11.5-14.5); WHITE BLOOD COUNT 2.2 K/mm3 (4.0-10.0)
[2016-07-22 07:39] LABS: ANION GAP 7 MEQ/L (8-16); BLOOD UREA NITROGEN 10 MG/DL (7-18); CALCIUM LEVEL 8.7 MG/DL (8.5-10.1); CARBON DIOXIDE LEVEL 34 MEQ/L (21-32); CHLORIDE LEVEL 103 MEQ/L (98-107); CREATININE FOR GFR 0.94 MG/DL (0.55-1.02); GLOMERULAR FILTRATION RATE > 60.0 (>51); GLUCOSE, FASTING 97 MG/DL (70-105); POTASSIUM SERUM 3.9 MEQ/L (3.5-5.1); SODIUM LEVEL 144 MEQ/L (136-145)
[2016-07-22] MEDS: NYSTATIN 100,000 UNITS/GM TOPICAL PWD 15 GM TOP SCH ×2 (09:00→21:13)
[2016-07-22] MEDS: FOLIC ACID 1 MG TAB PO SCH (10:05)
[2016-07-22] MEDS: DESVENLAFAXINE ER 50 MG TABLET (PRISTIQ) PO SCH (10:05)
[2016-07-22] MEDS: rifAXIMin 550 MG TAB (XIFAXAN) PO SCH ×2 (10:05→21:11)
[2016-07-22] MEDS: POTASSIUM CHLORIDE 10 MEQ SR TABLET PO SCH (10:10)
[2016-07-22] MEDS: THIAMINE 100 MG TAB PO SCH (10:10)
[2016-07-22] MEDS: MULTIVITAMINS/MINERALS THERAP 1 TAB PO SCH (10:10)
[2016-07-22] MEDS: CARVedilol 3.125 MG TAB PO SCH ×2 (10:10→21:10)
[2016-07-22] MEDS: SPIRONOLACTONE 12.5MG PER 1/2 TABLET PO SCH (10:11)
[2016-07-22] MEDS: ASPIRIN 325 MG TAB PO SCH (10:11)
[2016-07-22] MEDS: FUROSEMIDE 80 MG TAB PO SCH ×2 (10:11→17:09)
[2016-07-22] MEDS: HARVONI PO SCH (10:11)
[2016-07-22] MEDS: RIBAVIRIN 200 MG PO SCH ×2 (10:13→21:14)
[2016-07-22] MEDS: PRAZOSIN 1 MG CAP PO SCH (21:11)
[2016-07-22] MEDS: GABAPENTIN 300 MG CAP PO SCH (21:11)
[2016-07-22 22:00] VITALS: BP 118/58
[2016-07-23 06:00] VITALS: BP 109/57
[2016-07-23] MEDS: LACTULOSE 20 GM/30 ML SYRUP UD PO SCH ×3 (06:09→17:53)
[2016-07-23] MEDS: LEVOTHYROXINE 0.15 MG TAB (150 MCG) PO SCH (06:09)
[2016-07-23] MEDS: traMADol 50 MG TAB PO PRN ×2 (06:13→21:25)
[2016-07-23] MEDS: NYSTATIN 100,000 UNITS/GM TOPICAL PWD 15 GM TOP SCH ×2 (09:00→21:25)
[2016-07-23] MEDS: CARVedilol 3.125 MG TAB PO SCH ×2 (09:00→21:24)
[2016-07-23] MEDS: FUROSEMIDE 80 MG TAB PO SCH ×2 (09:27→17:53)
[2016-07-23] MEDS: THIAMINE 100 MG TAB PO SCH (09:27)
[2016-07-23] MEDS: POTASSIUM CHLORIDE 10 MEQ SR TABLET PO SCH (09:28)
[2016-07-23] MEDS: MULTIVITAMINS/MINERALS THERAP 1 TAB PO SCH (09:28)
[2016-07-23] MEDS: ASPIRIN 325 MG TAB PO SCH (09:28)
[2016-07-23] MEDS: DESVENLAFAXINE ER 50 MG TABLET (PRISTIQ) PO SCH (09:28)
[2016-07-23] MEDS: rifAXIMin 550 MG TAB (XIFAXAN) PO SCH ×2 (09:28→21:23)
[2016-07-23] MEDS: FOLIC ACID 1 MG TAB PO SCH (09:29)
[2016-07-23] MEDS: SPIRONOLACTONE 12.5MG PER 1/2 TABLET PO SCH (09:29)
[2016-07-23] MEDS: RIBAVIRIN 200 MG PO SCH ×2 (09:30→21:24)
[2016-07-23] MEDS: HARVONI PO SCH (09:30)
[2016-07-23] MEDS: PRAZOSIN 1 MG CAP PO SCH (21:23)
[2016-07-23] MEDS: GABAPENTIN 300 MG CAP PO SCH (21:24)
[2016-07-23 22:00] VITALS: BP 115/62
[2016-07-24] MEDS: LACTULOSE 20 GM/30 ML SYRUP UD PO SCH ×4 (00:10→17:05)
[2016-07-24 05:10] VITALS: BP 118/53
[2016-07-24] MEDS: LEVOTHYROXINE 0.15 MG TAB (150 MCG) PO SCH (05:34)
[2016-07-24 06:00] VITALS: BP 130/59
[2016-07-24] MEDS: SPIRONOLACTONE 12.5MG PER 1/2 TABLET PO SCH (09:13)
[2016-07-24] MEDS: ASPIRIN 325 MG TAB PO SCH (09:13)
[2016-07-24] MEDS: rifAXIMin 550 MG TAB (XIFAXAN) PO SCH ×2 (09:13→21:19)
[2016-07-24] MEDS: DESVENLAFAXINE ER 50 MG TABLET (PRISTIQ) PO SCH (09:13)
[2016-07-24] MEDS: POTASSIUM CHLORIDE 10 MEQ SR TABLET PO SCH (09:13)
[2016-07-24] MEDS: FOLIC ACID 1 MG TAB PO SCH (09:14)
[2016-07-24] MEDS: MULTIVITAMINS/MINERALS THERAP 1 TAB PO SCH (09:14)
[2016-07-24] MEDS: THIAMINE 100 MG TAB PO SCH (09:14)
[2016-07-24] MEDS: CARVedilol 3.125 MG TAB PO SCH ×2 (09:14→21:20)
[2016-07-24] MEDS: FUROSEMIDE 80 MG TAB PO SCH ×2 (09:14→17:05)
[2016-07-24] MEDS: RIBAVIRIN 200 MG PO SCH ×2 (09:15→21:26)
[2016-07-24] MEDS: HARVONI PO SCH (09:17)
[2016-07-24] MEDS: NYSTATIN 100,000 UNITS/GM TOPICAL PWD 15 GM TOP SCH ×2 (12:23→21:21)
[2016-07-24 14:00] VITALS: BP 141/64
[2016-07-24 14:28] VITALS: BP 138/64
[2016-07-24] MEDS: PRAZOSIN 1 MG CAP PO SCH (21:19)
[2016-07-24] MEDS: GABAPENTIN 300 MG CAP PO SCH (21:20)
[2016-07-24] MEDS: traMADol 50 MG TAB PO PRN (21:26)
[2016-07-24 22:00] VITALS: BP 122/57
[2016-07-25] MEDS: LACTULOSE 20 GM/30 ML SYRUP UD PO SCH ×4 (00:24→17:10)
[2016-07-25] MEDS: LEVOTHYROXINE 0.15 MG TAB (150 MCG) PO SCH (05:54)
[2016-07-25 06:00] VITALS: BP 106/53
[2016-07-25] MEDS: HARVONI PO SCH (10:11)
[2016-07-25] MEDS: SPIRONOLACTONE 12.5MG PER 1/2 TABLET PO SCH (10:19)
[2016-07-25] MEDS: POTASSIUM CHLORIDE 10 MEQ SR TABLET PO SCH (10:19)
[2016-07-25] MEDS: FOLIC ACID 1 MG TAB PO SCH (10:20)
[2016-07-25] MEDS: rifAXIMin 550 MG TAB (XIFAXAN) PO SCH ×2 (10:20→20:37)
[2016-07-25] MEDS: CARVedilol 3.125 MG TAB PO SCH ×2 (10:20→20:38)
[2016-07-25] MEDS: MULTIVITAMINS/MINERALS THERAP 1 TAB PO SCH (10:21)
[2016-07-25] MEDS: ASPIRIN 325 MG TAB PO SCH (10:21)
[2016-07-25] MEDS: THIAMINE 100 MG TAB PO SCH (10:21)
[2016-07-25] MEDS: RIBAVIRIN 200 MG PO SCH ×2 (10:21→20:36)
[2016-07-25] MEDS: FUROSEMIDE 80 MG TAB PO SCH ×2 (10:21→17:09)
[2016-07-25] MEDS: DESVENLAFAXINE ER 50 MG TABLET (PRISTIQ) PO SCH (10:21)
[2016-07-25] MEDS: NYSTATIN 100,000 UNITS/GM TOPICAL PWD 15 GM TOP SCH ×2 (10:22→20:38)
[2016-07-25 14:00] VITALS: BP 145/65
[2016-07-25] MEDS: PRAZOSIN 1 MG CAP PO SCH (20:37)
[2016-07-25] MEDS: GABAPENTIN 300 MG CAP PO SCH (20:38)
[2016-07-25] MEDS: traMADol 50 MG TAB PO PRN (20:39)
[2016-07-25 22:00] VITALS: BP 140/63
[2016-07-26] MEDS: LACTULOSE 20 GM/30 ML SYRUP UD PO SCH ×5 (00:05→23:17)
[2016-07-26 06:00] VITALS: BP 141/65
[2016-07-26 06:10] LABS: MEAN CORPUSCULAR HEMOGLOBIN 33.1 pg (27.0-33.0); MEAN CORPUSCULAR HGB CONC 29.1 g/dl (32.0-36.5); MEAN CORPUSCULAR VOLUME 113.6 fl (80.0-96.0); RED CELL DISTRIBUTION WIDTH 13.8 % (11.5-14.5); WHITE BLOOD COUNT 2.2 K/mm3 (4.0-10.0)
[2016-07-26] MEDS: LEVOTHYROXINE 0.15 MG TAB (150 MCG) PO SCH (06:12)
[2016-07-26 06:34] LABS: ANION GAP 8 MEQ/L (8-16); BLOOD UREA NITROGEN 11 MG/DL (7-18); CALCIUM LEVEL 8.1 MG/DL (8.5-10.1); CARBON DIOXIDE LEVEL 32 MEQ/L (21-32); CHLORIDE LEVEL 103 MEQ/L (98-107); GLOMERULAR FILTRATION RATE > 60.0 (>51); GLUCOSE, FASTING 92 MG/DL (70-105); POTASSIUM SERUM 3.8 MEQ/L (3.5-5.1); SODIUM LEVEL 143 MEQ/L (136-145)
[2016-07-26] MEDS: CARVedilol 3.125 MG TAB PO SCH ×2 (10:30→20:10)
[2016-07-26] MEDS: traMADol 50 MG TAB PO PRN ×2 (10:30→21:59)
[2016-07-26] MEDS: FUROSEMIDE 80 MG TAB PO SCH ×2 (10:31→17:57)
[2016-07-26] MEDS: rifAXIMin 550 MG TAB (XIFAXAN) PO SCH ×2 (10:31→20:10)
[2016-07-26] MEDS: POTASSIUM CHLORIDE 10 MEQ SR TABLET PO SCH (10:31)
[2016-07-26] MEDS: FOLIC ACID 1 MG TAB PO SCH (10:31)
[2016-07-26] MEDS: MULTIVITAMINS/MINERALS THERAP 1 TAB PO SCH (10:31)
[2016-07-26] MEDS: ASPIRIN 325 MG TAB PO SCH (10:31)
[2016-07-26] MEDS: THIAMINE 100 MG TAB PO SCH (10:31)
[2016-07-26] MEDS: DESVENLAFAXINE ER 50 MG TABLET (PRISTIQ) PO SCH (10:31)
[2016-07-26] MEDS: SPIRONOLACTONE 12.5MG PER 1/2 TABLET PO SCH (10:31)
[2016-07-26] MEDS: HARVONI PO SCH (10:32)
[2016-07-26] MEDS: RIBAVIRIN 200 MG PO SCH ×2 (10:32→20:11)
[2016-07-26] MEDS: NYSTATIN 100,000 UNITS/GM TOPICAL PWD 15 GM TOP SCH ×2 (10:33→20:11)
[2016-07-26 14:00] VITALS: BP 116/61
[2016-07-26] MEDS: PRAZOSIN 1 MG CAP PO SCH (20:10)
[2016-07-26] MEDS: GABAPENTIN 300 MG CAP PO SCH (20:10)
[2016-07-26 22:00] VITALS: BP 133/62
[2016-07-27] MEDS: LEVOTHYROXINE 0.15 MG TAB (150 MCG) PO SCH (05:43)
[2016-07-27] MEDS: LACTULOSE 20 GM/30 ML SYRUP UD PO SCH ×4 (05:43→23:12)
[2016-07-27 06:00] VITALS: BP 115/54
[2016-07-27] MEDS: ASPIRIN 325 MG TAB PO SCH (09:46)
[2016-07-27] MEDS: FUROSEMIDE 80 MG TAB PO SCH ×2 (09:46→17:27)
[2016-07-27] MEDS: FOLIC ACID 1 MG TAB PO SCH (09:46)
[2016-07-27] MEDS: THIAMINE 100 MG TAB PO SCH (09:46)
[2016-07-27] MEDS: MULTIVITAMINS/MINERALS THERAP 1 TAB PO SCH (09:46)
[2016-07-27] MEDS: SPIRONOLACTONE 12.5MG PER 1/2 TABLET PO SCH (09:46)
[2016-07-27] MEDS: rifAXIMin 550 MG TAB (XIFAXAN) PO SCH ×2 (09:46→20:27)
[2016-07-27] MEDS: DESVENLAFAXINE ER 50 MG TABLET (PRISTIQ) PO SCH (09:47)
[2016-07-27] MEDS: RIBAVIRIN 200 MG PO SCH ×2 (09:47→20:28)
[2016-07-27] MEDS: POTASSIUM CHLORIDE 10 MEQ SR TABLET PO SCH (09:47)
[2016-07-27] MEDS: CARVedilol 3.125 MG TAB PO SCH ×2 (09:47→20:27)
[2016-07-27] MEDS: NYSTATIN 100,000 UNITS/GM TOPICAL PWD 15 GM TOP SCH ×2 (09:48→20:30)
[2016-07-27] MEDS: HARVONI PO SCH (09:48)
[2016-07-27 14:00] VITALS: BP 128/61
[2016-07-27] MEDS: traMADol 50 MG TAB PO PRN (20:27)
[2016-07-27] MEDS: PRAZOSIN 1 MG CAP PO SCH (20:27)
[2016-07-27] MEDS: GABAPENTIN 300 MG CAP PO SCH (20:28)
[2016-07-28] MEDS: LACTULOSE 20 GM/30 ML SYRUP UD PO SCH ×4 (05:17→23:32)
[2016-07-28] MEDS: LEVOTHYROXINE 0.15 MG TAB (150 MCG) PO SCH (05:18)
[2016-07-28] MEDS: traMADol 50 MG TAB PO PRN ×3 (05:18→23:33)
[2016-07-28 06:00] VITALS: BP 119/55
[2016-07-28] MEDS: NYSTATIN 100,000 UNITS/GM TOPICAL PWD 15 GM TOP SCH ×2 (09:00→20:36)
[2016-07-28] MEDS: HARVONI PO SCH (09:00)
[2016-07-28] MEDS: POTASSIUM CHLORIDE 10 MEQ SR TABLET PO SCH (09:33)
[2016-07-28] MEDS: ASPIRIN 325 MG TAB PO SCH (09:33)
[2016-07-28] MEDS: FOLIC ACID 1 MG TAB PO SCH (09:33)
[2016-07-28] MEDS: THIAMINE 100 MG TAB PO SCH (09:33)
[2016-07-28] MEDS: MULTIVITAMINS/MINERALS THERAP 1 TAB PO SCH (09:33)
[2016-07-28] MEDS: DESVENLAFAXINE ER 50 MG TABLET (PRISTIQ) PO SCH (09:34)
[2016-07-28] MEDS: CARVedilol 3.125 MG TAB PO SCH ×2 (09:34→20:35)
[2016-07-28] MEDS: RIBAVIRIN 200 MG PO SCH ×2 (09:34→20:35)
[2016-07-28] MEDS: FUROSEMIDE 80 MG TAB PO SCH ×2 (09:34→17:17)
[2016-07-28] MEDS: rifAXIMin 550 MG TAB (XIFAXAN) PO SCH ×2 (09:34→20:35)
[2016-07-28] MEDS: SPIRONOLACTONE 12.5MG PER 1/2 TABLET PO SCH (09:34)
[2016-07-28 14:00] VITALS: BP 121/57
[2016-07-28] MEDS: PRAZOSIN 1 MG CAP PO SCH (20:35)
[2016-07-28] MEDS: GABAPENTIN 300 MG CAP PO SCH (20:35)
[2016-07-29] MEDS: LEVOTHYROXINE 0.15 MG TAB (150 MCG) PO SCH (05:54)
[2016-07-29] MEDS: LACTULOSE 20 GM/30 ML SYRUP UD PO SCH ×3 (05:54→17:01)
[2016-07-29 06:00] VITALS: BP 104/52
[2016-07-29] MEDS: FUROSEMIDE 80 MG TAB PO SCH ×2 (08:31→17:01)
[2016-07-29] MEDS: SPIRONOLACTONE 12.5MG PER 1/2 TABLET PO SCH (08:32)
[2016-07-29] MEDS: THIAMINE 100 MG TAB PO SCH (08:32)
[2016-07-29] MEDS: MULTIVITAMINS/MINERALS THERAP 1 TAB PO SCH (08:32)
[2016-07-29] MEDS: ASPIRIN 325 MG TAB PO SCH (08:32)
[2016-07-29] MEDS: POTASSIUM CHLORIDE 10 MEQ SR TABLET PO SCH (08:32)
[2016-07-29] MEDS: CARVedilol 3.125 MG TAB PO SCH ×2 (08:32→21:03)
[2016-07-29] MEDS: DESVENLAFAXINE ER 50 MG TABLET (PRISTIQ) PO SCH (08:33)
[2016-07-29] MEDS: rifAXIMin 550 MG TAB (XIFAXAN) PO SCH ×2 (08:33→21:04)
[2016-07-29] MEDS: FOLIC ACID 1 MG TAB PO SCH (08:33)
[2016-07-29] MEDS: NYSTATIN 100,000 UNITS/GM TOPICAL PWD 15 GM TOP SCH ×2 (08:35→21:04)
[2016-07-29] MEDS: RIBAVIRIN 200 MG PO SCH (08:35)
[2016-07-29] MEDS: HARVONI PO SCH (08:38)
[2016-07-29 08:54] LABS: MEAN CORPUSCULAR HEMOGLOBIN 33.1 pg (27.0-33.0); MEAN CORPUSCULAR HGB CONC 29.1 g/dl (32.0-36.5); MEAN CORPUSCULAR VOLUME 113.4 fl (80.0-96.0); RED CELL DISTRIBUTION WIDTH 14.1 % (11.5-14.5)
[2016-07-29 09:07] LABS: ANION GAP 5 MEQ/L (8-16); BLOOD UREA NITROGEN 10 MG/DL (7-18); CALCIUM LEVEL 8.8 MG/DL (8.5-10.1); CARBON DIOXIDE LEVEL 34 MEQ/L (21-32); CHLORIDE LEVEL 103 MEQ/L (98-107); CREATININE FOR GFR 0.94 MG/DL (0.55-1.02); GLOMERULAR FILTRATION RATE > 60.0 (>51); GLUCOSE, FASTING 110 MG/DL (70-105); POTASSIUM SERUM 3.9 MEQ/L (3.5-5.1); SODIUM LEVEL 142 MEQ/L (136-145)
[2016-07-29] MEDS: PRAZOSIN 1 MG CAP PO SCH (21:03)
[2016-07-29] MEDS: traMADol 50 MG TAB PO PRN (21:04)
[2016-07-29] MEDS: GABAPENTIN 300 MG CAP PO SCH (21:04)
[2016-07-30] MEDS: LACTULOSE 20 GM/30 ML SYRUP UD PO SCH ×5 (00:16→23:06)
[2016-07-30 06:00] VITALS: BP 117/56
[2016-07-30] MEDS: LEVOTHYROXINE 0.15 MG TAB (150 MCG) PO SCH (06:04)
[2016-07-30] MEDS: DESVENLAFAXINE ER 50 MG TABLET (PRISTIQ) PO SCH (08:26)
[2016-07-30] MEDS: rifAXIMin 550 MG TAB (XIFAXAN) PO SCH ×2 (08:26→20:13)
[2016-07-30] MEDS: POTASSIUM CHLORIDE 10 MEQ SR TABLET PO SCH (08:26)
[2016-07-30] MEDS: CARVedilol 3.125 MG TAB PO SCH ×2 (08:26→20:14)
[2016-07-30] MEDS: ASPIRIN 325 MG TAB PO SCH (08:26)
[2016-07-30] MEDS: SPIRONOLACTONE 12.5MG PER 1/2 TABLET PO SCH (08:26)
[2016-07-30] MEDS: FUROSEMIDE 80 MG TAB PO SCH ×2 (08:27→17:03)
[2016-07-30] MEDS: FOLIC ACID 1 MG TAB PO SCH (08:27)
[2016-07-30] MEDS: MULTIVITAMINS/MINERALS THERAP 1 TAB PO SCH (08:27)
[2016-07-30] MEDS: NYSTATIN 100,000 UNITS/GM TOPICAL PWD 15 GM TOP SCH ×2 (08:27→20:14)
[2016-07-30] MEDS: THIAMINE 100 MG TAB PO SCH (08:27)
[2016-07-30] MEDS: PRAZOSIN 1 MG CAP PO SCH (20:12)
[2016-07-30] MEDS: traMADol 50 MG TAB PO PRN (20:13)
[2016-07-30] MEDS: GABAPENTIN 300 MG CAP PO SCH (20:13)
[2016-07-31] MEDS: LACTULOSE 20 GM/30 ML SYRUP UD PO SCH ×4 (05:06→23:29)
[2016-07-31] MEDS: traMADol 50 MG TAB PO PRN ×3 (05:06→21:36)
[2016-07-31] MEDS: LEVOTHYROXINE 0.15 MG TAB (150 MCG) PO SCH (05:06)
[2016-07-31 06:00] VITALS: BP 102/62
[2016-07-31] MEDS: rifAXIMin 550 MG TAB (XIFAXAN) PO SCH ×2 (09:26→21:36)
[2016-07-31] MEDS: SPIRONOLACTONE 12.5MG PER 1/2 TABLET PO SCH (09:26)
[2016-07-31] MEDS: MULTIVITAMINS/MINERALS THERAP 1 TAB PO SCH (09:26)
[2016-07-31] MEDS: FOLIC ACID 1 MG TAB PO SCH (09:26)
[2016-07-31] MEDS: ASPIRIN 325 MG TAB PO SCH (09:26)
[2016-07-31] MEDS: POTASSIUM CHLORIDE 10 MEQ SR TABLET PO SCH (09:26)
[2016-07-31] MEDS: DESVENLAFAXINE ER 50 MG TABLET (PRISTIQ) PO SCH (09:27)
[2016-07-31] MEDS: NYSTATIN 100,000 UNITS/GM TOPICAL PWD 15 GM TOP SCH ×2 (09:27→21:37)
[2016-07-31] MEDS: CARVedilol 3.125 MG TAB PO SCH ×2 (09:27→21:00)
[2016-07-31] MEDS: THIAMINE 100 MG TAB PO SCH (09:27)
[2016-07-31] MEDS: FUROSEMIDE 80 MG TAB PO SCH ×2 (09:27→18:31)
[2016-07-31] MEDS: PRAZOSIN 1 MG CAP PO SCH (21:36)
[2016-07-31] MEDS: GABAPENTIN 300 MG CAP PO SCH (21:36)
[2016-08-01] MEDS: LACTULOSE 20 GM/30 ML SYRUP UD PO SCH ×4 (05:25→23:02)
[2016-08-01] MEDS: LEVOTHYROXINE 0.15 MG TAB (150 MCG) PO SCH (05:25)
[2016-08-01 06:00] VITALS: BP 120/60
[2016-08-01] MEDS: rifAXIMin 550 MG TAB (XIFAXAN) PO SCH ×2 (08:21→20:28)
[2016-08-01] MEDS: DESVENLAFAXINE ER 50 MG TABLET (PRISTIQ) PO SCH (08:21)
[2016-08-01] MEDS: ASPIRIN 325 MG TAB PO SCH (08:21)
[2016-08-01] MEDS: SPIRONOLACTONE 12.5MG PER 1/2 TABLET PO SCH (08:22)
[2016-08-01] MEDS: CARVedilol 3.125 MG TAB PO SCH ×2 (08:22→20:29)
[2016-08-01] MEDS: THIAMINE 100 MG TAB PO SCH (08:22)
[2016-08-01] MEDS: POTASSIUM CHLORIDE 10 MEQ SR TABLET PO SCH (08:22)
[2016-08-01] MEDS: FOLIC ACID 1 MG TAB PO SCH (08:22)
[2016-08-01] MEDS: MULTIVITAMINS/MINERALS THERAP 1 TAB PO SCH (08:22)
[2016-08-01] MEDS: FUROSEMIDE 80 MG TAB PO SCH ×2 (08:22→17:46)
[2016-08-01] MEDS: NYSTATIN 100,000 UNITS/GM TOPICAL PWD 15 GM TOP SCH ×2 (08:23→20:29)
[2016-08-01] MEDS: PRAZOSIN 1 MG CAP PO SCH (20:28)
[2016-08-01] MEDS: traMADol 50 MG TAB PO PRN (20:28)
[2016-08-01] MEDS: GABAPENTIN 300 MG CAP PO SCH (20:29)
[2016-08-02] MEDS: LACTULOSE 20 GM/30 ML SYRUP UD PO SCH ×3 (05:11→17:05)
[2016-08-02] MEDS: LEVOTHYROXINE 0.15 MG TAB (150 MCG) PO SCH (05:12)
[2016-08-02] MEDS: traMADol 50 MG TAB PO PRN ×2 (05:53→19:23)
[2016-08-02 06:00] VITALS: BP 116/55
[2016-08-02 06:24] LABS: MEAN CORPUSCULAR HEMOGLOBIN 33.3 pg (27.0-33.0); MEAN CORPUSCULAR HGB CONC 29.6 g/dl (32.0-36.5); MEAN CORPUSCULAR VOLUME 112.7 fl (80.0-96.0); RED CELL DISTRIBUTION WIDTH 13.9 % (11.5-14.5); WHITE BLOOD COUNT 2.1 K/mm3 (4.0-10.0)
[2016-08-02 06:35] LABS: ANION GAP 6 MEQ/L (8-16); BLOOD UREA NITROGEN 9 MG/DL (7-18); CALCIUM LEVEL 8.3 MG/DL (8.5-10.1); CARBON DIOXIDE LEVEL 33 MEQ/L (21-32); CHLORIDE LEVEL 103 MEQ/L (98-107); CREATININE FOR GFR 0.98 MG/DL (0.55-1.02); GLOMERULAR FILTRATION RATE > 60.0 (>51); GLUCOSE, FASTING 120 MG/DL (70-105); POTASSIUM SERUM 3.7 MEQ/L (3.5-5.1); SODIUM LEVEL 142 MEQ/L (136-145)
[2016-08-02] MEDS: POTASSIUM CHLORIDE 10 MEQ SR TABLET PO SCH (08:28)
[2016-08-02] MEDS: ASPIRIN 325 MG TAB PO SCH (08:29)
[2016-08-02] MEDS: rifAXIMin 550 MG TAB (XIFAXAN) PO SCH ×2 (08:29→21:13)
[2016-08-02] MEDS: FOLIC ACID 1 MG TAB PO SCH (08:29)
[2016-08-02] MEDS: FUROSEMIDE 80 MG TAB PO SCH ×2 (08:29→17:05)
[2016-08-02] MEDS: MULTIVITAMINS/MINERALS THERAP 1 TAB PO SCH (08:29)
[2016-08-02] MEDS: THIAMINE 100 MG TAB PO SCH (08:29)
[2016-08-02] MEDS: SPIRONOLACTONE 12.5MG PER 1/2 TABLET PO SCH (08:29)
[2016-08-02] MEDS: CARVedilol 3.125 MG TAB PO SCH ×2 (08:32→21:14)
[2016-08-02] MEDS: DESVENLAFAXINE ER 50 MG TABLET (PRISTIQ) PO SCH (08:33)
[2016-08-02] MEDS: NYSTATIN 100,000 UNITS/GM TOPICAL PWD 15 GM TOP SCH ×2 (08:34→21:15)
[2016-08-02] MEDS: GABAPENTIN 300 MG CAP PO SCH (21:14)
[2016-08-02] MEDS: PRAZOSIN 1 MG CAP PO SCH (21:14)
[2016-08-02 22:00] VITALS: BP 117/63
[2016-08-03] MEDS: LACTULOSE 20 GM/30 ML SYRUP UD PO SCH ×4 (00:25→17:51)
[2016-08-03] MEDS: LEVOTHYROXINE 0.15 MG TAB (150 MCG) PO SCH (05:34)
[2016-08-03 06:00] VITALS: BP 117/56
[2016-08-03] MEDS: SPIRONOLACTONE 12.5MG PER 1/2 TABLET PO SCH (09:42)
[2016-08-03] MEDS: POTASSIUM CHLORIDE 10 MEQ SR TABLET PO SCH (09:42)
[2016-08-03] MEDS: CARVedilol 3.125 MG TAB PO SCH ×2 (09:42→21:16)
[2016-08-03] MEDS: ASPIRIN 325 MG TAB PO SCH (09:42)
[2016-08-03] MEDS: rifAXIMin 550 MG TAB (XIFAXAN) PO SCH ×2 (09:42→21:15)
[2016-08-03] MEDS: DESVENLAFAXINE ER 50 MG TABLET (PRISTIQ) PO SCH (09:42)
[2016-08-03] MEDS: MULTIVITAMINS/MINERALS THERAP 1 TAB PO SCH (09:43)
[2016-08-03] MEDS: FOLIC ACID 1 MG TAB PO SCH (09:43)
[2016-08-03] MEDS: THIAMINE 100 MG TAB PO SCH (09:43)
[2016-08-03] MEDS: NYSTATIN 100,000 UNITS/GM TOPICAL PWD 15 GM TOP SCH ×2 (09:43→21:16)
[2016-08-03] MEDS: FUROSEMIDE 80 MG TAB PO SCH ×2 (09:43→17:52)
[2016-08-03] MEDS: traMADol 50 MG TAB PO PRN ×2 (09:48→23:28)
--- NOTE | 2016-08-03 12:29 | IPNPDOC ---
Assessment/Plan Date Seen The patient was seen on 07/20/16. Problems Problems: (1) Ankle fracture, left Status: Acute Problem Text: s/p ORIF on 07/06/16 Dr. Del Angel following with plans to change cast this week (2) DEDRICK (acute kidney injury) Status: Resolved (3) Hepatitis C Status: Acute Problem Text: currently undergoing treatment with Harvoni and ribavarin, which should finish up on 07/23/16 (4) Pancytopenia Status: Chronic Problem Text: more or less at baseline; continue to monitor (5) Alcohol abuse Status: Resolved Problem Text: currently in remission; continue MVI, thiamine, folate (6) Cirrhosis of liver Status: Chronic Problem Text: continue home spironolactone, lasix, rifaximin, lactulose, and beta latrice (7) Depression Status: Chronic Problem Text: secondary to PTSD; continue home pristiq and minipress (8) Hypothyroidism Status: Chronic Problem Text: continue home synthroid; needs outpatient followup for nodule (9) Obesity Status: Chronic Problem Text: needs sleep study at discharge Plan / VTE VTE Prophylaxis Ordered?: Yes (SCDs on right leg (left has cast on it); cannot use heparin/lovenox 2/2 thrombocytopenia) Subjective Review of Systems CC/HPI The patient is a 56-year-old female admitted with a reason for visit of DEDRICK. Events since last encounter no complaints today , no issues overnight. feeling well Objective Physical Examination General Exam: Positive: Alert, Cooperative, No Acute Distress Eye Exam: Positive: EOMI ENT Exam: Positive: Atraumatic, Mucous membr. moist/pink Neck Exam: Positive: Supple Chest Exam: Positive: Clear to auscultation Heart Exam: Positive: Rate Normal, Regular Rhythm, Negative: Murmurs Abdomen Exam: Positive: Soft Extremity Exam: Positive: Other (cast on LLE) Neuro Exam: Positive: Normal Speech Psych Exam: Positive: Mental status NL, Oriented x 3 Vital Signs/I&O Vital Signs Date Time Temp Pulse Resp B/P Pulse Ox O2 Delivery O2 Flow Rate FiO2 07/20/16 06:30 16 07/20/16 06:00 97.0 62 114/54 96 Room Air I&O- Last 24 Hours up to 6 AM 07/20/16 05:59 Intake Total 1687 ml Output Total 500 ml Balance 1187 ml Laboratory Data Labs 24H Laboratory Tests 2 07/20/16 07:01: White Blood Count 1.9L, Red Blood Count 3.07L, Hemoglobin 10.2L, Hematocrit 34.7L, Mean Corpuscular Volume 113.2H, Mean Corpuscular Hemoglobin 33.2H, Mean Corpuscular Hemoglobin Concent 29.3L, Red Cell Distribution Width 14.5, Platelet Count 96L, Neutrophils (%) (Auto) 50.5, Lymphocytes (%) (Auto) 26.1, Monocytes (%) (Auto) 12.2H, Eosinophils (%) (Auto) 5.9H, Basophils (%) (Auto) 0.4, Neutrophils # (Auto) 1.0L, Lymphocytes # (Auto) 0.5L, Monocytes # (Auto) 0.2, Eosinophils # (Auto) 0.1, Basophils # (Auto) 0.0, Large Unclassified Cells # 0.1, Large Unclassified Cells % 4.8H CBC/BMP Laboratory Tests 07/20/16 07:01 Red Blood Count 3.07 L, Mean Corpuscular Volume 113.2 H, Mean Corpuscular Hemoglobin 33.2 H, Mean Corpuscular Hemoglobin Concent 29.3 L, Red Cell Distribution Width 14.5, Neutrophils (%) (Auto) 50.5, Lymphocytes (%) (Auto) 26.1, Monocytes (%) (Auto) 12.2 H, Eosinophils (%) (Auto) 5.9 H, Basophils (%) ( Auto) 0.4, Neutrophils # (Auto) 1.0 L, Lymphocytes # (Auto) 0.5 L, Monocytes # ( Auto) 0.2, Eosinophils # (Auto) 0.1, Basophils # (Auto) 0.0 GUY HOLLAND MD Jul 20, 2016 07:29
[2016-08-03] MEDS: PRAZOSIN 1 MG CAP PO SCH (21:15)
[2016-08-03] MEDS: GABAPENTIN 300 MG CAP PO SCH (21:15)
[2016-08-03 22:00] VITALS: BP 138/63
[2016-08-04] MEDS: LACTULOSE 20 GM/30 ML SYRUP UD PO SCH ×4 (00:31→17:22)
[2016-08-04 06:00] VITALS: BP 125/59
[2016-08-04] MEDS: LEVOTHYROXINE 0.15 MG TAB (150 MCG) PO SCH (06:14)
[2016-08-04] MEDS: FOLIC ACID 1 MG TAB PO SCH (09:43)
[2016-08-04] MEDS: FUROSEMIDE 80 MG TAB PO SCH ×2 (09:43→17:22)
[2016-08-04] MEDS: SPIRONOLACTONE 12.5MG PER 1/2 TABLET PO SCH (09:44)
[2016-08-04] MEDS: CARVedilol 3.125 MG TAB PO SCH ×2 (09:44→21:00)
[2016-08-04] MEDS: THIAMINE 100 MG TAB PO SCH (09:44)
[2016-08-04] MEDS: ASPIRIN 325 MG TAB PO SCH (09:44)
[2016-08-04] MEDS: rifAXIMin 550 MG TAB (XIFAXAN) PO SCH ×2 (09:44→21:36)
[2016-08-04] MEDS: MULTIVITAMINS/MINERALS THERAP 1 TAB PO SCH (09:44)
[2016-08-04] MEDS: DESVENLAFAXINE ER 50 MG TABLET (PRISTIQ) PO SCH (09:44)
[2016-08-04] MEDS: POTASSIUM CHLORIDE 10 MEQ SR TABLET PO SCH (09:45)
[2016-08-04] MEDS: NYSTATIN 100,000 UNITS/GM TOPICAL PWD 15 GM TOP SCH ×2 (09:45→21:37)
[2016-08-04] MEDS: traMADol 50 MG TAB PO PRN (19:38)
[2016-08-04] MEDS: PRAZOSIN 1 MG CAP PO SCH (21:36)
[2016-08-04] MEDS: GABAPENTIN 300 MG CAP PO SCH (21:36)
[2016-08-05] MEDS: LACTULOSE 20 GM/30 ML SYRUP UD PO SCH ×4 (00:14→17:20)
[2016-08-05 06:00] VITALS: BP 121/58
[2016-08-05 06:23] LABS: MEAN CORPUSCULAR HEMOGLOBIN 32.8 pg (27.0-33.0); MEAN CORPUSCULAR HGB CONC 29.5 g/dl (32.0-36.5); MEAN CORPUSCULAR VOLUME 110.9 fl (80.0-96.0); RED CELL DISTRIBUTION WIDTH 13.3 % (11.5-14.5); WHITE BLOOD COUNT 2.2 K/mm3 (4.0-10.0)
[2016-08-05 06:35] LABS: ANION GAP 8 MEQ/L (8-16); BLOOD UREA NITROGEN 8 MG/DL (7-18); CALCIUM LEVEL 8.2 MG/DL (8.5-10.1); CARBON DIOXIDE LEVEL 31 MEQ/L (21-32); CHLORIDE LEVEL 106 MEQ/L (98-107); CREATININE FOR GFR 0.83 MG/DL (0.55-1.02); GLOMERULAR FILTRATION RATE > 60.0 (>51); GLUCOSE, FASTING 93 MG/DL (70-105); POTASSIUM SERUM 3.6 MEQ/L (3.5-5.1); SODIUM LEVEL 145 MEQ/L (136-145)
[2016-08-05] MEDS: ASPIRIN 325 MG TAB PO SCH (08:40)
[2016-08-05] MEDS: POTASSIUM CHLORIDE 10 MEQ SR TABLET PO SCH (08:40)
[2016-08-05] MEDS: rifAXIMin 550 MG TAB (XIFAXAN) PO SCH ×2 (08:40→21:50)
[2016-08-05] MEDS: FUROSEMIDE 80 MG TAB PO SCH ×2 (08:40→17:20)
[2016-08-05] MEDS: THIAMINE 100 MG TAB PO SCH (08:40)
[2016-08-05] MEDS: traMADol 50 MG TAB PO PRN ×2 (08:41→21:51)
[2016-08-05] MEDS: NYSTATIN 100,000 UNITS/GM TOPICAL PWD 15 GM TOP SCH ×2 (08:41→21:52)
[2016-08-05] MEDS: MULTIVITAMINS/MINERALS THERAP 1 TAB PO SCH (09:48)
[2016-08-05] MEDS: LEVOTHYROXINE 0.15 MG TAB (150 MCG) PO SCH (09:48)
[2016-08-05] MEDS: FOLIC ACID 1 MG TAB PO SCH (09:48)
[2016-08-05] MEDS: CARVedilol 3.125 MG TAB PO SCH ×2 (09:49→21:50)
[2016-08-05] MEDS: SPIRONOLACTONE 12.5MG PER 1/2 TABLET PO SCH (11:47)
[2016-08-05] MEDS: DESVENLAFAXINE ER 50 MG TABLET (PRISTIQ) PO SCH (11:47)
[2016-08-05] MEDS: PRAZOSIN 1 MG CAP PO SCH (21:49)
[2016-08-05] MEDS: GABAPENTIN 300 MG CAP PO SCH (21:50)
[2016-08-06] MEDS: LACTULOSE 20 GM/30 ML SYRUP UD PO SCH ×2 (06:04)
[2016-08-06] MEDS: LEVOTHYROXINE 0.15 MG TAB (150 MCG) PO SCH (06:05)
[2016-08-06] MEDS: rifAXIMin 550 MG TAB (XIFAXAN) PO SCH (08:17)
[2016-08-06] MEDS: POTASSIUM CHLORIDE 10 MEQ SR TABLET PO SCH (08:17)
[2016-08-06] MEDS: ASPIRIN 325 MG TAB PO SCH (08:17)
[2016-08-06] MEDS: NYSTATIN 100,000 UNITS/GM TOPICAL PWD 15 GM TOP SCH (08:17)
[2016-08-06] MEDS: MULTIVITAMINS/MINERALS THERAP 1 TAB PO SCH (08:18)
[2016-08-06] MEDS: DESVENLAFAXINE ER 50 MG TABLET (PRISTIQ) PO SCH (08:18)
[2016-08-06] MEDS: FOLIC ACID 1 MG TAB PO SCH (08:18)
[2016-08-06] MEDS: traMADol 50 MG TAB PO PRN (08:18)
[2016-08-06] MEDS: THIAMINE 100 MG TAB PO SCH (08:18)
[2016-08-06 08:20] VITALS: BP 144/65
[2016-08-06] MEDS: FUROSEMIDE 80 MG TAB PO SCH (08:20)
[2016-08-06] MEDS: CARVedilol 3.125 MG TAB PO SCH (08:20)
[2016-08-06] MEDS: SPIRONOLACTONE 12.5MG PER 1/2 TABLET PO SCH (08:20)
[2016-08-06] MEDS ORDERED: TRAM50TA2 PO (10:09)
[2016-08-06] MEDS ORDERED: NYST10PW TOP (10:09)
[2016-08-06] MEDS ORDERED: SIME80TA PO (10:09)
[2016-08-06] MEDS ORDERED: FURO1TAB15 PO (10:09)
[2016-08-06] MEDS ORDERED: THIA100TA PO (10:09)
[2016-08-06] MEDS ORDERED: FOLI1TAB2 PO (10:09)
[2016-08-06] MEDS ORDERED: ALDA25TA2 PO (10:09)
[2016-08-06] MEDS ORDERED: VITMTA PO (10:09)
[2016-08-06] MEDS ORDERED: ONDA1TAB15 PO (10:09)
[2016-08-06] MEDS ORDERED: POTA10CA PO (10:09)
[2016-08-06] MEDS ORDERED: ASPI325T PO (10:09)
--- NOTE | 2016-08-17 05:10 | DSES ---
DATE OF ADMISSION: 06/14/2016 DATE OF DISCHARGE: 08/06/2016 DISCHARGE DIAGNOSES: 1. Left ankle fracture status post open reduction, internal fixation (ORIF) on 07/06/2016. 2. Hepatitis C, acute, finished treatment with Harvoni and ribavirin on 07/23/2016. 3. Chronic pancytopenia. 4. Acute kidney injury, resolved. 5. Cirrhosis of liver. 6. Chronic hepatic encephalopathy. 7. Depression. 8. Hypothyroidism. 9. Obesity. 10. History of alcohol abuse. 11. Posttraumatic stress disorder (PTSD). 12. Overactive bladder. 13. Peripheral vascular disease. 14. Alcoholic liver cirrhosis with decompensated liver disease. 15. Thyroid nodule. 16. Possible sleep apnea, maintaining oxygenation with 2 liters nocturnal oxygen. Will need sleep study as an outpatient. DISCHARGE MEDICATIONS: - aspirin 325 mg by mouth daily - folic acid 1 mg by mouth daily - Lasix 80 mg by mouth twice a day - multivitamins one tablet by mouth daily - nystatin powder topically twice a day - ondansetron 400 mg every 6 hours as needed for nausea - potassium chloride 40 mg by mouth daily - simethicone 80 mg by mouth three times a day as needed - spironolactone 12.5 mg by mouth daily - thiamine 100 mg by mouth daily - tramadol 50 mg by mouth every 8 hours as needed - Coreg 3.125 mg by mouth twice a day - Pristiq 100 mg by mouth daily - gabapentin 300 mg at bedtime - lactulose 30 mL by mouth four times a day - Synthroid 300 mcg by mouth daily - prazosin 2 mg at bedtime - rifaximin 550 mg by mouth twice a day HOSPITAL COURSE: This is a 56-year-old female with decompensated alcoholic cirrhosis, chronic hepatic encephalopathy, acute hepatitis C infection, who presented to the hospital on 06/11/2016, with the chief complaint of fall and ankle fracture. Patient was seen by orthopedics on admission and was diagnosed with left ankle and distal fibula fracture; however, because of her medical comorbidities, nonoperative management was initially pursued. Patient was splinted for the next 2 weeks and then the plan was to transfer to a cast and continue non-weightbearing until the fracture heals in the next 6-8 weeks. Patient, during the hospitalization, was seen by Dr. Rosales from infectious disease on 07/01/2016, for hepatitis C and the patient was already on treatment with Harvoni and ribavirin. The treatment was continued in the hospital to finish its course on 07/23/2016. During the course of treatment, the patient developed two episodes of acute hepatic encephalopathy with dehydration and acute kidney injury, which resolved during this admission. Initially, patient had acute kidney injury, which was felt to be due to dehydration and prerenal azotemia. Patient's acute kidney injury improved with hydration and holding of her diuretic. Patient's hepatic encephalopathy also improved during the hospitalization and mental status became back to baseline. Subsequently, patient was seen by orthopedic group as an outpatient and at that time, it was seen that the ankle fracture is displaced and decision was made to operate on the patient. Patient underwent ORIF of the left ankle fracture on 07/06/2016, by Dr. Jayden Cherry. Post surgery course was stable without any acute episodes. Patient finished her treatment for hepatitis C. Patient was evaluated by physical therapy and patient and family services and patient was deemed to be a candidate for rehabilitation versus long-term placement. Patient was subsequently placed on alternate level of care (ALC) status on 07/19/2016, pending jail placement. Subsequently on 08/06/2016, patient was discharged to [facility] in a stable condition. PHYSICAL EXAMINATION: VITAL SIGNS: Temperature 97.4, pulse 60, respiratory rate 16, blood pressure 144/65, pulse oximetry 95% in room air. GENERAL: Patient awake, alert, oriented times three, sitting up in chair in no acute distress. HEENT: Normocephalic, atraumatic. Moist mucous membranes. Anicteric eyes. CHEST: Clear to auscultation. CARDIOVASCULAR: S1, S2 regular. ABDOMEN: Obese, soft, nontender, bowel sounds present. EXTREMITIES: No edema. LABORATORY DATA: WBC 2.2, hemoglobin 9.4, platelets 84. Sodium 145, potassium 3.6, chloride 106, bicarbonate 31, BUN 8, creatinine 0.8, calcium 8.2. DISPOSITION: Patient is discharged to jail. DISCHARGE INSTRUCTIONS: Patient to followup with physician in jail within 1 week. Activity as per physical therapy. 2-gram sodium diet. Fluid restriction 1800 mL in 24 hours. Patient has a thyroid nodule, which needs to be followed up as an outpatient. Patient needs to followup with Dr. Rosales as an outpatient 10/21 at 10 a.m.
== END 2016-08-06 11:59 | DRG 313 ==
LOC: M ED 14:33 → M ED INP 18:12 → M PCU 21:35 → M MSPAV 06-12 10:40 → OBSVTOIN 06-14 09:51 → M MSPAV 06-14 18:13 → M MS5PR 07-10 22:16 → M MSPAV 07-24 05:11
PROVIDERS: ADMIT Hospitalist; ATTEND Internal Medicine Nephrology
PROC: 30233N1 Transfusion of Nonautologous Red Blood Cells into Peripheral Vein, Percutaneous Approach (ICD-10-PCS; 2016-06-19)
PROC: 0QSH04Z Reposition Left Tibia with Internal Fixation Device, Open Approach (ICD-10-PCS; principal; 2016-07-06 14:00)
DX: S82.452A Displaced comminuted fracture of shaft of left fibula, initial encounter for closed fracture (principal); K72.00 Acute and subacute hepatic failure without coma; G93.41 Metabolic encephalopathy; N17.9 Acute kidney failure, unspecified; D61.818 Other pancytopenia; E72.20 Disorder of urea cycle metabolism, unspecified; K70.30 Alcoholic cirrhosis of liver without ascites; I95.9 Hypotension, unspecified; E66.01 Morbid (severe) obesity due to excess calories; Z68.42 Body mass index [BMI] 45.0-49.9, adult; B17.10 Acute hepatitis C without hepatic coma; N32.81 Overactive bladder; R55 Syncope and collapse; E83.42 Hypomagnesemia; S82.52XA Displaced fracture of medial malleolus of left tibia, initial encounter for closed fracture; E03.9 Hypothyroidism, unspecified; F43.10 Post-traumatic stress disorder, unspecified; I73.9 Peripheral vascular disease, unspecified; E04.1 Nontoxic single thyroid nodule; G47.30 Sleep apnea, unspecified; Z79.82 Long term (current) use of aspirin; Z79.899 Other long term (current) drug therapy; Z88.0 Allergy status to penicillin; Z88.2 Allergy status to sulfonamides; F17.210 Nicotine dependence, cigarettes, uncomplicated; E86.0 Dehydration; F41.9 Anxiety disorder, unspecified; D64.9 Anemia, unspecified; R19.7 Diarrhea, unspecified; E87.6 Hypokalemia; W18.30XA Fall on same level, unspecified, initial encounter; Y92.009 Unspecified place in unspecified non-institutional (private) residence as the place of occurrence of the external cause

== ENCOUNTER → 2016-09-16 | Outpatient (CLI) | payer OTHER ==
[~2016-09-16] MED LIST changes: +ALDA25TA2 PO; +ASPI325T PO; +CARV3.12 PO; +FOLI1TAB2 PO; +NYST10PW TOP; +ONDA1TAB15 PO; +POTA10CA PO; -SERT-141 PO; +SERT50TA PO; +SIME80TA PO; +THIA100TA PO; +TORS10TA3 PO; +TRAM50TA2 PO; +VITMTA PO
--- NOTE | 2016-09-16 16:56 | REP ---
THYROID ULTRASOUND: Real-time sonographic evaluation of the thyroid is performed and compared to prior study of 02/18/2016. Both lobes of the thyroid are heterogenous, right lobe measuring 2.3 x 0.7 x 0.5 cm and left lobe 2.5 x 0.7 x 0.6 cm, similar to the prior exam. Nodule in the right lobe measures approximately 4 x 7 x 4 mm, not significantly changed. Tiny cystic structure just above the isthmus measures 3-4 mm in diameter. IMPRESSION: Stable right lobe nodule. Signed by Prakash Delarosa MD 09/17/2016 01:23 P
== END ==
LOC: M LRY 12:04
PROVIDERS: ATTEND Family Medicine
DX: E04.1 Nontoxic single thyroid nodule (principal)

== ENCOUNTER 2016-09-23 03:40 | Emergency (ER) | payer OTHER ==
[~2016-09-23] VITALS: Ht 177.8 cm; Wt 130.6 kg
[~2016-09-23 03:40] MED LIST changes: +GABA-282 PO; -GABA300C3 PO
[2016-09-23] MEDS ORDERED: ALDA25TA2 PO (04:07)
[2016-09-23] MEDS ORDERED: NS 1,000 ML IV SCH (07:11)
[2016-09-23] MEDS ORDERED: PERCOCET 5MG/325MG TAB PO ONE (07:15)
--- NOTE | 2016-09-23 08:16 | REP ---
Clinical: Trauma. Comparison: 06/11/2016 . Findings: Age-related atrophy and microvascular ischemic changes are appreciated. The ventricles and sulci are symmetric. Delarosa-white differentiation is maintained. There is no evidence for acute intracranial hemorrhage, mass/mass effect, pathology or infarction. No extra-axial fluid collection. Calvarium is intact. Paranasal sinuses and mastoid air cells are clear. Impression: Age related atrophy and microvascular ischemic changes. No acute intracranial hemorrhage, infarction, or mass/mass effect. Signed by Cruz Freed MD 09/23/2016 08:07 A
--- NOTE | 2016-09-23 08:58 | REP ---
LEFT SHOULDER, COMPLETE: 09/23/2016. Clinical history: Trauma. Findings: No prior shoulder series. AC joint with spurring greater superiorly than inferiorly. No widening of the joint space or elevation of the clavicle. There are some generative changes of the glenohumeral joint without fracture, subluxation or focal lesion. No abnormal soft-tissue calcification. Ribs, scapula, clavicle and humerus without focal abnormality. Impression: 1. AC and glenohumeral joint degenerative change without fracture, avulsion, subluxation, abnormal soft-tissue calcification or other acute finding. Signed by Elias Amado MD 09/23/2016 05:47 P
--- NOTE | 2016-09-23 09:04 | REP ---
AP pelvis with right hip: 09/23/2016. Comparison left hip series 09/13/2014, CT 06/19/2016. Clinical history: Trauma. AP pelvis, pelvic ring intact. There is bilateral sclerosis and some erosions of the SI joints left greater than right. There are also erosions of the symphysis pubis, similar to the previous study in 2014. Hip joint space is narrowed on the right compared to left. There are degenerative changes bilaterally of the hips with sclerosis acetabular roof. No fracture visible at the pelvis. Degenerative disc and facet changes lower lumbar spine. Left hip: Joint space narrowing superiorly at the acetabular roof with some sclerosis and spurring acetabular roof. No fracture of the hip. Impression: 1. Erosive arthritis involving both SI joints left greater than right and the symphysis pubis. 2. Mild joint space narrowing, right greater than left hip with sclerosis of acetabular roof but no hip joint space erosions. No fractures. Signed by Elias Amado MD 09/23/2016 05:47 P
[2016-09-23 09:15] LABS: ALBUMIN 1.8 GM/DL (3.2-5.2); ALBUMIN/GLOBULIN RATIO 0.47 (1.00-1.93); ALKALINE PHOSPHATASE 151 U/L (45-117); ALT/SGPT 50 U/L (12-78); ANION GAP 10 MEQ/L (8-16); AST/SGOT 94 U/L (15-37); BILIRUBIN,DIRECT 3.2 MG/DL (0.0-0.2); BILIRUBIN,TOTAL 5.3 MG/DL (0.2-1.0); BLOOD UREA NITROGEN 10 MG/DL (7-18); CALCIUM LEVEL 8.4 MG/DL (8.5-10.1); CARBON DIOXIDE LEVEL 22 MEQ/L (21-32); CHLORIDE LEVEL 110 MEQ/L (98-107); CREATININE FOR GFR 0.98 MG/DL (0.55-1.02); GLOMERULAR FILTRATION RATE > 60.0 (>51); GLUCOSE, FASTING 116 MG/DL (70-105); POTASSIUM SERUM 4.3 MEQ/L (3.5-5.1); SODIUM LEVEL 142 MEQ/L (136-145); TOTAL PROTEIN 5.6 GM/DL (6.4-8.2)
[2016-09-23 09:17] LABS: DIFF SLIDE NUMBER 108; MEAN CORPUSCULAR HEMOGLOBIN 33.2 pg (27.0-33.0); MEAN CORPUSCULAR HGB CONC 31.9 g/dl (32.0-36.5); MEAN CORPUSCULAR VOLUME 103.9 fl (80.0-96.0); RED CELL DISTRIBUTION WIDTH 15.3 % (11.5-14.5); WHITE BLOOD COUNT 3.3 K/mm3 (4.0-10.0)
[2016-09-23 09:41] LABS: PLATELET COUNT, AUTOMATED 83 k/mm3 (150-450)
[2016-09-23 09:44] LABS: ANISOCYTOSIS 1+
[2016-09-23 16:31] VITALS: BP 123/67
--- NOTE | 2016-09-24 16:27 | ECGEPIP ---
Stationary ECG Study [facility] - ED Test Date: 2016-09-23 Pat Name: RAYA PINEDA Department: Room: - Gender: F Triage Nurse: mayelin : 1960 Requested By: Haley Bravo Order Number: [id number] Reading MD: Haley Bravo Measurements Intervals [place] Rate: 76 P: 55 [place]: 154 QRS: -23 QRSD: 96 T: 55 QT: 372 QTc: 419 Interpretive Statements SINUS RHYTHM BORDERLINE LEFT AXIS DEVIATION NSTTW ABNORMALITY INCREASED RATE 06/11/16 Electronically Signed On 09-24-2016 16:27:00 EDT by Haley Bravo
--- NOTE | 2016-09-24 16:29 | ECGEPIP ---
Stationary ECG Study [facility] - ED Test Date: 2016-09-23 Pat Name: RAYA PINEDA Department: Room: - Gender: F Supervisor Product Inspection: fatou : 1960 Requested By: Haley Bravo Order Number: [id number] Reading MD: Haley Bravo Measurements Intervals [place] Rate: 75 P: 57 [place]: 154 QRS: -16 QRSD: 97 T: 54 QT: 365 QTc: 410 Interpretive Statements SINUS RHYTHM NONSPECIFIC T-WAVE ABNORMALITY SIMILAR 09/23/16 9:57 Electronically Signed On 09-24-2016 16:28:55 EDT by Haley Bravo
== END 2016-09-23 16:27 | disposition home or self-care (01) ==
LOC: EDBD 03:40 → M ED 04:43
DX: R55 Syncope and collapse (principal); D69.6 Thrombocytopenia, unspecified; B19.20 Unspecified viral hepatitis C without hepatic coma; K74.60 Unspecified cirrhosis of liver; D61.818 Other pancytopenia; G47.30 Sleep apnea, unspecified; I73.9 Peripheral vascular disease, unspecified; F10.21 Alcohol dependence, in remission; Z79.899 Other long term (current) drug therapy; Z79.01 Long term (current) use of anticoagulants; Z88.0 Allergy status to penicillin; Z88.2 Allergy status to sulfonamides

== ENCOUNTER 2016-10-26 16:28 | Emergency (ER) | payer OTHER ==
[~2016-10-26] VITALS: Ht 177.8 cm; Wt 127.0 kg
--- NOTE | 2016-10-26 18:47 | REP ---
CT BRAIN WITHOUT IV CONTRAST: CT brain is performed without IV contrast. There is a fairly large right subdural hematoma which is subacute to old. The hematoma is mainly hypodense with small areas of acute hemorrhage internally. There is a smaller but acute left subdural hematoma. The right subdural extends along the frontal, temporal and parietal lobes. The left subdural hematoma extends to the convexity. There is diffuse cerebral edema. There is mass effect with effacement of both lateral ventricles. There is midline shift toward the left of approximately 1.3 cm. There is no skull fracture. There is mild scattered fluid in the mastoid air cells bilaterally. There is mild diffuse mucosal thickening in the frontal and sphenoid sinuses with a more moderate degree of thickening and fluid throughout the ethmoid sinuses. IMPRESSION: Bilateral subdural hematomas larger on the right than on the left. The right subdural hematoma is older and more hypodense. The right subdural is more extensive and is seen along the right frontal, temporal and parietal lobes. The left subdural hematoma is located along the temporal and parietal lobes. There is diffuse cerebral edema with effacement of the lateral ventricles and midline shift to the left of approximately 1.[address] Monahan was informed of these findings at the time of the examination at approximately 5:59 pm on 10/26/2016. Signed by Prakash Delarosa MD 10/26/2016 07:53 P
--- NOTE | 2016-10-26 18:49 | REP ---
PORTABLE CHEST: AP portable view of the chest is performed. COMPARISON: 07/12/2016 as well as other prior exams. There is mild cardiomegaly and pulmonary venous hypertension. There is new consolidation in the left lower lobe. The mediastinal silhouette is unchanged. IMPRESSION: Left lower lobe consolidation. Signed by Prakash Delarosa MD 10/26/2016 07:53 P
[2016-10-26 18:50] LABS: ADD MORPHOLOGY? YES; BASO % 0.9 % (0.0-1.0); EOS # 0.1 K/mm3 (0.0-0.50); EOS % 1.5 % (0.0-3.0); LARGE UNSTAINED CELL # 0.1 K/mm3 (0.0-0.4); LARGE UNSTAINED CELL % 2.6 % (0.0-4.0); LYMPH % 16.9 % (24.0-44.0); MEAN CORPUSCULAR HEMOGLOBIN 35.2 pg (27.0-33.0); MEAN CORPUSCULAR HGB CONC 32.2 g/dl (32.0-36.5); MEAN CORPUSCULAR VOLUME 109.4 fl (80.0-96.0); MONO # 0.5 K/mm3 (0.0-0.8); MONO % 9.9 % (0.0-5.0); NEUTROPHILS # 3.6 K/mm3 (1.8-7.7); NEUTROPHILS % 68.3 % (36.0-66.0); PLATELET COUNT, AUTOMATED 130 k/mm3 (150-450); RED CELL DISTRIBUTION WIDTH 17.1 % (11.5-14.5); WHITE BLOOD COUNT 5.3 K/mm3 (4.0-10.0)
[2016-10-26] MEDS ORDERED: PRIS100T PO (18:55)
[2016-10-26] MEDS ORDERED: LEVO300T3 PO (18:55)
[2016-10-26] MEDS ORDERED: FURO1TAB15 PO (18:55)
[2016-10-26] MEDS ORDERED: GABA-282 PO (18:55)
[2016-10-26] MEDS ORDERED: ETOD30CA PO (18:55)
[2016-10-26] MEDS ORDERED: CARV3.12 PO (18:55)
[2016-10-26] MEDS ORDERED: OXYB5TA PO (18:55)
[2016-10-26] MEDS ORDERED: PRAZ2CAP PO (18:55)
[2016-10-26] MEDS ORDERED: PATIENT COMMENT (18:56)
[2016-10-26 19:02] LABS: METHADONE URINE NEGATIVE (NEGATIVE)
[2016-10-26 19:15] LABS: ANISOCYTOSIS 1+; POLYCHROMASIA 1+
[2016-10-26 19:20] LABS: ALBUMIN 1.5 GM/DL (3.2-5.2); ALBUMIN/GLOBULIN RATIO 0.34 (1.00-1.93); ALKALINE PHOSPHATASE 225 U/L (45-117); ANION GAP 10 MEQ/L (8-16); AST/SGOT 88 U/L (15-37); BILIRUBIN,DIRECT 6.4 MG/DL (0.0-0.2); BILIRUBIN,TOTAL 8.7 MG/DL (0.2-1.0); BLOOD UREA NITROGEN 12 MG/DL (7-18); CALCIUM LEVEL 7.9 MG/DL (8.5-10.1); CARBON DIOXIDE LEVEL 27 MEQ/L (21-32); CHLORIDE LEVEL 104 MEQ/L (98-107); CREATININE FOR GFR 1.04 MG/DL (0.55-1.02); GLOMERULAR FILTRATION RATE 58.1 (>51); GLUCOSE, FASTING 147 MG/DL (70-105); MAGNESIUM LEVEL 1.8 MG/DL (1.8-2.4); PHOSPHORUS LEVEL 2.4 MG/DL (2.5-4.9); POTASSIUM SERUM 3.6 MEQ/L (3.5-5.1); SODIUM LEVEL 141 MEQ/L (136-145); TOTAL PROTEIN 5.9 GM/DL (6.4-8.2)
--- NOTE | 2016-10-26 19:20 | REPUSA ---
CT of the cervical spine Clinical history: Pain. Technique: Multiple axial CT images were obtained through the cervical spine without administration o f contrast. Coronal and sagittal 3-D reconstructed images were also obtained. Comparison: None. Findings: The cervical vertebral bodies are in satisfactory positioning and alignment. No fractures or dislocat ions are demonstrated. The odontoid process is intact. Intervertebral disc spaces are mildly narrowed from C3 through C7, with minimal disc osteophyte complexes appreciated. Mild narrowing of the neural foramen are seen at each of these levels. There is no evidence of facet subluxation. The cervical cr anial junction is intact. The cervical spinal canal demonstrates normal caliber and contour without e vidence of spinal stenosis. The surrounding soft tissues are within normal limits. Impression: 1. No acute fracture or traumatic injury. 2. Moderate degenerative disc disease with disc osteophyte complexes at C3/C4,C4/C5, C5/C6, and C6/C7 . There is no evidence of central canal stenosis. However, there is mild bilateral neural foraminal n arrowing at all of these levels.
[2016-10-26] MEDS ORDERED: NS 1,000 ML IV SCH (19:25)
[2016-10-26 19:26] LABS: ALT/SGPT 43 U/L (12-78)
[2016-10-26 19:43] LABS: INR 2.64
[2016-10-26] MEDS ORDERED: LevoFLOXacin IV 750 MG in APPROPRIATE DILUENT 1 EA IV ONE (19:45)
[2016-10-26 20:39] VITALS: BP 125/58
--- NOTE | 2016-10-27 08:17 | ECGEPIP ---
Stationary ECG Study [facility] - ED Test Date: 2016-10-26 Pat Name: RAYA PINEDA Department: Room: - Gender: F Unit Manager Rn: : 1960 Requested By: JARROD Hernández Order Number: [id number] Reading MD: Haley Bravo Measurements Intervals [place] Rate: 69 P: 44 [place]: 132 QRS: 12 QRSD: 93 T: 49 QT: 354 QTc: 381 Interpretive Statements SINUS RHYTHM LOW QRS VOLTAGE IN PRECORDIAL LEADS NSTTW ABNORMALITY SIMILAR 09/23/16 Electronically Signed On 10-27-2016 8:17:35 EDT by Haley Bravo
== END 2016-10-26 20:44 | disposition short-term general hospital (02) ==
LOC: EDBD 16:28 → M ED 17:37
DX: E80.6 Other disorders of bilirubin metabolism (principal); I62.00 Nontraumatic subdural hemorrhage, unspecified; J18.9 Pneumonia, unspecified organism; M50.30 Other cervical disc degeneration, unspecified cervical region; M25.78 Osteophyte, vertebrae; B19.20 Unspecified viral hepatitis C without hepatic coma; K85.90 Acute pancreatitis without necrosis or infection, unspecified; I51.7 Cardiomegaly; E66.9 Obesity, unspecified; M54.5 Low back pain; F12.10 Cannabis abuse, uncomplicated; F10.10 Alcohol abuse, uncomplicated; Z79.899 Other long term (current) drug therapy; Z88.0 Allergy status to penicillin; Z88.2 Allergy status to sulfonamides
CPT/HCPCS: 36415; 51702; 70450; 71010; 72125; 80048; 80076; 80306; 81001; 82140; 82550; 82553; 83605; 83690; 83735; 84100; 84443; 85025; 85610; 85730; 87040; 87086; 93005; 93041; 94760; 96374; 99285; G0480; J1956